=== PATIENT | male | born 1955 | race Caucasian/White ===

== ENCOUNTER 2016-11-25 18:40 | Emergency (ER) | payer OTHER ==
[2016-11-25] MEDS ORDERED: ACETAMINOPHEN TAB 500 MG TAB PO STA (19:21)
[2016-11-25] MEDS ORDERED: SODIUM CHLORIDE 0.9% 1,000 ML IV ONE (19:22)
--- NOTE | 2016-11-25 19:24 | ED ---
Fever HPI - General Chief Complaint: Fever Stated Complaint: fever Source: patient Mode of arrival: wheelchair Limitations: no limitations - History of Present Illness Initial Comments: Patient is a 61-year-old male who presents for evaluation of fever at home and diarrhea. Past medical history as below. 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 He is no longer on immunosuppression medications. Has a history of auto [id number] and recently completed a course of prednisone. Over the last 24 hours, the patient developed liquid brown stool. There is no blood in it. Non-mucousy. Has a hx of C. diff per the pt. He has associated nausea without emesis. He states that he feels very fatigued. He had a T-max of 101 at home. He has associated chills. No known sick contacts. No recent travel. No changes in medications outside of discontinuing the prednisone and course of penicillin. He is followed by [facility]. He denies congestion, URI symptoms, sore throat, cough, shortness of breath, chest pain, vomiting, abdominal pain, pain or burning with urination. - Related Data Home Medications Medication Instructions Recorded Confirmed Vitamin B Complex 1 cap PO DAILY 05/23/15 11/25/16 Ergocalciferol (Vitamin D2) 50,000 unit PO TH 12/04/15 11/25/16 [Drisdol] Acyclovir [Zovirax] 400 mg PO BID 11/25/16 11/25/16 Gabapentin [Neurontin] 300 mg PO BID 11/25/16 11/25/16 Metoprolol Succinate (ER) [Toprol 50 mg PO DAILY@1800 11/25/16 11/25/16 Xl] Posaconazole [Noxafil] 300 mg PO DAILY 11/25/16 11/25/16 cycloSPORINE [Restasis Multidose] 1 drop BOTH EYES BID 11/25/16 11/25/16 Allergies Allergy/AdvReac Type Severity Reaction Status Date / Time Iodinated Contrast Media - Allergy Unknown Verified 11/25/16 19:26 Oral and [Iodinated Contrast Media - IV Dye] Review of Systems ROS Statement: Those systems with pertinent positive or pertinent negative responses have been documented in the HPI. ROS Other: All systems not noted in ROS Statement are negative. Past Medical History Past Medical History: Cancer, Hyperlipidemia, Hypertension Additional Past Medical History / Comment(s): prostate cancer, hx venous insufficiency, RCMD, bone marrow transplant History of Any Multi-Drug Resistant Organisms: None Reported Past Surgical History: Heart Catheterization With Stent, Hernia Repair, Prostate Surgery Additional Past Surgical History / Comment(s): larry fundoplication, bone marrow transplant Past Anesthesia/Blood Transfusion Reactions: No Reported Reaction Date of Last Stent Placement:: 2003 Past Psychological History: Depression Smoking Status: Never smoker Past Alcohol Use History: None Reported, Rare Past Drug Use History: None Reported - Past Family History Mother Family Medical History: Cancer Additional Family Medical History / Comment(s): skin cancer Brother(s) Family Medical History: Renal Disease Additional Family Medical History / Comment(s): kidney transplant General Exam Limitations: no limitations General appearance: alert, in no apparent distress, other (Flushed but well- appearing) Head exam: Present: atraumatic, normocephalic, normal inspection Eye exam: Present: normal appearance, PERRL, EOMI. Absent: scleral icterus, conjunctival injection, periorbital swelling ENT exam: Present: normal exam, normal oropharynx, mucous membranes moist, TM's normal bilaterally, other (No lesions identified in the mouth) Neck exam: Present: normal inspection. Absent: tenderness, meningismus, lymphadenopathy Respiratory exam: Present: normal lung sounds bilaterally, other (Clear bilaterally. No wheezes rales or rhonchi. No conversational dyspnea.). Absent : respiratory distress, wheezes, rales, rhonchi, stridor Cardiovascular Exam: Present: regular rate, normal rhythm, normal heart sounds. Absent: systolic murmur, diastolic murmur, rubs, gallop, clicks GI/Abdominal exam: Present: soft, normal bowel sounds, other (Abdomen is soft. No tenderness elicited. No peritoneal signs. Negative Carias sign. Negative McBurney sign. No rebound tenderness.). Absent: distended, tenderness, guarding, rebound, rigid Extremities exam: Present: normal inspection, full ROM, normal capillary refill. Absent: tenderness, pedal edema, joint swelling, calf tenderness Back exam: Present: normal inspection Neurological exam: Present: alert, oriented X3, CN II-XII intact Psychiatric exam: Present: normal affect, normal mood Skin exam: Present: warm, dry, intact, normal color, other (No obvious rashes noted). Absent: rash Course Vital Signs 11/25/16 11/25/16 11/25/16 18:49 21:09 22:37 Temperature 101.0 F H 98.7 F 97.7 F Pulse Rate 79 63 55 L Respiratory 18 16 18 Rate Blood Pressure 172/84 175/79 148/75 O2 Sat by Pulse 99 98 97 Oximetry Medical Decision Making - Medical Decision Making Patient presents for evaluation for fever over the last 24 hours. Has a history of bone marrow transplantation and is not on immunosuppressive medications. He provided blood work from 11/20/2016 and is not neutropenic on those laboratory studies. There are no clinical findings suggestive of a bacterial infection at this time. Will order blood cultures, urine cultures, urinalysis, basic labs, influenza, chest x-ray. Will also order a dose of Tylenol. 2048: Reviewed laboratory studies. Thrombocytopenia though at baseline. Leukopenia at baseline. Awaiting for differential to resolve. Fluctuates appear appropriate. Influenza negative. Review chest x-ray which was negative for infiltrate. -Manual differential resolved. Not neutropenic. Called [facility]. We'll place a page out to bone marrow physician talent acquisition manager. Will call back. 2124: Spoke with Dr. Calderon (spelling?). He was able to provide a little bit more history about the patient with his history of recurrent C. diff and also has a history of CMV colitis. Discussed laboratory findings, vital signs, history, physical exam. We are both in agreement that he does not have consistent signs or symptoms of CMV colitis or C. diff at this time as he has no abdominal pain/symptoms consistent with previous episodes of C. diff. Dr. Calderon recommended discharging the patient home if there are no signs of bacterial infection and having him follow-up in the office. I discussed this conversation with the patient at bedside. He feels comfortable going home. Will take Tylenol and Motrin as needed for fevers. Frequent hand washing. Plenty of fluids. Bureau diet. Unable to provide a stool sample in the emergency department and states he is no longer having diarrhea. Discussed signs and symptoms on when to return to the emergency department for further evaluation. He will either come here or go to [place]. Comfortable with discharge home and will follow-up. - Lab Data Result diagrams: 11/25/16 20:00 11/25/16 20:00 Lab Results 11/25/16 11/25/16 11/25/16 Range/Units 19:25 20:00 20:00 WBC 2.4 L (3.8-10.6) k/uL RBC 2.70 L (4.30-5.90) m/uL Hgb 9.5 L (13.0-17.5) gm/dL Hct 28.5 L (39.0-53.0) % MCV 105.8 H D (80.0-100.0) fL MCH 35.4 H (25.0-35.0) pg MCHC 33.5 (31.0-37.0) g/dL RDW 16.9 H (11.5-15.5) % Plt Count 41 L* (150-450) k/uL Neutrophils % (Manual) 54.0 % Band Neutrophils % 2.0 % Lymphocytes % (Manual) 36.0 % Monocytes % (Manual) 7.0 % Eosinophils % (Manual) 1.0 % Neutrophils # (Manual) 1.3 (1.3-7.7) k/uL Lymphocytes # (Manual) 0.9 L (1.0-4.8) k/uL Monocytes # (Manual) 0.2 (0-1.0) k/uL Eosinophils # (Manual) 0.0 (0-0.7) k/uL Nucleated RBCs 0 (0-0) /100 WBC Manual Slide Review Performed Poikilocytosis Slight Poikilocytosis (manual Present Anisocytosis Slight Anisocytosis (manual) Present Macrocytosis Marked Sodium 141 (137-145) mmol/L Potassium 3.6 (3.5-5.1) mmol/L Chloride 107 (98-107) mmol/L Carbon Dioxide 23 (22-30) mmol/L Anion Gap 11 mmol/L BUN 17 (9-20) mg/dL Creatinine 1.10 (0.66-1.25) mg/dL Est GFR (MDRD) Af Amer >60 (>60 ml/min/1.73 sqM) Est GFR (MDRD) Non-Af >60 (>60 ml/min/1.73 sqM) Glucose 88 (74-99) mg/dL Plasma Lactic Acid Dipak (0.7-2.0) mmol/L Calcium 8.5 (8.4-10.2) mg/dL Total Bilirubin 0.5 (0.2-1.3) mg/dL AST 31 (17-59) U/L ALT 68 (21-72) U/L Alkaline Phosphatase 79 (38-126) U/L Total Protein 5.4 L (6.3-8.2) g/dL Albumin 3.3 L (3.5-5.0) g/dL Influenza Type A RNA Not Detected (Not Detectd) Influenza Type B (PCR) Not Detected (Not Detectd) 11/25/16 Range/Units 20:00 WBC (3.8-10.6) k/uL RBC (4.30-5.90) m/uL Hgb (13.0-17.5) gm/dL Hct (39.0-53.0) % MCV (80.0-100.0) fL MCH (25.0-35.0) pg MCHC (31.0-37.0) g/dL RDW (11.5-15.5) % Plt Count (150-450) k/uL Neutrophils % (Manual) % Band Neutrophils % % Lymphocytes % (Manual) % Monocytes % (Manual) % Eosinophils % (Manual) % Neutrophils # (Manual) (1.3-7.7) k/uL Lymphocytes # (Manual) (1.0-4.8) k/uL Monocytes # (Manual) (0-1.0) k/uL Eosinophils # (Manual) (0-0.7) k/uL Nucleated RBCs (0-0) /100 WBC Manual Slide Review Poikilocytosis Poikilocytosis (manual Anisocytosis Anisocytosis (manual) Macrocytosis Sodium (137-145) mmol/L Potassium (3.5-5.1) mmol/L Chloride (98-107) mmol/L Carbon Dioxide (22-30) mmol/L Anion Gap mmol/L BUN (9-20) mg/dL Creatinine (0.66-1.25) mg/dL Est GFR (MDRD) Af Amer (>60 ml/min/1.73 sqM) Est GFR (MDRD) Non-Af (>60 ml/min/1.73 sqM) Glucose (74-99) mg/dL Plasma Lactic Acid Dipak 0.6 L (0.7-2.0) mmol/L Calcium (8.4-10.2) mg/dL Total Bilirubin (0.2-1.3) mg/dL AST (17-59) U/L ALT (21-72) U/L Alkaline Phosphatase (38-126) U/L Total Protein (6.3-8.2) g/dL Albumin (3.5-5.0) g/dL Influenza Type A RNA (Not Detectd) Influenza Type B (PCR) (Not Detectd) Disposition Clinical Impression: Fever, Diarrhea, Leukopenia, Thrombocytopenia, Bone marrow replaced by transplant Disposition: HOME SELF-CARE Condition: Good Instructions: Fever in Adults (ED), Acute Diarrhea (ED) Referrals: Ranjana Rendon DO [Primary Care Provider] - 1-2 days
[2016-11-25 20:18] LABS: Anisocytosis Slight; Aty Lym Flag Slight; CHCM 34.2; HCT 28.5 % (39.0-53.0); HGB 9.5 gm/dL (13.0-17.5); MCH 35.4 pg (25.0-35.0); MCHC 33.5 g/dL (31.0-37.0); Macrocytosis Marked; Mean Platelet Volume 8.5; Poikilocytosis Slight; RDW 16.9 % (11.5-15.5); WBC 2.4 k/uL (3.8-10.6); WBC (Perox) 2.59
[2016-11-25 20:29] LABS: MCV 105.8 fL (80.0-100.0)
--- NOTE | 2016-11-25 20:34 | XR ---
EXAMINATION TYPE: XR chest 2V DATE OF EXAM: 11/25/2016 8:18 PM HISTORY: Shortness of breath. COMPARISON: 09/21/2016 TECHNIQUE: Single view of the chest is submitted. FINDINGS: Demonstrated are scattered senescent parenchymal change. There is no evidence for focal infiltrate. The heart is stable. Hilar and mediastinal structures are within normal limits. Degenerative changes are seen of the dorsal spine. IMPRESSION: 1. Chronic changes without evidence for acute pulmonary disease.
[2016-11-25 20:36] LABS: ALT 68 U/L (21-72); AST 31 U/L (17-59); Alkaline Phosphatase 79 U/L (38-126); Anion Gap 11 mmol/L; Blood Urea Nitrogen 17 mg/dL (9-20); Calcium 8.5 mg/dL (8.4-10.2); Carbon Dioxide 23 mmol/L (22-30); Chloride 107 mmol/L (98-107); Glucose 88 mg/dL (74-99); Non-African American GFR(MDRD) >60 (>60 ml/min/1.73 sqM); Potassium 3.6 mmol/L (3.5-5.1); Sodium 141 mmol/L (137-145); Total Bilirubin 0.5 mg/dL (0.2-1.3); Total Protein 5.4 g/dL (6.3-8.2)
[2016-11-25 20:52] LABS: Add Differential Manual Differential
[2016-11-25 20:57] LABS: Nucleated Red Blood Cells 0 /100 WBC (0-0); Total Cells Counted 100
[2016-11-25 20:58] LABS: Manual Review Performed
[2016-11-25 22:47] VITALS: BP 148/75; PULSE 55; RESP 18; TEMP 97.7
== END 2016-11-25 22:37 | disposition home or self-care (01) ==
LOC: EC 18:40
DX: R50.9 Fever, unspecified (principal); R19.7 Diarrhea, unspecified; D72.819 Decreased white blood cell count, unspecified; D69.6 Thrombocytopenia, unspecified; Z94.81 Bone marrow transplant status; Z79.899 Other long term (current) drug therapy; I10 Essential (primary) hypertension; Z85.46 Personal history of malignant neoplasm of prostate; Z95.5 Presence of coronary angioplasty implant and graft; Z91.041 Radiographic dye allergy status
CPT/HCPCS: 36415; 71020; 80053; 83605; 85025; 87040; 87502; 99283

== ENCOUNTER → 2016-11-28 | Outpatient (CLI) | payer OTHER ==
[2016-11-28 13:43] VITALS: PULSE 55; RESP 18; TEMP 98.5
[2016-11-28 13:54] VITALS: BP 168/90
== END | disposition home or self-care (01) ==
LOC: LABWHC1 12:22
PROVIDERS: ATTEND Physician Assistant
DX: R50.9 Fever, unspecified (principal)
CPT/HCPCS: 36415; 36591; 87040

== ENCOUNTER → 2017-04-24 | Outpatient (CLI) | payer OTHER | END | disposition home or self-care (01) | LOC: LABWHC1 11:34 | PROVIDERS: ATTEND Internal Medicine | DX: R00.1 Bradycardia, unspecified (principal) | CPT/HCPCS: 36415; 93005 ==

== ENCOUNTER 2017-07-02 11:34 | Emergency (ER) | payer OTHER ==
[2017-07-02 11:40] VITALS: TEMP 98.4
[2017-07-02 12:12] LABS: Anisocytosis Slight; Basophils % (A) 0 %; CH 32.7; CHCM 31.9; Eosinophils % (A) 1 %; HCT 32.1 % (39.0-53.0); HDW 3.33; HGB 10.5 gm/dL (13.0-17.5); Hypochromasia Slight; Luc # (Auto) 0.11; Luc % (Auto) 2; Lymphocytes # (A) 0.8 k/uL (1.0-4.8); Lymphocytes % (A) 17 %; MCH 33.6 pg (25.0-35.0); MCHC 32.7 g/dL (31.0-37.0); MCV 102.7 fL (80.0-100.0); Macrocytosis Moderate; Mean Platelet Volume 8.8; Monocytes # (A) 0.2 k/uL (0-1.0); Monocytes % (A) 3 %; Neutrophils # (A) 3.8 k/uL (1.3-7.7); Neutrophils % (A) 77 %; RBC 3.12 m/uL (4.30-5.90); RDW 18.6 % (11.5-15.5); WBC 4.9 k/uL (3.8-10.6); WBC (Perox) 4.81
--- NOTE | 2017-07-02 12:17 | ED ---
General Adult HPI - General Chief complaint: Chest Pain Stated complaint: Sharp Pains in Chest Time Seen by Provider: 07/02/17 11:41 Source: patient, RN notes reviewed, old records reviewed Mode of arrival: wheelchair Limitations: no limitations - History of Present Illness Initial comments: This is a 61-year-old male the ER for evaluation today. Today the patient presents for evaluation regarding chest pain. Patient has severe sudden onset of sharp chest pain. 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 No fevers. No significant shortness of breath. No trauma. No travel history. No sick contacts. - Related Data Home Medications Medication Instructions Recorded Confirmed Ergocalciferol (Vitamin D2) 50,000 unit PO TH 12/04/15 07/02/17 [Drisdol] Lisinopril [Lisinopril] 20 mg PO DAILY 03/14/17 07/02/17 Acyclovir 400 mg PO BID 07/02/17 07/02/17 Cyanocobalamin (Vitamin B-12) 1,000 mcg PO DAILY 07/02/17 07/02/17 [Vitamin B-12] Folic Acid 1 mg PO DAILY 07/02/17 07/02/17 Hydrocortisone [Cortef] 20 mg PO BID 07/02/17 07/02/17 Lidocaine-Prilocaine Cream [Emla 1 applic TOPICAL DAILY PRN 07/02/17 07/02/17 Cream 2.5%/2.5%] Penicillin V Potassium [Pen Vee K] 500 mg PO BID 07/02/17 07/02/17 Posaconazole [Noxafil] 300 mg PO DAILY 07/02/17 07/02/17 Ranitidine HCl 150 mg PO BID 07/02/17 07/02/17 amLODIPine [Norvasc] 5 mg PO DAILY 07/02/17 07/02/17 predniSONE 30 mg PO DAILY 07/02/17 07/02/17 Allergies Allergy/AdvReac Type Severity Reaction Status Date / Time Iodinated Contrast- Oral and Allergy Unknown Verified 07/02/17 12:05 IV Dye [Iodinated Contrast Media - IV Dye] tramadol AdvReac Nausea & Verified 07/02/17 12:05 Vomiting Review of Systems ROS Statement: Those systems with pertinent positive or pertinent negative responses have been documented in the HPI. ROS Other: All systems not noted in ROS Statement are negative. Past Medical History Past Medical History: Cancer, Hyperlipidemia, Hypertension Additional Past Medical History / Comment(s): prostate cancer, hx venous insufficiency, RCMD, bone marrow transplant, "graft vs host disease" History of Any Multi-Drug Resistant Organisms: None Reported Past Surgical History: Heart Catheterization With Stent, Hernia Repair, Prostate Surgery Additional Past Surgical History / Comment(s): larry fundoplication, bone marrow transplant Past Anesthesia/Blood Transfusion Reactions: No Reported Reaction Date of Last Stent Placement:: 2003 Past Psychological History: Depression Smoking Status: Former smoker Past Alcohol Use History: Occasional Past Drug Use History: None Reported - Past Family History Mother Family Medical History: Cancer Additional Family Medical History / Comment(s): skin cancer Brother(s) Family Medical History: Renal Disease Additional Family Medical History / Comment(s): kidney transplant General Exam Limitations: no limitations General appearance: alert, in no apparent distress Head exam: Present: atraumatic, normocephalic, normal inspection Eye exam: Present: normal appearance, PERRL, EOMI. Absent: scleral icterus, conjunctival injection, periorbital swelling ENT exam: Present: normal exam, mucous membranes moist Neck exam: Present: normal inspection. Absent: tenderness, meningismus, lymphadenopathy Respiratory exam: Present: normal lung sounds bilaterally. Absent: respiratory distress, wheezes, rales, rhonchi, stridor Cardiovascular Exam: Present: regular rate, normal rhythm, normal heart sounds. Absent: systolic murmur, diastolic murmur, rubs, gallop, clicks GI/Abdominal exam: Present: soft, normal bowel sounds. Absent: distended, tenderness, guarding, rebound, rigid Extremities exam: Present: normal inspection, full ROM, normal capillary refill. Absent: tenderness, pedal edema, joint swelling, calf tenderness Back exam: Present: normal inspection Neurological exam: Present: alert, oriented X3, CN II-XII intact Psychiatric exam: Present: normal affect, normal mood Skin exam: Present: warm, dry, intact, normal color. Absent: rash Course Vital Signs 07/02/17 07/02/17 07/02/17 11:37 12:39 14:14 Temperature 98.4 F Pulse Rate 84 71 64 Respiratory 18 20 17 Rate Blood Pressure 144/83 132/70 138/79 O2 Sat by Pulse 98 100 Oximetry - Reevaluation(s) Reevaluation #1: 07/02/17 14:33 On reevaluation patient is in no acute distress, feels greatly relieved a is not have a blood clot EKG Findings - EKG Comments: EKG Findings:: EKG shows normal sinus rhythm rate of 75, VA 122, QRS 92, QTC 428 Medical Decision Making - Medical Decision Making 58 female in the ER for evaluation. Patient is a for evaluation regarding chest pain. Patient does have MDS with recent bone marrow transplant on steroids. Patient is a CTA is negative, lab values which are normal patient can be discharged home - Lab Data Result diagrams: 07/02/17 11:53 Lab Results 07/02/17 07/02/17 Range/Units 11:53 11:53 WBC 4.9 (3.8-10.6) k/uL RBC 3.12 L (4.30-5.90) m/uL Hgb 10.5 L (13.0-17.5) gm/dL Hct 32.1 L (39.0-53.0) % MCV 102.7 H (80.0-100.0) fL MCH 33.6 (25.0-35.0) pg MCHC 32.7 (31.0-37.0) g/dL RDW 18.6 H (11.5-15.5) % Plt Count 125 L (150-450) k/uL Neutrophils % 77 % Lymphocytes % 17 % Monocytes % 3 % Eosinophils % 1 % Basophils % 0 % Neutrophils # 3.8 (1.3-7.7) k/uL Lymphocytes # 0.8 L (1.0-4.8) k/uL Monocytes # 0.2 (0-1.0) k/uL Eosinophils # 0.0 (0-0.7) k/uL Basophils # 0.0 (0-0.2) k/uL Hypochromasia Slight Anisocytosis Slight Macrocytosis Moderate Total Creatine Kinase 140 (55-170) U/L CK-MB (CK-2) 8.3 H* (0.0-2.4) ng/mL CK-MB (CK-2) Rel Index 5.9 - Radiology Data Radiology results: report reviewed (CT chest is negative), image reviewed Disposition Clinical Impression: Chest pain Disposition: HOME SELF-CARE Condition: Good Instructions: Chest Pain (ED), Costochondritis (ED) Referrals: Ranjana Rendon DO [Primary Care Provider] - 1-2 days
--- NOTE | 2017-07-02 12:26 | XR ---
EXAMINATION TYPE: XR chest 2V DATE OF EXAM: 07/02/2017 COMPARISON: 11/25/2016 TECHNIQUE: PA and lateral views submitted. HISTORY: Pain FINDINGS: The lungs are clear and there is no pneumothorax, pleural effusion, or focal pneumonia. Arthropathy of the shoulders. Mediport catheter noted. IMPRESSION: 1. No acute process.
[2017-07-02] MEDS ORDERED: RX INFO: IV CONTRAST WAS GIVEN 1 EACH MISC MISCELLANE PRN (12:42)
[2017-07-02] MEDS ORDERED: methylPREDNISolone SOD SUCCI 125 MG/2 ML VIAL IV STA (12:42)
[2017-07-02] MEDS ORDERED: diphenhydrAMINE 50 MG/ML 1 ML VIAL IVP STA (12:42)
[2017-07-02] MEDS ORDERED: FAMOTIDINE 20 MG/2 ML VIAL IV STA (12:42)
[2017-07-02 12:46] LABS: Creatine Kinase MB 8.3 ng/mL (0.0-2.4)
--- NOTE | 2017-07-02 13:40 | CT ---
EXAMINATION TYPE: CT angio chest DATE OF EXAM: 07/02/2017 COMPARISON: NONE HISTORY: Sharp pains in chest. CT DLP: 352.4 mGycm. Automated Exposure Control for Dose Reduction was Utilized. CONTRAST: CTA scan of the thorax is performed with IV Contrast, patient injected with 100 mL of Omnipaque 350, pulmonary embolism protocol. MIP Images are created on CT scanner and reviewed. FINDINGS: LUNGS: The lungs are grossly clear, there is no concerning parenchymal mass or nodule identified. T here is no pleural effusion or pneumothorax seen. The tracheobronchial tree is patent. MEDIASTINUM: There is satisfactory enhancement of the pulmonary artery and its branches, there is no CT evidence for pulmonary embolism. There are no greater than 1 cm hilar or mediastinal lymph nodes. No cardiomegaly or pericardial effusion is seen. There is three-vessel coronary artery calcificati on seen which is noted marker for coronary artery disease. There is right subclavian Mediport cathete r with tip in SVC. OTHER: Surgical clips epigastric region just below diaphragm are likely product Kendall fundoplication surgery. There is simple appearing 1.8 cm cyst laterally upper pole level left kidney. There is mild to moderate multilevel spurring in the thoracic spine. IMPRESSION: No CT evidence for pulmonary embolism. No acute pulmonary process.
[2017-07-02 14:20] VITALS: BP 138/79; PULSE 64; RESP 17
== END 2017-07-02 14:39 | disposition home or self-care (01) ==
LOC: EC 11:34
DX: R07.9 Chest pain, unspecified (principal); I10 Essential (primary) hypertension; D64.9 Anemia, unspecified; Z94.81 Bone marrow transplant status; Z85.46 Personal history of malignant neoplasm of prostate; Z95.5 Presence of coronary angioplasty implant and graft; Z87.891 Personal history of nicotine dependence; Z79.51 Long term (current) use of inhaled steroids; Z79.899 Other long term (current) drug therapy; Z91.041 Radiographic dye allergy status; Z88.6 Allergy status to analgesic agent
CPT/HCPCS: 99285 ×2; 96374 ×2; 96375 ×3; 36415; 93005; 82550; 82553; 85025; 71020; 71275; J1200; J2930; Q9967

== ENCOUNTER → 2017-12-04 | Outpatient (CLI) | payer BC ==
[2017-12-04 14:53] VITALS: BP 157/84; PULSE 78; RESP 16; TEMP 97.9
[2017-12-04 15:28] LABS: Anisocytosis Moderate; Basophils % (A) 0 %; Eosinophils % (A) 0 %; HCT 26.6 % (39.0-53.0); HGB 8.1 gm/dL (13.0-17.5); Hypochromasia Moderate; Lymphocytes # (A) 0.4 k/uL (1.0-4.8); Lymphocytes % (A) 12 %; MCHC 30.5 g/dL (31.0-37.0); MCV 88.7 fL (80.0-100.0); Mean Platelet Volume 11.7; Microcytosis Slight; Monocytes # (A) 0.2 k/uL (0-1.0); Monocytes % (A) 6 %; Neutrophils # (A) 2.7 k/uL (1.3-7.7); Neutrophils % (A) 80 %; Platelet Count 152 k/uL (150-450); Poikilocytosis Slight; RDW 22.8 % (11.5-15.5); WBC 3.3 k/uL (3.8-10.6)
[2017-12-04 15:48] LABS: ALT 50 U/L (21-72); AST 93 U/L (17-59); Albumin 3.5 g/dL (3.5-5.0); Alkaline Phosphatase 49 U/L (38-126); Anion Gap 9 mmol/L; Blood Urea Nitrogen 29 mg/dL (9-20); Calcium 9.2 mg/dL (8.4-10.2); Carbon Dioxide 27 mmol/L (22-30); Chloride 105 mmol/L (98-107); Glucose 125 mg/dL (74-99); Potassium 4.6 mmol/L (3.5-5.1); Sodium 141 mmol/L (137-145); Total Bilirubin 0.6 mg/dL (0.2-1.3); Total Protein 5.9 g/dL (6.3-8.2)
[2017-12-04 15:58] LABS: Polychromasia Present
== END | disposition home or self-care (01) ==
LOC: PROCWHC3 14:26
PROVIDERS: ATTEND Physician Assistant
DX: D46.9 Myelodysplastic syndrome, unspecified (principal); D89.811 Chronic graft-versus-host disease; D69.6 Thrombocytopenia, unspecified; D89.813 Graft-versus-host disease, unspecified; G72.0 Drug-induced myopathy; T38.0X5A Adverse effect of glucocorticoids and synthetic analogues, initial encounter; Z94.81 Bone marrow transplant status
CPT/HCPCS: 80053; 85025; 36591; J1642; 83615

== ENCOUNTER 2017-12-28 23:48 | Inpatient (IN) | payer BC ==
[2017-12-29 00:01] LABS: Glucose,Whole Blood 106 mg/dL (75-99)
[2017-12-29] MEDS ORDERED: HYDROCORTISONE SUCCINATE 100 MG/2 ML VIAL IV STA (00:28)
--- NOTE | 2017-12-29 00:32 | ED ---
General Adult HPI - General Source: patient, EMS, RN notes reviewed Mode of arrival: EMS Limitations: no limitations <Carlos Lehman - Last Filed: 12/29/17 00:32> <Anderson Ramirez - Last Filed: 12/29/17 03:25> - General Chief complaint: Weakness Stated complaint: Weakness Time Seen by Provider: 12/29/17 00:27 - History of Present Illness Initial comments: 62-year-old male history of leukemia presents with generalized weakness. Patient was found by EMS after unknown downtime, patient believes was several hours. He had fallen earlier in the day due to weakness. He cannot see a clock and isn't totally sure how long he was down. Patient states he does not take his medication this morning which includes prednisone, antibiotics, antibiotics and antihypertensive medication. 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 He developed witll-hhuqht-eyso disease several months after bone marrow transplant. Patient denies any focal weakness. Denies headache or head trauma. Denies chest pain or shortness of breath. Denies abdominal pain nausea vomiting or diarrhea. Denies fever or chills. (Carlos Lehman) - Related Data Home Medications Medication Instructions Recorded Confirmed Ergocalciferol (Vitamin D2) 50,000 unit PO TH 12/04/15 12/27/17 [Drisdol] Lisinopril [Lisinopril] 20 mg PO BID 03/14/17 12/27/17 Acyclovir 400 mg PO BID 07/02/17 12/27/17 Cyanocobalamin (Vitamin B-12) 1,000 mcg PO DAILY 07/02/17 12/27/17 [Vitamin B-12] Folic Acid 1 mg PO DAILY 07/02/17 12/27/17 Hydrocortisone [Cortef] 20 mg PO BID 07/02/17 12/27/17 Lidocaine-Prilocaine Cream [Emla 1 applic TOPICAL DAILY PRN 07/02/17 12/27/17 Cream 2.5%/2.5%] Penicillin V Potassium [Pen Vee K] 500 mg PO BID 07/02/17 12/27/17 Posaconazole [Noxafil] 300 mg PO DAILY 07/02/17 12/27/17 Ranitidine HCl 150 mg PO BID 07/02/17 12/27/17 amLODIPine [Norvasc] 10 mg PO DAILY 07/02/17 12/27/17 predniSONE 15 mg PO DAILY 07/02/17 12/27/17 Allergies Allergy/AdvReac Type Severity Reaction Status Date / Time Iodinated Contrast- Oral and Allergy Unknown Verified 12/28/17 23:56 IV Dye [Iodinated Contrast Media - IV Dye] tramadol AdvReac Nausea & Verified 12/28/17 23:56 Vomiting Review of Systems ROS Other: All systems not noted in ROS Statement are negative. <Carlos Lehman - Last Filed: 12/29/17 00:32> ROS Other: All systems not noted in ROS Statement are negative. <Anderson Ramirez - Last Filed: 12/29/17 03:25> ROS Statement: Those systems with pertinent positive or pertinent negative responses have been documented in the HPI. Past Medical History Past Medical History: Cancer, Hyperlipidemia, Hypertension Additional Past Medical History / Comment(s): prostate cancer, hx venous insufficiency, RCMD, bone marrow transplant, "graft vs host disease" History of Any Multi-Drug Resistant Organisms: C-DIFF Date of last positivie culture/infection: 2015 Past Surgical History: Heart Catheterization With Stent, Hernia Repair, Prostate Surgery Additional Past Surgical History / Comment(s): larry fundoplication, bone marrow transplant Past Anesthesia/Blood Transfusion Reactions: No Reported Reaction Date of Last Stent Placement:: 2003 Past Psychological History: Depression Smoking Status: Former smoker Past Alcohol Use History: Occasional Past Drug Use History: None Reported - Past Family History Mother Family Medical History: Cancer Additional Family Medical History / Comment(s): skin cancer Brother(s) Family Medical History: Renal Disease Additional Family Medical History / Comment(s): kidney transplant <Carlos Lehman - Last Filed: 12/29/17 00:32> General Exam Limitations: no limitations General appearance: alert, in no apparent distress Head exam: Present: atraumatic, normocephalic Eye exam: Present: normal appearance, PERRL ENT exam: Present: normal exam Neck exam: Present: normal inspection. Absent: tenderness, meningismus Respiratory exam: Present: normal lung sounds bilaterally. Absent: respiratory distress, wheezes, rales Cardiovascular Exam: Present: regular rate, normal rhythm GI/Abdominal exam: Present: soft. Absent: distended, tenderness, guarding Extremities exam: Present: normal inspection, normal capillary refill, pedal edema (trace) Neurological exam: Present: alert, oriented X3, CN II-XII intact. Absent: motor sensory deficit Psychiatric exam: Present: normal affect, normal mood Skin exam: Present: warm, dry, pallor. Absent: cyanosis, diaphoretic <Carlos Lehman - Last Filed: 12/29/17 00:32> Course <Carlos Lehman - Last Filed: 12/29/17 00:32> <Anderson Ramirez - Last Filed: 12/29/17 03:25> Vital Signs 12/28/17 12/29/17 12/29/17 23:52 01:16 02:00 Temperature 98.1 F Pulse Rate 85 93 80 Respiratory 16 18 18 Rate Blood Pressure 151/72 123/58 118/68 O2 Sat by Pulse 96 95 96 Oximetry 12/29/17 02:42 Temperature Pulse Rate 81 Respiratory 16 Rate Blood Pressure 116/83 O2 Sat by Pulse 96 Oximetry - Reevaluation(s) Reevaluation #1: 12/29/17 0100 Patient's care is signed out at shift change awaiting laboratory studies and imaging. (Carlos Lehman) EKG Findings - EKG Results: EKG: interpreted by ERMD, sinus rhythm (Rate approximately 81 bpm), normal axis , normal QRS, normal ST/T - Blocks, Gering, Hypertrophy, ST Abn: Chamber hypertrophy or enlargement: only voltage criteria for left ventricular hypertrophy <AshleyAnderson - Last Filed: 12/29/17 03:25> Medical Decision Making - Lab Data Result diagrams: 12/29/17 01:04 12/29/17 01:04 <Anderson Ramirez - Last Filed: 12/29/17 03:25> - Lab Data Lab Results 12/28/17 12/29/17 12/29/17 Range/Units 23:57 01:04 01:04 WBC 2.1 L (3.8-10.6) k/uL RBC 3.43 L (4.30-5.90) m/uL Hgb 9.0 L (13.0-17.5) gm/dL Hct 29.1 L (39.0-53.0) % MCV 84.8 (80.0-100.0) fL MCH 26.2 (25.0-35.0) pg MCHC 30.9 L (31.0-37.0) g/dL RDW 22.2 H (11.5-15.5) % Plt Count 177 (150-450) k/uL Neutrophils % (Manual) 59 % Lymphocytes % (Manual) 28 % Monocytes % (Manual) 13 % Neutrophils # (Manual) 1.24 L (1.3-7.7) k/uL Lymphocytes # (Manual) 0.59 L (1.0-4.8) k/uL Monocytes # (Manual) 0.27 (0-1.0) k/uL Nucleated RBCs 0 (0-0) /100 WBC Manual Slide Review Performed Large Platelets Present Hypochromasia Moderate Poikilocytosis Slight Anisocytosis Moderate Microcytosis Slight PT (9.0-12.0) sec INR (<1.2) APTT (22.0-30.0) sec Sodium (137-145) mmol/L Potassium (3.5-5.1) mmol/L Chloride (98-107) mmol/L Carbon Dioxide (22-30) mmol/L Anion Gap mmol/L BUN (9-20) mg/dL Creatinine (0.66-1.25) mg/dL Est GFR (CKD-EPI)AfAm (>60 ml/min/1.73 sqM) Est GFR (CKD-EPI)NonAf (>60 ml/min/1.73 sqM) Glucose (74-99) mg/dL POC Glucose (mg/dL) 106 H (75-99) mg/dL POC Glu Mineral Industry Teacher ID Kenia Lamb Plasma Lactic Acid Dipak (0.7-2.0) mmol/L Calcium (8.4-10.2) mg/dL Phosphorus (2.5-4.5) mg/dL Magnesium (1.6-2.3) mg/dL Total Bilirubin (0.2-1.3) mg/dL AST (17-59) U/L ALT (21-72) U/L Alkaline Phosphatase (38-126) U/L Total Creatine Kinase 496 H (55-170) U/L CK-MB (CK-2) 32.2 H* (0.0-2.4) ng/mL CK-MB (CK-2) Rel Index 6.5 Troponin I 0.035 H* (0.000-0.034) ng/mL Total Protein (6.3-8.2) g/dL Albumin (3.5-5.0) g/dL 12/29/17 12/29/17 12/29/17 Range/Units 01:04 01:04 01:04 WBC (3.8-10.6) k/uL RBC (4.30-5.90) m/uL Hgb (13.0-17.5) gm/dL Hct (39.0-53.0) % MCV (80.0-100.0) fL MCH (25.0-35.0) pg MCHC (31.0-37.0) g/dL RDW (11.5-15.5) % Plt Count (150-450) k/uL Neutrophils % (Manual) % Lymphocytes % (Manual) % Monocytes % (Manual) % Neutrophils # (Manual) (1.3-7.7) k/uL Lymphocytes # (Manual) (1.0-4.8) k/uL Monocytes # (Manual) (0-1.0) k/uL Nucleated RBCs (0-0) /100 WBC Manual Slide Review Large Platelets Hypochromasia Poikilocytosis Anisocytosis Microcytosis PT 10.5 (9.0-12.0) sec INR 1.1 (<1.2) APTT 23.5 (22.0-30.0) sec Sodium 140 (137-145) mmol/L Potassium 4.0 (3.5-5.1) mmol/L Chloride 104 (98-107) mmol/L Carbon Dioxide 27 (22-30) mmol/L Anion Gap 9 mmol/L BUN 31 H (9-20) mg/dL Creatinine 1.00 (0.66-1.25) mg/dL Est GFR (CKD-EPI)AfAm >90 (>60 ml/min/1.73 sqM) Est GFR (CKD-EPI)NonAf 79 (>60 ml/min/1.73 sqM) Glucose 98 (74-99) mg/dL POC Glucose (mg/dL) (75-99) mg/dL POC Glu Mineral Industry Teacher ID Plasma Lactic Acid Dipak 1.0 (0.7-2.0) mmol/L Calcium 8.9 (8.4-10.2) mg/dL Phosphorus 3.7 (2.5-4.5) mg/dL Magnesium 2.0 (1.6-2.3) mg/dL Total Bilirubin 0.5 (0.2-1.3) mg/dL AST 64 H (17-59) U/L ALT 33 (21-72) U/L Alkaline Phosphatase 48 (38-126) U/L Total Creatine Kinase (55-170) U/L CK-MB (CK-2) (0.0-2.4) ng/mL CK-MB (CK-2) Rel Index Troponin I (0.000-0.034) ng/mL Total Protein 5.1 L (6.3-8.2) g/dL Albumin 3.0 L (3.5-5.0) g/dL Disposition <Carlos Lehman - Last Filed: 12/29/17 00:32> <Anderson Ramirez - Last Filed: 12/29/17 03:25> Clinical Impression: MDS (myelodysplastic syndrome), Generalized weakness, Elevated troponin I level Disposition: ADMITTED IP TO THIS HOSP Condition: Poor Referrals: Ranjana Rendon DO [Primary Care Provider] - 1-2 days
--- NOTE | 2017-12-29 01:02 | XR ---
EXAMINATION TYPE: XR chest 1V portable DATE OF EXAM: 12/29/2017 COMPARISON: 07/02/2017 HISTORY: Weakness TECHNIQUE: Single frontal view of the chest is obtained. FINDINGS: There is no heart failure nor confluent pneumonic infiltrate. Costophrenic angles are alina r. There are chest leads. There is right subclavian catheter with the tip in the superior vena cava. There is no pneumothorax. IMPRESSION: No active cardiopulmonary disease. Inspiration is decreased compared to last exam.
[2017-12-29 01:20] LABS: Anisocytosis Moderate; HCT 29.1 % (39.0-53.0); Hypochromasia Moderate; MCH 26.2 pg (25.0-35.0); MCHC 30.9 g/dL (31.0-37.0); MCV 84.8 fL (80.0-100.0); Mean Platelet Volume 11.8; Microcytosis Slight; Platelet Count 177 k/uL (150-450); Poikilocytosis Slight; RBC 3.43 m/uL (4.30-5.90); RDW 22.2 % (11.5-15.5); WBC 2.1 k/uL (3.8-10.6)
[2017-12-29 01:25] LABS: INR 1.1 (<1.2); Partial Thromboplastin Time 23.5 sec (22.0-30.0); Prothrombin Time 10.5 sec (9.0-12.0)
[2017-12-29 01:28] LABS: ALT 33 U/L (21-72); AST 64 U/L (17-59); Alkaline Phosphatase 48 U/L (38-126); Anion Gap 9 mmol/L; Blood Urea Nitrogen 31 mg/dL (9-20); Calcium 8.9 mg/dL (8.4-10.2); Carbon Dioxide 27 mmol/L (22-30); Chloride 104 mmol/L (98-107); Glucose 98 mg/dL (74-99); Phosphorus 3.7 mg/dL (2.5-4.5); Sodium 140 mmol/L (137-145); Total Bilirubin 0.5 mg/dL (0.2-1.3); Total Protein 5.1 g/dL (6.3-8.2)
[2017-12-29 01:43] LABS: Lymphocytes # (M) 0.59 k/uL (1.0-4.8); Monocytes # (M) 0.27 k/uL (0-1.0); Neutrophils # (M) 1.24 k/uL (1.3-7.7); Neutrophils % (M) 59 %; Nucleated Red Blood Cells 0 /100 WBC (0-0); Total Cells Counted 100
[2017-12-29 01:44] LABS: Large Platelets Present
[2017-12-29 01:54] LABS: Creatine Kinase MB 32.2 ng/mL (0.0-2.4); Troponin I 0.035 ng/mL (0.000-0.034)
[2017-12-29] MEDS ORDERED: ENOXAPARIN 80 MG/0.8 ML SYRINGE SQ STA (03:09)
[2017-12-29] MEDS ORDERED: NITROGLYCERIN SL TABS 0.4 MG TAB SUBLINGUAL PRN (03:18)
[2017-12-29] MEDS ORDERED: LIDOCAINE-PRILOCAINE 2.5-2.5% CREAM 5 GM TUBE TOPICAL PRN (03:23)
[2017-12-29] MEDS ORDERED: ASPIRIN 81 MG PO STA (03:24)
[2017-12-29] MEDS: SODIUM CHLORIDE 0.9% 1,000 ML IV SCH ×2 (03:48→12:49)
[2017-12-29 04:52] VITALS: BMI 29.8
[2017-12-29 07:18] LABS: Troponin I 0.032 ng/mL (0.000-0.034)
[2017-12-29 07:36] LABS: Creatine Kinase MB 23.3 ng/mL (0.0-2.4)
[2017-12-29] MEDS ORDERED: POSACONAZOLE 300 MG PO SCH (09:00)
--- NOTE | 2017-12-29 10:00 | P.CRDCN ---
History of Present Illness Consult date: 12/29/17 Chief complaint: weakness History of present illness: this is a pleasant 62-year-old gentleman with a past medical history significant for hypertension and dyslipidemia and history of one marrow transplant for MDS was performed about 2 years ago, was brought to the hospital because he was not feeling well. 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 He fell out of the bed. He does not recall what happened exactly. He found himself on the floor feeling weak and unable to get up. He does not recall having any chest discomfort or difficulty breathing or feeling of heart racing or fluttering. He possibly had syncope. The cardiac enzymes came in to be abnormal. The EKG showed sinus rhythm and there was some dynamic ST changes was seen between 2 subsequent EKGs. He has been maintaining normal sinus mechanism and he has been chest pain-free. Past Medical History Past Medical History: Cancer, Hyperlipidemia, Hypertension Additional Past Medical History / Comment(s): prostate cancer, hx venous insufficiency, RCMD, bone marrow transplant, "graft vs host disease" History of Any Multi-Drug Resistant Organisms: C-DIFF Date of last positivie culture/infection: 2015 MDRO Source:: stool Past Surgical History: Heart Catheterization With Stent, Hernia Repair, Prostate Surgery Additional Past Surgical History / Comment(s): larry fundoplication, bone marrow transplant Past Anesthesia/Blood Transfusion Reactions: No Reported Reaction Date of Last Stent Placement:: 2003 Past Psychological History: Depression Smoking Status: Former smoker Past Alcohol Use History: None Reported Past Drug Use History: None Reported - Past Family History Mother Family Medical History: Cancer Additional Family Medical History / Comment(s): skin cancer Brother(s) Family Medical History: Renal Disease Additional Family Medical History / Comment(s): kidney transplant Medications and Allergies Home Medications Medication Instructions Recorded Confirmed Type Ergocalciferol (Vitamin D2) 50,000 unit PO TH 12/04/15 12/29/17 History [Drisdol] Lisinopril [Lisinopril] 20 mg PO BID 03/14/17 12/29/17 History Acyclovir 400 mg PO BID 07/02/17 12/29/17 History Cyanocobalamin (Vitamin B-12) 1,000 mcg PO DAILY 10/03/17 04/01/18 History [Vitamin B-12] Folic Acid 1 mg PO DAILY 07/02/17 12/29/17 History Lidocaine-Prilocaine Cream [Emla 1 applic TOPICAL DAILY PRN 07/02/17 12/29/17 History Cream 2.5%/2.5%] Penicillin V Potassium [Pen Vee K] 500 mg PO BID 07/02/17 12/29/17 History Ranitidine HCl 150 mg PO BID 07/02/17 12/29/17 History amLODIPine [Norvasc] 10 mg PO DAILY 07/02/17 12/29/17 History predniSONE 15 mg PO DAILY 07/02/17 12/29/17 History Azithromycin [Zithromax] 250 mg PO MOWEFR 12/29/17 12/29/17 History Budesonide/Formoterol Fumarate 2 puff INHALATION RT-BID 12/29/17 12/29/17 History [Symbicort 80-4.5 Mcg Inhaler] DULoxetine HCL [Cymbalta] 20 mg PO DAILY 12/29/17 12/29/17 History Furosemide [Lasix] 20 mg PO Q48H PRN 12/29/17 12/29/17 History Methylphenidate HCl [Ritalin] 5 mg PO DAILY PRN 12/29/17 12/29/17 History Montelukast [Singulair] 10 mg PO DAILY 12/29/17 12/29/17 History Posaconazole [Noxafil] 300 mg PO DAILY 12/29/17 12/29/17 History Allergies Allergy/AdvReac Type Severity Reaction Status Date / Time Iodinated Contrast- Oral and Allergy Unknown Verified 12/29/17 08:25 IV Dye [Iodinated Contrast Media - IV Dye] tramadol AdvReac Nausea & Verified 12/29/17 08:25 Vomiting Physical Exam Vitals: Vital Signs Temp Pulse Pulse Resp BP BP Pulse Ox 12/29/17 04:45 98.1 F 75 18 116/55 94 L 12/29/17 04:05 98.1 F 75 18 116/55 94 L 12/29/17 03:50 98.5 F 73 18 114/60 94 L 12/29/17 02:42 81 16 116/83 96 12/29/17 02:00 80 18 118/68 96 12/29/17 01:16 93 18 123/58 95 12/28/17 23:52 98.1 F 85 16 151/72 96 Intake and Output 12/28/17 12/29/17 12/29/17 22:59 06:59 14:59 Other: Weight 86 kg - Constitutional General appearance: no acute distress - Respiratory Respiratory: bilateral: CTA - Cardiovascular Rhythm: regular Heart sounds: normal: S1, S2 Results 12/29/17 01:04 12/29/17 01:04 Cardiac Enzymes 12/29/17 12/29/17 12/29/17 Range/Units 01:04 01:04 06:20 AST 64 H (17-59) U/L CK-MB (CK-2) 32.2 H* 23.3 H* (0.0-2.4) ng/mL Troponin I 0.035 H* 0.032 (0.000-0.034) ng/mL Coagulation 12/29/17 Range/Units 01:04 PT 10.5 (9.0-12.0) sec APTT 23.5 (22.0-30.0) sec CBC 12/29/17 Range/Units 01:04 WBC 2.1 L (3.8-10.6) k/uL RBC 3.43 L (4.30-5.90) m/uL Hgb 9.0 L (13.0-17.5) gm/dL Hct 29.1 L (39.0-53.0) % Plt Count 177 (150-450) k/uL Comprehensive Metabolic Panel 12/29/17 Range/Units 01:04 Sodium 140 (137-145) mmol/L Potassium 4.0 (3.5-5.1) mmol/L Chloride 104 (98-107) mmol/L Carbon Dioxide 27 (22-30) mmol/L BUN 31 H (9-20) mg/dL Creatinine 1.00 (0.66-1.25) mg/dL Glucose 98 (74-99) mg/dL Calcium 8.9 (8.4-10.2) mg/dL AST 64 H (17-59) U/L ALT 33 (21-72) U/L Alkaline Phosphatase 48 (38-126) U/L Total Protein 5.1 L (6.3-8.2) g/dL Albumin 3.0 L (3.5-5.0) g/dL Current Medications Generic Name Dose Route Start Last Admin Trade Name Freq PRN Reason Stop Dose Admin Acyclovir 400 mg 12/29/17 09:[address] [facility] Amlodipine Besylate 10 mg 12/29/17 09:[address] [facility] Aspirin 325 mg 12/30/17 09:[address] [facility] Cyanocobalamin 1,000 mcg 12/29/17 12:00 Vitamin B-12 PO DAILY@1200 [facility] Ergocalciferol 50,000 unit 01/02/18 12:[address] [facility] Famotidine 20 mg 12/29/17 09:[address] [facility] Folic Acid 1 mg 12/29/17 12:00 Folic Acid PO DAILY@1200 [facility] Hydrocortisone 20 mg 12/29/17 09:[address] [facility] Sodium Chloride 1,000 mls @ 100 mls/hr 12/29/17 03:30 12/29/17 03:48 Saline 0.9% IV 100 mls/hr .Q10H [facility] Administration Lidocaine/Prilocaine 1 applic 12/29/17 03:23 Emla Cream 2.5%/2.5% TOPICAL DAILY PRN Pain Lisinopril 20 mg 12/29/17 09:[address] [facility] Nitroglycerin 0.4 mg 12/29/17 03:18 Nitrostat SUBLINGUAL Q5M PRN Chest Pain Posaconazole [ 300 mg 12/29/17 09:00 Noxafil] [address] [facility] Penicillin V Potassium 500 mg 12/29/17 09:00 Pen Vee K PO BID [facility] Prednisone 15 mg 12/29/17 09:[address] [facility] Intake and Output 12/28/17 12/29/17 12/29/17 22:59 06:59 14:59 Other: Weight 86 kg 12/29/17 01:04 12/29/17 01:04 Assessment and Plan Assessment: assessment #1 acute non-ST elevation myocardial infarction #2 known CAD and prior stenting with unknown details #3 hypertension #4 hyperlipidemia Plan #1 continue the aspirin #2 add metoprolol as well as a statin #3 obtain an echocardiogram was Doppler #4 heart catheterization in the next 24 hours. I discussed with him a heart catheterization in details. I will plan to perform a tomorrow morning. Thank you for allowing us participate in his care and we'll continue following up with him
[2017-12-29] MEDS: ACYCLOVIR 200 MG CAP PO SCH ×2 (10:12→21:42)
[2017-12-29] MEDS: FAMOTIDINE 20 MG TAB PO SCH ×2 (10:13→21:42)
[2017-12-29] MEDS: predniSONE 5 MG TAB PO SCH (10:13)
[2017-12-29] MEDS: HYDROCORTISONE 20 MG TAB PO SCH ×2 (10:13→21:42)
[2017-12-29] MEDS: amLODIPine 10 MG TAB PO SCH (10:13)
[2017-12-29] MEDS: POSACONAZOLE 100 MG PO SCH (10:13)
[2017-12-29] MEDS: LISINOPRIL 20 MG TAB PO SCH ×2 (10:13→21:42)
[2017-12-29] MEDS: PENICILLIN V POTASSIUM 250 MG TAB PO SCH ×2 (10:13→21:42)
[2017-12-29] MEDS: FOLIC ACID 1 MG TAB PO SCH (11:41)
[2017-12-29] MEDS: CYANOCOBALAMIN 500 MCG TAB PO SCH (11:41)
--- NOTE | 2017-12-29 14:13 | P.HPIM ---
History of Present Illness H&P Date: 12/29/17 Chief Complaint: Generalized weakness This is a 62-year-old gentleman with past medical history significant for MDS status post bone marrow transplant in 2016 with [id number] disease and presented to the emergency room after he fell out of bed yesterday. Patient is a very poor historian and he said that he does not recall exactly what happened. He said that he was trying to get out of bed and failed landing on the ground. He said that he stayed on the floor for unknown period of time. He denies losing consciousness. He said that he was able to call his [employer] device and ask her to call his friend. His friend in her turn called EMS. Patient said that he is generally weak and he has a history of steroid- induced myopathy. He usually uses a cane at home that he is having a lot of trouble with his balance and recently ordered a walker that was not delivered as of yet. He follow-up with hematology at the [facility]. Patient himself denies any chest pain or shortness of breath. He said that he has a history of coronary artery disease with prior stent placement in 2003. In the emergency room his 12-lead EKG showed no acute ischemic changes. His troponin initially was slightly elevated. Repeat troponin was normal. Review of Systems Review of system: 14 points review of systems were obtained and were negative except to what were mentioned in the HPI. Past Medical History Past Medical History: Cancer, Hyperlipidemia, Hypertension Additional Past Medical History / Comment(s): prostate cancer, hx venous insufficiency, RCMD, bone marrow transplant, "graft vs host disease" History of Any Multi-Drug Resistant Organisms: C-DIFF Date of last positivie culture/infection: 2015 MDRO Source:: stool Past Surgical History: Heart Catheterization With Stent, Hernia Repair, Prostate Surgery Additional Past Surgical History / Comment(s): larry fundoplication, bone marrow transplant Past Anesthesia/Blood Transfusion Reactions: No Reported Reaction Date of Last Stent Placement:: 2003 Past Psychological History: Depression Smoking Status: Former smoker Past Alcohol Use History: None Reported Past Drug Use History: None Reported - Past Family History Mother Family Medical History: Cancer Additional Family Medical History / Comment(s): skin cancer Brother(s) Family Medical History: Renal Disease Additional Family Medical History / Comment(s): kidney transplant Medications and Allergies Home Medications Medication Instructions Recorded Confirmed Type Ergocalciferol (Vitamin D2) 50,000 unit PO TH 12/04/15 12/29/17 History [Drisdol] Lisinopril [Lisinopril] 20 mg PO BID 03/14/17 12/29/17 History Acyclovir 400 mg PO BID 07/02/17 12/29/17 History Cyanocobalamin (Vitamin B-12) 1,000 mcg PO DAILY 07/02/17 12/29/17 History [Vitamin B-12] Folic Acid 1 mg PO DAILY 07/02/17 12/29/17 History Lidocaine-Prilocaine Cream [Emla 1 applic TOPICAL DAILY PRN 07/02/17 12/29/17 History Cream 2.5%/2.5%] Penicillin V Potassium [Pen Vee K] 500 mg PO BID 07/02/17 12/29/17 History Ranitidine HCl 150 mg PO BID 07/02/17 12/29/17 History amLODIPine [Norvasc] 10 mg PO DAILY 07/02/17 12/29/17 History predniSONE 15 mg PO DAILY 07/02/17 12/29/17 History Azithromycin [Zithromax] 250 mg PO MOWEFR 12/29/17 12/29/17 History Budesonide/Formoterol Fumarate 2 puff INHALATION RT-BID 12/29/17 12/29/17 History [Symbicort 80-4.5 Mcg Inhaler] DULoxetine HCL [Cymbalta] 20 mg PO DAILY 12/29/17 12/29/17 History Furosemide [Lasix] 20 mg PO Q48H PRN 12/29/17 12/29/17 History Methylphenidate HCl [Ritalin] 5 mg PO DAILY PRN 12/29/17 12/29/17 History Montelukast [Singulair] 10 mg PO DAILY 12/29/17 12/29/17 History Posaconazole [Noxafil] 300 mg PO DAILY 12/29/17 12/29/17 History Allergies Allergy/AdvReac Type Severity Reaction Status Date / Time Iodinated Contrast- Oral and Allergy Unknown Verified 12/29/17 08:25 IV Dye [Iodinated Contrast Media - IV Dye] tramadol AdvReac Nausea & Verified 12/29/17 08:25 Vomiting Physical Exam Vitals: Vital Signs Temp Pulse Pulse Resp BP BP Pulse Ox 12/29/17 12:00 97.2 F L 64 18 128/77 97 12/29/17 08:00 97.7 F 63 18 120/78 97 12/29/17 04:45 98.1 F 75 18 116/55 94 L 12/29/17 04:05 98.1 F 75 18 116/55 94 L 12/29/17 03:50 98.5 F 73 18 114/60 94 L 12/29/17 02:42 81 16 116/83 96 12/29/17 02:00 80 18 118/68 96 12/29/17 01:16 93 18 123/58 95 12/28/17 23:52 98.1 F 85 16 151/72 96 Intake and Output 12/28/17 12/29/17 12/29/17 22:59 06:59 14:59 Intake Total 840 Balance 840 Intake: Intake, IV Titration 600 Amount Sodium Chloride 0.9% 1, 600 000 ml @ 100 mls/hr IV . Q10H [facility] Rx#:[id number] Oral 240 Other: Weight 86 kg General: The patient is awake and alert, in no distress Eye: there is normal conjunctiva bilaterally. Neck: The neck is supple, there is no JVD. Cardiovascular: Normal S1-S2, no S3-S4, no murmurs. Respiratory: Lungs clear to auscultation bilaterally Gastrointestinal: Abdomen is soft, nontender Musculoskeletal: There is no pedal edema. Neurological:. Speech is normal. Skin: Skin is warm and dry Results CBC & Chem 7: 12/29/17 01:04 12/29/17 01:04 Labs: Abnormal Lab Results - Last 24 Hours (Table) 12/28/17 12/29/17 12/29/17 Range/Units 23:57 01:04 01:04 WBC 2.1 L (3.8-10.6) k/uL RBC 3.43 L (4.30-5.90) m/uL Hgb 9.0 L (13.0-17.5) gm/dL Hct 29.1 L (39.0-53.0) % MCHC 30.9 L (31.0-37.0) g/dL RDW 22.2 H (11.5-15.5) % Neutrophils # (Manual) 1.24 L (1.3-7.7) k/uL Lymphocytes # (Manual) 0.59 L (1.0-4.8) k/uL BUN (9-20) mg/dL POC Glucose (mg/dL) 106 H (75-99) mg/dL AST (17-59) U/L Total Creatine Kinase 496 H (55-170) U/L CK-MB (CK-2) 32.2 H* (0.0-2.4) ng/mL Troponin I 0.035 H* (0.000-0.034) ng/mL Total Protein (6.3-8.2) g/dL Albumin (3.5-5.0) g/dL 12/29/17 12/29/17 Range/Units 01:04 06:20 WBC (3.8-10.6) k/uL RBC (4.30-5.90) m/uL Hgb (13.0-17.5) gm/dL Hct (39.0-53.0) % MCHC (31.0-37.0) g/dL RDW (11.5-15.5) % Neutrophils # (Manual) (1.3-7.7) k/uL Lymphocytes # (Manual) (1.0-4.8) k/uL BUN 31 H (9-20) mg/dL POC Glucose (mg/dL) (75-99) mg/dL AST 64 H (17-59) U/L Total Creatine Kinase 369 H (55-170) U/L CK-MB (CK-2) 23.3 H* (0.0-2.4) ng/mL Troponin I (0.000-0.034) ng/mL Total Protein 5.1 L (6.3-8.2) g/dL Albumin 3.0 L (3.5-5.0) g/dL Thrombosis Risk Factor Assmnt - Choose All That Apply Each Factor Represents 1 point: Swollen legs (current) Each Risk Factor Represents 2 Points: Age 61-74 years Thrombosis Risk Factor Assessment Total Risk Factor Score: 3 Thrombosis Risk Factor Assessment Level: Moderate Risk Assessment and Plan Assessment: 1. Troponin elevation most likely secondary to demand supply mismatch and mild rhabdomyolysis. 12-lead EKG showed no acute ischemic changes. Repeat troponin was normal. Patient denies any chest pain or discomfort. He was seen and evaluated by cardiology. Agree to obtain an echocardiogram to evaluate for wall motion abnormality. I would discuss with cardiology further as I do not believe a left heart catheterization is indicated at this time. 2. 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 Mild rhabdomyolysis with unknown duration of time patient being on the floor we will continue IV fluid hydration 4. 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 I will continue home dose of steroid and his prophylactic regimen
[2017-12-29] MEDS ORDERED: ATORVASTATIN 40 MG TAB PO SCH (21:00)
[2017-12-29] MEDS: METOPROLOL TARTRATE 12.5 MG TAB PO SCH (21:42)
[2017-12-30] MEDS: SODIUM CHLORIDE 0.9% 1,000 ML IV SCH ×3 (00:22→20:24)
[2017-12-30 05:25] LABS: Anisocytosis Moderate; Hypochromasia Moderate; Microcytosis Slight; RDW 21.9 % (11.5-15.5)
[2017-12-30 05:30] LABS: HCT 21.4 % (39.0-53.0); MCH 26.9 pg (25.0-35.0); MCHC 31.5 g/dL (31.0-37.0); MCV 85.7 fL (80.0-100.0); Mean Platelet Volume 10.9; Platelet Count 142 k/uL (150-450); Poikilocytosis Moderate
[2017-12-30 05:34] LABS: WBC 1.4 k/uL (3.8-10.6)
[2017-12-30 05:36] LABS: HGB 6.7 gm/dL (13.0-17.5)
[2017-12-30 05:42] LABS: Albumin 2.6 g/dL (3.5-5.0); Calcium 8.7 mg/dL (8.4-10.2); Potassium 3.8 mmol/L (3.5-5.1); Total Bilirubin 0.3 mg/dL (0.2-1.3); Total Protein 4.7 g/dL (6.3-8.2)
[2017-12-30 06:18] LABS: Lymphocytes # (M) 0.32 k/uL (1.0-4.8); Neutrophils # (M) 0.88 k/uL (1.3-7.7); Neutrophils % (M) 63 %; Nucleated Red Blood Cells 0 /100 WBC (0-0); Total Cells Counted 100
[2017-12-30 06:19] LABS: Ovalocytes Present
[2017-12-30] MEDS ORDERED: ASPIRIN 325 MG TAB PO SCH (09:00)
--- NOTE | 2017-12-30 09:58 | P.PN ---
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 He fell out of the bed. He does not recall what happened exactly. He found himself on the floor feeling weak and unable to get up. He does not recall having any chest discomfort or difficulty breathing or feeling of heart racing or fluttering. He possibly had syncope. The cardiac enzymes came in to be abnormal. The EKG showed sinus rhythm and there was some dynamic ST changes was seen between 2 subsequent EKGs. I am concerned about severe underlying coronary artery disease. Hemoglobin this morning came in to be low as well as the platelet and the WBC. He does have obviously pancytopenia and bone marrow etiology is likely the reason. In view of that I would consider conservative medical approach at this point. I would hold on any heart catheterization at this point as well. The acute non- ST elevation myocardial infarction is likely related to the low hemoglobin and prior to UT. Objective - Vital Signs Vital signs: Vital Signs Temp 97.6 F 12/30/17 07:48 Pulse 56 L 12/30/17 07:49 Resp 16 12/30/17 07:49 BP 130/71 12/30/17 07:48 Pulse Ox 98 12/30/17 07:48 Intake & Output 12/29/17 12/30/17 12/30/17 18:59 06:59 18:59 Intake Total 960 500 240 Output Total 500 Balance 460 500 240 Weight 87.3 kg Intake: Intake, IV Titration 600 500 Amount Sodium Chloride 0.9% 1, 600 500 000 ml @ 100 mls/hr IV . Q10H [facility] Rx#:[id number] Oral 360 240 Output: Urine 500 Other: # Voids 1 - Constitutional General appearance: Present: no acute distress - Respiratory Respiratory: bilateral: CTA - Cardiovascular Rhythm: regular Heart sounds: normal: S1, S2 - Labs CBC & Chem 7: 12/30/17 05:15 12/30/17 05:15 Labs: Abnormal Lab Results - Last 24 Hours (Table) 12/30/17 12/30/17 Range/Units 05:15 05:15 WBC 1.4 L* (3.8-10.6) k/uL RBC 2.50 L (4.30-5.90) m/uL Hgb 6.7 L* D (13.0-17.5) gm/dL Hct 21.4 L (39.0-53.0) % RDW 21.9 H (11.5-15.5) % Plt Count 142 L (150-450) k/uL Neutrophils # (Manual) 0.88 L (1.3-7.7) k/uL Lymphocytes # (Manual) 0.32 L (1.0-4.8) k/uL Chloride 108 H (98-107) mmol/L BUN 34 H (9-20) mg/dL Glucose 106 H (74-99) mg/dL Total Protein 4.7 L (6.3-8.2) g/dL Albumin 2.6 L (3.5-5.0) g/dL Microbiology - Last 24 Hours (Table) 12/29/17 01:04 Blood Culture - Preliminary Blood No Growth after 24 hours Assessment and Plan Assessment: assessment #1 acute non-ST elevation myocardial infarction #2 known CAD and prior stenting with unknown details #3 hypertension #4 hyperlipidemia Plan #1 continue the aspirin #2 add metoprolol as well as a statin #3 obtain an echocardiogram was Doppler #4 follow-up with the patient Thank you for allowing us participate in his care and we'll continue following up with him
[2017-12-30 10:19] LABS: Reticulocyte % 1.3 % (0.5-2.0)
[2017-12-30] MEDS: POSACONAZOLE 100 MG PO SCH (10:38)
[2017-12-30] MEDS: PENICILLIN V POTASSIUM 250 MG TAB PO SCH ×2 (10:39→20:25)
--- NOTE | 2017-12-30 10:39 | ECHOF ---
Referral Reason:nstemi MEASUREMENTS -------- HEIGHT: 170.2 cm WEIGHT: 87.1 kg BP: 138/81 RVIDd: 3.3 cm (< 3.3) IVSd: 1.3 cm (0.6 - 1.1) LVIDd: 4.8 cm (3.9 - 5.3) LVPWd: 1.3 cm (0.6 - 1.1) IVSs: 1.6 cm LVIDs: 3.8 cm LVPWs: 1.8 cm LA Diam: 4.0 cm (2.7 - 3.8) LAESV Index (A-L): 34.21 ml/m Ao Diam: 3.5 cm (2.0 - 3.7) AV Cusp: 2.2 cm (1.5 - 2.6) MV EXCURSION: 19.436 mm (> 18.000) MV EF SLOPE: 119 mm/s (70 - 150) EPSS: 1.0 cm MV E Shayan: 1.09 m/s MV DecT: 148 ms MV A Shayan: 0.92 m/s MV E/A Ratio: 1.19 FINDINGS -------- Sinus rhythm. This was a technically adequate study. The left ventricular size is normal. There is mild concentric left ventricular hypertrophy. Overa ll left ventricular systolic function is mildly impaired with, an EF between 45 - 50 %. Basal infer ior LV wall motion is hypokinetic. Basal inferoseptal LV wall motion is hypokinetic. The right ventricle is normal in size. LA is moderately dilated 34-39 ml/m2 The right atrium is normal in size. There is mild aortic valve sclerosis. Trace amount of aortic regurgitation. Mild mitral annular calcification present. There is trace mitral regurgitation. The tricuspid valve appears structurally normal. There is no pulmonic regurgitation present. The aortic root size is normal. IVC Not well visulized. There is no pericardial effusion. CONCLUSIONS -------- 1. Sinus rhythm. 2. This was a technically adequate study. 3. The left ventricular size is normal. 4. There is mild concentric left ventricular hypertrophy. 5. Overall left ventricular systolic function is mildly impaired with, an EF between 45 - 50 %. 6. Basal inferior LV wall motion is hypokinetic. 7. Basal inferoseptal LV wall motion is hypokinetic. 8. The right ventricle is normal in size. 9. LA is moderately dilated 34-39 ml/m2 10. The right atrium is normal in size. 11. There is mild aortic valve sclerosis. 12. Trace amount of aortic regurgitation. 13. Mild mitral annular calcification present. 14. There is trace mitral regurgitation. 15. The tricuspid valve appears structurally normal. 16. There is no pulmonic regurgitation present. 17. The aortic root size is normal. 18. IVC Not well visulized. 19. There is no pericardial effusion. MICA SPREADER: Ivone Moran RDCS
[2017-12-30] MEDS: HYDROCORTISONE 20 MG TAB PO SCH ×2 (10:40→20:27)
[2017-12-30] MEDS: ACYCLOVIR 200 MG CAP PO SCH ×2 (10:40→20:26)
[2017-12-30] MEDS: METOPROLOL TARTRATE 12.5 MG TAB PO SCH ×2 (10:41→20:27)
[2017-12-30] MEDS: predniSONE 5 MG TAB PO SCH (10:41)
[2017-12-30] MEDS: LISINOPRIL 20 MG TAB PO SCH ×2 (10:42→20:27)
[2017-12-30] MEDS: FAMOTIDINE 20 MG TAB PO SCH ×2 (10:42→20:26)
[2017-12-30] MEDS: amLODIPine 10 MG TAB PO SCH (10:42)
[2017-12-30 11:56] LABS: Glucose,Whole Blood 117 mg/dL (75-99)
[2017-12-30] MEDS: FOLIC ACID 1 MG TAB PO SCH (12:03)
[2017-12-30] MEDS: CYANOCOBALAMIN 500 MCG TAB PO SCH (12:03)
--- NOTE | 2017-12-30 13:04 | P.PN ---
Subjective Progress Note Date: 12/30/17 This is a 62-year-old gentleman with past medical history significant for MDS status post bone marrow transplant in 2016 with jjehf-dumzzq-lklt disease and presented to the emergency room after he fell out of bed yesterday. Patient is a very poor historian and he said that he does not recall exactly what happened. He said that he was trying to get out of bed and failed landing on the ground. He said that he stayed on the floor for unknown period of time. He denies losing consciousness. He said that he was able to call his [employer] device and ask her to call his friend. His friend in her turn called EMS. Patient said that he is generally weak and he has a history of steroid- induced myopathy. He usually uses a cane at home that he is having a lot of trouble with his balance and recently ordered a walker that was not delivered as of yet. He follow-up with hematology at the [facility]. Patient himself denies any chest pain or shortness of breath. He said that he has a history of coronary artery disease with prior stent placement in 2003. In the emergency room his 12-lead EKG showed no acute ischemic changes. His troponin initially was slightly elevated. Repeat troponin was normal. 12/30/2017 patient is sitting in bed comfortably. No evidence of chest pain. Patient has a known history of MDS with bone marrow transplant in 2016 also has hnibi-sbquea-gnee disease. History of steroid induced myopathy, coronary artery disease with cardiac stent in 2003 and history of adrenal insufficiency. His oncologists and exchange teller are out of [facility]. And has a follow-up this Saturday at [facility]. Patient denies any chest pain. Case discussed with Dr. Dover this morning. Patent he is recommending medical management for the mild non-ST elevated ME. No heart catheterization at this time. Patient denies any chest pain or shortness of breath. Denies any nausea or vomiting. Denies any bowel movement changes or urinary symptoms. White count 1.4 hemoglobin down to 6.7 patient receiving a unit of blood. Platelets are down to 142. Oncology has been consulted. Patient also reports he has not been feeling right for the past month after being placed on Imbruv. He has not received that for a couple a days and reports that he is feeling better. Physical therapy has been consulted. Patient did miss a dose of his cortef on Saturday morning. He reports by Saturday evening he was not feeling well very weak and having falls. Objective - Vital Signs Vital signs: Vital Signs Temp 97.6 F 12/30/17 07:48 Pulse 56 L 12/30/17 07:49 Resp 16 12/30/17 07:49 BP 130/71 12/30/17 07:48 Pulse Ox 98 12/30/17 07:48 Intake & Output 12/29/17 12/30/17 12/30/17 18:59 06:59 18:59 Intake Total 960 500 240 Output Total 500 Balance 460 500 240 Weight 87.3 kg Intake: Intake, IV Titration 600 500 Amount Sodium Chloride 0.9% 1, 600 500 000 ml @ 100 mls/hr IV . Q10H [facility] Rx#:[id number] Oral 360 240 Output: Urine 500 Other: # Voids 1 - Exam Head normocephalic Neck supple Lungs clear to auscultation bilaterally no wheezing or crackles Heart regular rate and rhythm S1-S2, no rub or gallop Abdomen is soft nontender nondistended positive bowel sounds no hepatosplenomegaly Extremities no edema Neuro alert and orientated to 3 - Labs CBC & Chem 7: 12/30/17 05:15 12/30/17 05:15 Labs: Abnormal Lab Results - Last 24 Hours (Table) 12/30/17 12/30/17 12/30/17 Range/Units 05:15 05:15 05:15 WBC 1.4 L* (3.8-10.6) k/uL RBC 2.50 L (4.30-5.90) m/uL Hgb 6.7 L* D (13.0-17.5) gm/dL Hct 21.4 L (39.0-53.0) % RDW 21.9 H (11.5-15.5) % Plt Count 142 L (150-450) k/uL Neutrophils # (Manual) 0.88 L (1.3-7.7) k/uL Lymphocytes # (Manual) 0.32 L (1.0-4.8) k/uL Chloride 108 H (98-107) mmol/L BUN 34 H (9-20) mg/dL Glucose 106 H (74-99) mg/dL POC Glucose (mg/dL) (75-99) mg/dL Lactate Dehydrogenase 704 H (313-618) U/L Total Protein 4.7 L (6.3-8.2) g/dL Albumin 2.6 L (3.5-5.0) g/dL 12/30/17 Range/Units 11:53 WBC (3.8-10.6) k/uL RBC (4.30-5.90) m/uL Hgb (13.0-17.5) gm/dL Hct (39.0-53.0) % RDW (11.5-15.5) % Plt Count (150-450) k/uL Neutrophils # (Manual) (1.3-7.7) k/uL Lymphocytes # (Manual) (1.0-4.8) k/uL Chloride (98-107) mmol/L BUN (9-20) mg/dL Glucose (74-99) mg/dL POC Glucose (mg/dL) 117 H (75-99) mg/dL Lactate Dehydrogenase (313-618) U/L Total Protein (6.3-8.2) g/dL Albumin (3.5-5.0) g/dL Microbiology - Last 24 Hours (Table) 12/29/17 01:04 Blood Culture - Preliminary Blood No Growth after 24 hours Assessment and Plan Assessment: 1. Acute non-ST elevated ME, type II. Likely secondary to patient's anemia. Case discussed with cardiology. The recommending medical management. And will hold off on heart catheterization at this time. Patient is currently chest pain -free 2. 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 Mild rhabdomyolysis with unknown duration of time patient being on the floor we will continue IV fluid hydration 4. 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 I will continue home dose of steroid and his prophylactic regimen 5. Adrenal insufficiency: Continue cortef. 6. Pancytopenia: Oncology consulted. Secondary to patient's MDS 7. Chronic Anemia secondary to patient's MDS. Hemoglobin 6.7. He is receiving a unit of blood. We'll await further oncology recommendations. Monitor CBC At this time plan is to give patient 1 unit of RBCs. Have patient evaluated by oncology service. Repeat CBC and monitor patient. Anticipate that we will be able to discharge patient home and that he can follow-up with his [facility] specialists in the outpatient setting. I performed an examination of the patient and discussed their management with the physician Tso. I have reviewed the Physician Tso's notes and agree with the documented findings and plan of care
--- NOTE | 2017-12-30 14:46 | P.HPIM ---
History of Present Illness H&P Date: 12/30/17 Chief Complaint: fall Mr. Montalvo is a very pleasant male pt who was referred to Dr. England for progressive thrombocytopenia, documented in medical record since 2011 with no other CBC abnormalities noted. 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 Rendon. Pt was referred to Dr. England in Aept 2013 due to a gradual downward trend in his Hgb and plt, in 08/14 his plt were 26,000 with Hgb 10-11 range. Additional work up was essentially negative, other than a Cr of 1.44, bone marrow biopsy and aspirate on 10/12/15 revealed marked hyperplasia, dysplastic changes, and clonal cytogenetic abnormalities consistent with MDS, IPSS score was 5.32, placing him in the high risk category. He was started on Dacogen treatment, had 3 cycles and then went for allo stem cell transplant in February of 2016. 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 Pt states that since being started on ibrutinib in Sep 2017 he has had progressive weakness and noticed decreased mobility, more rapidly progressing symptoms the last 3 weeks. Pt states at home he went to get out of bed and slid to the floor, he was unable to get up and struggled, eventually he fell asleep from being so tired out, he has no idea how long he was on the floor. He used his [employer] system to call a friend who called 911. Pt states no chest pain, palpitations, SOB, bleeding, black or bloody stool or hematuria. He states he has not received a blood transfusion since 2013. No fever, recent illnesses or new pain to report. Review of Systems 14 point ROS as stated in HPI Past Medical History Past Medical History: Cancer, Hyperlipidemia, Hypertension Additional Past Medical History / Comment(s): prostate cancer, hx venous insufficiency, RCMD, bone marrow transplant, "graft vs host disease" History of Any Multi-Drug Resistant Organisms: C-DIFF Date of last positivie culture/infection: 2015 MDRO Source:: stool Past Surgical History: Heart Catheterization With Stent, Hernia Repair, Prostate Surgery Additional Past Surgical History / Comment(s): larry fundoplication, bone marrow transplant Past Anesthesia/Blood Transfusion Reactions: No Reported Reaction Date of Last Stent Placement:: 2004 Past Psychological History: Depression Smoking Status: Former smoker Past Alcohol Use History: None Reported Past Drug Use History: None Reported - Past Family History Mother Family Medical History: Cancer Additional Family Medical History / Comment(s): skin cancer Brother(s) Family Medical History: Renal Disease Additional Family Medical History / Comment(s): kidney transplant Medications and Allergies Home Medications Medication Instructions Recorded Confirmed Type Ergocalciferol (Vitamin D2) 50,000 unit PO TH 12/04/15 12/29/17 History [Drisdol] Lisinopril [Lisinopril] 20 mg PO BID 03/14/17 12/29/17 History Acyclovir 400 mg PO BID 07/02/17 12/29/17 History Cyanocobalamin (Vitamin B-12) 1,000 mcg PO DAILY 07/02/17 12/29/17 History [Vitamin B-12] Folic Acid 1 mg PO DAILY 07/02/17 12/29/17 History Lidocaine-Prilocaine Cream [Emla 1 applic TOPICAL DAILY PRN 07/02/17 12/29/17 History Cream 2.5%/2.5%] Penicillin V Potassium [Pen Vee K] 500 mg PO BID 07/02/17 12/29/17 History Ranitidine HCl 150 mg PO BID 07/02/17 12/29/17 History amLODIPine [Norvasc] 10 mg PO DAILY 07/02/17 12/29/17 History predniSONE 15 mg PO DAILY 07/02/17 12/29/17 History Azithromycin [Zithromax] 250 mg PO MOWEFR 12/29/17 12/29/17 History Budesonide/Formoterol Fumarate 2 puff INHALATION RT-BID 12/29/17 12/29/17 History [Symbicort 80-4.5 Mcg Inhaler] DULoxetine HCL [Cymbalta] 20 mg PO DAILY 12/29/17 12/29/17 History Furosemide [Lasix] 20 mg PO Q48H PRN 12/29/17 12/29/17 History Methylphenidate HCl [Ritalin] 5 mg PO DAILY PRN 12/29/17 12/29/17 History Montelukast [Singulair] 10 mg PO DAILY 12/29/17 12/29/17 History Posaconazole [Noxafil] 300 mg PO DAILY 12/29/17 12/29/17 History Allergies Allergy/AdvReac Type Severity Reaction Status Date / Time Iodinated Contrast- Oral and Allergy Unknown Verified 12/29/17 08:25 IV Dye [Iodinated Contrast Media - IV Dye] tramadol AdvReac Nausea & Verified 12/29/17 08:25 Vomiting Physical Exam Vitals: Vital Signs Temp Pulse Resp BP Pulse Ox 12/30/17 07:49 56 L 16 12/30/17 07:48 97.6 F 56 L 16 130/71 98 12/30/17 04:00 97.0 F L 56 L 16 138/81 98 12/30/17 00:00 56 L 16 123/58 97 12/29/17 21:42 97.3 F L 63 16 119/67 94 L 12/29/17 16:00 97.4 F L 68 18 126/74 Intake and Output 12/29/17 12/30/17 12/30/17 22:59 06:59 14:59 Intake Total 120 500 240 Balance 120 500 240 Intake: Intake, IV Titration 500 Amount Sodium Chloride 0.9% 1, 500 000 ml @ 100 mls/hr IV . Q10H [facility] Rx#:[id number] Oral 120 240 Other: # Voids 1 1 Weight 87.3 kg - Constitutional General appearance: cooperative, no acute distress, obese - EENT Eyes: anicteric sclerae, EOMI, PERRLA, normal appearance ENT: hearing grossly normal, normal oropharynx - Neck Neck: no lymphadenopathy - Respiratory Respiratory: bilateral: CTA - Cardiovascular bradycardia Heart sounds: normal: S1, S2 leg Peripheral Edema: bilateral: None - Gastrointestinal General gastrointestinal: no absent bowel sounds, no decreased bowel sounds, no distended, no hepatomegaly, no hyperactive bowel sounds, normal bowel sounds, no organomegaly, no rigid, no scaphoid, soft, no splenomegaly, no tenderness, no umbilical hernia, no ventral hernia - Integumentary Integumentary: pale - Neurologic Neurologic: CNII-XII intact - Musculoskeletal Musculoskeletal: generalized weakness, strength equal bilaterally - Psychiatric Psychiatric: A&O x's 3, appropriate affect, intact judgment & insight Results CBC & Chem 7: 12/30/17 05:15 12/30/17 05:15 Labs: Abnormal Lab Results - Last 24 Hours (Table) 12/30/17 12/30/17 12/30/17 Range/Units 05:15 05:15 05:15 WBC 1.4 L* (3.8-10.6) k/uL RBC 2.50 L (4.30-5.90) m/uL Hgb 6.7 L* D (13.0-17.5) gm/dL Hct 21.4 L (39.0-53.0) % RDW 21.9 H (11.5-15.5) % Plt Count 142 L (150-450) k/uL Neutrophils # (Manual) 0.88 L (1.3-7.7) k/uL Lymphocytes # (Manual) 0.32 L (1.0-4.8) k/uL Chloride 108 H (98-107) mmol/L BUN 34 H (9-20) mg/dL Glucose 106 H (74-99) mg/dL POC Glucose (mg/dL) (75-99) mg/dL Lactate Dehydrogenase 704 H (313-618) U/L Total Protein 4.7 L (6.3-8.2) g/dL Albumin 2.6 L (3.5-5.0) g/dL 12/30/17 Range/Units 11:53 WBC (3.8-10.6) k/uL RBC (4.30-5.90) m/uL Hgb (13.0-17.5) gm/dL Hct (39.0-53.0) % RDW (11.5-15.5) % Plt Count (150-450) k/uL Neutrophils # (Manual) (1.3-7.7) k/uL Lymphocytes # (Manual) (1.0-4.8) k/uL Chloride (98-107) mmol/L BUN (9-20) mg/dL Glucose (74-99) mg/dL POC Glucose (mg/dL) 117 H (75-99) mg/dL Lactate Dehydrogenase (313-618) U/L Total Protein (6.3-8.2) g/dL Albumin (3.5-5.0) g/dL Microbiology - Last 24 Hours (Table) 12/29/17 01:04 Blood Culture - Preliminary Blood No Growth after 24 hours Comments: ECHO report reviewed Thrombosis Risk Factor Assmnt - Choose All That Apply Each Factor Represents 1 point: Swollen legs (current) Each Risk Factor Represents 2 Points: Age 61-74 years Thrombosis Risk Factor Assessment Total Risk Factor Score: 3 Thrombosis Risk Factor Assessment Level: Moderate Risk Assessment and Plan (1) Pancytopenia due to chemotherapy Narrative/Plan: Most concerning at this time is anemia. Pt fell at home immediate concern is for bleeding. Other differentials include chemo effect as pt has been taking TKI for chronic GVHD, and there is consideration for recurrent MDS. Did contact Dr. Singh at [facility]. Pt has been anemic with Hgb in the 8-9 range. He agreed with 1 unit PRBCs to keep Hgb > 7, no special precautions with blood products is necessary. Multiple labs have been ordered for nutritional deficits, hemolysis vs acute blood loss, will f/u on labs. Platelets will be monitored, no intervention needed WBC noted, no GCSF unless febrile or ANC <=500. Pt is going to hold ibrutinib for now, he is supposed to be seen at [facility] on Saturday Current Visit: Yes Status: Acute Priority: High Code(s): D61.810 - ANTINEOPLASTIC CHEMOTHERAPY INDUCED PANCYTOPENIA SNOMED Code(s): 2872657 (2) Rcjjk-cffxev-tmzf disease Narrative/Plan: Pt needs to continue all of his therapies as prescribed other then the ibrutinib for now Current Visit: Yes Status: Acute Priority: High Code(s): D89.813 - GRAFT- VERSUS-HOST DISEASE, UNSPECIFIED SNOMED Code(s): 233162183 (3) MDS (myelodysplastic syndrome) Narrative/Plan: Pt is s/p allogenic SCT in 2016. He continues to follow with transplant team at [facility]. He has follow up this week. He needs to keep those appts. Current Visit: Yes Status: Chronic Priority: High Code(s): D46.9 - MYELODYSPLASTIC SYNDROME, UNSPECIFIED SNOMED Code(s): 935584496 Plan: From note review conservative treatment is being done for NSTEMI. Pt will f/u with Cardiac Oncology at [facility]. Doctor attests: I performed a history and physical examination of this patient, discussed with dictator. I agree with dictators note, documented as a scribe.
[2017-12-30] MEDS ORDERED: diphenhydrAMINE 50 MG/ML 1 ML VIAL IVP STA (16:21)
[2017-12-30] MEDS ORDERED: ACETAMINOPHEN TAB 325 MG TAB PO STA (16:21)
[2017-12-30 17:17] LABS: Glucose,Whole Blood 127 mg/dL (75-99)
[2017-12-30 17:27] LABS: Iron Saturation 47.99 (15.00-50.00)
[2017-12-30 20:08] LABS: Glucose,Whole Blood 145 mg/dL (75-99)
[2017-12-30 21:35] VITALS: RESP 16
[2017-12-31] MEDS: SODIUM CHLORIDE 0.9% 1,000 ML IV SCH (05:51)
[2017-12-31 07:34] LABS: Glucose,Whole Blood 84 mg/dL (75-99)
[2017-12-31 07:37] LABS: Anisocytosis Moderate; HCT 23.3 % (39.0-53.0); HGB 7.4 gm/dL (13.0-17.5); Hypochromasia Moderate; MCH 27.1 pg (25.0-35.0); MCHC 31.5 g/dL (31.0-37.0); MCV 85.8 fL (80.0-100.0); Mean Platelet Volume 11.4; Microcytosis Slight; Platelet Count 136 k/uL (150-450); Poikilocytosis Moderate; RBC 2.72 m/uL (4.30-5.90); RDW 20.9 % (11.5-15.5)
[2017-12-31 07:43] LABS: WBC 1.1 k/uL (3.8-10.6)
[2017-12-31 07:50] LABS: ALT 34 U/L (21-72); AST 52 U/L (17-59); Albumin 2.6 g/dL (3.5-5.0); Alkaline Phosphatase 41 U/L (38-126); Anion Gap 8 mmol/L; Blood Urea Nitrogen 27 mg/dL (9-20); Calcium 8.5 mg/dL (8.4-10.2); Carbon Dioxide 27 mmol/L (22-30); Chloride 108 mmol/L (98-107); Glucose 82 mg/dL (74-99); Potassium 3.5 mmol/L (3.5-5.1); Sodium 143 mmol/L (137-145); Total Bilirubin 0.4 mg/dL (0.2-1.3); Total Protein 4.6 g/dL (6.3-8.2)
[2017-12-31 08:28] LABS: Band Neutrophils % 1 %; Lymphocytes # (M) 0.21 k/uL (1.0-4.8); Monocytes # (M) 0.23 k/uL (0-1.0); Neutrophils % (M) 59 %; Nucleated Red Blood Cells 0 /100 WBC (0-0); Total Cells Counted 100
[2017-12-31] MEDS: POSACONAZOLE 100 MG PO SCH (08:31)
[2017-12-31] MEDS: HYDROCORTISONE 20 MG TAB PO SCH (08:31)
[2017-12-31] MEDS: LISINOPRIL 20 MG TAB PO SCH (08:31)
[2017-12-31] MEDS: predniSONE 5 MG TAB PO SCH (08:31)
[2017-12-31] MEDS: ACYCLOVIR 200 MG CAP PO SCH (08:31)
[2017-12-31] MEDS: PENICILLIN V POTASSIUM 250 MG TAB PO SCH (08:31)
[2017-12-31] MEDS: METOPROLOL TARTRATE 12.5 MG TAB PO SCH (08:31)
[2017-12-31] MEDS: FAMOTIDINE 20 MG TAB PO SCH (08:32)
[2017-12-31] MEDS: amLODIPine 10 MG TAB PO SCH (08:32)
[2017-12-31 08:38] LABS: Large Platelets Present
[2017-12-31] MEDS ORDERED: ENOXAPARIN 40 MG/0.4 ML SYRINGE SQ SCH (09:00)
[2017-12-31 11:07] LABS: Glucose,Whole Blood 147 mg/dL (75-99)
[2017-12-31] MEDS: FOLIC ACID 1 MG TAB PO SCH (11:11)
[2017-12-31] MEDS: CYANOCOBALAMIN 500 MCG TAB PO SCH (11:39)
--- NOTE | 2017-12-31 12:20 | P.PN ---
Subjective Principal diagnosis: Patient remains pain-free. He has no chest discomfort no shortness of breath he is sitting in bed comfortably playing on the computer yesterday he received packed red cells today the hematocrit was 23.3 Afebrile 97.8F pulse rate in the 50s blood pressure 150/75 mmHg Breath sounds are clear no rhonchi no crackles Heart sounds are normal normal S1 normal S2 Abdomen soft nontender External is warm no edema Impression Known CAD and prior stenting Troponin leak Hypertension Dyslipidemia 2-D echo shows left radical ejection fraction of 45% with inferior wall hypokinesis Suggest Follow-up with Dr. Dover once hemoglobin improves for further coronary workup Start low-dose statins and watch liver function Please call cardiology as needed Objective - Vital Signs Vital signs: Vital Signs Temp 97.8 F 12/31/17 07:00 Pulse 50 L 12/31/17 07:00 Resp 16 12/31/17 07:00 BP 154/71 12/31/17 07:00 Pulse Ox 97 12/31/17 07:00 Intake & Output 12/30/17 12/31/17 12/31/17 18:59 06:59 18:59 Intake Total 550 Balance 550 Weight 87.5 kg Intake: Oral 240 Blood Product 310 Rc As-1 Unit 310 [id number] Other: Voiding Method Toilet # Voids 2 - Labs CBC & Chem 7: 12/31/17 07:25 12/31/17 07:25 Labs: Abnormal Lab Results - Last 24 Hours (Table) 12/30/17 12/30/17 12/30/17 Range/Units 05:15 05:15 12:50 WBC (3.8-10.6) k/uL RBC (4.30-5.90) m/uL Hgb (13.0-17.5) gm/dL Hct (39.0-53.0) % RDW (11.5-15.5) % Plt Count (150-450) k/uL Neutrophils # (Manual) (1.3-7.7) k/uL Lymphocytes # (Manual) (1.0-4.8) k/uL Chloride (98-107) mmol/L BUN (9-20) mg/dL POC Glucose (mg/dL) (75-99) mg/dL Ferritin 934.5 H (22.0-322.0) ng/mL Total Protein (6.3-8.2) g/dL Albumin (3.5-5.0) g/dL Vitamin B12 1692.0 H (200.0-944.0) pg/mL RBC Folate 1,804 H (280 - 791) ng/mL Crossmatch See Detail 12/30/17 12/30/17 12/31/17 Range/Units 17:15 20:05 07:25 WBC 1.1 L* (3.8-10.6) k/uL RBC 2.72 L (4.30-5.90) m/uL Hgb 7.4 L (13.0-17.5) gm/dL Hct 23.3 L (39.0-53.0) % RDW 20.9 H (11.5-15.5) % Plt Count 136 L (150-450) k/uL Neutrophils # (Manual) 0.60 L (1.3-7.7) k/uL Lymphocytes # (Manual) 0.21 L (1.0-4.8) k/uL Chloride (98-107) mmol/L BUN (9-20) mg/dL POC Glucose (mg/dL) 127 H 145 H (75-99) mg/dL Ferritin (22.0-322.0) ng/mL Total Protein (6.3-8.2) g/dL Albumin (3.5-5.0) g/dL Vitamin B12 (200.0-944.0) pg/mL RBC Folate (280 - 791) ng/mL Crossmatch 12/31/17 12/31/17 Range/Units 07:25 11:05 WBC (3.8-10.6) k/uL RBC (4.30-5.90) m/uL Hgb (13.0-17.5) gm/dL Hct (39.0-53.0) % RDW (11.5-15.5) % Plt Count (150-450) k/uL Neutrophils # (Manual) (1.3-7.7) k/uL Lymphocytes # (Manual) (1.0-4.8) k/uL Chloride 108 H (98-107) mmol/L BUN 27 H (9-20) mg/dL POC Glucose (mg/dL) 147 H (75-99) mg/dL Ferritin (22.0-322.0) ng/mL Total Protein 4.6 L (6.3-8.2) g/dL Albumin 2.6 L (3.5-5.0) g/dL Vitamin B12 (200.0-944.0) pg/mL RBC Folate (280 - 791) ng/mL Crossmatch Microbiology - Last 24 Hours (Table) 12/29/17 01:04 Blood Culture - Preliminary Blood No Growth after 48 hours
--- NOTE | 2017-12-31 14:00 | P.DS ---
Providers Date of admission: 12/29/17 03:25 Expected date of discharge: 12/31/17 Attending physician: Loco Jain Consults: 12/29/17 03:18 Consult Physician Routine Consulting Provider: Pasquale Armenta Consult Reason/Comments: Elevated troponin Do you want consulting provider notified?: Yes 12/30/17 06:23 Consult Physician Routine Consulting Provider: Bruce England Consult Reason/Comments: low hgb, leukemia, bone marrow transplant Do you want consulting provider notified?: Yes Primary care physician: [facility] Course: Discharge diagnosis 1. Acute non-ST elevated WA, type II. Likely secondary to patient's anemia. Case discussed with cardiology. The recommending medical management. And will hold off on heart catheterization at this time. Patient is currently chest pain -free 2. 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 Mild rhabdomyolysis with unknown duration of time patient being on the floor we will continue IV fluid hydration 4. 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 5. Adrenal insufficiency: Continue cortef. 6. Pancytopenia: Secondary to chemotherapy for MDS 7. Acute on chronic Anemia secondary to chemotherapy. Hemoglobin 6.7 has gone up to 7.4 after 1 unit of blood patient seen by oncology Hospital course This is a 62-year-old gentleman with past medical history significant for MDS status post bone marrow transplant in 2016 with [id number] disease and presented to the emergency room after he fell out of bed yesterday. Patient is a very poor historian and he said that he does not recall exactly what happened. He said that he was trying to get out of bed and failed landing on the ground. He said that he stayed on the floor for unknown period of time. He denies losing consciousness. He said that he was able to call his [employer] device and ask her to call his friend. His friend in her turn called EMS. Patient said that he is generally weak and he has a history of steroid- induced myopathy. He usually uses a cane at home that he is having a lot of trouble with his balance and recently ordered a walker that was not delivered as of yet. He follow-up with hematology at the [facility]. Patient himself denies any chest pain or shortness of breath. He said that he has a history of coronary artery disease with prior stent placement in 2003. In the emergency room his 12-lead EKG showed no acute ischemic changes. His troponin initially was slightly elevated. Repeat troponin was normal. 12/30/2017 patient is sitting in bed comfortably. No evidence of chest pain. Patient has a known history of MDS with bone marrow transplant in 2016 also has [id number] disease. History of steroid induced myopathy, coronary artery disease with cardiac stent in 2003 and history of adrenal insufficiency. His oncologists and decorating instructor are out of [facility]. And has a follow-up this Saturday at [facility]. Patient denies any chest pain. Case discussed with Dr. Dover this morning. Patent he is recommending medical management for the mild non-ST elevated WA. No heart catheterization at this time. Patient denies any chest pain or shortness of breath. Denies any nausea or vomiting. Denies any bowel movement changes or urinary symptoms. White count 1.4 hemoglobin down to 6.7 patient receiving a unit of blood. Platelets are down to 142. Oncology has been consulted. Patient also reports he has not been feeling right for the past month after being placed on Imbruv. He has not received that for a couple a days and reports that he is feeling better. Physical therapy has been consulted. Patient did miss a dose of his cortef on Saturday morning. He reports by Saturday evening he was not feeling well very weak and having falls. Patient has been seen by both cardiology and oncology. Cardiology added a low- dose beta brendan and statin during this admission. Patient possibly had an acute non-ST elevated WA type II due to patient's anemia. And recommend that patient follows up in the office in a couple of weeks after he is seen by his [facility] physicians. Patient will also be started on a baby aspirin daily. Patient evaluated by oncology during this admission. He will follow-up with his [facility] oncology team on Saturday. At this time patient's ibrutinib has been on hold. Patient did feel that this medication may have contributed to him not feeling well and his falls. He can continue holding this medication until he sees his [facility] specialists on Saturday. At that time they can discuss the management of his medications. Patient is feeling well. CBC panel shows a WBC of 1.1 and hemoglobin 7.4 and platelets 136. Discussed this with oncology. They have cleared him for discharge and recommend that he follows up with his [facility] oncologist on Saturday. Patient is medically stable for discharge I performed an examination of the patient and discussed their management with the physician Attendant Honor Bar. I have reviewed the Physician Attendant Honor Bar's notes and agree with the documented findings and plan of care Patient Condition at Discharge: Stable Plan - Discharge Summary New Discharge Prescriptions: New Hydrocortisone [Cortef] 20 mg PO BID tab Metoprolol Tartrate [Lopressor] 12.5 mg PO BID #60 tab Pravastatin Sodium [Pravachol] 20 mg PO HS #30 tab Aspirin EC [Ecotrin Low Dose] 81 mg PO DAILY #30 tablet.dr Bhandari Ergocalciferol (Vitamin D2) [Drisdol] 50,000 unit PO TH Lisinopril 20 mg PO BID Penicillin V Potassium [Pen Vee K] 500 mg PO BID amLODIPine [Norvasc] 10 mg PO DAILY Lidocaine-Prilocaine Cream [Emla Cream 2.5%/2.5%] 1 applic TOPICAL DAILY PRN PRN Reason: Pain Folic Acid 1 mg PO DAILY Cyanocobalamin (Vitamin B-12) [Vitamin B-12] 1,000 mcg PO DAILY Acyclovir 400 mg PO BID predniSONE 15 mg PO DAILY Ranitidine HCl 150 mg PO BID Montelukast [Singulair] 10 mg PO DAILY Azithromycin [Zithromax] 250 mg PO MOWEFR Budesonide/Formoterol Fumarate [Symbicort 80-4.5 Mcg Inhaler] 2 puff INHALATION RT-BID Posaconazole [Noxafil] 300 mg PO DAILY Methylphenidate HCl [Ritalin] 5 mg PO DAILY PRN PRN Reason: Drowsiness Furosemide [Lasix] 20 mg PO Q48H PRN PRN Reason: Shortness Of Breath DULoxetine HCL [Cymbalta] 20 mg PO DAILY Discharge Medication List Ergocalciferol (Vitamin D2) [Drisdol] 50,000 unit PO TH 12/04/15 [History] Lisinopril 20 mg PO BID 03/14/17 [History] Acyclovir 400 mg PO BID 07/02/17 [History] Cyanocobalamin (Vitamin B-12) [Vitamin B-12] 1,000 mcg PO DAILY 07/02/17 [ History] Folic Acid 1 mg PO DAILY 07/02/17 [History] Lidocaine-Prilocaine Cream [Emla Cream 2.5%/2.5%] 1 applic TOPICAL DAILY PRN 12/14 [History] Penicillin V Potassium [Pen Vee K] 500 mg PO BID 07/02/17 [History] Ranitidine HCl 150 mg PO BID 07/02/17 [History] amLODIPine [Norvasc] 10 mg PO DAILY 07/02/17 [History] predniSONE 15 mg PO DAILY 07/02/17 [History] Azithromycin [Zithromax] 250 mg PO MOWEFR 12/29/17 [History] Budesonide/Formoterol Fumarate [Symbicort 80-4.5 Mcg Inhaler] 2 puff INHALATION RT-BID 12/29/17 [History] DULoxetine HCL [Cymbalta] 20 mg PO DAILY 12/29/17 [History] Furosemide [Lasix] 20 mg PO Q48H PRN 12/29/17 [History] Methylphenidate HCl [Ritalin] 5 mg PO DAILY PRN 12/29/17 [History] Montelukast [Singulair] 10 mg PO DAILY 12/29/17 [History] Posaconazole [Noxafil] 300 mg PO DAILY 12/29/17 [History] Aspirin EC [Ecotrin Low Dose] 81 mg PO DAILY #30 tablet. 12/31/17 [Rx] Hydrocortisone [Cortef] 20 mg PO BID tab 12/31/17 [Rx] Metoprolol Tartrate [Lopressor] 12.5 mg PO BID #60 tab 12/31/17 [Rx] Pravastatin Sodium [Pravachol] 20 mg PO HS #30 tab 12/31/17 [Rx] Follow up Appointment(s)/Referral(s): Ranjana Rendon DO [Primary Care Provider] - 01/07/18 10:30 am (Saturday with Su ARAUJO) Shmuel Morales MD [STAFF PHYSICIAN] - 2 Weeks Activity/Diet/Wound Care/Special Instructions: Diet: cardiac Activity: as tolerated Follow-up with his [facility] oncology team as scheduled on Saturday Continue to hold ibrutinib for now until seen by [facility] oncology Discharge Disposition: HOME SELF-CARE
[2017-12-31 15:21] VITALS: BP 148/69; PULSE 66; TEMP 98.5
[2017-12-31 17:12] LABS: Glucose,Whole Blood 104 mg/dL (75-99)
[2017-12-31] MEDS ORDERED: PRAVASTATIN SODIUM 20 MG TAB PO SCH (21:00)
[2018-01-02] MEDS ORDERED: ERGOCALCIFEROL 50,000 UNIT CAP PO SCH (12:00)
== END 2017-12-31 19:07 | disposition home or self-care (01) | DRG 280 ==
LOC: SUPCPDRO 23:48 → EC 23:48 → 6SEL 12-29 03:25 → 5ONC 12-30 15:37
PROVIDERS: ADMIT Internal Medicine; ATTEND Internal Medicine
PROC: 30233N1 Transfusion of Nonautologous Red Blood Cells into Peripheral Vein, Percutaneous Approach (ICD-10-PCS; principal; 2017-12-30)
DX: I21.A1 Myocardial infarction type 2 (principal); D61.810 Antineoplastic chemotherapy induced pancytopenia; D89.811 Chronic graft-versus-host disease; G72.0 Drug-induced myopathy; Z94.81 Bone marrow transplant status; M62.82 Rhabdomyolysis; E27.40 Unspecified adrenocortical insufficiency; Z94.84 Stem cells transplant status; D46.9 Myelodysplastic syndrome, unspecified; E78.5 Hyperlipidemia, unspecified; F32.9 Major depressive disorder, single episode, unspecified; I10 Essential (primary) hypertension; W06.XXXA Fall from bed, initial encounter; I25.10 Atherosclerotic heart disease of native coronary artery without angina pectoris; T38.0X5A Adverse effect of glucocorticoids and synthetic analogues, initial encounter; T45.1X5A Adverse effect of antineoplastic and immunosuppressive drugs, initial encounter; R53.81 Other malaise; W19.XXXA Unspecified fall, initial encounter; Z79.52 Long term (current) use of systemic steroids; Z79.899 Other long term (current) drug therapy; Z87.891 Personal history of nicotine dependence; Z86.19 Personal history of other infectious and parasitic diseases; Z88.5 Allergy status to narcotic agent; Z91.041 Radiographic dye allergy status; Z95.5 Presence of coronary angioplasty implant and graft; Z98.890 Other specified postprocedural states; Z85.46 Personal history of malignant neoplasm of prostate; I87.2 Venous insufficiency (chronic) (peripheral); Z79.82 Long term (current) use of aspirin; Z80.8 Family history of malignant neoplasm of other organs or systems; Y92.009 Unspecified place in unspecified non-institutional (private) residence as the place of occurrence of the external cause
CPT/HCPCS: 36415; 71045; 80053; 80061; 82550; 82553; 82607; 82728; 82747; 83010; 83540; 83550; 83605; 83615; 83735; 84100; 84484; 85025; 85045; 85610; 85730; 86850; 86900; 86901; 86920; 87040; 93005; 93306; 96372; 96374; 99285

== ENCOUNTER 2018-01-06 12:28 | Emergency (ER) | payer BC ==
[2018-01-06] MEDS ORDERED: ACETAMINOPHEN TAB 500 MG TAB PO STA (12:50)
[2018-01-06] MEDS ORDERED: IBUPROFEN 600 MG TAB PO STA (12:50)
--- NOTE | 2018-01-06 12:54 | ED ---
General Adult HPI - General Chief complaint: Weakness Stated complaint: Weakness Time Seen by Provider: 01/06/18 12:30 Source: patient, EMS, RN notes reviewed Mode of arrival: EMS Limitations: no limitations - History of Present Illness Initial comments: This a 62-year-old male who presents emergency Department with a past medical history significant for myelodysplastic disease and received a bone marrow transplant a couple of years ago. Patient presents today because of generalized weakness to the point where he can't even get himself up in bed on his own. Patient was unaware that he had a fever he does not complain of any chills. Patient denies any cough or difficulty breathing. Patient denies any nausea vomiting or diarrhea. Patient denies any dysuria hematuria urinary frequency. Patient denies any chest pain or palpitations. Patient denies a headache or neck stiffness. Patient denies any numbness weakness. Patient denies lightheadedness or dizziness. Patient's only complaint is that he has generally weak. 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 - Related Data Home Medications Medication Instructions Recorded Confirmed Ergocalciferol (Vitamin D2) 50,000 unit PO TH 12/04/15 01/06/18 [Drisdol] Lisinopril 20 mg PO BID 03/14/17 01/06/18 Acyclovir 400 mg PO BID 07/02/17 01/06/18 Cyanocobalamin (Vitamin B-12) 1,000 mcg PO DAILY 07/02/17 01/06/18 [Vitamin B-12] Folic Acid 1 mg PO DAILY 07/02/17 01/06/18 Lidocaine-Prilocaine Cream [Emla 1 applic TOPICAL DAILY PRN 07/02/17 01/06/18 Cream 2.5%/2.5%] Penicillin V Potassium [Pen Vee K] 500 mg PO BID 07/02/17 01/06/18 Ranitidine HCl 150 mg PO BID 07/02/17 01/06/18 predniSONE 15 mg PO DAILY 07/02/17 01/06/18 Azithromycin [Zithromax] 250 mg PO MOWEFR 12/29/17 01/06/18 Budesonide/Formoterol Fumarate 2 puff INHALATION RT-BID 12/29/17 01/06/18 [Symbicort 80-4.5 Mcg Inhaler] DULoxetine HCL [Cymbalta] 20 mg PO DAILY 12/29/17 01/06/18 Furosemide [Lasix] 20 mg PO Q48H PRN 12/29/17 01/06/18 Methylphenidate HCl [Ritalin] 5 - 10 mg PO DAILY PRN 12/29/17 01/06/18 Montelukast [Singulair] 10 mg PO DAILY 12/29/17 01/06/18 Posaconazole [Noxafil] 300 mg PO DAILY 12/29/17 01/06/18 Previous Rx's Medication Instructions Recorded Hydrocortisone [Cortef] 20 mg PO BID tab 12/31/17 Allergies Allergy/AdvReac Type Severity Reaction Status Date / Time Iodinated Contrast- Oral and Allergy Unknown Verified 01/06/18 12:57 IV Dye [Iodinated Contrast Media - IV Dye] tramadol AdvReac Nausea & Verified 01/06/18 12:57 Vomiting Review of Systems ROS Statement: Those systems with pertinent positive or pertinent negative responses have been documented in the HPI. ROS Other: All systems not noted in ROS Statement are negative. Past Medical History Past Medical History: Cancer, Hyperlipidemia, Hypertension Additional Past Medical History / Comment(s): prostate cancer, hx venous insufficiency, RCMD, bone marrow transplant, "graft vs host disease" History of Any Multi-Drug Resistant Organisms: C-DIFF Date of last positivie culture/infection: 2015 MDRO Source:: stool Past Surgical History: Heart Catheterization With Stent, Hernia Repair, Prostate Surgery Additional Past Surgical History / Comment(s): larry fundoplication, bone marrow transplant Past Anesthesia/Blood Transfusion Reactions: No Reported Reaction Date of Last Stent Placement:: 2003 Past Psychological History: Depression Smoking Status: Former smoker Past Alcohol Use History: None Reported Past Drug Use History: None Reported - Past Family History Mother Family Medical History: Cancer Additional Family Medical History / Comment(s): skin cancer Brother(s) Family Medical History: Renal Disease Additional Family Medical History / Comment(s): kidney transplant General Exam - General Exam Comments Initial Comments: GENERAL: Patient is well-developed and well-nourished. Patient is nontoxic and well- hydrated and is in mild distress. ENT: Neck is soft and supple. No significant lymphadenopathy is noted. Oropharynx is clear. Moist mucous membranes. Neck has full range of motion without eliciting any pain. EYES: The sclera were anicteric and conjunctiva were pink and moist. Extraocular movements were intact and pupils were equal round and reactive to light. Eyelids were unremarkable. PULMONARY: Unlabored respirations. Good breath sounds bilaterally. No audible rales rhonchi or wheezing was noted. CARDIOVASCULAR: There is a regular rate and rhythm without any murmurs gallops or rubs. ABDOMEN: Soft and nontender with normal bowel sounds. SKIN: Skin is clear with no lesions or rashes and otherwise unremarkable. NEUROLOGIC: Patient is alert and oriented x3. Cranial nerves II through XII are grossly intact. She has generalized weakness but no focal weakness noted MUSCULOSKELETAL: Normal extremities with adequate strength and full range of motion. 2+ edema bilaterally LYMPHATICS: No significant lymphadenopathy is noted PSYCHIATRIC: Normal psychiatric evaluation. Normal interpersonal interactions appears functionally intact in deals appropriately with others. No signs of depression. No signs of anxiety. Limitations: no limitations Course Vital Signs 01/06/18 01/06/18 01/06/18 12:29 14:11 14:44 Temperature 101.5 F H 101.0 F H Pulse Rate 89 87 90 Respiratory 18 20 18 Rate Blood Pressure 131/64 141/73 134/76 O2 Sat by Pulse 95 97 97 Oximetry 01/06/18 15:30 Temperature 99.9 F H Pulse Rate 71 Respiratory 18 Rate Blood Pressure 136/65 O2 Sat by Pulse 97 Oximetry Medical Decision Making - Medical Decision Making EKG shows a normal sinus rhythm at 83 bpm MS interval is 114 QRS is 86 QT interval 368 QTC is 01/04/1934. Patient's EKG shows no ST segment elevation or depression or T wave abnormalities are noted. Patient is a little chest pain while in the ED so a new EKG was done and showed normal sinus rhythm at 85 bpm. It was 116 QRS is 90 QT interval 362 QTC is 4: 30. Patient's EKG shows no ST segment elevation or depression. Patient received a dose of Levaquin here prophylactically. I spoke with [facility] accepted the patient's transfer and patient will be transferred out. Transfer was requested by family Into the. According to the family they were told by the medical personnel that they were in contact with the [facility] that they would like the patient transferred down there. - Lab Data Result diagrams: 01/06/18 12:10 01/06/18 12:10 Lab Results 0401/06/18 01/06/18 Range/Units 12:10 12:10 12:10 WBC 1.6 L* (3.8-10.6) k/uL RBC 3.91 L (4.30-5.90) m/uL Hgb 10.5 L D (13.0-17.5) gm/dL Hct 33.4 L (39.0-53.0) % MCV 85.5 (80.0-100.0) fL MCH 26.9 (25.0-35.0) pg MCHC 31.4 (31.0-37.0) g/dL RDW 20.1 H (11.5-15.5) % Plt Count 164 (150-450) k/uL Neutrophils % 54 % Lymphocytes % 27 % Monocytes % 15 % Eosinophils % 1 % Basophils % 0 % Neutrophils # 0.9 L (1.3-7.7) k/uL Lymphocytes # 0.4 L (1.0-4.8) k/uL Monocytes # 0.2 (0-1.0) k/uL Eosinophils # 0.0 (0-0.7) k/uL Basophils # 0.0 (0-0.2) k/uL Manual Slide Review Performed Large Platelets Present Hypochromasia Slight Poikilocytosis Slight Anisocytosis Moderate Microcytosis Slight PT (9.0-12.0) sec INR (<1.2) APTT (22.0-30.0) sec Sodium 143 (137-145) mmol/L Potassium 3.2 L (3.5-5.1) mmol/L Chloride 105 (98-107) mmol/L Carbon Dioxide 28 (22-30) mmol/L Anion Gap 10 mmol/L BUN 25 H (9-20) mg/dL Creatinine 0.95 (0.66-1.25) mg/dL Est GFR (CKD-EPI)AfAm >90 (>60 ml/min/1.73 sqM) Est GFR (CKD-EPI)NonAf 85 (>60 ml/min/1.73 sqM) Glucose 80 (74-99) mg/dL Plasma Lactic Acid [place] 1.5 (0.7-2.0) mmol/L Calcium 8.7 (8.4-10.2) mg/dL Total Bilirubin 0.6 (0.2-1.3) mg/dL AST 50 (17-59) U/L ALT 39 (21-72) U/L Alkaline Phosphatase 48 (38-126) U/L Total Protein 5.0 L (6.3-8.2) g/dL Albumin 2.9 L (3.5-5.0) g/dL Urine Color Urine Appearance (Clear) Urine pH (5.0-8.0) Ur Specific [place] (1.001-1.035) Urine Protein (Negative) Urine Glucose (UA) (Negative) Urine Ketones (Negative) Urine Blood (Negative) Urine Nitrite (Negative) Urine Bilirubin (Negative) Urine Urobilinogen (<2.0) mg/dL Ur Leukocyte Esterase (Negative) Influenza Type A RNA (Not Detectd) Influenza Type B (PCR) (Not Detectd) 01/06/18 01/06/18 01/06/18 Range/Units 12:10 14:25 14:55 WBC (3.8-10.6) k/uL RBC (4.30-5.90) m/uL Hgb (13.0-17.5) gm/dL Hct (39.0-53.0) % MCV (80.0-100.0) fL MCH (25.0-35.0) pg MCHC (31.0-37.0) g/dL RDW (11.5-15.5) % Plt Count (150-450) k/uL Neutrophils % % Lymphocytes % % Monocytes % % Eosinophils % % Basophils % % Neutrophils # (1.3-7.7) k/uL Lymphocytes # (1.0-4.8) k/uL Monocytes # (0-1.0) k/uL Eosinophils # (0-0.7) k/uL Basophils # (0-0.2) k/uL Manual Slide Review Large Platelets Hypochromasia Poikilocytosis Anisocytosis Microcytosis PT 10.2 (9.0-12.0) sec INR 1.0 (<1.2) APTT 22.0 (22.0-30.0) sec Sodium (137-145) mmol/L Potassium (3.5-5.1) mmol/L Chloride (98-107) mmol/L Carbon Dioxide (22-30) mmol/L Anion Gap mmol/L BUN (9-20) mg/dL Creatinine (0.66-1.25) mg/dL Est GFR (CKD-EPI)AfAm (>60 ml/min/1.73 sqM) Est GFR (CKD-EPI)NonAf (>60 ml/min/1.73 sqM) Glucose (74-99) mg/dL Plasma Lactic Acid [place] (0.7-2.0) mmol/L Calcium (8.4-10.2) mg/dL Total Bilirubin (0.2-1.3) mg/dL AST (17-59) U/L ALT (21-72) U/L Alkaline Phosphatase (38-126) U/L Total Protein (6.3-8.2) g/dL Albumin (3.5-5.0) g/dL Urine Color Yellow Urine Appearance Clear (Clear) Urine pH 6.0 (5.0-8.0) Ur Specific [place] 1.010 (1.001-1.035) Urine Protein Trace H (Negative) Urine Glucose (UA) Negative (Negative) Urine Ketones Negative (Negative) Urine Blood Negative (Negative) Urine Nitrite Negative (Negative) Urine Bilirubin Negative (Negative) Urine Urobilinogen <2.0 (<2.0) mg/dL Ur Leukocyte Esterase Negative (Negative) Influenza Type A RNA Not Detected (Not Detectd) Influenza Type B (PCR) Not Detected (Not Detectd) Disposition Clinical Impression: Neutropenia, Febrile illness Disposition: ADMITTED IP TO THIS HOSP Referrals: Ranjana Rendon DO [Primary Care Provider] - 1-2 days Time of Disposition: 16:05
[2018-01-06] MEDS ORDERED: SODIUM CHLORIDE 0.9% 500 ML IV SCH (13:00)
[2018-01-06 13:33] LABS: ALT 39 U/L (21-72); AST 50 U/L (17-59); Albumin 2.9 g/dL (3.5-5.0); Alkaline Phosphatase 48 U/L (38-126); Anion Gap 10 mmol/L; Blood Urea Nitrogen 25 mg/dL (9-20); Calcium 8.7 mg/dL (8.4-10.2); Carbon Dioxide 28 mmol/L (22-30); Chloride 105 mmol/L (98-107); Glucose 80 mg/dL (74-99); Potassium 3.2 mmol/L (3.5-5.1); Sodium 143 mmol/L (137-145); Total Bilirubin 0.6 mg/dL (0.2-1.3)
[2018-01-06 13:37] LABS: Prothrombin Time 10.2 sec (9.0-12.0)
[2018-01-06 13:41] LABS: Anisocytosis Moderate; Basophils % (A) 0 %; Eosinophils % (A) 1 %; HCT 33.4 % (39.0-53.0); HGB 10.5 gm/dL (13.0-17.5); Hypochromasia Slight; Lymphocytes # (A) 0.4 k/uL (1.0-4.8); Lymphocytes % (A) 27 %; MCH 26.9 pg (25.0-35.0); MCHC 31.4 g/dL (31.0-37.0); MCV 85.5 fL (80.0-100.0); Mean Platelet Volume 10.3; Microcytosis Slight; Monocytes # (A) 0.2 k/uL (0-1.0); Monocytes % (A) 15 %; Neutrophils # (A) 0.9 k/uL (1.3-7.7); Neutrophils % (A) 54 %; Platelet Count 164 k/uL (150-450); Poikilocytosis Slight; RBC 3.91 m/uL (4.30-5.90); RDW 20.1 % (11.5-15.5)
[2018-01-06 13:46] LABS: WBC 1.6 k/uL (3.8-10.6)
[2018-01-06 13:49] LABS: Large Platelets Present
--- NOTE | 2018-01-06 14:35 | XR ---
EXAMINATION TYPE: XR chest 2V DATE OF EXAM: 01/06/2018 COMPARISON: 12/29/2017 HISTORY: Shortness of breath TECHNIQUE: Frontal and lateral views of the chest are obtained. FINDINGS: Scattered senescent parenchymal changes noted. Lung volumes are diminished. MediPort catheter is in p lace. Increased density right suprahilar region may reflect developing infiltrate. Correlate clinically and progress studies are advised. Heart size is stable. Mediastinal structures are stable and grossly unremarkable. No evidence for hilar prominence. Degenerative changes dorsal spine. IMPRESSION: 1. Increased density right suprahilar region may reflect developing infiltrate. Correlate clinically and progress studies are advised.
[2018-01-06 14:45] VITALS: RESP 18
[2018-01-06 15:01] LABS: Appearance,Urine Clear (Clear); Bilirubin,Urine Negative (Negative); Blood,Urine Negative (Negative); Color,Urine Yellow; Glucose,Urine (UA) Negative (Negative); Ketones,Urine Negative (Negative); Leukocyte Esterase,Urine Negative (Negative); Nitrite,Urine Negative (Negative); Protein,Urine Trace (Negative); Urobilinogen,Urine <2.0 mg/dL (<2.0)
[2018-01-06] MEDS ORDERED: LEVOFLOXACIN 750MG-D5W PMX 750 MG in DEXTROSE/WATER 1 150ML.BAG IVPB STA (15:23)
[2018-01-06 17:07] VITALS: BP 147/74; PULSE 74; TEMP 98.7
== END 2018-01-06 17:10 | disposition other institution (70) ==
LOC: EC 12:28
DX: D70.9 Neutropenia, unspecified (principal); R50.81 Fever presenting with conditions classified elsewhere; I10 Essential (primary) hypertension; F32.9 Major depressive disorder, single episode, unspecified; Z85.46 Personal history of malignant neoplasm of prostate; Z95.5 Presence of coronary angioplasty implant and graft; Z87.891 Personal history of nicotine dependence; Z79.51 Long term (current) use of inhaled steroids; Z79.52 Long term (current) use of systemic steroids; Z79.899 Other long term (current) drug therapy; Z91.041 Radiographic dye allergy status; Z88.6 Allergy status to analgesic agent
CPT/HCPCS: 36415; 93005; 80053; 83605; 85025; 85610; 85730; 81003; 87040; 87086; 87502; 71046; 99285; 96365; 96361; J1956

== ENCOUNTER 2018-02-01 10:33 | Emergency (ER) | payer BC ==
[2018-02-01 10:52] VITALS: BP 132/78; PULSE 78; RESP 18; TEMP 98.3
--- NOTE | 2018-02-01 11:20 | ED ---
General Adult HPI - General Chief complaint: Skin/Abscess/Foreign Body Stated complaint: Power Port Issues Time Seen by Provider: 02/01/18 10:54 Source: patient, RN notes reviewed Mode of arrival: ambulatory Limitations: no limitations - History of Present Illness Initial comments: Patient's a 52-year-old male presenting to the emergency room today needing a Wilkinson needle removed from his port site on the right side of the chest wall. He does admit that he was released from [facility] for a few weeks. Patient states that they forgot to remove this prior to being discharged. Patient denies any other complaints. States this is the only reason that he came here to this emergency room because it was closer to have this removed. Patient denies any recent fever, chills, shortness of breath, chest pain, back pain, abdominal pain, headaches or visual changes, or any other complaints. - Related Data Home Medications Medication Instructions Recorded Confirmed Ergocalciferol (Vitamin D2) 50,000 unit PO TH 12/04/15 01/06/18 [Drisdol] Lisinopril 20 mg PO BID 03/14/17 01/06/18 Acyclovir 400 mg PO BID 07/02/17 01/06/18 Cyanocobalamin (Vitamin B-12) 1,000 mcg PO DAILY 07/02/17 01/06/18 [Vitamin B-12] Folic Acid 1 mg PO DAILY 07/02/17 01/06/18 Lidocaine-Prilocaine Cream [Emla 1 applic TOPICAL DAILY PRN 07/02/17 01/06/18 Cream 2.5%/2.5%] Penicillin V Potassium [Pen Vee K] 500 mg PO BID 07/02/17 01/06/18 Ranitidine HCl 150 mg PO BID 07/02/17 01/06/18 predniSONE 15 mg PO DAILY 07/02/17 01/06/18 Azithromycin [Zithromax] 250 mg PO MOWEFR 12/29/17 01/06/18 Budesonide/Formoterol Fumarate 2 puff INHALATION RT-BID 12/29/17 01/06/18 [Symbicort 80-4.5 Mcg Inhaler] DULoxetine HCL [Cymbalta] 20 mg PO DAILY 12/29/17 01/06/18 Furosemide [Lasix] 20 mg PO Q48H PRN 12/29/17 01/06/18 Methylphenidate HCl [Ritalin] 5 - 10 mg PO DAILY PRN 12/29/17 01/06/18 Montelukast [Singulair] 10 mg PO DAILY 12/29/17 01/06/18 Posaconazole [Noxafil] 300 mg PO DAILY 12/29/17 01/06/18 Previous Rx's Medication Instructions Recorded Hydrocortisone [Cortef] 20 mg PO BID tab 12/31/17 Allergies Allergy/AdvReac Type Severity Reaction Status Date / Time Iodinated Contrast- Oral and Allergy Unknown Verified 02/01/18 10:52 IV Dye [Iodinated Contrast Media - IV Dye] tramadol AdvReac Nausea & Verified 02/01/18 10:52 Vomiting Review of Systems ROS Statement: Those systems with pertinent positive or pertinent negative responses have been documented in the HPI. ROS Other: All systems not noted in ROS Statement are negative. Past Medical History Past Medical History: Cancer, Hyperlipidemia, Hypertension Additional Past Medical History / Comment(s): prostate cancer, hx venous insufficiency, RCMD, bone marrow transplant, "graft vs host disease" History of Any Multi-Drug Resistant Organisms: C-DIFF Date of last positivie culture/infection: 2015 MDRO Source:: stool Past Surgical History: Heart Catheterization With Stent, Hernia Repair, Prostate Surgery Additional Past Surgical History / Comment(s): larry fundoplication, bone marrow transplant Past Anesthesia/Blood Transfusion Reactions: No Reported Reaction Date of Last Stent Placement:: 2003 Past Psychological History: Depression Smoking Status: Former smoker Past Alcohol Use History: None Reported Past Drug Use History: None Reported - Past Family History Mother Family Medical History: Cancer Additional Family Medical History / Comment(s): skin cancer Brother(s) Family Medical History: Renal Disease Additional Family Medical History / Comment(s): kidney transplant General Exam - General Exam Comments Initial Comments: General: The patient is awake and alert, in no distress, and does not appear acutely ill. Eye: Pupils are equal, round and reactive to light, extra-ocular movements are intact. No nystagmus. There is normal conjunctiva bilaterally. No signs of icterus. Ears, nose, mouth and throat: There are moist mucous membranes and no oral lesions. Neck: The neck is supple, there is no tenderness or JVD. Cardiovascular: There is a regular rate and rhythm. No murmur, rub or gallop is appreciated. Respiratory: Lungs are clear to auscultation, respirations are non-labored, breath sounds are equal. No wheezes, stridor, rales, or rhonchi. Musculoskeletal: Normal ROM, no tenderness. Strength 5/5. Sensation intact. Pulses equal bilaterally 2+. Neurological: A&O x 3. CN II-XII intact, There are no obvious motor or sensory deficits. Coordination appears grossly intact. Speech is normal. Skin: Skin is warm and dry and no rashes or lesions are noted. Psychiatric: Cooperative, appropriate mood & affect, normal judgment. Limitations: no limitations Course Vital Signs 02/01/18 10:49 Temperature 98.3 F Pulse Rate 78 Respiratory 18 Rate Blood Pressure 132/78 O2 Sat by Pulse 96 Oximetry Medical Decision Making - Medical Decision Making Patient's blanco needle removed by nursing staff in the emergency room. Patient discharged. Disposition Clinical Impression: Well adult health check Narrative: Power port checked Disposition: HOME SELF-CARE Condition: Stable Is patient prescribed a controlled substance at d/c from ED?: No Referrals: Ranjana Rendon DO [Primary Care Provider] - 1-2 days Time of Disposition: 11:20
== END 2018-02-01 11:30 | disposition home or self-care (01) ==
LOC: EC 10:33
DX: Z45.2 Encounter for adjustment and management of vascular access device (principal); I10 Essential (primary) hypertension; F32.9 Major depressive disorder, single episode, unspecified; Z87.891 Personal history of nicotine dependence; Z79.51 Long term (current) use of inhaled steroids; Z79.52 Long term (current) use of systemic steroids; Z79.899 Other long term (current) drug therapy; Z88.5 Allergy status to narcotic agent; Z91.041 Radiographic dye allergy status; Z85.46 Personal history of malignant neoplasm of prostate; Z94.81 Bone marrow transplant status; Z98.890 Other specified postprocedural states
CPT/HCPCS: 99282

== ENCOUNTER 2018-02-06 21:32 | Inpatient (IN) | payer BC ==
[2018-02-06] MEDS ORDERED: SODIUM CHLORIDE 0.9% 1,000 ML IV STA (22:03)
--- NOTE | 2018-02-06 22:07 | ED ---
Weakness HPI - General Chief complaint: Weakness Stated complaint: Weakness Time Seen by Provider: 02/06/18 21:32 Source: patient, EMS, RN notes reviewed Mode of arrival: EMS Limitations: no limitations - History of Present Illness Initial comments: This is a 62-year-old male with a history of leukemia who is brought in by EMS because of generalized weakness he states he could not get out of bed today he' s had decreased oral intake today. Denies any cough rhinorrhea earaches sore throat chest pain abdominal pain or other constitutional symptoms at this time is generalized weakness. He does state he had a injection of pentamidine yesterday. Per paramedics he apparently has been somewhat confused along with the weakness. No trauma is reported the patient does complain some left arm pain however. Per paramedics she did have some lymphadenopathy in the right side of his neck. MD Complaint: generalized weakness - Related Data Home Medications Medication Instructions Recorded Confirmed Ergocalciferol (Vitamin D2) 50,000 unit PO TH 12/04/15 02/06/18 [Drisdol] Lisinopril 20 mg PO BID 03/14/17 02/06/18 Acyclovir 400 mg PO BID 07/02/17 02/06/18 Cyanocobalamin (Vitamin B-12) 1,000 mcg PO DAILY 07/02/17 02/06/18 [Vitamin B-12] Folic Acid 1 mg PO DAILY 07/02/17 02/06/18 Ranitidine HCl 150 mg PO BID 07/02/17 02/06/18 predniSONE 10 mg PO DAILY 07/02/17 02/06/18 Azithromycin [Zithromax] 250 mg PO MOWEFR 12/29/17 02/06/18 Budesonide/Formoterol Fumarate 2 puff INHALATION RT-BID 12/29/17 02/06/18 [Symbicort 80-4.5 Mcg Inhaler] DULoxetine HCL [Cymbalta] 20 mg PO DAILY 12/29/17 02/06/18 Methylphenidate HCl [Ritalin] 5 - 10 mg PO DAILY PRN 12/29/17 02/06/18 Montelukast [Singulair] 10 mg PO DAILY 12/29/17 02/06/18 Posaconazole [Noxafil] 300 mg PO DAILY 12/29/17 02/06/18 Hydrocortisone [Cortef] 10 mg PO DAILY 02/06/18 02/06/18 Hydrocortisone [Cortef] 20 mg PO DAILY 02/06/18 02/06/18 Levofloxacin [Levaquin] 500 mg PO DAILY 02/06/18 02/06/18 Potassium Chloride ER [K-Dur 20] 20 meq PO BID 02/06/18 02/06/18 Spironolactone [Aldactone] 25 mg PO DAILY 02/06/18 02/06/18 amLODIPine [Norvasc] 5 mg PO DAILY 02/06/18 02/06/18 cycloSPORINE [Restasis] 1 applicator BOTH EYES BID 02/06/18 02/06/18 Allergies Allergy/AdvReac Type Severity Reaction Status Date / Time Iodinated Contrast- Oral and Allergy Unknown Verified 02/06/18 22:00 IV Dye [Iodinated Contrast Media - IV Dye] tramadol AdvReac Nausea & Verified 02/06/18 22:00 Vomiting Review of Systems ROS Statement: Those systems with pertinent positive or pertinent negative responses have been documented in the HPI. ROS Other: All systems not noted in ROS Statement are negative. Past Medical History Past Medical History: Cancer, Hyperlipidemia, Hypertension Additional Past Medical History / Comment(s): prostate cancer, hx venous insufficiency, RCMD, bone marrow transplant, "graft vs host disease", leumkemia History of Any Multi-Drug Resistant Organisms: C-DIFF Date of last positivie culture/infection: 2015 MDRO Source:: stool Past Surgical History: Heart Catheterization With Stent, Hernia Repair, Prostate Surgery Additional Past Surgical History / Comment(s): larry fundoplication, bone marrow transplant Past Anesthesia/Blood Transfusion Reactions: No Reported Reaction Date of Last Stent Placement:: 2003 Past Psychological History: Depression Smoking Status: Former smoker Past Alcohol Use History: None Reported Past Drug Use History: None Reported - Past Family History Mother Family Medical History: Cancer Additional Family Medical History / Comment(s): skin cancer Brother(s) Family Medical History: Renal Disease Additional Family Medical History / Comment(s): kidney transplant General Exam - General Exam Comments Initial Comments: This a well-developed well-nourished alert male who is somewhat slow to respond to questions he is hard of hearing and does have a hearing aid. Limitations: no limitations General appearance: alert, lethargic Head exam: Present: atraumatic, normocephalic, normal inspection Eye exam: Present: normal appearance, PERRL, EOMI. Absent: scleral icterus, conjunctival injection, periorbital swelling ENT exam: Present: mucous membranes dry Neck exam: Present: full ROM, lymphadenopathy (Right-sided lymphadenopathy no stridor JVD or bruits) Respiratory exam: Present: normal lung sounds bilaterally. Absent: respiratory distress, wheezes, rales, rhonchi, stridor Cardiovascular Exam: Present: regular rate, normal rhythm, normal heart sounds. Absent: systolic murmur, diastolic murmur, rubs, gallop, clicks GI/Abdominal exam: Present: soft, normal bowel sounds. Absent: distended, tenderness, guarding, rebound, rigid Extremities exam: Present: full ROM, tenderness, normal capillary refill, other (Ecchymosis and evidence of hematoma noted to the mid left upper arm. No step- off or crepitation). Absent: pedal edema, joint swelling, calf tenderness Back exam: Present: normal inspection Neurological exam: Present: alert, oriented X3, CN II-XII intact Psychiatric exam: Present: normal affect, normal mood Skin exam: Present: warm, dry, intact, normal color. Absent: rash Course Vital Signs 02/06/18 02/06/18 02/06/18 21:37 22:20 23:10 Temperature 99.2 F Pulse Rate 104 H 99 96 Respiratory 20 18 18 Rate Blood Pressure 138/69 122/65 103/78 O2 Sat by Pulse 95 98 98 Oximetry 02/06/18 02/07/18 23:57 00:50 Temperature 97.9 F Pulse Rate 93 94 Respiratory 18 18 Rate Blood Pressure 119/76 123/76 O2 Sat by Pulse 100 99 Oximetry - Reevaluation(s) Reevaluation #1: 02/06/18 22:38 Review of the patient's paperwork from [facility] reveals diagnoses of myelodysplastic syndrome, [place] graphic bone marrow transplant, weakness of proximal and of lower extremity, chronic G VHD, adrenal insufficiency, steroid induced myopathy history of prostate cancer status post prostatectomy, history of C. diff, thrombus that opinion, coronary artery disease, please see the accompanying complete list. EKG Findings - EKG Results: EKG: interpreted by ERMD, sinus rhythm (Sinus rhythm rate of 98. Interval 112 QRS duration 80 QT since QTC of 344/439 moderate voltage criteria for LVH nonspecific T-wave configuration) Medical Decision Making - Medical Decision Making I did discuss findings with the patient and with Dr. Jain the patient be admitted with cardiology consultation. Patient was again questioned about chest pain he denied any chest pain. - Lab Data Result diagrams: 02/06/18 22:00 02/06/18 22:00 Lab Results 02/06/18 02/06/18 02/06/18 Range/Units 22:00 22:00 22:00 WBC 7.2 (3.8-10.6) k/uL RBC 3.66 L (4.30-5.90) m/uL Hgb 9.9 L (13.0-17.5) gm/dL Hct 30.9 L (39.0-53.0) % MCV 84.3 (80.0-100.0) fL MCH 27.2 (25.0-35.0) pg MCHC 32.2 (31.0-37.0) g/dL RDW 19.3 H (11.5-15.5) % Plt Count 180 (150-450) k/uL Neutrophils % 71 % Lymphocytes % 18 % Monocytes % 8 % Eosinophils % 0 % Basophils % 0 % Neutrophils # 5.1 (1.3-7.7) k/uL Lymphocytes # 1.3 (1.0-4.8) k/uL Monocytes # 0.6 (0-1.0) k/uL Eosinophils # 0.0 (0-0.7) k/uL Basophils # 0.0 (0-0.2) k/uL Anisocytosis Slight Microcytosis Slight PT (9.0-12.0) sec INR (<1.2) APTT (22.0-30.0) sec Sodium 141 (137-145) mmol/L Potassium 5.1 (3.5-5.1) mmol/L Chloride 104 (98-107) mmol/L Carbon Dioxide 26 (22-30) mmol/L Anion Gap 11 mmol/L BUN 30 H (9-20) mg/dL Creatinine 1.30 H (0.66-1.25) mg/dL Est GFR (CKD-EPI)AfAm 67 (>60 ml/min/1.73 sqM) Est GFR (CKD-EPI)NonAf 58 (>60 ml/min/1.73 sqM) Glucose 91 (74-99) mg/dL Plasma Lactic Acid Dipak (0.7-2.0) mmol/L Calcium 8.9 (8.4-10.2) mg/dL Magnesium 2.0 (1.6-2.3) mg/dL Total Bilirubin 0.8 (0.2-1.3) mg/dL AST 33 (17-59) U/L ALT 28 (21-72) U/L Alkaline Phosphatase 66 (38-126) U/L Total Creatine Kinase 194 H (55-170) U/L CK-MB (CK-2) 23.7 H* (0.0-2.4) ng/mL CK-MB (CK-2) Rel Index 12.2 Troponin I 0.057 H* (0.000-0.034) ng/mL NT-Pro-B Natriuret Pep pg/mL Total Protein 4.9 L (6.3-8.2) g/dL Albumin 2.9 L (3.5-5.0) g/dL 02/06/18 02/06/18 02/06/18 Range/Units 22:00 22:00 22:00 WBC (3.8-10.6) k/uL RBC (4.30-5.90) m/uL Hgb (13.0-17.5) gm/dL Hct (39.0-53.0) % MCV (80.0-100.0) fL MCH (25.0-35.0) pg MCHC (31.0-37.0) g/dL RDW (11.5-15.5) % Plt Count (150-450) k/uL Neutrophils % % Lymphocytes % % Monocytes % % Eosinophils % % Basophils % % Neutrophils # (1.3-7.7) k/uL Lymphocytes # (1.0-4.8) k/uL Monocytes # (0-1.0) k/uL Eosinophils # (0-0.7) k/uL Basophils # (0-0.2) k/uL Anisocytosis Microcytosis PT 10.8 (9.0-12.0) sec INR 1.1 (<1.2) APTT 28.0 (22.0-30.0) sec Sodium (137-145) mmol/L Potassium (3.5-5.1) mmol/L Chloride (98-107) mmol/L Carbon Dioxide (22-30) mmol/L Anion Gap mmol/L BUN (9-20) mg/dL Creatinine (0.66-1.25) mg/dL Est GFR (CKD-EPI)AfAm (>60 ml/min/1.73 sqM) Est GFR (CKD-EPI)NonAf (>60 ml/min/1.73 sqM) Glucose (74-99) mg/dL Plasma Lactic Acid Dipak 1.1 (0.7-2.0) mmol/L Calcium (8.4-10.2) mg/dL Magnesium (1.6-2.3) mg/dL Total Bilirubin (0.2-1.3) mg/dL AST (17-59) U/L ALT (21-72) U/L Alkaline Phosphatase (38-126) U/L Total Creatine Kinase (55-170) U/L CK-MB (CK-2) (0.0-2.4) ng/mL CK-MB (CK-2) Rel Index Troponin I (0.000-0.034) ng/mL NT-Pro-B Natriuret Pep 3800 pg/mL Total Protein (6.3-8.2) g/dL Albumin (3.5-5.0) g/dL - Radiology Data Radiology results: report reviewed (Review the imaging showed no definite acute findings.), image reviewed Disposition Clinical Impression: Elevated troponin, Acute prerenal azotemia, Failure to thrive, Elevated troponin I level, Generalized weakness, MDS (myelodysplastic syndrome) Disposition: [facility] Condition: Stable Referrals: Ranjana Rendon DO [Primary Care Provider] - 1-2 days
[2018-02-06 22:23] LABS: Anisocytosis Slight; Basophils % (A) 0 %; Eosinophils % (A) 0 %; HCT 30.9 % (39.0-53.0); HGB 9.9 gm/dL (13.0-17.5); Lymphocytes # (A) 1.3 k/uL (1.0-4.8); Lymphocytes % (A) 18 %; MCH 27.2 pg (25.0-35.0); MCHC 32.2 g/dL (31.0-37.0); MCV 84.3 fL (80.0-100.0); Mean Platelet Volume 9.9; Microcytosis Slight; Monocytes # (A) 0.6 k/uL (0-1.0); Monocytes % (A) 8 %; Neutrophils # (A) 5.1 k/uL (1.3-7.7); Neutrophils % (A) 71 %; Platelet Count 180 k/uL (150-450); RBC 3.66 m/uL (4.30-5.90); RDW 19.3 % (11.5-15.5); WBC 7.2 k/uL (3.8-10.6)
[2018-02-06 22:28] LABS: INR 1.1 (<1.2); Prothrombin Time 10.8 sec (9.0-12.0)
[2018-02-06 22:30] LABS: Albumin 2.9 g/dL (3.5-5.0); Calcium 8.9 mg/dL (8.4-10.2); Potassium 5.1 mmol/L (3.5-5.1); Total Bilirubin 0.8 mg/dL (0.2-1.3); Total Protein 4.9 g/dL (6.3-8.2)
[2018-02-06 22:57] LABS: Creatine Kinase MB 23.7 ng/mL (0.0-2.4); Troponin I 0.057 ng/mL (0.000-0.034)
--- NOTE | 2018-02-06 23:42 | XR ---
EXAM: XR Chest, 2 Views CLINICAL History: weakness TECHNIQUE: Frontal and lateral views of the chest. COMPARISON: January 06, 2018 FINDINGS: Lungs: Unremarkable. No consolidation. No change compared to prior study Pleural space: Unremarkable. No pneumothorax. Blunting of the left posterior sulcus is stable compared to the prior study Heart: Unremarkable. No cardiomegaly. Mediastinum: Unremarkable. Bones/joints: Unremarkable. Infusion port again noted over the right hemithorax. IMPRESSION: No acute disease process in the chest. No significant change compared to the prior study
--- NOTE | 2018-02-06 23:43 | XR ---
EXAM: XR Left Humerus, 2 or More Views CLINICAL HISTORY: Pain TECHNIQUE: Frontal and lateral views of the left humerus. COMPARISON: No relevant prior studies available. FINDINGS: Bones/joints: Unremarkable. No acute fracture. No dislocation. Soft tissues: Unremarkable. IMPRESSION: Normal left humerus x-rays.
[2018-02-07] MEDS ORDERED: NALOXONE 0.4 MG/ML 1 ML VIAL IV PRN (01:22)
[2018-02-07] MEDS ORDERED: METHYLPHENIDATE HCL 5 MG TAB PO PRN (01:24)
[2018-02-07] MEDS ORDERED: NITROGLYCERIN SL TABS 0.4 MG TAB SUBLINGUAL PRN (01:26)
[2018-02-07] MEDS: cycloSPORINE 0.05% OPHTH 0.4 ML DROPERETTE BOTH EYES SCH ×2 (08:33→21:18)
[2018-02-07] MEDS: MONTELUKAST 10 MG TAB PO SCH (08:33)
[2018-02-07] MEDS: ACYCLOVIR 200 MG CAP PO SCH ×2 (08:33→21:18)
[2018-02-07] MEDS: predniSONE 10 MG TAB PO SCH (08:33)
[2018-02-07] MEDS: DULoxetine HCL 20 MG CAPSULE.DR PO SCH ×2 (08:34→10:14)
[2018-02-07] MEDS: FAMOTIDINE 20 MG TAB PO SCH ×2 (08:34→21:18)
[2018-02-07] MEDS: POTASSIUM CHLORIDE ER 20 MEQ TAB.ER PO SCH ×4 (08:34→21:21)
[2018-02-07] MEDS: ASPIRIN 81 MG PO SCH ×2 (08:34→10:14)
[2018-02-07] MEDS: HYDROCORTISONE 20 MG TAB PO SCH (08:34)
[2018-02-07] MEDS: CYANOCOBALAMIN 500 MCG TAB PO SCH ×2 (08:34→10:14)
[2018-02-07] MEDS: LEVOFLOXACIN 500 MG TAB PO SCH ×2 (08:34→10:14)
[2018-02-07] MEDS: AZITHROMYCIN 250 MG TAB PO SCH (08:34)
[2018-02-07] MEDS: amLODIPine 5 MG TAB PO SCH (08:35)
[2018-02-07] MEDS ORDERED: SPIRONOLACTONE 25 MG TAB PO SCH (09:00)
[2018-02-07] MEDS ORDERED: LISINOPRIL 20 MG TAB PO SCH (09:00)
[2018-02-07 09:45] LABS: Anisocytosis Slight; Basophils % (A) 1 %; Eosinophils % (A) 0 %; HCT 26.4 % (39.0-53.0); Hypochromasia Slight; Lymphocytes % (A) 16 %; MCH 26.7 pg (25.0-35.0); MCV 86.1 fL (80.0-100.0); Mean Platelet Volume 9.5; Microcytosis Slight; Monocytes # (A) 0.5 k/uL (0-1.0); Monocytes % (A) 8 %; Neutrophils # (A) 4.3 k/uL (1.3-7.7); Neutrophils % (A) 73 %; Platelet Count 144 k/uL (150-450); RBC 3.07 m/uL (4.30-5.90); RDW 19.5 % (11.5-15.5); WBC 5.8 k/uL (3.8-10.6)
[2018-02-07 09:46] LABS: Albumin 2.5 g/dL (3.5-5.0); Potassium 4.7 mmol/L (3.5-5.1); Total Bilirubin 0.6 mg/dL (0.2-1.3); Total Protein 4.4 g/dL (6.3-8.2)
[2018-02-07 09:47] LABS: HGB 8.2 gm/dL (13.0-17.5)
[2018-02-07 09:49] LABS: Calcium 8.1 mg/dL (8.4-10.2)
[2018-02-07] MEDS: FOLIC ACID 1 MG TAB PO SCH (10:15)
[2018-02-07] MEDS: POSACONAZOLE 300 MG PO SCH (11:39)
--- NOTE | 2018-02-07 12:21 | P.HPIM ---
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 He also has a history of adrenal insufficiency leukemia, prostate cancer status post prostatectomy. Patient presents to the emergency room with complaints of generalized weakness and unable to get out of bed. Also reports decrease in oral intake and decrease in urine output. Patient reports that on Saturday he had taken a long walk and felt that he may have overdone himself. He denies any chest pain or shortness of breath. Denies any nausea or vomiting. Denies any fever chills or sweats. Denies any burning when he was able to urinate. He did receive an injection of Pentamidine yesterday. He gets these injections monthly out at [facility]. Per paramedics patient was somewhat confused along with weakness. Denies any trauma. However he had been complaining of some left arm pain x-ray of the left humerus was negative for fracture. Patient was found to have some acute kidney injury creatinine at 1.30 on admission has gone up to 1.59. Fluids will be increased back to 100 mL an hour normal saline. Nephrology has been consulted. Aldactone has been discontinued. Due to patient's MDS and leukemia history oncology will be consulted. Cardiology consulted due to mildly elevated troponins. Patient denies any chest pain. EKG normal sinus rhythm. Chest x-ray negative for any acute process.. No evidence of rhabdomyolysis CK level 194 Review of Systems Please refer to HPI otherwise unremarkable Past Medical History Past Medical History: Cancer, Hyperlipidemia, Hypertension Additional Past Medical History / Comment(s): prostate cancer, hx venous insufficiency, RCMD, bone marrow transplant, "graft vs host disease", leumkemia History of Any Multi-Drug Resistant Organisms: C-DIFF Date of last positivie culture/infection: 2015 MDRO Source:: stool Past Surgical History: Heart Catheterization With Stent, Hernia Repair, Prostate Surgery Additional Past Surgical History / Comment(s): larry fundoplication, bone marrow transplant Past Anesthesia/Blood Transfusion Reactions: No Reported Reaction Date of Last Stent Placement:: 2003 Smoking Status: Former smoker Past Alcohol Use History: None Reported Past Drug Use History: None Reported - Past Family History Mother Family Medical History: Cancer Additional Family Medical History / Comment(s): skin cancer Brother(s) Family Medical History: Renal Disease Additional Family Medical History / Comment(s): kidney transplant Medications and Allergies Home Medications Medication Instructions Recorded Confirmed Type Ergocalciferol (Vitamin D2) 50,000 unit PO TH 12/04/15 02/06/18 History [Drisdol] Lisinopril 20 mg PO BID 03/14/17 02/06/18 History Acyclovir 400 mg PO BID 07/02/17 02/06/18 History Cyanocobalamin (Vitamin B-12) 1,000 mcg PO DAILY 07/02/17 02/06/18 History [Vitamin B-12] Folic Acid 1 mg PO DAILY 07/02/17 02/06/18 History Ranitidine HCl 150 mg PO BID 07/02/17 02/06/18 History predniSONE 10 mg PO DAILY 07/02/17 02/06/18 History Azithromycin [Zithromax] 250 mg PO MOWEFR 12/29/17 02/06/18 History Budesonide/Formoterol Fumarate 2 puff INHALATION RT-BID 12/29/17 02/06/18 History [Symbicort 80-4.5 Mcg Inhaler] DULoxetine HCL [Cymbalta] 20 mg PO DAILY 12/29/17 02/06/18 History Methylphenidate HCl [Ritalin] 5 - 10 mg PO DAILY PRN 12/29/17 02/06/18 History Montelukast [Singulair] 10 mg PO DAILY 12/29/17 02/06/18 History Posaconazole [Noxafil] 300 mg PO DAILY 12/29/17 02/06/18 History Hydrocortisone [Cortef] 10 mg PO DAILY 02/06/18 02/06/18 History Hydrocortisone [Cortef] 20 mg PO DAILY 02/06/18 02/06/18 History Levofloxacin [Levaquin] 500 mg PO DAILY 02/06/18 02/06/18 History Potassium Chloride ER [K-Dur 20] 20 meq PO BID 02/06/18 02/06/18 History Spironolactone [Aldactone] 25 mg PO DAILY 02/06/18 02/06/18 History amLODIPine [Norvasc] 5 mg PO DAILY 02/06/18 02/06/18 History cycloSPORINE [Restasis] 1 applicator BOTH EYES BID 02/06/18 02/06/18 History Allergies Allergy/AdvReac Type Severity Reaction Status Date / Time Iodinated Contrast- Oral and Allergy Unknown Verified 02/06/18 22:00 IV Dye [Iodinated Contrast Media - IV Dye] tramadol AdvReac Nausea & Verified 02/06/18 22:00 Vomiting Physical Exam Vitals: Vital Signs Temp Pulse Pulse Resp BP BP Pulse Ox 02/07/18 03:26 124/76 02/07/18 02:50 97.6 F 86 15 126/72 98 02/07/18 01:41 96.7 F L 91 16 161/100 99 02/07/18 00:50 97.9 F 94 18 123/76 99 02/06/18 23:57 93 18 119/76 100 02/06/18 23:10 96 18 103/78 98 02/06/18 22:20 99 18 122/65 98 02/06/18 21:37 99.2 F 104 H 20 138/69 95 Intake and Output 02/06/18 02/07/18 02/07/18 22:59 06:59 14:59 Intake Total 800 0 Balance 800 0 Intake: IV 800 Sodium Chloride 0.9% 1, 800 000 ml @ 100 mls/hr IV . Q10H STA Rx#:[id number] Oral 0 Other: Weight 83.461 kg 0 g Head normocephalic Neck supple Lungs clear to auscultation bilaterally no wheezing or crackles Heart regular rate and rhythm S1-S2, no rub or gallop Abdomen is soft nontender nondistended positive bowel sounds no hepatosplenomegaly Extremities no edema Neuro alert and orientated to 3 flat affect and slow to respond hand hospital aide was equal bilaterally no facial droop or slurred speech lower extremity strength equal but weak about a 3 out of 5 bilaterally Results CBC & Chem 7: 02/07/18 05:49 02/07/18 05:49 Labs: Abnormal Lab Results - Last 24 Hours (Table) 02/06/18 02/06/18 02/06/18 Range/Units 22:00 22:00 22:00 RBC 3.66 L (4.30-5.90) m/uL Hgb 9.9 L (13.0-17.5) gm/dL Hct 30.9 L (39.0-53.0) % RDW 19.3 H (11.5-15.5) % Plt Count (150-450) k/uL BUN 30 H (9-20) mg/dL Creatinine 1.30 H (0.66-1.25) mg/dL Calcium (8.4-10.2) mg/dL Total Creatine Kinase 194 H (55-170) U/L CK-MB (CK-2) 23.7 H* (0.0-2.4) ng/mL Troponin I 0.057 H* (0.000-0.034) ng/mL Total Protein 4.9 L (6.3-8.2) g/dL Albumin 2.9 L (3.5-5.0) g/dL 02/07/18 02/07/18 02/07/18 Range/Units 05:49 05:49 05:49 RBC 3.07 L (4.30-5.90) m/uL Hgb 8.2 L D (13.0-17.5) gm/dL Hct 26.4 L (39.0-53.0) % RDW 19.5 H (11.5-15.5) % Plt Count 144 L (150-450) k/uL BUN 36 H (9-20) mg/dL Creatinine 1.59 H (0.66-1.25) mg/dL Calcium 8.1 L (8.4-10.2) mg/dL Total Creatine Kinase (55-170) U/L CK-MB (CK-2) (0.0-2.4) ng/mL Troponin I 0.054 H* (0.000-0.034) ng/mL Total Protein 4.4 L (6.3-8.2) g/dL Albumin 2.5 L (3.5-5.0) g/dL 02/07/18 Range/Units 10:44 RBC (4.30-5.90) m/uL Hgb (13.0-17.5) gm/dL Hct (39.0-53.0) % RDW (11.5-15.5) % Plt Count (150-450) k/uL BUN (9-20) mg/dL Creatinine (0.66-1.25) mg/dL Calcium (8.4-10.2) mg/dL Total Creatine Kinase (55-170) U/L CK-MB (CK-2) (0.0-2.4) ng/mL Troponin I 0.050 H* (0.000-0.034) ng/mL Total Protein (6.3-8.2) g/dL Albumin (3.5-5.0) g/dL Thrombosis Risk Factor Assmnt - Choose All That Apply Any of the Below Risk Factors Present?: Yes Each Factor Represents 1 point: Obesity (BMI >25) Each Risk Factor Represents 2 Points: Age 61-74 years Thrombosis Risk Factor Assessment Total Risk Factor Score: 3 Thrombosis Risk Factor Assessment Level: Moderate Risk Assessment and Plan Assessment: 1. Generalized weakness likely related to his overall comorbidities as well as acute kidney injury and poor oral intake and overexerted himself with physical activity 2. Acute kidney injury: Kidney factors are worsening creatinine is up to 1.59. We'll increase fluids to normal saline and 100cc an hour. Checking postvoid residuals rule out any urinary obstruction. Nephrology has been consulted. Discontinue Aldactone and lisinopril. Await further nephrology recommendations. Check urinalysis 3. Mildly elevated troponins: No chest pain. Cardiology consulted will await their further recommendations 4. 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 Patient followed at [facility] 5. 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 History of adrenal insufficiency continue Cortef 7. Acute on chronic anemia secondary to chemotherapy and MDS GI prophylaxis Pepcid and DVT prophylaxis SCDs Time with Patient: Greater than 30 (Greater than 50% of the total time spent in counseling and coordination of care.I performed an examination of the patient and discussed their management with the physician Necktie Turner. I have reviewed the Physician Necktie Turner's notes and agree with the documented findings and plan of care)
[2018-02-07 13:41] LABS: Appearance,Urine Clear (Clear); Bilirubin,Urine Negative (Negative); Blood,Urine Negative (Negative); Color,Urine Yellow; Glucose,Urine (UA) Negative (Negative); Hyaline Casts,Urine 2 /lpf (0-2); Ketones,Urine Negative (Negative); Leukocyte Esterase,Urine Negative (Negative); Mucus,Urine Occasional /hpf; Nitrite,Urine Negative (Negative); PH, Urine 5.5 (5.0-8.0); Protein,Urine 1+ (Negative); RBC,Urine 1 /hpf (0-5); Specific Gravity,Urine 1.014 (1.001-1.035); Urobilinogen,Urine <2.0 mg/dL (<2.0); WBC,Urine 4 /hpf (0-5)
--- NOTE | 2018-02-07 14:22 | P.CRDCN ---
History of Present Illness Consult date: 02/07/18 Requesting physician: Loco Jain Reason for Consult (text): Abnormal troponin Chief complaint: Weakness History of present illness: This is a pleasant 62-year-old gentleman with history of MDS, status post bone marrow transplant in 2016 with [id number] disease. Patient also has history of adrenal insufficiency, leukemia, prostate cancer status post prostatectomy, hypertension, hyperlipidemia, history of coronary artery disease with prior stent placement in 1999 for, currently does not follow with a clutch specialist. He presented to the hospital on this occasion with complaints of significant weakness and inability to get out of bed. Patient has not been eating much at home or drinking much according to him, and his urine output has been minimal. He denies having any chest discomfort, no difficulty in breathing. Patient was apparently noted to have some mild mental status changes as well. For these reasons he came to the emergency room for further evaluation. Cardiology consultation was requested because of mild abnormality noted in troponins. EKG on arrival here shows a normal sinus rhythm with T- wave inversion in the lateral leads noted. Chest x-ray does not reveal any acute disease process. Humerus x-ray normal. Blood pressure 115/60 with a heart rate in the 90s, temperature 97.4, he is 99% on 2 L of oxygen. White blood cell count 5.8, hemoglobin on admission 9.9, 8.2 this morning. Platelet count 180, 144 this morning. Sodium 138, potassium 4.7, BUN 36, Creatinine 1.5. BNP level 3800. Troponin 0.057, 0.054, 050. A recent echocardiogram with Doppler study was performed in December which revealed an ejection fraction of 45-50% with basal inferior and inferior septal hypokinesis is noted. At the time of my examination this morning, the patient's main complaint is that he feels extremely tired and weak. Breathing is stable, he denies any chest discomfort. Past Medical History Past Medical History: Cancer, Hyperlipidemia, Hypertension Additional Past Medical History / Comment(s): prostate cancer, hx venous insufficiency, RCMD, bone marrow transplant, "graft vs host disease", leumkemia History of Any Multi-Drug Resistant Organisms: C-DIFF Date of last positivie culture/infection: 2015 MDRO Source:: stool Past Surgical History: Heart Catheterization With Stent, Hernia Repair, Prostate Surgery Additional Past Surgical History / Comment(s): larry fundoplication, bone marrow transplant Past Anesthesia/Blood Transfusion Reactions: No Reported Reaction Date of Last Stent Placement:: 2003 Smoking Status: Former smoker Past Alcohol Use History: None Reported Past Drug Use History: None Reported - Past Family History Mother Family Medical History: Cancer Additional Family Medical History / Comment(s): skin cancer Brother(s) Family Medical History: Renal Disease Additional Family Medical History / Comment(s): kidney transplant Medications and Allergies Home Medications Medication Instructions Recorded Confirmed Type Ergocalciferol (Vitamin D2) 50,000 unit PO TH 12/04/15 02/06/18 History [Drisdol] Lisinopril 20 mg PO BID 03/14/17 02/06/18 History Acyclovir 400 mg PO BID 07/02/17 02/06/18 History Cyanocobalamin (Vitamin B-12) 1,000 mcg PO DAILY 07/02/17 02/06/18 History [Vitamin B-12] Folic Acid 1 mg PO DAILY 07/02/17 02/06/18 History Ranitidine HCl 150 mg PO BID 07/02/17 02/06/18 History predniSONE 10 mg PO DAILY 07/02/17 02/06/18 History Azithromycin [Zithromax] 250 mg PO MOWEFR 12/29/17 02/06/18 History Budesonide/Formoterol Fumarate 2 puff INHALATION RT-BID 12/29/17 02/06/18 History [Symbicort 80-4.5 Mcg Inhaler] DULoxetine HCL [Cymbalta] 20 mg PO DAILY 12/29/17 02/06/18 History Methylphenidate HCl [Ritalin] 5 - 10 mg PO DAILY PRN 12/29/17 02/06/18 History Montelukast [Singulair] 10 mg PO DAILY 12/29/17 02/06/18 History Posaconazole [Noxafil] 300 mg PO DAILY 12/29/17 02/06/18 History Hydrocortisone [Cortef] 10 mg PO DAILY 02/06/18 02/06/18 History Hydrocortisone [Cortef] 20 mg PO DAILY 02/06/18 02/06/18 History Levofloxacin [Levaquin] 500 mg PO DAILY 02/06/18 02/06/18 History Potassium Chloride ER [K-Dur 20] 20 meq PO BID 02/06/18 02/06/18 History Spironolactone [Aldactone] 25 mg PO DAILY 02/06/18 02/06/18 History amLODIPine [Norvasc] 5 mg PO DAILY 02/06/18 02/06/18 History cycloSPORINE [Restasis] 1 applicator BOTH EYES BID 02/06/18 02/06/18 History Allergies Allergy/AdvReac Type Severity Reaction Status Date / Time Iodinated Contrast- Oral and Allergy Unknown Verified 02/06/18 22:00 IV Dye [Iodinated Contrast Media - IV Dye] tramadol AdvReac Nausea & Verified 02/06/18 22:00 Vomiting Physical Exam Vitals: Vital Signs Temp Pulse Pulse Resp BP BP Pulse Ox 02/07/18 12:00 91 15 02/07/18 07:45 97.4 F L 91 14 115/64 99 02/07/18 03:26 124/76 02/07/18 02:50 97.6 F 86 15 126/72 98 02/07/18 01:41 96.7 F L 91 16 161/100 99 02/07/18 00:50 97.9 F 94 18 123/76 99 02/06/18 23:57 93 18 119/76 100 02/06/18 23:10 96 18 103/78 98 02/06/18 22:20 99 18 122/65 98 02/06/18 21:37 99.2 F 104 H 20 138/69 95 Intake and Output 02/06/18 02/07/18 02/07/18 22:59 06:59 14:59 Intake Total 800 0 Balance 800 0 Intake: IV 800 Sodium Chloride 0.9% 1, 800 000 ml @ 100 mls/hr IV . Q10H STA Rx#:[id number] Oral 0 Other: Weight 83.461 kg 0 g PHYSICAL EXAMINATION: HEENT: Head is atraumatic, normocephalic. Pupils equal, round. Neck is supple. There is no elevated jugular venous pressure. HEART EXAMINATION: Heart S1, S2 normal. No murmur or gallop heard. CHEST EXAMINATION: Lungs are clear to auscultation and precussion. No chest wall tenderness is noted on palpation or with deep breathing. ABDOMEN: Soft, nontender. Bowel sounds are heard. No organomegaly noted. EXTREMITIES: 2+ peripheral pulses with no evidence of peripheral edema and no calf tenderness noted. NEUROLOGIC patient is awake, alert and oriented -3. . Results 02/07/18 05:49 02/07/18 05:49 Cardiac Enzymes 02/06/18 02/06/18 02/07/18 Range/Units 22:00 22:00 05:49 AST 33 (17-59) U/L CK-MB (CK-2) 23.7 H* (0.0-2.4) ng/mL Troponin I 0.057 H* 0.054 H* (0.000-0.034) ng/mL 02/07/18 02/07/18 Range/Units 05:49 10:44 AST 28 (17-59) U/L CK-MB (CK-2) (0.0-2.4) ng/mL Troponin I 0.050 H* (0.000-0.034) ng/mL Coagulation 02/06/18 Range/Units 22:00 PT 10.8 (9.0-12.0) sec APTT 28.0 (22.0-30.0) sec CBC 02/06/18 02/07/18 Range/Units 22:00 05:49 WBC 7.2 5.8 (3.8-10.6) k/uL RBC 3.66 L 3.07 L (4.30-5.90) m/uL Hgb 9.9 L 8.2 L D (13.0-17.5) gm/dL Hct 30.9 L 26.4 L (39.0-53.0) % Plt Count 180 144 L (150-450) k/uL Comprehensive Metabolic Panel 02/06/18 02/07/18 Range/Units 22:00 05:49 Sodium 141 138 (137-145) mmol/L Potassium 5.1 4.7 (3.5-5.1) mmol/L Chloride 104 102 (98-107) mmol/L Carbon Dioxide 26 25 (22-30) mmol/L BUN 30 H 36 H (9-20) mg/dL Creatinine 1.30 H 1.59 H (0.66-1.25) mg/dL Glucose 91 98 (74-99) mg/dL Calcium 8.9 8.1 L (8.4-10.2) mg/dL AST 33 28 (17-59) U/L ALT 28 22 (21-72) U/L Alkaline Phosphatase 66 52 (38-126) U/L Total Protein 4.9 L 4.4 L (6.3-8.2) g/dL Albumin 2.9 L 2.5 L (3.5-5.0) g/dL Current Medications Generic Name Dose Route Start Last Admin Trade Name Freq PRN Reason Stop Dose Admin Acyclovir 400 mg 02/07/18 09:00 02/07/18 08:33 Zovirax PO 400 mg BID [facility] Administration Amlodipine Besylate 5 mg 02/07/18 09:00 02/07/18 08:35 Norvasc PO 5 mg DAILY [facility] Administration Aspirin 81 mg 02/07/18 09:00 02/07/18 10:14 Aspirin PO Not Given DAILY [facility] Azithromycin 250 mg 02/07/18 09:00 02/07/18 08:34 Zithromax PO 250 mg MOWEFR [facility] Administration Cyanocobalamin 1,000 mcg 02/07/18 09:00 02/07/18 10:14 Vitamin B-12 PO Not Given DAILY [facility] Cyclosporine 1 drops 02/07/18 09:00 02/07/18 08:33 Restasis 0.05% Ophth Soln BOTH EYES 1 drops BID [facility] Administration Duloxetine HCl 20 mg 02/07/18 09:00 02/07/18 10:14 Cymbalta PO Not Given DAILY [facility] Ergocalciferol 50,000 unit 02/13/18 09:00 Vitamin D2 PO TH [facility] Famotidine 20 mg 02/07/18 09:00 02/07/18 08:34 Pepcid PO 20 mg BID [facility] Administration Folic Acid 1 mg 02/07/18 12:00 02/07/18 10:15 Folic Acid PO Not Given DAILY@1200 [facility] Hydrocortisone 20 mg 02/07/18 09:00 02/07/18 08:34 Cortef PO 20 mg DAILY [facility] Administration Hydrocortisone 10 mg 02/07/18 21:00 Cortef PO HS [facility] Sodium Chloride 1,000 mls @ 100 mls/hr 02/07/18 12:00 Saline 0.9% IV .Q10H [facility] Levofloxacin 500 mg 02/07/18 09:00 02/07/18 10:14 Levaquin PO Not Given DAILY [facility] Methylphenidate HCl 5 mg 02/07/18 01:24 Ritalin PO DAILY PRN Drowsiness Montelukast Sodium 10 mg 02/07/18 09:00 02/07/18 08:33 Singulair PO 10 mg DAILY [facility] Administration Naloxone HCl 0.2 mg 02/07/18 01:22 Narcan IV Q2M PRN Opioid Reversal Nitroglycerin 0.4 mg 02/07/18 01:26 Nitrostat SUBLINGUAL Q5M PRN Chest Pain Posaconazole [ 300 mg 02/07/18 09:00 02/07/18 11:39 Noxafil] 300 Mg PO Not Given DAILY [facility] Potassium Chloride 20 meq 02/07/18 09:00 02/07/18 10:15 K-Dur 20 PO Not Given BID [facility] Prednisone 10 mg 02/07/18 09:00 02/07/18 08:33 PO 7.5 mg DAILY [facility] Administration Intake and Output 02/06/18 02/07/18 02/07/18 22:59 06:59 14:59 Intake Total 800 0 Balance 800 0 Intake: IV 800 Sodium Chloride 0.9% 1, 800 000 ml @ 100 mls/hr IV . Q10H [facility]A Rx#:[id number] Oral 0 Other: Weight 83.461 kg 0 g 02/07/18 05:49 02/07/18 05:49 EKG Interpretations (text) EKG shows a normal sinus rhythm with no acute changes. Assessment and Plan Plan: Assessment and plan #1 generalized weakness, likely secondary to poor oral intake, and overall comorbidities. #2 abnormal troponins, not consistent with acute coronary syndrome, likely secondary to supply and demand mismatch. Patient also had abnormality and troponin noted last month on his admission. 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 # 5 history of adrenal insufficiency #6 acute on chronic anemia secondary to chemotherapy and MDS Plan Patient had a recent echocardiogram with Doppler study performed in December which revealed an ejection fraction of 45-50%, we will not repeat an echo on this mission.Hemodynamically he is stable. We will continue current medications and follow this patient along with you on an as needed basis, please don't hesitate to call with any questions. DNP note has been reviewed, I agree with a documented findings and plan of care. Patient was seen and examined.
[2018-02-07] MEDS: ACETAMINOPHEN TAB 325 MG TAB PO PRN (14:44)
--- NOTE | 2018-02-07 15:50 | P.HPADDEND ---
H&P Addendum H&P Addendum Date: 02/07/[address] Anitra Cotton and discussed the case in details with her, she is recommending increasing prednisone from 7.5 mg daily back to 10 mg daily, she is recommending discontinuing Levaquin and keeping patient on Zithromax and acyclovir, she is recommending hydration and close monitoring of his kidney function and hemoglobin level, possible transfusion of a unit of blood if his hemoglobin continues to decline. Otherwise no recommendation made that this time. I have attempted to transfer patient to [facility], for further care , patient is well known to their service, however due to high volume of patients in the emergency room waiting to be admitted, and the lack of any specific need for transfer, the transfer at this time has been declined, if any new abnormality in patient condition occur, will attempt to contact the transfer team again.
--- NOTE | 2018-02-07 17:17 | NM ---
EXAMINATION TYPE: NM pul vent and perfuse DATE OF EXAM: 02/07/2018 COMPARISON: NONE HISTORY: TECHNIQUE: Utilizing inhalation of 32.4 mCi Tc 99m DTPA aerosol and intravenous injection of 5.09 mC i of Tc 99m MAA, ventilation and perfusion images are acquired post injection in multiple projections . FINDINGS: There is a subsegmental ablation defect at the left posterior lung base. There is no evidence of a mi smatch perfusion defect. There are small matching subsegmental defects at the lung apices. IMPRESSION: There is evidence of airway disease. There is low probability of pulmonary embolism.
--- NOTE | 2018-02-07 17:22 | P.CONS ---
History of Present Illness - Reason for Consult Consult date: 02/07/18 weakness and confusion. MDS status post bone marrow transplant - History of Present Illness Mr Montalvo is a 62 yr old WM, who [place] [id number] [place] BD on 06/09/14. This was repeated on 06/16/14 [place] [address], though clumping was noted. His CBC, in retrospect, had shown a low plt count on 76 in 01/10, and 103 in 09/10. Other CBC parameters were consistently WNL. He was thus referred here for further evaluation. CBC in a citrated tube confirmed a low plt count of 47. Additional w/u was ordered. 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 He continued f/u with Dr Rendon, and was referred back here due to a gradual downward trend in his Hgb and plt. In 08/14 his plt were 26, with Hgb 10-11. Additional w/u was ordered, essentially negative, other than a Cr of 1.44. The pt then had a bone marrow on 10/12/15, revealing marked hyperplasia, dysplastic changes, and clonal cytogenetic abnormalities - t(3;21), consistent with MDS. His IPSS score was 5.32, placing him in the high risk category. He was started on Dacogen and is s/p 3 cycles, completing those by 01/13. He then underwent myeloablative chemotherapy followed by allogeneic stem cell transplant in 03/15 at the [facility]. The patient achieved complete remission post transplant. He has continued follow-up at the [facility]. 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 He has thus been maintained on prednisone chronically for the same. Other immunosuppressive regimens have not been effective. The patient had an admission in for adrenal insufficiency. He will also admitted in 12/15, for generalized weakness. He is not aware of the specific diagnosis but states that he was subsequently in inpatient rehabilitation at [place]. Post discharge he had been feeling generally well. With the last day or so, he states that he was very weak and fatigued and unable to perform his ADLs. The day prior he had been walking for a long time and thought she may have overdone it. He was brought to the hospital by EMS, who felt that the patient was somewhat confused. Laboratory evaluation at the hospital revealed elevation of CK-MB, in the 20 range, as well as elevation of troponin in the 0.5 range. The patient's hemoglobin was in the 8-9 range. Creatinine was also elevated from baseline. He was started on antibiotics and IV hydration, and consult placed for further evaluation. Review of Systems Constitutional: Reports fatigue, Reports poor appetite, Reports weakness, Reports weight gain Eyes: denies blurred vision, denies pain Ears: deny: decreased hearing, ear discharge, earache, tinnitus Ears, nose, mouth and throat: Denies headache, Denies sore throat Cardiovascular: Reports dyspnea on exertion Respiratory: Reports dyspnea Gastrointestinal: Denies abdominal pain, Denies diarrhea, Denies nausea, Denies vomiting Genitourinary: Reports as per HPI Musculoskeletal: Reports as per HPI (history of "muscle inflammation" (likely rhabdomyolysis) due to GVHD), Reports muscle weakness Integumentary: Reports as per HPI (history of GVHD - no active lesions currently ) Neurological: Reports confusion, Reports weakness Psychiatric: Reports confusion Endocrine: Reports fatigue, Reports weight change Hematologic/Lymphatic: Reports as per HPI, Reports lymphadenopathy (right neck mass, present since about 2 months) Past Medical History Past Medical History: Cancer, Hyperlipidemia, Hypertension Additional Past Medical History / Comment(s): prostate cancer, hx venous insufficiency, RCMD, bone marrow transplant, "graft vs host disease", leumkemia History of Any Multi-Drug Resistant Organisms: C-DIFF Year Discovered:: 2015 MDRO Source:: stool Past Surgical History: Heart Catheterization With Stent, Hernia Repair, Prostate Surgery Additional Past Surgical History / Comment(s): larry fundoplication, bone marrow transplant Past Anesthesia/Blood Transfusion Reactions: No Reported Reaction Date of Last Stent Placement:: 2003 Smoking Status: Former smoker Past Alcohol Use History: None Reported Past Drug Use History: None Reported - Past Family History Mother Family Medical History: Cancer Additional Family Medical History / Comment(s): skin cancer Brother(s) Family Medical History: Renal Disease Additional Family Medical History / Comment(s): kidney transplant Medications and Allergies Home Medications Medication Instructions Recorded Confirmed Type Ergocalciferol (Vitamin D2) 50,000 unit PO TH 12/04/15 02/06/18 History [Drisdol] Lisinopril 20 mg PO BID 03/14/17 02/06/18 History Acyclovir 400 mg PO BID 07/02/17 02/06/18 History Cyanocobalamin (Vitamin B-12) 1,000 mcg PO DAILY 07/02/17 02/06/18 History [Vitamin B-12] Folic Acid 1 mg PO DAILY 07/02/17 02/06/18 History Ranitidine HCl 150 mg PO BID 07/02/17 02/06/18 History predniSONE 10 mg PO DAILY 07/02/17 02/06/18 History Azithromycin [Zithromax] 250 mg PO MOWEFR 12/29/17 02/06/18 History Budesonide/Formoterol Fumarate 2 puff INHALATION RT-BID 12/29/17 02/06/18 History [Symbicort 80-4.5 Mcg Inhaler] DULoxetine HCL [Cymbalta] 20 mg PO DAILY 12/29/17 02/06/18 History Methylphenidate HCl [Ritalin] 5 - 10 mg PO DAILY PRN 12/29/17 02/06/18 History Montelukast [Singulair] 10 mg PO DAILY 12/29/17 02/06/18 History Posaconazole [Noxafil] 300 mg PO DAILY 12/29/17 02/06/18 History Hydrocortisone [Cortef] 10 mg PO DAILY 02/06/18 02/06/18 History Hydrocortisone [Cortef] 20 mg PO DAILY 02/06/18 02/06/18 History Levofloxacin [Levaquin] 500 mg PO DAILY 02/06/18 02/06/18 History Potassium Chloride ER [K-Dur 20] 20 meq PO BID 02/06/18 02/06/18 History Spironolactone [Aldactone] 25 mg PO DAILY 02/06/18 02/06/18 History amLODIPine [Norvasc] 5 mg PO DAILY 02/06/18 02/06/18 History cycloSPORINE [Restasis] 1 applicator BOTH EYES BID 02/06/18 02/06/18 History Allergies Allergy/AdvReac Type Severity Reaction Status Date / Time Iodinated Contrast- Oral and Allergy Unknown Verified 02/06/18 22:00 IV Dye [Iodinated Contrast Media - IV Dye] tramadol AdvReac Nausea & Verified 02/06/18 22:00 Vomiting Physical Exam Vitals: Vital Signs Temp Pulse Pulse Resp BP BP Pulse Ox 02/07/18 15:00 99.4 F 99 16 114/58 98 02/07/18 12:00 98.0 F 90 14 112/60 98 02/07/18 07:45 97.4 F L 91 14 115/64 99 02/07/18 03:26 124/76 02/07/18 02:50 97.6 F 86 15 126/72 98 02/07/18 01:41 96.7 F L 91 16 161/100 99 02/07/18 00:50 97.9 F 94 18 123/76 99 02/06/18 23:57 93 18 119/76 100 02/06/18 23:10 96 18 103/78 98 02/06/18 22:20 99 18 122/65 98 02/06/18 21:37 99.2 F 104 H 20 138/69 95 Intake and Output 02/07/18 02/07/18 02/07/18 06:59 14:59 22:59 Intake Total 800 600 Output Total 350 Balance 800 250 Intake: IV 800 600 Sodium Chloride 0.9% 1, 800 600 000 ml @ 100 mls/hr IV . Q10H [facility] Rx#:[id number] Oral 0 Output: Urine 350 Other: Weight 0 g 83.46 kg - Constitutional General appearance: no acute distress - EENT geographic tongue. Remote GVH changes posterior buccal mucosa Eyes: EOMI, PERRLA - Neck Neck: lymphadenopathy (3.5 cmright lateral neck mass, mildly tender on palpation ) Thyroid: bilateral: normal size - Respiratory Respiratory: bilateral: CTA - Cardiovascular Rhythm: regular Heart sounds: normal: S1, S2 - Gastrointestinal General gastrointestinal: normal bowel sounds, soft - Integumentary Integumentary: normal - Neurologic Neurologic: CNII-XII intact - Musculoskeletal Musculoskeletal: gait normal, generalized weakness - Psychiatric Psychiatric: A&O x's 3, appropriate affect, intact judgment & insight Results CBC & Chem 7: 02/07/18 05:49 02/07/18 05:49 Labs: Abnormal Lab Results - Last 24 Hours (Table) 02/06/18 02/06/18 02/06/18 Range/Units 22:00 22:00 22:00 RBC 3.66 L (4.30-5.90) m/uL Hgb 9.9 L (13.0-17.5) gm/dL Hct 30.9 L (39.0-53.0) % RDW 19.3 H (11.5-15.5) % Plt Count (150-450) k/uL BUN 30 H (9-20) mg/dL Creatinine 1.30 H (0.66-1.25) mg/dL Calcium (8.4-10.2) mg/dL Total Creatine Kinase 194 H (55-170) U/L CK-MB (CK-2) 23.7 H* (0.0-2.4) ng/mL Troponin I 0.057 H* (0.000-0.034) ng/mL Total Protein 4.9 L (6.3-8.2) g/dL Albumin 2.9 L (3.5-5.0) g/dL Urine Protein (Negative) Urine Mucus (None) /hpf 02/07/18 02/07/18 02/07/18 Range/Units 05:49 05:49 05:49 RBC 3.07 L (4.30-5.90) m/uL Hgb 8.2 L D (13.0-17.5) gm/dL Hct 26.4 L (39.0-53.0) % RDW 19.5 H (11.5-15.5) % Plt Count 144 L (150-450) k/uL BUN 36 H (9-20) mg/dL Creatinine 1.59 H (0.66-1.25) mg/dL Calcium 8.1 L (8.4-10.2) mg/dL Total Creatine Kinase (55-170) U/L CK-MB (CK-2) (0.0-2.4) ng/mL Troponin I 0.054 H* (0.000-0.034) ng/mL Total Protein 4.4 L (6.3-8.2) g/dL Albumin 2.5 L (3.5-5.0) g/dL Urine Protein (Negative) Urine Mucus (None) /hpf 02/07/18 02/07/18 Range/Units 10:44 13:15 RBC (4.30-5.90) m/uL Hgb (13.0-17.5) gm/dL Hct (39.0-53.0) % RDW (11.5-15.5) % Plt Count (150-450) k/uL BUN (9-20) mg/dL Creatinine (0.66-1.25) mg/dL Calcium (8.4-10.2) mg/dL Total Creatine Kinase (55-170) U/L CK-MB (CK-2) (0.0-2.4) ng/mL Troponin I 0.050 H* (0.000-0.034) ng/mL Total Protein (6.3-8.2) g/dL Albumin (3.5-5.0) g/dL Urine Protein 1+ H (Negative) Urine Mucus Occasional H (None) /hpf Chest x-ray: report reviewed Assessment and Plan (1) Generalized weakness Narrative/Plan: The etiology at this time is not totally clear. The patient did report somewhat decreased oral intake, and showed evidence of acute kidney injury. Therefore dehydration is a possibility. He has no definite signs of infection, with no fever or hemodynamic changes, or localizing signs. he does have a troponin elevation which is not felt to represent an acute cardiac syndrome per cardiology. - The case was discussed in detail with the admitting service. I will check for SVT, with VQ scan and Doppler of lower extremities as he is at risk for the same, and his signs and symptoms could represent a somewhat atypical presentation for the above. - The patient's white count is normal and he has not had a fever. However he would be considered chronically immunocompromised, and therefore it is reasonable to cover him with antibiotics were doing an infection workup. - At this time he does not appear to have evidence of an adrenal crisis, with stable blood pressure, as well as normal sodium and potassium. If other etiologies ruled out, it is possible that this presentation could represent a combination of fatigue and dehydration coupled with decreased natural steroid response. Current Visit: Yes Status: Acute Code(s): R53.1 - WEAKNESS SNOMED Code(s) : 35455061 (2) Cqjzk-mzixmh-xmjk disease Narrative/Plan: his steroid dose has recently been reduced to 7.5 mg per day. This may be contributing to his generalized weakness. The admitting surface are looking into possibly transferring him to the [facility] or his family's request. Current Visit: No Status: Acute Priority: High Code(s): D89.813 - GRAFT- VERSUS-HOST DISEASE, UNSPECIFIED SNOMED Code(s): 162119554 (3) Anemia aplastic aregenerative Narrative/Plan: The patient has chronic anemia with baseline hemoglobin in the 9-10 range. Current drop is likely due to acute kidney injury, and dilution from hydration. Continue to monitor, with supportive transfusions if needed. If blood products are required, only irradiated products should be used Current Visit: Yes Status: Acute Code(s): D61.9 - APLASTIC ANEMIA, UNSPECIFIED SNOMED Code(s): 162941698 (4) MDS (myelodysplastic syndrome) Narrative/Plan: diagnostic and therapeutic circumstances are as described in the HPI. He is on regular follow-up at the [facility], with no evidence of recurrence. Current Visit: Yes Status: Chronic Priority: High Code(s): D46.9 - MYELODYSPLASTIC SYNDROME, UNSPECIFIED SNOMED Code(s): 081284096
[2018-02-07] MEDS: SODIUM CHLORIDE 0.9% 1,000 ML IV SCH ×2 (17:24→21:19)
--- NOTE | 2018-02-07 19:20 | US ---
EXAMINATION TYPE: US venous doppler duplex LE BI DATE OF EXAM: 02/07/2018 3:23 PM COMPARISON: US 06/21/2014 CLINICAL HISTORY: LE swelling. SIDE PERFORMED: Bilateral TECHNIQUE: The lower extremity deep venous system is examined utilizing real time linear array sonog loy with graded compression, doppler sonography and color-flow sonography. VESSELS IMAGED: External Iliac Vein (EIV) Common Femoral Vein Deep Femoral Vein Greater Saphenous Vein * Femoral Vein Popliteal Vein Small Saphenous Vein * Proximal Calf Veins (* superficial vessels) Right Leg: Negative for DVT Left Leg: Negative for DVT IMPRESSION: Negative exam. No evidence of deep venous thrombosis in both legs.
[2018-02-07] MEDS: ENOXAPARIN 40 MG/0.4 ML SYRINGE SQ SCH ×2 (21:18→21:22)
[2018-02-07] MEDS: HYDROCORTISONE 10 MG TAB PO SCH (21:18)
[2018-02-08 06:31] LABS: Anisocytosis Slight; HCT 22.3 % (39.0-53.0); Hypochromasia Slight; MCH 26.3 pg (25.0-35.0); MCHC 30.7 g/dL (31.0-37.0); MCV 85.6 fL (80.0-100.0); Mean Platelet Volume 10.3; Microcytosis Slight; Platelet Count 120 k/uL (150-450); RBC 2.61 m/uL (4.30-5.90); RDW 19.6 % (11.5-15.5); WBC 3.6 k/uL (3.8-10.6)
[2018-02-08] MEDS: SODIUM CHLORIDE 0.9% 1,000 ML IV SCH (06:32)
[2018-02-08 06:52] LABS: Calcium 8.1 mg/dL (8.4-10.2); Potassium 4.5 mmol/L (3.5-5.1)
[2018-02-08 06:56] LABS: HGB 6.9 gm/dL (13.0-17.5)
[2018-02-08] MEDS: ENOXAPARIN 40 MG/0.4 ML SYRINGE SQ SCH (08:32)
[2018-02-08] MEDS: ASPIRIN 81 MG PO SCH (08:33)
[2018-02-08] MEDS: FAMOTIDINE 20 MG TAB PO SCH ×2 (08:33→20:41)
[2018-02-08] MEDS: amLODIPine 5 MG TAB PO SCH (08:33)
[2018-02-08] MEDS: cycloSPORINE 0.05% OPHTH 0.4 ML DROPERETTE BOTH EYES SCH ×2 (08:33→20:41)
[2018-02-08] MEDS: CYANOCOBALAMIN 500 MCG TAB PO SCH ×2 (08:33→08:40)
[2018-02-08] MEDS: ACYCLOVIR 200 MG CAP PO SCH ×2 (08:33→20:41)
[2018-02-08] MEDS: POTASSIUM CHLORIDE ER 20 MEQ TAB.ER PO SCH ×3 (08:33→20:41)
[2018-02-08] MEDS: predniSONE 10 MG TAB PO SCH (08:33)
[2018-02-08] MEDS: MONTELUKAST 10 MG TAB PO SCH (08:33)
[2018-02-08] MEDS: HYDROCORTISONE 20 MG TAB PO SCH (08:33)
[2018-02-08] MEDS: ACETAMINOPHEN TAB 325 MG TAB PO PRN (08:33)
[2018-02-08] MEDS: DULoxetine HCL 20 MG CAPSULE.DR PO SCH ×2 (08:33→08:40)
[2018-02-08] MEDS: POSACONAZOLE 300 MG PO SCH (08:40)
[2018-02-08] MEDS: FOLIC ACID 1 MG TAB PO SCH (08:41)
--- NOTE | 2018-02-08 09:30 | P.NPCON ---
History of Present Illness - Reason for Consult acute renal failure - History of Present Illness Reason for consultation: Acute kidney injury History of present illness: Patient is a 62-year-old male seen in consultation for acute kidney injury. His baseline creatinine is near 1 and was elevated at 1.3 this admission. It was 1.59 yesterday and is relatively stable at 1.62 today. Patient presented to the hospital with generalized weakness and some confusion. Patient states he walked quite a bit on Saturday and may have tired himself out. he was unable to get up and felt extremely weak. His oral intake prior to admission was also quite poor. Patient was taking lisinopril as well as Aldactone which are now held. Patient has history of myelodysplastic syndrome which was diagnosed in 2015. He did complete chemotherapy in December 2015. He also received an allogenic stem cell transplant in February 2016 at [facility] and continues to follow with physicians over there. Subsequently patient developed beeyt-dubqtm-vdaw disease and has been maintained on prednisone. Additionally he also has history of renal insufficiency for which again he's maintained on prednisone. Patient states recently his dose was decreased from 10 mg to 7.5 mg daily. His hemoglobin today is down to 6.9. He is scheduled to receive 2 units of packed red blood cell transfusion. He's been retaining urine and is required to straight catheterization so far. He denies hematuria or dysuria. Denies a prior history of kidney disease. Denies active vomiting or diarrhea. Denies chest pain or shortness of breath. Denies use of NSAIDs. Denies family history of renal disease. Vital signs are stable. General: The patient appeared well nourished and normally developed. HEENT: Head exam is unremarkable. Neck is without jugular venous distension. LUNGS: Lungs are clear to auscultation and percussion. Breath sounds decreased. HEART: Rate and Rhythm are regular. First and second heart sounds normal. No murmurs, rubs or gallops. ABDOMEN: Abdominal exam reveals normal bowel sounds. Non-tender and non- distended. No evidence of peritonitis. EXTREMITITES: 1+ edema. Past Medical History Past Medical History: Cancer, Hyperlipidemia, Hypertension Additional Past Medical History / Comment(s): prostate cancer, hx venous insufficiency, RCMD, bone marrow transplant, "graft vs host disease", leumkemia History of Any Multi-Drug Resistant Organisms: C-DIFF Date of last positivie culture/infection: 2016 MDRO Source:: stool Past Surgical History: Heart Catheterization With Stent, Hernia Repair, Prostate Surgery Additional Past Surgical History / Comment(s): larry fundoplication, bone marrow transplant Past Anesthesia/Blood Transfusion Reactions: No Reported Reaction Date of Last Stent Placement:: 2003 Smoking Status: Former smoker Past Alcohol Use History: None Reported Past Drug Use History: None Reported - Past Family History Mother Family Medical History: Cancer Additional Family Medical History / Comment(s): skin cancer Brother(s) Family Medical History: Renal Disease Additional Family Medical History / Comment(s): kidney transplant Medications and Allergies Home Medications Medication Instructions Recorded Confirmed Type Ergocalciferol (Vitamin D2) 50,000 unit PO TH 12/04/15 02/06/18 History [Drisdol] Lisinopril 20 mg PO BID 03/14/17 02/06/18 History Acyclovir 400 mg PO BID 07/02/17 02/06/18 History Cyanocobalamin (Vitamin B-12) 1,000 mcg PO DAILY 07/02/17 02/06/18 History [Vitamin B-12] Folic Acid 1 mg PO DAILY 07/02/17 02/06/18 History Ranitidine HCl 150 mg PO BID 07/02/17 02/06/18 History predniSONE 10 mg PO DAILY 07/02/17 02/06/18 History Azithromycin [Zithromax] 250 mg PO MOWEFR 12/29/17 02/06/18 History Budesonide/Formoterol Fumarate 2 puff INHALATION RT-BID 12/29/17 02/06/18 History [Symbicort 80-4.5 Mcg Inhaler] DULoxetine HCL [Cymbalta] 20 mg PO DAILY 12/29/17 02/06/18 History Methylphenidate HCl [Ritalin] 5 - 10 mg PO DAILY PRN 12/29/17 02/06/18 History Montelukast [Singulair] 10 mg PO DAILY 12/29/17 02/06/18 History Posaconazole [Noxafil] 300 mg PO DAILY 12/29/17 02/06/18 History Hydrocortisone [Cortef] 10 mg PO DAILY 02/06/18 02/06/18 History Hydrocortisone [Cortef] 20 mg PO DAILY 02/06/18 02/06/18 History Levofloxacin [Levaquin] 500 mg PO DAILY 02/06/18 02/06/18 History Potassium Chloride ER [K-Dur 20] 20 meq PO BID 02/06/18 02/06/18 History Spironolactone [Aldactone] 25 mg PO DAILY 02/06/18 02/06/18 History amLODIPine [Norvasc] 5 mg PO DAILY 02/06/18 02/06/18 History cycloSPORINE [Restasis] 1 applicator BOTH EYES BID 02/06/18 02/06/18 History Allergies Allergy/AdvReac Type Severity Reaction Status Date / Time Iodinated Contrast- Oral and Allergy Unknown Verified 02/06/18 22:00 IV Dye [Iodinated Contrast Media - IV Dye] tramadol AdvReac Nausea & Verified 02/06/18 22:00 Vomiting Physical Exam Vitals: Vital Signs Temp Pulse Resp BP Pulse Ox 02/08/18 08:00 96.7 F L 66 18 136/89 99 02/08/18 04:00 97.3 F L 58 L 18 129/65 99 02/07/18 23:45 97 F L 53 L 18 112/58 99 02/07/18 20:00 96.8 F L 54 L 18 118/61 99 02/07/18 15:00 99.4 F 99 16 114/58 98 02/07/18 12:00 98.0 F 90 14 112/60 98 Intake and Output 02/07/18 02/08/18 02/08/18 22:59 06:59 14:59 Intake Total 240 1600 Output Total 950 Balance 240 650 Intake: IV 1600 Sodium Chloride 0.9% 1, 1600 000 ml @ 100 mls/hr IV . Q10H [facility] Rx#:[id number] Oral 240 Output: Urine 950 Straight 950 Results - Lab Results Most recent lab results Calcium 8.1 mg/dL (8.4-10.2) L 02/08/18 06:25 Magnesium 2.0 mg/dL (1.6-2.3) 02/06/18 22:00 02/08/18 06:25 02/08/18 06:25 Assessment and Plan Plan: Assessment: 1. Nonoliguric acute kidney injury secondary to ATN secondary to poor oral intake and further worsened with the use of diuretics and LINDA inhibitor. Anemia also contribute factor. Basic creatinine is 1 and is up to 1.62 today. Additionally he also has urinary retention which needs to be monitored closely. 2. History of myelodysplastic syndrome status post allogenic stem cell transplant at [facility] in 2016. Oncology following. 3. History of adrenal insufficiency maintained on prednisone. 4. History of xdxuc-vbflil-watf disease maintained on prednisone. 5. Benign hypertension. Controlled. 6. Urinary retention requiring straight catheterizations. 7. Acute anemia with hemoglobin down to 6.9 today. Possibly related to underlying MDS. Plan: I will decrease the rate of normal saline to 50 mL an hour. Encouraged oral intake. Continue to hold lisinopril and Aldactone for now. Scheduled to receive 2 units of blood transfusion today. Continue to monitor serial postvoid residuals. May require Mallory catheter if persistent retention. Check renal uls. Repeat electrolytes in the morning. Thank you for the consultation. I will continue to follow the patient with you during his hospital stay.
--- NOTE | 2018-02-08 13:24 | US ---
EXAMINATION TYPE: US kidneys/renal and bladder DATE OF EXAM: 02/08/2018 COMPARISON: NONE CLINICAL HISTORY: [email or web address]. JENNIFFER, prostate removed 2012, history of prostate CA, exam done portable. EXAM MEASUREMENTS: Right Kidney: 9.8 x 4.9 x 5.0 cm Left Kidney: not seen Difficult and limited study due to patient body habitus. Right Kidney: no hydro or masses seen at this time Left Kidney: not seen at this time, large amount of overlying bowel gas seen in LUQ Bladder: not fully distended, fairbanks catheter Bilateral Jets seen: no Left kidney is not visualized. The right kidney appears unremarkable. There is a Fairbanks catheter withi n the bladder. Neither ureteral jet was seen. IMPRESSION: LIMITED EXAMINATION WITHOUT VISUALIZATION OF THE LEFT KIDNEY DEMONSTRATING NO EVIDENCE OF HYDRONEPHRO SIS ON THE RIGHT.
--- NOTE | 2018-02-08 14:49 | P.PN ---
Subjective Progress Note Date: 02/08/18 Principal diagnosis: Patient is feeling well today. Hemoglobin dropped to 6.9. He was found to have urinary retention and Mallory catheter was inserted and approximately 300 mL of urine drained. Objective - Vital Signs Vital signs: Vital Signs Temp 97.2 F L 02/08/18 13:24 Pulse 71 02/08/18 13:24 Resp 18 02/08/18 13:24 BP 127/76 02/08/18 13:24 Pulse Ox 95 02/08/18 12:54 Intake & Output 02/07/18 02/08/18 02/08/18 18:59 06:59 18:59 Intake Total 840 1600 710 Output Total 350 950 Balance 490 650 710 Weight 83.46 kg Intake: IV 600 1600 Sodium Chloride 0.9% 1, 600 1600 000 ml @ 100 mls/hr IV . Q10H [facility] Rx#:[id number] Intake, IV Titration 400 Amount Sodium Chloride 0.9% 1, 400 000 ml @ 50 mls/hr IV . Q20H [facility] Rx#:[id number] Oral 240 Blood Product 310 Rc Pheresis 2 As3 Unit 310 [id number] Rc Pheresis As-3 Unit 0 [id number] Output: Urine 350 950 Straight 950 Other: Voiding Method Indwelling Catheter - Exam General: The patient is awake and alert, in no distress Eye: there is normal conjunctiva bilaterally. Neck: The neck is supple, there is no JVD. Cardiovascular: Normal S1-S2, no S3-S4, no murmurs. Respiratory: Lungs clear to auscultation bilaterally Gastrointestinal: Abdomen is soft, nontender Musculoskeletal: There is no pedal edema. Neurological:. Speech is normal. Skin: Skin is warm and dry - Labs CBC & Chem 7: 02/08/18 06:25 02/08/18 06:25 Labs: Abnormal Lab Results - Last 24 Hours (Table) 02/08/18 02/08/18 02/08/18 Range/Units 06:25 06:25 09:00 WBC 3.6 L (3.8-10.6) k/uL RBC 2.61 L (4.30-5.90) m/uL Hgb 6.9 L* (13.0-17.5) gm/dL Hct 22.3 L (39.0-53.0) % MCHC 30.7 L (31.0-37.0) g/dL RDW 19.6 H (11.5-15.5) % Plt Count 120 L (150-450) k/uL BUN 43 H (9-20) mg/dL Creatinine 1.62 H (0.66-1.25) mg/dL Glucose 104 H (74-99) mg/dL Calcium 8.1 L (8.4-10.2) mg/dL Crossmatch See Detail Microbiology - Last 24 Hours (Table) 02/07/18 13:15 Urine Culture - Preliminary Urine,Catheterized Assessment and Plan Assessment: 1. Generalized weakness likely related to worsening anemia and his overall comorbidities 2. Acute kidney injury: Probably multifactorial secondary to dehydration, worsening anemia, and obstructive uropathy. Nephrology following. Continue gentle IV fluid hydration. 3. Mildly elevated troponins: No chest pain. Cardiology consulted 4. 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 Patient followed at [facility]. Case was discussed by Dr. Jain with his bus and rail operator. Appreciate recommendations. 5. 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 History of adrenal insufficiency continue Cortef 7. Acute on chronic anemia secondary to chemotherapy and MDS: Status post 2 units of PRBC transfusion during this admission 8. Obstructive uropathy, status post Mallory catheter insertion on 02/08. Patient has a history of prostatectomy. We will attempt voiding trial in 24 hours.
[2018-02-08] MEDS: TAMSULOSIN 0.4 MG CAP.ER.24H PO SCH (17:54)
[2018-02-08 18:17] LABS: Anisocytosis Slight; Basophils % (A) 0 %; Eosinophils % (A) 0 %; Lymphocytes # (A) 0.3 k/uL (1.0-4.8); Lymphocytes % (A) 9 %; MCH 28.1 pg (25.0-35.0); MCHC 32.7 g/dL (31.0-37.0); MCV 85.9 fL (80.0-100.0); Monocytes # (A) 0.2 k/uL (0-1.0); Monocytes % (A) 4 %; Neutrophils # (A) 3.1 k/uL (1.3-7.7); Neutrophils % (A) 84 %; Platelet Count 137 k/uL (150-450); Poikilocytosis Moderate; RBC 3.26 m/uL (4.30-5.90); RDW 18.5 % (11.5-15.5); WBC 3.7 k/uL (3.8-10.6)
[2018-02-08 18:27] LABS: HGB 9.2 gm/dL (13.0-17.5)
[2018-02-08 20:00] LABS: Calcium 8.6 mg/dL (8.4-10.2); Potassium 4.8 mmol/L (3.5-5.1)
[2018-02-08] MEDS: HYDROCORTISONE 10 MG TAB PO SCH (20:40)
[2018-02-09] MEDS: SODIUM CHLORIDE 0.9% 1,000 ML IV SCH (05:37)
[2018-02-09 06:36] LABS: Anisocytosis Slight; Basophils % (A) 0 %; Eosinophils % (A) 1 %; HCT 27.5 % (39.0-53.0); Lymphocytes # (A) 0.4 k/uL (1.0-4.8); Lymphocytes % (A) 14 %; MCHC 32.7 g/dL (31.0-37.0); MCV 85.4 fL (80.0-100.0); Mean Platelet Volume 9.4; Monocytes # (A) 0.2 k/uL (0-1.0); Monocytes % (A) 9 %; Neutrophils % (A) 74 %; Platelet Count 132 k/uL (150-450); Poikilocytosis Slight; RBC 3.22 m/uL (4.30-5.90); RDW 18.5 % (11.5-15.5); WBC 2.7 k/uL (3.8-10.6)
[2018-02-09 07:12] LABS: Calcium 8.5 mg/dL (8.4-10.2); Magnesium 2.1 mg/dL (1.6-2.3); Potassium 4.2 mmol/L (3.5-5.1)
[2018-02-09] MEDS: CYANOCOBALAMIN 500 MCG TAB PO SCH (07:20)
[2018-02-09] MEDS: DULoxetine HCL 20 MG CAPSULE.DR PO SCH (07:20)
[2018-02-09] MEDS: POSACONAZOLE 300 MG PO SCH (07:20)
[2018-02-09] MEDS: POTASSIUM CHLORIDE ER 20 MEQ TAB.ER PO SCH ×2 (07:20→21:15)
[2018-02-09] MEDS: FOLIC ACID 1 MG TAB PO SCH (07:21)
[2018-02-09] MEDS: ACYCLOVIR 200 MG CAP PO SCH ×2 (07:33→21:07)
[2018-02-09] MEDS: predniSONE 10 MG TAB PO SCH (07:34)
[2018-02-09] MEDS: FAMOTIDINE 20 MG TAB PO SCH ×2 (07:34→21:07)
[2018-02-09] MEDS: amLODIPine 5 MG TAB PO SCH (07:34)
[2018-02-09] MEDS: cycloSPORINE 0.05% OPHTH 0.4 ML DROPERETTE BOTH EYES SCH ×2 (07:34→21:07)
[2018-02-09] MEDS: MONTELUKAST 10 MG TAB PO SCH (07:34)
[2018-02-09] MEDS: HYDROCORTISONE 20 MG TAB PO SCH (07:34)
[2018-02-09] MEDS: ASPIRIN 81 MG PO SCH (07:35)
--- NOTE | 2018-02-09 09:05 | P.PN ---
Subjective Patient is seen in follow-up for acute kidney injury. His baseline creatinine is 1 and peaked at 1.6 to this admission. It is down to 1.22 today. Patient has history of myelodysplastic syndrome and is status post allogenic stem cell transplant. His hemoglobin was 6.9 yesterday for which she did receive 2 units of blood transmission. Hemoglobin is up to 90 today. He is currently resting in bed. He has a Mallory catheter for urinary retention. Diuretics are held. He has no active complaints except for feeling weak. Vital signs are stable. General: The patient appeared well nourished and normally developed. HEENT: Head exam is unremarkable. Neck is without jugular venous distension. LUNGS: Lungs are clear to auscultation and percussion. Breath sounds decreased. HEART: Rate and Rhythm are regular. First and second heart sounds normal. No murmurs, rubs or gallops. ABDOMEN: Abdominal exam reveals normal bowel sounds. Non-tender and non- distended. No evidence of peritonitis. EXTREMITITES: No clubbing, cyanosis, or edema. Objective - Vital Signs Vital signs: Vital Signs Temp 97.2 F L 02/09/18 07:55 Pulse 84 02/09/18 07:55 Resp 18 02/09/18 07:55 BP 150/79 02/09/18 07:55 Pulse Ox 98 02/09/18 07:55 Intake & Output 02/08/18 02/09/18 02/09/18 18:59 06:59 18:59 Intake Total 1020 180 Output Total 1700 Balance 1020 -1700 180 Intake: Intake, IV Titration 400 Amount Sodium Chloride 0.9% 1, 400 000 ml @ 50 mls/hr IV . Q20H COUNT INCLUDES THE [facility] Rx#:[id number] Oral 180 Blood Product 620 Rc Pheresis 2 As3 Unit 310 [id number] Rc Pheresis As-3 Unit 310 [id number] Output: Urine 1700 Other: Voiding Method Indwelling Catheter Indwelling Catheter Indwelling Catheter - Labs CBC & Chem 7: 02/09/18 06:15 02/09/18 06:15 Labs: Abnormal Lab Results - Last 24 Hours (Table) 02/08/18 02/08/18 02/08/18 Range/Units 09:00 18:00 18:00 WBC 3.7 L (3.8-10.6) k/uL RBC 3.26 L (4.30-5.90) m/uL Hgb 9.2 L D (13.0-17.5) gm/dL Hct 28.0 L (39.0-53.0) % RDW 18.5 H (11.5-15.5) % Plt Count 137 L (150-450) k/uL Lymphocytes # 0.3 L (1.0-4.8) k/uL Chloride (98-107) mmol/L BUN 43 H (9-20) mg/dL Creatinine 1.40 H (0.66-1.25) mg/dL Glucose 178 H (74-99) mg/dL Crossmatch See Detail 02/09/18 02/09/18 Range/Units 06:15 06:15 WBC 2.7 L (3.8-10.6) k/uL RBC 3.22 L (4.30-5.90) m/uL Hgb 9.0 L (13.0-17.5) gm/dL Hct 27.5 L (39.0-53.0) % RDW 18.5 H (11.5-15.5) % Plt Count 132 L (150-450) k/uL Lymphocytes # 0.4 L (1.0-4.8) k/uL Chloride 109 H (98-107) mmol/L BUN 38 H (9-20) mg/dL Creatinine (0.66-1.25) mg/dL Glucose (74-99) mg/dL Crossmatch Microbiology - Last 24 Hours (Table) 02/07/18 13:15 Urine Culture - Final Urine,Catheterized Assessment and Plan Plan: Assessment: 1. Nonoliguric acute kidney injury secondary to ATN secondary to poor oral intake and further worsened with the use of diuretics and LINDA inhibitor. Anemia also contributing factor. Basic creatinine is 1 and peaked at 1.62 this admission - 1.22 today. Additionally he also has urinary retention. 2. History of myelodysplastic syndrome status post allogenic stem cell transplant at [facility] in 2016. Oncology following. 3. History of adrenal insufficiency maintained on prednisone. 4. History of acstr-vgeesb-uhtt disease maintained on prednisone. 5. Benign hypertension. Controlled. 6. Urinary retention status post Mallory catheter placement yesterday. 7. Acute anemia with hemoglobin down to 6.9 on February 08 status post 2 units blood transfusion. Possibly related to underlying MDS. 8. Left kidney not visualized on renal ultrasound. Patient not aware of any congenital abnormalities and denies any history of nephrectomy. Plan: Maintain normal saline at 50 mL an hour. Encouraged oral intake. Continue to hold lisinopril and Aldactone for now. Repeat electrolytes in the morning. Maintain Flomax. Will attempt voiding trial possibly tomorrow.
--- NOTE | 2018-02-09 14:42 | P.PN ---
Subjective Progress Note Date: 02/09/18 Principal diagnosis: Patient is feeling well today. Hemoglobin dropped to 6.9. He was found to have urinary retention and Mallory catheter was inserted and approximately 300 mL of urine drained. Patient is doing well today. No events overnight. Objective - Vital Signs Vital signs: Vital Signs Temp 97.0 F L 02/09/18 12:00 Pulse 84 02/09/18 12:00 Resp 16 02/09/18 12:00 BP 148/78 02/09/18 12:00 Pulse Ox 96 02/09/18 12:00 Intake & Output 02/08/18 02/09/18 02/09/18 18:59 06:59 18:59 Intake Total 1020 180 Output Total 1700 Balance 1020 -1700 180 Intake: Intake, IV Titration 400 Amount Sodium Chloride 0.9% 1, 400 000 ml @ 50 mls/hr IV . Q20H [facility] Rx#:[id number] Oral 180 Blood Product 620 Rc Pheresis 2 As3 Unit 310 [id number] Rc Pheresis As-3 Unit 310 [id number] Output: Urine 1700 Other: Voiding Method Indwelling Catheter Indwelling Catheter Indwelling Catheter # Bowel Movements 1 - Exam General: The patient is awake and alert, in no distress Eye: there is normal conjunctiva bilaterally. Neck: The neck is supple, there is no JVD. Cardiovascular: Normal S1-S2, no S3-S4, no murmurs. Respiratory: Lungs clear to auscultation bilaterally Gastrointestinal: Abdomen is soft, nontender Musculoskeletal: There is no pedal edema. Neurological:. Speech is normal. Skin: Skin is warm and dry - Labs CBC & Chem 7: 02/09/18 06:15 02/09/18 06:15 Labs: Abnormal Lab Results - Last 24 Hours (Table) 02/08/18 02/08/18 02/08/18 Range/Units 09:00 18:00 18:00 WBC 3.7 L (3.8-10.6) k/uL RBC 3.26 L (4.30-5.90) m/uL Hgb 9.2 L D (13.0-17.5) gm/dL Hct 28.0 L (39.0-53.0) % RDW 18.5 H (11.5-15.5) % Plt Count 137 L (150-450) k/uL Lymphocytes # 0.3 L (1.0-4.8) k/uL Chloride (98-107) mmol/L BUN 43 H (9-20) mg/dL Creatinine 1.40 H (0.66-1.25) mg/dL Glucose 178 H (74-99) mg/dL Crossmatch See Detail 02/09/18 02/09/18 Range/Units 06:15 06:15 WBC 2.7 L (3.8-10.6) k/uL RBC 3.22 L (4.30-5.90) m/uL Hgb 9.0 L (13.0-17.5) gm/dL Hct 27.5 L (39.0-53.0) % RDW 18.5 H (11.5-15.5) % Plt Count 132 L (150-450) k/uL Lymphocytes # 0.4 L (1.0-4.8) k/uL Chloride 109 H (98-107) mmol/L BUN 38 H (9-20) mg/dL Creatinine (0.66-1.25) mg/dL Glucose (74-99) mg/dL Crossmatch Microbiology - Last 24 Hours (Table) 02/07/18 13:15 Urine Culture - Final Urine,Catheterized Assessment and Plan Assessment: 1. Generalized weakness likely related to worsening anemia and his overall comorbidities 2. Acute kidney injury: Probably multifactorial secondary to dehydration, worsening anemia, and obstructive uropathy. Nephrology following. Kidney function is back to normal baseline. 3. Mildly elevated troponins: No chest pain. Cardiology consulted 4. 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 Patient followed at [facility]. Case was discussed by Dr. Jain with his fitter's assistant. Appreciate recommendations. 5. 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 History of adrenal insufficiency continue Cortef 7. Acute on chronic anemia secondary to chemotherapy and MDS: Status post 2 units of PRBC transfusion during this admission 8. Obstructive uropathy, status post Mallory catheter insertion on 02/08. Patient has a history of prostatectomy. We will attempt voiding trial in 24 hours. - Voiding trial tomorrow - Discharge planning tomorrow if patient passed voiding trial
[2018-02-09] MEDS: TAMSULOSIN 0.4 MG CAP.ER.24H PO SCH (17:30)
[2018-02-09] MEDS: ACETAMINOPHEN TAB 325 MG TAB PO PRN (19:03)
[2018-02-09] MEDS: HYDROCORTISONE 10 MG TAB PO SCH (21:07)
[2018-02-10] MEDS: SODIUM CHLORIDE 0.9% 1,000 ML IV SCH (01:00)
[2018-02-10 06:49] LABS: Calcium 8.7 mg/dL (8.4-10.2); Potassium 4.3 mmol/L (3.5-5.1)
[2018-02-10 07:08] LABS: Anisocytosis Slight; HCT 26.4 % (39.0-53.0); HGB 8.7 gm/dL (13.0-17.5); MCH 28.1 pg (25.0-35.0); MCHC 33.1 g/dL (31.0-37.0); Mean Platelet Volume 8.4; Platelet Count 148 k/uL (150-450); Poikilocytosis Slight; RBC 3.11 m/uL (4.30-5.90); RDW 18.5 % (11.5-15.5); WBC 2.5 k/uL (3.8-10.6)
[2018-02-10] MEDS: predniSONE 10 MG TAB PO SCH (08:43)
[2018-02-10] MEDS: HYDROCORTISONE 20 MG TAB PO SCH (08:43)
[2018-02-10] MEDS: AZITHROMYCIN 250 MG TAB PO SCH (08:44)
[2018-02-10] MEDS: MONTELUKAST 10 MG TAB PO SCH (08:44)
[2018-02-10] MEDS: ASPIRIN 81 MG PO SCH (08:44)
[2018-02-10] MEDS: DULoxetine HCL 20 MG CAPSULE.DR PO SCH (08:44)
[2018-02-10] MEDS: amLODIPine 5 MG TAB PO SCH (08:45)
[2018-02-10] MEDS: ACETAMINOPHEN TAB 325 MG TAB PO PRN (08:46)
[2018-02-10] MEDS: FAMOTIDINE 20 MG TAB PO SCH ×2 (08:46→20:58)
[2018-02-10] MEDS: cycloSPORINE 0.05% OPHTH 0.4 ML DROPERETTE BOTH EYES SCH ×2 (08:47→20:58)
[2018-02-10] MEDS: CYANOCOBALAMIN 500 MCG TAB PO SCH (09:04)
[2018-02-10] MEDS: FOLIC ACID 1 MG TAB PO SCH (09:05)
[2018-02-10] MEDS: POTASSIUM CHLORIDE ER 20 MEQ TAB.ER PO SCH ×2 (09:05→20:59)
--- NOTE | 2018-02-10 11:01 | P.PN ---
Subjective Progress Note Date: 02/10/18 this is a 62-year-old male with a significant history of MDS status post bone marrow transplant in 2016 with graft versus host disease. He also has a history of adrenal insufficiency leukemia, prostate cancer status post prostatectomy. Patient presents to the emergency room with complaints of generalized weakness and unable to get out of bed. Also reports decrease in oral intake and decrease in urine output. Patient reports that on Saturday he had taken a long walk and felt that he may have overdone himself. He denies any chest pain or shortness of breath. Denies any nausea or vomiting. Denies any fever chills or sweats. Denies any burning when he was able to urinate. He did receive an injection of Pentamidine yesterday. He gets these injections monthly out at [facility]. Per paramedics patient was somewhat confused along with weakness. Denies any trauma. However he had been complaining of some left arm pain x-ray of the left humerus was negative for fracture. Patient was found to have some acute kidney injury creatinine at 1.30 on admission has gone up to 1.59. Fluids will be increased back to 100 mL an hour normal saline. Nephrology has been consulted. Aldactone has been discontinued. Due to patient's MDS and leukemia history oncology will be consulted. Cardiology consulted due to mildly elevated troponins. Patient denies any chest pain. EKG normal sinus rhythm. Chest x-ray negative for any acute process.. No evidence of rhabdomyolysis CK level 194 02/10/2018 patient is feeling better. He is more awake and alert. Awaiting work with physical therapy today. Mallory catheter will be removed this morning we'll monitor for any urinary retention. Creatinine is down to 1.08. Hemoglobin 8.6 white count 2.5. Patient denies any chest pain or shortness of breath. Denies any nausea or vomiting. Denies any bowel movement changes. Patient had a 12 beat run of V. tach yesterday. Cardiology has been consulted. Magnesium level II.1. Thyroid level pending. Patient did have a VQ scan showing low probability of PE. Dopplers were negative for DVT. Objective - Vital Signs Vital signs: Vital Signs Temp 98 F 02/10/18 03:50 Pulse 90 02/10/18 03:50 Resp 18 02/10/18 03:50 BP 146/80 02/10/18 03:50 Pulse Ox 97 02/10/18 03:50 Intake & Output 02/09/18 02/10/18 02/10/18 18:59 06:59 18:59 Intake Total 580 240 Output Total 1000 1375 Balance -420 -1375 240 Weight 84.4 kg Intake: Oral 580 240 Output: Urine 1000 1375 Other: Voiding Method Indwelling Catheter Indwelling Catheter # Voids 0 1 # Bowel Movements 1 - Exam Head normocephalic Neck supple Lungs crackles right lower lobe Heart regular rate and rhythm S1-S2, no rub or gallop Abdomen is soft nontender nondistended positive bowel sounds no hepatosplenomegaly Extremities +1 to +2 pitting edema bilaterally Neuro alert and orientated to 3 - Labs CBC & Chem 7: 02/10/18 06:30 02/10/18 06:30 Labs: Abnormal Lab Results - Last 24 Hours (Table) 02/10/18 02/10/18 Range/Units 06:30 06:30 WBC 2.5 L (3.8-10.6) k/uL RBC 3.11 L (4.30-5.90) m/uL Hgb 8.7 L (13.0-17.5) gm/dL Hct 26.4 L (39.0-53.0) % RDW 18.5 H (11.5-15.5) % Plt Count 148 L (150-450) k/uL Chloride 109 H (98-107) mmol/L BUN 31 H (9-20) mg/dL Assessment and Plan Assessment: 1. Generalized weakness likely related to his overall comorbidities as well as acute kidney injury and poor oral intake, dehydration and anemia 2. Acute kidney injury: Secondary to ATN due to poor oral intake as well as the Aldactone and LINDA inhibitor and obstructive uropathy. Patient has been seen by nephrology. Creatinine has normalized to 1.08. Kidney functions are improving. Patient does have evidence of lower extremity edema and crackles in the right lobe. We will resume patient's Aldactone 3. Mildly elevated troponins: No chest pain. Patient seen by cardiology. They felt there was no evidence of an acute coronary syndrome. Likely secondary to a supply and demand mismatch. 4. 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 Patient followed at [facility] 5. 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 History of adrenal insufficiency continue Cortef 7. Acute on chronic anemia : Acute drop in hemoglobin due to acute kidney injury and dilution from hydration. Chronic anemia due to MDS 8. Urinary retention with obstructive uropathy. Patient had Mallory catheter inserted on 02/08. We will discontinue Mallory catheter and proceed with a voiding trial today. Patient does a history of prostatectomy and was placed on Flomax. 9. Nonsustained ventricle tachycardia: Cardiology notified. Magnesium 2.1. Check thyroid level. Physical therapy consulted. Anticipate discharge within the next 1-2 days GI prophylaxis Pepcid and DVT prophylaxis SCDs I performed an examination of the patient and discussed their management with the physician Interventional Sale Consultant. I have reviewed the Physician Interventional Sale Consultant's notes and agree with the documented findings and plan of care
[2018-02-10] MEDS: POSACONAZOLE 300 MG PO SCH (11:08)
[2018-02-10] MEDS: ACYCLOVIR 200 MG CAP PO SCH ×2 (12:20→20:58)
[2018-02-10] MEDS: SPIRONOLACTONE 25 MG TAB PO SCH (12:20)
--- NOTE | 2018-02-10 19:42 | PN ---
PROGRESS NOTE The patient is seen for followup for acute kidney injury. His renal function has improved significantly with serum creatinine down from 1.6 mg/dL to 1.08 and the patient states overall he is feeling better. He has just walked with physical therapy. On examination, blood pressure this morning was 146/79, heart rate 97 per minute. Patient is afebrile. Examination of the heart S1, S2. Examination of the lungs bilateral breath sounds are heard. No crackles or wheezing is heard. Abdomen is soft, nontender. Examination of lower extremities shows edema 1+ bilaterally. ORTHOTIC PRACTITIONER exam is grossly intact. LAB: Show sodium 143, potassium 4.3, BUN 31, serum creatinine 1.08, hemoglobin 8.7 g/dL. ASSESSMENT: 1. Acute kidney injury, nonoliguric, currently improved. The baseline creatinine is about 1. Patient's renal function is close to baseline now. 2. Urine retention, currently with Mallory catheter placement. 3. 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 4. History of myelodysplastic syndrome, status post allogeneic stem cell transplant at [facility] in 2016. 5. Acute anemia status post 2 units packed RBCs transfusion. PLAN: Continue off of IV fluids. Encourage increased oral intake. Continue with the Cortef and repeat labs in a.m. MMODL / IJN: [id number] /
[2018-02-10] MEDS: HYDROCORTISONE 10 MG TAB PO SCH (20:58)
[2018-02-11] MEDS: ACETAMINOPHEN TAB 325 MG TAB PO PRN ×2 (00:22→09:14)
--- NOTE | 2018-02-11 06:07 | P.CONS ---
History of Present Illness - Chief Complaint Medical debility - History of Present Illness I had the opportunity to see patient for inpatient rehab consultation with regard to medical debility. He was admitted to [facility] February 07 from [facility] status post bone marrow transplant for myelodysplastic syndrome. Seen in consultation by Dr. England for same. Seen by Dr. Larsen for acute kidney injury. Seen by cardiology. Laboratories chest x-ray negative. Humerus x-ray normal on left. Pulmonary perfusion shows area disease and low probability of PE. Venous Doppler negative right and left. Abdominal ultrasound negative for hydronephrosis on left. PT and OT prescribed. Previous functional history as elicited patient: 62-year-old right-handed white male who is lives in one floor home alone. Retired/disabled. Lives alone. Independent with cooking, laundry, driving, standing shower. Been using cane for last [address] Rendon is regular doctor. Review of Systems Review of systems: ENT: Denies sneezes or discharge. Eyes: Denies discharge or photophobia. Cardiac: Denies chest pain or palpitation. Pulmonary: Denies cough or shortness of breath. Gastrointestinal: Denies nausea, emesis, constipation, diarrhea. Genitourinary: Denies discharge or frequency. Musculoskeletal: Denies muscle or bone aches. Neurologic: Generalized weakness. Endocrine: Denies shakes or sweats. Oncology: Denies cancers. Dermatologic: Denies rash, itching, pruritus. ALLERGY/immunology: Denies sneezes, rashes. Past Medical History Past Medical History: Cancer, Hyperlipidemia, Hypertension Additional Past Medical History / Comment(s): prostate cancer, hx venous insufficiency, RCMD, bone marrow transplant, "graft vs host disease", leumkemia History of Any Multi-Drug Resistant Organisms: C-DIFF Year Discovered:: 2016 MDRO Source:: stool Past Surgical History: Heart Catheterization With Stent, Hernia Repair, Prostate Surgery Additional Past Surgical History / Comment(s): lrary fundoplication, bone marrow transplant Past Anesthesia/Blood Transfusion Reactions: No Reported Reaction Date of Last Stent Placement:: 2003 Smoking Status: Former smoker Past Alcohol Use History: None Reported Past Drug Use History: None Reported - Past Family History Mother Family Medical History: Cancer Additional Family Medical History / Comment(s): skin cancer Brother(s) Family Medical History: Renal Disease Additional Family Medical History / Comment(s): kidney transplant Medications and Allergies Home Medications Medication Instructions Recorded Confirmed Type Ergocalciferol (Vitamin D2) 50,000 unit PO TH 12/04/15 02/06/18 History [Drisdol] Lisinopril 20 mg PO BID 03/14/17 02/06/18 History Acyclovir 400 mg PO BID 07/02/17 02/06/18 History Cyanocobalamin (Vitamin B-12) 1,000 mcg PO DAILY 07/02/17 02/06/18 History [Vitamin B-12] Folic Acid 1 mg PO DAILY 07/02/17 02/06/18 History Ranitidine HCl 150 mg PO BID 07/02/17 02/06/18 History predniSONE 10 mg PO DAILY 07/02/17 02/06/18 History Azithromycin [Zithromax] 250 mg PO MOWEFR 12/29/17 02/06/18 History Budesonide/Formoterol Fumarate 2 puff INHALATION RT-BID 12/29/17 02/06/18 History [Symbicort 80-4.5 Mcg Inhaler] DULoxetine HCL [Cymbalta] 20 mg PO DAILY 12/29/17 02/06/18 History Methylphenidate HCl [Ritalin] 5 - 10 mg PO DAILY PRN 12/29/17 02/06/18 History Montelukast [Singulair] 10 mg PO DAILY 12/29/17 02/06/18 History Posaconazole [Noxafil] 300 mg PO DAILY 12/29/17 02/06/18 History Hydrocortisone [Cortef] 10 mg PO DAILY 02/06/18 02/06/18 History Hydrocortisone [Cortef] 20 mg PO DAILY 02/06/18 02/06/18 History Levofloxacin [Levaquin] 500 mg PO DAILY 02/06/18 02/06/18 History Potassium Chloride ER [K-Dur 20] 20 meq PO BID 02/06/18 02/06/18 History Spironolactone [Aldactone] 25 mg PO DAILY 02/06/18 02/06/18 History amLODIPine [Norvasc] 5 mg PO DAILY 02/06/18 02/06/18 History cycloSPORINE [Restasis] 1 applicator BOTH EYES BID 02/06/18 02/06/18 History Allergies Allergy/AdvReac Type Severity Reaction Status Date / Time Iodinated Contrast- Oral and Allergy Unknown Verified 02/06/18 22:00 IV Dye [Iodinated Contrast Media - IV Dye] tramadol AdvReac Nausea & Verified 02/06/18 22:00 Vomiting Physical Exam Vitals: Vital Signs Temp Pulse Resp BP Pulse Ox 02/11/18 04:00 97.6 F 80 16 161/85 96 02/11/18 00:00 98.1 F 81 16 158/85 95 02/10/18 21:27 97 02/10/18 20:00 97.6 F 99 16 158/87 95 02/10/18 16:20 97.1 F L 95 16 156/84 95 02/10/18 12:00 97.9 F 97 16 165/100 97 02/10/18 08:30 97.8 F 84 16 146/79 97 Intake and Output 02/10/18 02/10/18 02/11/18 14:59 22:59 06:59 Intake Total 500 240 Output Total 1200 425 250 Balance -700 -185 -250 Intake: Oral 500 240 Output: Urine 1200 425 250 Straight 1200 Other: Voiding Method Urinal Urinal # Voids 1 1 Skin: Good color, texture, turgor. General: Medium build and comfortable appearance. Head: Normocephalic, atraumatic. Eyes: Symmetric. Pupils equal round. Ears: Symmetric. Hearing within normal limits. Mouth: Clear. Neck: Supple. Carotid without bruit. Cardiac: Regular rate and rhythm. Lungs: Clear anteriorly and posteriorly. Abdomen: Soft active nontender. Extremities: Normal tone. Neurological: Mental status: Alert, cooperative, pleasant. Cranial nerves: Symmetric facial tone and trapezius. He has some difficulty answering biographical questions. Motor: Normal strength and isolation all 4 limbs. Sensation: Intact throughout. DTRs: Symmetric and equal throughout. Mobility: Sits and stands without assistance or verbal cueing or loss of balance. Results CBC & Chem 7: 02/10/18 06:30 02/10/18 06:30 Labs: Abnormal Lab Results - Last 24 Hours (Table) 02/10/18 02/10/18 Range/Units 06:30 06:30 WBC 2.5 L (3.8-10.6) k/uL RBC 3.11 L (4.30-5.90) m/uL Hgb 8.7 L (13.0-17.5) gm/dL Hct 26.4 L (39.0-53.0) % RDW 18.5 H (11.5-15.5) % Plt Count 148 L (150-450) k/uL Chloride 109 H (98-107) mmol/L BUN 31 H (9-20) mg/dL Chest x-ray: report reviewed (No active disease.) US - abdomen: report reviewed (Negative for hydronephrosis on left.) Venous US: report reviewed (Andriy for DVT right and left.) Assessment and Plan (1) Anemia aplastic aregenerative Current Visit: Yes Status: Acute Code(s): D61.9 - APLASTIC ANEMIA, UNSPECIFIED SNOMED Code(s): 710443303 (2) MDS (myelodysplastic syndrome) Current Visit: Yes Status: Chronic Priority: High Code(s): D46.9 - MYELODYSPLASTIC SYNDROME, UNSPECIFIED SNOMED Code(s): 746748726 Plan: Impression: 1. Medical debility. 2. Myelodysplastic syndrome status post transplant. 3. Neck mass. 4. Acute kidney injury. 5. Hypertension. 6. Dyslipidemia. Comments and plan: At this time PT and OT are ordered. Unsure if plans of already been made for transfer to [place].
[2018-02-11 06:40] LABS: Anisocytosis Slight; Basophils % (A) 0 %; Eosinophils % (A) 1 %; HCT 29.4 % (39.0-53.0); HGB 9.4 gm/dL (13.0-17.5); Hypochromasia Slight; Lymphocytes # (A) 0.4 k/uL (1.0-4.8); Lymphocytes % (A) 12 %; MCH 27.7 pg (25.0-35.0); MCHC 31.8 g/dL (31.0-37.0); MCV 87.2 fL (80.0-100.0); Mean Platelet Volume 8.2; Monocytes # (A) 0.3 k/uL (0-1.0); Monocytes % (A) 9 %; Neutrophils # (A) 2.2 k/uL (1.3-7.7); Neutrophils % (A) 74 %; Platelet Count 157 k/uL (150-450); RBC 3.37 m/uL (4.30-5.90); RDW 18.9 % (11.5-15.5); WBC 2.9 k/uL (3.8-10.6)
[2018-02-11 06:53] LABS: ALT 28 U/L (21-72); AST 30 U/L (17-59); Alkaline Phosphatase 61 U/L (38-126); Anion Gap 12 mmol/L; Blood Urea Nitrogen 28 mg/dL (9-20); Calcium 9.2 mg/dL (8.4-10.2); Carbon Dioxide 24 mmol/L (22-30); Chloride 107 mmol/L (98-107); Glucose 83 mg/dL (74-99); Sodium 143 mmol/L (137-145); Total Bilirubin 0.5 mg/dL (0.2-1.3)
[2018-02-11] MEDS: cycloSPORINE 0.05% OPHTH 0.4 ML DROPERETTE BOTH EYES SCH ×2 (09:04→20:47)
[2018-02-11] MEDS: HYDROCORTISONE 20 MG TAB PO SCH (09:07)
[2018-02-11] MEDS: ACYCLOVIR 200 MG CAP PO SCH ×2 (09:07→20:46)
[2018-02-11] MEDS: amLODIPine 5 MG TAB PO SCH (09:07)
[2018-02-11] MEDS: MONTELUKAST 10 MG TAB PO SCH (09:07)
[2018-02-11] MEDS: POSACONAZOLE 300 MG PO SCH (09:08)
[2018-02-11] MEDS: FAMOTIDINE 20 MG TAB PO SCH ×2 (09:08→20:47)
[2018-02-11] MEDS: SPIRONOLACTONE 25 MG TAB PO SCH (09:08)
[2018-02-11] MEDS: predniSONE 10 MG TAB PO SCH (09:08)
[2018-02-11] MEDS: POTASSIUM CHLORIDE ER 20 MEQ TAB.ER PO SCH (09:08)
[2018-02-11] MEDS: ASPIRIN 81 MG PO SCH (09:09)
[2018-02-11] MEDS: DULoxetine HCL 20 MG CAPSULE.DR PO SCH (09:10)
[2018-02-11 09:47] VITALS: BMI 29.1
--- NOTE | 2018-02-11 14:02 | P.PN ---
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 He also has a history of adrenal insufficiency leukemia, prostate cancer status post prostatectomy. Patient presents to the emergency room with complaints of generalized weakness and unable to get out of bed. Also reports decrease in oral intake and decrease in urine output. Patient reports that on Saturday he had taken a long walk and felt that he may have overdone himself. He denies any chest pain or shortness of breath. Denies any nausea or vomiting. Denies any fever chills or sweats. Denies any burning when he was able to urinate. He did receive an injection of Pentamidine yesterday. He gets these injections monthly out at [facility]. Per paramedics patient was somewhat confused along with weakness. Denies any trauma. However he had been complaining of some left arm pain x-ray of the left humerus was negative for fracture. Patient was found to have some acute kidney injury creatinine at 1.30 on admission has gone up to 1.59. Fluids will be increased back to 100 mL an hour normal saline. Nephrology has been consulted. Aldactone has been discontinued. Due to patient's MDS and leukemia history oncology will be consulted. Cardiology consulted due to mildly elevated troponins. Patient denies any chest pain. EKG normal sinus rhythm. Chest x-ray negative for any acute process.. No evidence of rhabdomyolysis CK level 194 02/10/2018 patient is feeling better. He is more awake and alert. Awaiting work with physical therapy today. Mallory catheter will be removed this morning we'll monitor for any urinary retention. Creatinine is down to 1.08. Hemoglobin 8.6 white count 2.5. Patient denies any chest pain or shortness of breath. Denies any nausea or vomiting. Denies any bowel movement changes. Patient had a 12 beat run of V. tach yesterday. Cardiology has been consulted. Magnesium level II.1. Thyroid level pending. Patient did have a VQ scan showing low probability of PE. Dopplers were negative for DVT. 02/11/2018 patient is feeling better today. Improvement in his weakness. He has been able to work with physical therapy. They are recommending rehab. Awaiting insurance authorization for [facility] placement. Patient has had no further episodes of nonsustained V. tach. Cardiology will be through to evaluate him today. Patient denies any chest pain or shortness breath. Denies any nausea or vomiting. Denies any bowel movement changes or urinary symptoms Objective - Vital Signs Vital signs: Vital Signs Temp 96.5 F L 02/11/18 08:00 Pulse 82 02/11/18 12:00 Resp 16 02/11/18 04:00 BP 161/91 02/11/18 12:00 Pulse Ox 95 02/11/18 12:00 Intake & Output 02/10/18 02/11/18 02/11/18 18:59 06:59 18:59 Intake Total 740 480 Output Total 1200 675 750 Balance -460 -675 -270 Weight 84.5 kg 84.5 kg Intake: Oral 740 480 Output: Urine 1200 675 750 Straight 1200 Other: Voiding Method Urinal Urinal # Voids 1 - Exam Head normocephalic Neck supple Lungs crackles right lower lobe Heart regular rate and rhythm S1-S2, no rub or gallop Abdomen is soft nontender nondistended positive bowel sounds no hepatosplenomegaly Extremities +1 to +2 pitting edema bilaterally Neuro alert and orientated to 3 - Labs CBC & Chem 7: 02/11/18 06:19 02/11/18 06:19 Labs: Abnormal Lab Results - Last 24 Hours (Table) 02/11/18 02/11/18 Range/Units 06:19 06:19 WBC 2.9 L (3.8-10.6) k/uL RBC 3.37 L (4.30-5.90) m/uL Hgb 9.4 L (13.0-17.5) gm/dL Hct 29.4 L (39.0-53.0) % RDW 18.9 H (11.5-15.5) % Lymphocytes # 0.4 L (1.0-4.8) k/uL BUN 28 H (9-20) mg/dL Total Protein 5.0 L (6.3-8.2) g/dL Albumin 3.0 L (3.5-5.0) g/dL Assessment and Plan Assessment: 1. Generalized weakness likely related to his overall comorbidities as well as acute kidney injury and poor oral intake, dehydration and anemia 2. Acute kidney injury: Secondary to ATN due to poor oral intake as well as the Aldactone and LINDA inhibitor and obstructive uropathy. Patient has been seen by nephrology. Creatinine has normalized to 1.00. Kidney functions are improving. Patient does have evidence of lower extremity edema and crackles in the right lobe. We will resume patient's Aldactone. 3. Mildly elevated troponins: No chest pain. Patient seen by cardiology. They felt there was no evidence of an acute coronary syndrome. Likely secondary to a supply and demand mismatch. 4. 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 Patient followed at [facility] 5. 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 History of adrenal insufficiency continue Cortef 7. Acute on chronic anemia : Acute drop in hemoglobin due to acute kidney injury and dilution from hydration. Chronic anemia due to MDS 8. Urinary retention with obstructive uropathy. Patient had Mallory catheter inserted on 02/08. We will discontinue Mallory catheter and proceed with a voiding trial today. Patient does a history of prostatectomy and was placed on Flomax. 9. Nonsustained ventricle tachycardia: Cardiology notified. Magnesium 2.1. TSH normal. Cardiology will evaluate patient today 10. Hypertension: Systolic blood pressure elevated in the 160s. Since kidney functions have improved we will resume patient's lisinopril 20 mg daily Physical therapy consulted. Anticipate discharge possibly tomorrow if we receive insurance authorization for ECF placement GI prophylaxis Pepcid and DVT prophylaxis lovenox. Will restart patient's Lovenox. Hemoglobin and platelets are stable I performed an examination of the patient and discussed their management with the physician Auto Damage Estimator. I have reviewed the Physician Auto Damage Estimator's notes and agree with the documented findings and plan of care
--- NOTE | 2018-02-11 15:28 | PN ---
PROGRESS NOTE Patient is seen for followup for acute kidney injury. His renal function has improved. Serum creatinine is down to 1.0. Overall, patient states he is feeling better. He is currently not on any diuretics or IV fluids. PHYSICAL EXAMINATION: Blood pressure is 149/73, heart rate 80 per minute. Patient is afebrile. Examination of the heart, S1, S2. Examination of the lungs, bilateral breath sounds are heard. Decreased breath sounds at the bases. Abdomen is soft, nontender. Examination of the lower extremities shows trace edema bilaterally. DIAMOND WHEEL MOLDER exam is grossly intact. LABS: Show sodium 143, potassium 4.0, chloride 107, BUN is 28, serum creatinine 1.0, hemoglobin 9.4 g/dL. ASSESSMENT: 1. Acute kidney injury secondary to severe anemia and recent diuresis, currently off of diuretics. We can resume low-dose loop diuretics. Renal function is significantly improved with creatinine down from 1.6 to 1.0 mg/dL. 2. History of myelodysplastic syndrome, status post allogeneic stem cell transplant at [facility], being followed by Oncology. 3. Adrenal insufficiency, maintained on prednisone prior to admission. 4. History of mrsql-[id number]-isdz disease. 5. Urine retention, currently with indwelling Mallory catheter. 6. Severe anemia with history of myelodysplastic syndrome, status post packed RBC transfusion. Hemoglobin now at 9.4 g/dL. PLAN: Can resume low-dose loop diuretics and continue with the LINDA inhibitors. Continue with Aldactone as well. MMODL / IJN: [id number] /
[2018-02-11] MEDS: LISINOPRIL 20 MG TAB PO SCH (17:18)
[2018-02-11] MEDS: ENOXAPARIN 40 MG/0.4 ML SYRINGE SQ SCH (17:18)
[2018-02-11] MEDS: HYDROCORTISONE 10 MG TAB PO SCH (20:47)
[2018-02-11] MEDS ORDERED: MELATONIN 5 MG TABLET PO SCH (21:00)
[2018-02-12 06:18] LABS: Anisocytosis Slight; Basophils % (A) 0 %; Eosinophils % (A) 0 %; HCT 29.6 % (39.0-53.0); HGB 9.4 gm/dL (13.0-17.5); Hypochromasia Slight; Lymphocytes # (A) 0.4 k/uL (1.0-4.8); Lymphocytes % (A) 11 %; MCH 27.5 pg (25.0-35.0); MCHC 31.7 g/dL (31.0-37.0); MCV 86.7 fL (80.0-100.0); Monocytes # (A) 0.3 k/uL (0-1.0); Monocytes % (A) 8 %; Neutrophils # (A) 2.8 k/uL (1.3-7.7); Neutrophils % (A) 76 %; Platelet Count 191 k/uL (150-450); RBC 3.42 m/uL (4.30-5.90); RDW 18.7 % (11.5-15.5); WBC 3.6 k/uL (3.8-10.6)
[2018-02-12 06:35] LABS: ALT 26 U/L (21-72); AST 31 U/L (17-59); Alkaline Phosphatase 54 U/L (38-126); Anion Gap 10 mmol/L; Blood Urea Nitrogen 31 mg/dL (9-20); Calcium 9.1 mg/dL (8.4-10.2); Carbon Dioxide 26 mmol/L (22-30); Chloride 105 mmol/L (98-107); Glucose 83 mg/dL (74-99); Potassium 4.3 mmol/L (3.5-5.1); Sodium 141 mmol/L (137-145); Total Bilirubin 0.5 mg/dL (0.2-1.3); Total Protein 5.2 g/dL (6.3-8.2)
[2018-02-12] MEDS: ACYCLOVIR 200 MG CAP PO SCH (08:28)
[2018-02-12] MEDS: amLODIPine 5 MG TAB PO SCH (08:28)
[2018-02-12] MEDS: ASPIRIN 81 MG PO SCH (08:28)
[2018-02-12] MEDS: AZITHROMYCIN 250 MG TAB PO SCH (08:29)
[2018-02-12] MEDS: DULoxetine HCL 20 MG CAPSULE.DR PO SCH (08:29)
[2018-02-12] MEDS: ENOXAPARIN 40 MG/0.4 ML SYRINGE SQ SCH (08:29)
[2018-02-12] MEDS: FAMOTIDINE 20 MG TAB PO SCH (08:29)
[2018-02-12] MEDS: cycloSPORINE 0.05% OPHTH 0.4 ML DROPERETTE BOTH EYES SCH (08:29)
[2018-02-12] MEDS: predniSONE 10 MG TAB PO SCH (08:30)
[2018-02-12] MEDS: LISINOPRIL 20 MG TAB PO SCH (08:30)
[2018-02-12] MEDS: SPIRONOLACTONE 25 MG TAB PO SCH (08:30)
[2018-02-12] MEDS: HYDROCORTISONE 20 MG TAB PO SCH (08:30)
[2018-02-12] MEDS: MONTELUKAST 10 MG TAB PO SCH (08:30)
[2018-02-12] MEDS: POSACONAZOLE 300 MG PO SCH (08:30)
[2018-02-12 08:43] VITALS: RESP 18
--- NOTE | 2018-02-12 08:52 | P.PN ---
Subjective Patient is seen in follow-up for acute kidney injury. His baseline creatinine is 1 and peaked at 1.6 this admission. It is now back to baseline. Patient has history of myelodysplastic syndrome and is status post allogenic stem cell transplant. His hemoglobin was 6.9 this admission for which he did receive 2 units of blood transmission. Hemoglobin is up to 9.4 today. He is currently resting in bed. He has a Mallory catheter for urinary retention. Diuretics are held. He has no active complaints except for feeling weak. Vital signs are stable. General: The patient appeared well nourished and normally developed. HEENT: Head exam is unremarkable. Neck is without jugular venous distension. LUNGS: Lungs are clear to auscultation and percussion. Breath sounds decreased. HEART: Rate and Rhythm are regular. First and second heart sounds normal. No murmurs, rubs or gallops. ABDOMEN: Abdominal exam reveals normal bowel sounds. Non-tender and non- distended. No evidence of peritonitis. EXTREMITITES: No clubbing, cyanosis, or edema. Objective - Vital Signs Vital signs: Vital Signs Temp 97.2 F L 02/12/18 08:00 Pulse 96 02/12/18 08:00 Resp 18 02/12/18 08:00 BP 134/79 02/12/18 08:00 Pulse Ox 96 02/12/18 08:00 Intake & Output 02/11/18 02/12/18 02/12/18 18:59 06:59 18:59 Intake Total 702 240 Output Total 1450 875 Balance -748 -875 240 Weight 84.5 kg 84.5 kg Intake: Oral 702 240 Output: Urine 1450 875 Other: Voiding Method Urinal # Voids 1 - Labs CBC & Chem 7: 02/12/18 05:50 02/12/18 05:50 Labs: Abnormal Lab Results - Last 24 Hours (Table) 02/12/18 02/12/18 Range/Units 05:50 05:50 WBC 3.6 L (3.8-10.6) k/uL RBC 3.42 L (4.30-5.90) m/uL Hgb 9.4 L (13.0-17.5) gm/dL Hct 29.6 L (39.0-53.0) % RDW 18.7 H (11.5-15.5) % Lymphocytes # 0.4 L (1.0-4.8) k/uL BUN 31 H (9-20) mg/dL Total Protein 5.2 L (6.3-8.2) g/dL Albumin 3.0 L (3.5-5.0) g/dL Assessment and Plan Plan: Assessment: 1. Nonoliguric acute kidney injury secondary to ATN secondary to poor oral intake and further worsened with the use of diuretics and LINDA inhibitor. Anemia also contributing factor. Basic creatinine is 1 and peaked at 1.62 this admission - now back to baseline. Additionally he also has urinary retention. 2. History of myelodysplastic syndrome status post allogenic stem cell transplant at [facility] in 2016. Oncology following. 3. History of adrenal insufficiency maintained on prednisone. 4. History of [id number]-dcsv disease maintained on prednisone. 5. Benign hypertension. Controlled. 6. Urinary retention status post Mallory catheter placement. 7. Acute anemia with hemoglobin down to 6.9 on February 08 status post 2 units blood transfusion. Possibly related to underlying MDS. 8. Left kidney not visualized on renal ultrasound. Patient not aware of any congenital abnormalities and denies any history of nephrectomy. Plan: Encouraged oral intake. Maintain current antihypertensives. Repeat electrolytes in the morning. Can continue with lisinopril and Aldactone.
--- NOTE | 2018-02-12 10:55 | P.DS ---
Providers Date of admission: 02/07/18 01:21 Expected date of discharge: 02/12/18 Attending physician: Loco Jain Consults: 02/07/18 01:23 Consult Physician Routine Consulting Provider: Shmuel Morales Consult Reason/Comments: Elevated troponin, renal insufficiency Do you want consulting provider notified?: Yes, Notify in am 02/07/18 11:56 Consult Physician Routine Consulting Provider: Jessica Patel Consult Reason/Comments: JENNIFFER Do you want consulting provider notified?: Yes 02/07/18 11:57 Consult Physician Routine Consulting Provider: Bruce England Consult Reason/Comments: MDS Do you want consulting provider notified?: Yes 02/10/18 14:00 Consult Physician Routine Consulting Provider: Luis Carlos Reyes Consult Reason/Comments: inpatient rehab Do you want consulting provider notified?: Yes 02/11/18 08:59 Consult Physician Routine Consulting Provider: Rocio Ovalles Consult Reason/Comments: run of vtach Do you want consulting provider notified?: Yes Primary care physician: [facility] Course: Diagnoses on discharge: 1. Generalized weakness likely related to his overall comorbidities as well as acute kidney injury and poor oral intake, dehydration and anemia 2. Acute kidney injury: Secondary to ATN due to poor oral intake as well as the Aldactone and LINDA inhibitor and obstructive uropathy. Patient has been seen by nephrology. Creatinine has normalized to 1.00. Kidney functions are improving. Patient does have evidence of lower extremity edema and crackles in the right lobe. We will resume patient's Aldactone. 3. Mildly elevated troponins: No chest pain. Patient seen by cardiology. They felt there was no evidence of an acute coronary syndrome. Likely secondary to a supply and demand mismatch. 4. 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 Patient followed at [facility] 5. 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 History of adrenal insufficiency continue Cortef 7. Acute on chronic anemia : Acute drop in hemoglobin due to acute kidney injury and dilution from hydration. Chronic anemia due to MDS 8. Urinary retention with obstructive uropathy. Patient had Mallory catheter inserted on 02/08. We will discontinue Mallory catheter and proceed with a voiding trial today. Patient does a history of prostatectomy and was placed on Flomax. 9. Nonsustained ventricle tachycardia: Cardiology notified. Magnesium 2.1. TSH normal. Cardiology will evaluate patient today 10. Hypertension: Systolic blood pressure elevated in the 160s. 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 He also has a history of adrenal insufficiency leukemia, prostate cancer status post prostatectomy. Patient presents to the emergency room with complaints of generalized weakness and unable to get out of bed. Also reports decrease in oral intake and decrease in urine output. Patient reports that on Saturday he had taken a long walk and felt that he may have overdone himself. He denies any chest pain or shortness of breath. Denies any nausea or vomiting. Denies any fever chills or sweats. Denies any burning when he was able to urinate. He did receive an injection of Pentamidine yesterday. He gets these injections monthly out at [facility]. Per paramedics patient was somewhat confused along with weakness. Denies any trauma. However he had been complaining of some left arm pain x-ray of the left humerus was negative for fracture. Patient was found to have some acute kidney injury creatinine at 1.30 on admission has gone up to 1.59. Fluids will be increased back to 100 mL an hour normal saline. Nephrology has been consulted. Aldactone has been discontinued. Due to patient's MDS and leukemia history oncology will be consulted. Cardiology consulted due to mildly elevated troponins. Patient denies any chest pain. EKG normal sinus rhythm. Chest x-ray negative for any acute process.. No evidence of rhabdomyolysis CK level 194 02/10/2018 patient is feeling better. He is more awake and alert. Awaiting work with physical therapy today. Mallory catheter will be removed this morning we'll monitor for any urinary retention. Creatinine is down to 1.08. Hemoglobin 8.6 white count 2.5. Patient denies any chest pain or shortness of breath. Denies any nausea or vomiting. Denies any bowel movement changes. Patient had a 12 beat run of V. tach yesterday. Cardiology has been consulted. Magnesium level II.1. Thyroid level pending. Patient did have a VQ scan showing low probability of PE. Dopplers were negative for DVT. 02/11/2018 patient is feeling better today. Improvement in his weakness. He has been able to work with physical therapy. They are recommending rehab. Awaiting insurance authorization for [facility] placement. Patient has had no further episodes of nonsustained V. tach. Cardiology will be through to evaluate him today. Patient denies any chest pain or shortness breath. Denies any nausea or vomiting. Denies any bowel movement changes or urinary symptoms. On 02/12/2018 patient is alert and oriented 3 in no apparent distress he was seen and examined he is laying comfortably in bed, he denies any chest pain or shortness of breath no cough no nausea or vomiting no abdominal pain no diarrhea no blood in the stools and no urinary symptoms. Prior authorization secured for transfer to [facility] will proceed was transferred to [facility] [place] today. Patient Condition at Discharge: Stable Plan - Discharge Summary Discharge Rx Participant: No New Discharge Prescriptions: New Acetaminophen Tab [Tylenol] 650 mg PO Q6HR PRN tab PRN Reason: Fever And/ Or Pain Aspirin 81 mg PO DAILY chew Nitroglycerin Sl Tabs [Nitrostat] 0.4 mg SUBLINGUAL Q5M PRN tab PRN Reason: Chest Pain Continue Ergocalciferol (Vitamin D2) [Drisdol] 50,000 unit PO TH Lisinopril 20 mg PO BID Folic Acid 1 mg PO DAILY Cyanocobalamin (Vitamin B-12) [Vitamin B-12] 1,000 mcg PO DAILY Acyclovir 400 mg PO BID predniSONE 10 mg PO DAILY Ranitidine HCl 150 mg PO BID Montelukast [Singulair] 10 mg PO DAILY Azithromycin [Zithromax] 250 mg PO MOWEFR Budesonide/Formoterol Fumarate [Symbicort 80-4.5 Mcg Inhaler] 2 puff INHALATION RT-BID Posaconazole [Noxafil] 300 mg PO DAILY Methylphenidate HCl [Ritalin] 5 - 10 mg PO DAILY PRN PRN Reason: Drowsiness DULoxetine HCL [Cymbalta] 20 mg PO DAILY Spironolactone [Aldactone] 25 mg PO DAILY cycloSPORINE [Restasis] 1 applicator BOTH EYES BID amLODIPine [Norvasc] 5 mg PO DAILY Hydrocortisone [Cortef] 10 mg PO DAILY Hydrocortisone [Cortef] 20 mg PO DAILY Discontinued Potassium Chloride ER [K-Dur 20] 20 meq PO BID Levofloxacin [Levaquin] 500 mg PO DAILY Discharge Medication List Ergocalciferol (Vitamin D2) [Drisdol] 50,000 unit PO TH 12/04/15 [History] Lisinopril 20 mg PO BID 03/14/17 [History] Acyclovir 400 mg PO BID 07/02/17 [History] Cyanocobalamin (Vitamin B-12) [Vitamin B-12] 1,000 mcg PO DAILY 07/02/17 [ History] Folic Acid 1 mg PO DAILY 07/02/17 [History] Ranitidine HCl 150 mg PO BID 07/02/17 [History] predniSONE 10 mg PO DAILY 07/02/17 [History] Azithromycin [Zithromax] 250 mg PO MOWEFR 12/29/17 [History] Budesonide/Formoterol Fumarate [Symbicort 80-4.5 Mcg Inhaler] 2 puff INHALATION RT-BID 12/29/17 [History] DULoxetine HCL [Cymbalta] 20 mg PO DAILY 12/29/17 [History] Methylphenidate HCl [Ritalin] 5 - 10 mg PO DAILY PRN 12/29/17 [History] Montelukast [Singulair] 10 mg PO DAILY 12/29/17 [History] Posaconazole [Noxafil] 300 mg PO DAILY 12/29/17 [History] Hydrocortisone [Cortef] 10 mg PO DAILY 02/06/18 [History] Hydrocortisone [Cortef] 20 mg PO DAILY 02/06/18 [History] Spironolactone [Aldactone] 25 mg PO DAILY 02/06/18 [History] amLODIPine [Norvasc] 5 mg PO DAILY 02/06/18 [History] cycloSPORINE [Restasis] 1 applicator BOTH EYES BID 02/06/18 [History] Acetaminophen Tab [Tylenol] 650 mg PO Q6HR PRN tab 02/12/18 [Rx] Aspirin 81 mg PO DAILY chew 02/12/18 [Rx] Nitroglycerin Sl Tabs [Nitrostat] 0.4 mg SUBLINGUAL Q5M PRN tab 02/12/18 [Rx] Follow up Appointment(s)/Referral(s): Ranjana Rendon DO [Primary Care Provider] - 1-2 days (Pt to call to make his own appointment) Activity/Diet/Wound Care/Special Instructions: pt wishes to make his own appointments. 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
[2018-02-12 10:58] VITALS: BP 137/90; TEMP 97.3
[2018-02-12 11:56] VITALS: PULSE 80
[2018-02-12] MEDS ORDERED: LISINOPRIL 20 MG TAB PO SCH (21:00)
[2018-02-13] MEDS ORDERED: ERGOCALCIFEROL 50,000 UNIT CAP PO SCH (09:00)
== END 2018-02-12 12:58 | DRG 683 ==
LOC: EC 21:32 → 6SEL 02-07 01:21
PROVIDERS: ADMIT Internal Medicine; ATTEND Internal Medicine
PROC: 30233N1 Transfusion of Nonautologous Red Blood Cells into Peripheral Vein, Percutaneous Approach (ICD-10-PCS; principal; 2018-02-08)
DX: N17.0 Acute kidney failure with tubular necrosis (principal); E27.40 Unspecified adrenocortical insufficiency; D89.813 Graft-versus-host disease, unspecified; D69.3 Immune thrombocytopenic purpura; D61.9 Aplastic anemia, unspecified; Z94.84 Stem cells transplant status; M62.82 Rhabdomyolysis; C95.90 Leukemia, unspecified not having achieved remission; I47.2 Ventricular tachycardia; D64.81 Anemia due to antineoplastic chemotherapy; D46.9 Myelodysplastic syndrome, unspecified; I87.2 Venous insufficiency (chronic) (peripheral); E86.0 Dehydration; R62.7 Adult failure to thrive; T45.1X5A Adverse effect of antineoplastic and immunosuppressive drugs, initial encounter; E78.5 Hyperlipidemia, unspecified; I25.10 Atherosclerotic heart disease of native coronary artery without angina pectoris; I10 Essential (primary) hypertension; T38.0X5A Adverse effect of glucocorticoids and synthetic analogues, initial encounter; N13.9 Obstructive and reflux uropathy, unspecified; R22.1 Localized swelling, mass and lump, neck; R77.9 Abnormality of plasma protein, unspecified; H91.90 Unspecified hearing loss, unspecified ear; Z79.51 Long term (current) use of inhaled steroids; Z79.52 Long term (current) use of systemic steroids; Z79.899 Other long term (current) drug therapy; Z85.46 Personal history of malignant neoplasm of prostate; Z87.891 Personal history of nicotine dependence; Z86.19 Personal history of other infectious and parasitic diseases; Z88.5 Allergy status to narcotic agent; Z91.041 Radiographic dye allergy status; Z90.79 Acquired absence of other genital organ(s); Z95.5 Presence of coronary angioplasty implant and graft; Z80.8 Family history of malignant neoplasm of other organs or systems; Z84.1 Family history of disorders of kidney and ureter
CPT/HCPCS: 36415; 71046; 76770; 78582; 80048; 80053; 81001; 82550; 82553; 83605; 83735; 83880; 84443; 84484; 85025; 85027; 85610; 85730; 86850; 86900; 86901; 86920; 87086; 93005; 93970; 94760; 96360; 96361; 99285

== ENCOUNTER 2018-03-29 12:01 | Inpatient (IN) | payer BC ==
[2018-03-29] MEDS ORDERED: ACETAMINOPHEN TAB 500 MG TAB PO STA (12:38)
[2018-03-29] MEDS ORDERED: IBUPROFEN 600 MG TAB PO STA (12:38)
[2018-03-29] MEDS: SODIUM CHLORIDE 0.9% 500 ML IV SCH ×2 (13:06→14:48)
--- NOTE | 2018-03-29 13:19 | ED ---
Weakness HPI - General Chief complaint: Weakness Stated complaint: weakness Time Seen by Provider: 03/29/18 12:04 Source: patient, EMS, RN notes reviewed, old records reviewed Mode of arrival: EMS Limitations: no limitations - History of Present Illness Initial comments: 62-year-old male with a history of myelodysplastic syndrome status post bone marrow transplant to 14 with [id number] disease. His history of adrenal insufficiency,Prostate cancer with prostatectomy. He arrives today with generalized weakness. He reports that he is in no pain. According to friend he apparently fell yesterday and EMS brought him back up. He refused transfer to the ER at that time. No head injury. Patient is undergoing treatments at [facility], but hasnt had a treatment in quite some time, unable to state last date. Patient presents today with weakness and fever. He denies any specific complaints including abdominal pain or chest pain. He's had no recent Motrin or Tylenol. - Related Data Home Medications Medication Instructions Recorded Confirmed Ergocalciferol (Vitamin D2) 50,000 unit PO TH 12/04/15 03/29/18 [Drisdol] Lisinopril 20 mg PO BID 03/14/17 03/29/18 Acyclovir 400 mg PO BID 07/02/17 03/29/18 Ranitidine HCl 150 mg PO BID 07/02/17 03/29/18 Azithromycin [Zithromax] 250 mg PO DAILY 12/29/17 03/29/18 Budesonide/Formoterol Fumarate 2 puff INHALATION RT-BID 12/29/17 03/29/18 [Symbicort 80-4.5 Mcg Inhaler] DULoxetine HCL [Cymbalta] 20 mg PO DAILY 12/29/17 03/29/18 Methylphenidate HCl [Ritalin] 5 - 10 mg PO DAILY PRN 12/29/17 03/29/18 Montelukast [Singulair] 10 mg PO DAILY 12/29/17 03/29/18 Posaconazole [Noxafil] 300 mg PO DAILY 12/29/17 03/29/18 Hydrocortisone [Cortef] 10 mg PO HS 02/06/18 03/29/18 Hydrocortisone [Cortef] 20 mg PO DAILY 02/06/18 03/29/18 Spironolactone [Aldactone] 25 mg PO DAILY 02/06/18 03/29/18 amLODIPine [Norvasc] 5 mg PO DAILY 02/06/18 03/29/18 cycloSPORINE [Restasis] 1 applicator BOTH EYES BID 02/06/18 03/29/18 predniSONE 7.5 mg PO DAILY 03/29/18 03/29/18 Previous Rx's Medication Instructions Recorded Acetaminophen Tab [Tylenol] 650 mg PO Q6HR PRN tab 02/12/18 Allergies Allergy/AdvReac Type Severity Reaction Status Date / Time Iodinated Contrast- Oral and Allergy Unknown Verified 03/29/18 14:55 IV Dye [Iodinated Contrast Media - IV Dye] tramadol AdvReac Nausea & Verified 03/29/18 14:55 Vomiting Review of Systems ROS Statement: Those systems with pertinent positive or pertinent negative responses have been documented in the HPI. ROS Other: All systems not noted in ROS Statement are negative. Past Medical History Past Medical History: Cancer, Hyperlipidemia, Hypertension Additional Past Medical History / Comment(s): prostate cancer, hx venous insufficiency, RCMD, bone marrow transplant, "graft vs host disease", leumkemia History of Any Multi-Drug Resistant Organisms: C-DIFF Date of last positivie culture/infection: 2015 MDRO Source:: stool Past Surgical History: Heart Catheterization With Stent, Hernia Repair, Prostate Surgery Additional Past Surgical History / Comment(s): larry fundoplication, bone marrow transplant Past Anesthesia/Blood Transfusion Reactions: No Reported Reaction Date of Last Stent Placement:: 2003 Past Psychological History: Depression Smoking Status: Former smoker Past Alcohol Use History: Rare Past Drug Use History: None Reported - Past Family History Mother Family Medical History: Cancer Additional Family Medical History / Comment(s): skin cancer Brother(s) Family Medical History: Renal Disease Additional Family Medical History / Comment(s): kidney transplant General Exam - General Exam Comments Initial Comments: Ill-appearing 62-year-old male. Limitations: no limitations General appearance: alert, in no apparent distress, other (Febrile 103F. Pulse 103. Respiratory rate 20. Blood pressure 137 or 64. Pulse ox 100%.) Head exam: Present: atraumatic, normocephalic, normal inspection Eye exam: Present: normal appearance, PERRL, EOMI. Absent: scleral icterus, conjunctival injection, periorbital swelling ENT exam: Present: mucous membranes dry, mucous membranes moist. Absent: normal exam, normal oropharynx Neck exam: Present: normal inspection, other (No meningeal signs.). Absent: tenderness, meningismus, lymphadenopathy Respiratory exam: Present: normal lung sounds bilaterally. Absent: respiratory distress, wheezes, rales, rhonchi, stridor Cardiovascular Exam: Present: regular rate, normal rhythm, normal heart sounds. Absent: systolic murmur, diastolic murmur, rubs, gallop, clicks GI/Abdominal exam: Present: soft, normal bowel sounds. Absent: distended, tenderness, guarding, rebound, rigid Extremities exam: Present: normal inspection, full ROM, normal capillary refill. Absent: tenderness, pedal edema, joint swelling, calf tenderness Back exam: Present: normal inspection Neurological exam: Present: alert, oriented X3, CN II-XII intact Psychiatric exam: Present: normal affect, normal mood Skin exam: Present: warm, dry, intact, normal color. Absent: rash Course Vital Signs 03/29/18 03/29/18 12:03 14:47 Temperature 103 F H 100.5 F H Pulse Rate 103 H 79 Respiratory 20 18 Rate Blood Pressure 137/64 116/56 O2 Sat by Pulse 100 95 Oximetry Medical Decision Making - Medical Decision Making 62-year-old male presents emergency room with weakness and fevers. History of myelodysplastic syndrome and bone marrow transplant. Patient arrives with fever 103. Does meet sepsis criteria. Similar fever unknown origin. Patient urinalysis for infection. Chest x-ray is normal. He is neutropenic. His lab work has been somewhat stable from his previous outpatient labs. He does have an elevated troponin today with no significant EKG changes. He denies any chest pain. Elevated troponin is likely due to his fever. I did give the Patient 1 g of Rocephin. He is responding well to fluids and is feeling much better on reevaluation. Patient's case discussed with Dr. Jain by Dr. Marshall. Pending blood culture. - Lab Data Result diagrams: 03/29/18 12:45 03/29/18 12:45 Lab Results 03/29/18 03/29/18 03/29/18 Range/Units 12:45 12:45 12:45 WBC 4.5 (3.8-10.6) k/uL RBC 2.93 L (4.30-5.90) m/uL Hgb 8.2 L (13.0-17.5) gm/dL Hct 24.4 L (39.0-53.0) % MCV 83.5 (80.0-100.0) fL MCH 27.9 (25.0-35.0) pg MCHC 33.4 (31.0-37.0) g/dL RDW 20.4 H (11.5-15.5) % Plt Count 230 (150-450) k/uL Neutrophils % 72 % Lymphocytes % 21 % Monocytes % 4 % Eosinophils % 0 % Basophils % 0 % Neutrophils # 3.3 (1.3-7.7) k/uL Lymphocytes # 1.0 (1.0-4.8) k/uL Monocytes # 0.2 (0-1.0) k/uL Eosinophils # 0.0 (0-0.7) k/uL Basophils # 0.0 (0-0.2) k/uL Hypochromasia Slight Anisocytosis Moderate Microcytosis Slight PT (9.0-12.0) sec INR (<1.2) APTT (22.0-30.0) sec Sodium 136 L (137-145) mmol/L Potassium 4.8 (3.5-5.1) mmol/L Chloride 101 (98-107) mmol/L Carbon Dioxide 25 (22-30) mmol/L Anion Gap 10 mmol/L BUN 30 H (9-20) mg/dL Creatinine 1.44 H (0.66-1.25) mg/dL Est GFR (CKD-EPI)AfAm 59 (>60 ml/min/1.73 sqM) Est GFR (CKD-EPI)NonAf 51 (>60 ml/min/1.73 sqM) Glucose 83 (74-99) mg/dL Plasma Lactic Acid Dipak (0.7-2.0) mmol/L Calcium 8.2 L (8.4-10.2) mg/dL Total Bilirubin 0.7 (0.2-1.3) mg/dL AST 41 (17-59) U/L ALT 28 (21-72) U/L Alkaline Phosphatase 74 (38-126) U/L Creatine Kinase (55-170) U/L Total Creatine Kinase 318 H (55-170) U/L CK-MB (CK-2) 17.9 H* (0.0-2.4) ng/mL CK-MB (CK-2) Rel Index 5.6 Troponin I 0.035 H* (0.000-0.034) ng/mL Total Protein 4.8 L (6.3-8.2) g/dL Albumin 2.7 L (3.5-5.0) g/dL Urine Color Urine Appearance (Clear) Urine pH (5.0-8.0) Ur Specific Sh[place] (1.001-1.035) Urine Protein (Negative) Urine Glucose (UA) (Negative) Urine Ketones (Negative) Urine Blood (Negative) Urine Nitrite (Negative) Urine Bilirubin (Negative) Urine Urobilinogen (<2.0) mg/dL Ur Leukocyte Esterase (Negative) Urine RBC (0-5) /hpf Urine WBC (0-5) /hpf Ur Squamous Epith Cells (0-4) /hpf Urine Bacteria (None) /hpf Urine Mucus (None) /hpf 03/29/18 03/29/18 03/29/18 Range/Units 12:45 12:45 12:45 WBC (3.8-10.6) k/uL RBC (4.30-5.90) m/uL Hgb (13.0-17.5) gm/dL Hct (39.0-53.0) % MCV (80.0-100.0) fL MCH (25.0-35.0) pg MCHC (31.0-37.0) g/dL RDW (11.5-15.5) % Plt Count (150-450) k/uL Neutrophils % % Lymphocytes % % Monocytes % % Eosinophils % % Basophils % % Neutrophils # (1.3-7.7) k/uL Lymphocytes # (1.0-4.8) k/uL Monocytes # (0-1.0) k/uL Eosinophils # (0-0.7) k/uL Basophils # (0-0.2) k/uL Hypochromasia Anisocytosis Microcytosis PT 11.0 (9.0-12.0) sec INR 1.1 (<1.2) APTT 26.0 (22.0-30.0) sec Sodium (137-145) mmol/L Potassium (3.5-5.1) mmol/L Chloride (98-107) mmol/L Carbon Dioxide (22-30) mmol/L Anion Gap mmol/L BUN (9-20) mg/dL Creatinine (0.66-1.25) mg/dL Est GFR (CKD-EPI)AfAm (>60 ml/min/1.73 sqM) Est GFR (CKD-EPI)NonAf (>60 ml/min/1.73 sqM) Glucose (74-99) mg/dL Plasma Lactic Acid Dipak 0.9 (0.7-2.0) mmol/L Calcium (8.4-10.2) mg/dL Total Bilirubin (0.2-1.3) mg/dL AST (17-59) U/L ALT (21-72) U/L Alkaline Phosphatase (38-126) U/L Creatine Kinase 328 H (55-170) U/L Total Creatine Kinase (55-170) U/L CK-MB (CK-2) (0.0-2.4) ng/mL CK-MB (CK-2) Rel Index Troponin I (0.000-0.034) ng/mL Total Protein (6.3-8.2) g/dL Albumin (3.5-5.0) g/dL Urine Color Urine Appearance (Clear) Urine pH (5.0-8.0) Ur Specific Sh[place] (1.001-1.035) Urine Protein (Negative) Urine Glucose (UA) (Negative) Urine Ketones (Negative) Urine Blood (Negative) Urine Nitrite (Negative) Urine Bilirubin (Negative) Urine Urobilinogen (<2.0) mg/dL Ur Leukocyte Esterase (Negative) Urine RBC (0-5) /hpf Urine WBC (0-5) /hpf Ur Squamous Epith Cells (0-4) /hpf Urine Bacteria (None) /hpf Urine Mucus (None) /hpf 03/29/18 Range/Units 14:08 WBC (3.8-10.6) k/uL RBC (4.30-5.90) m/uL Hgb (13.0-17.5) gm/dL Hct (39.0-53.0) % MCV (80.0-100.0) fL MCH (25.0-35.0) pg MCHC (31.0-37.0) g/dL RDW (11.5-15.5) % Plt Count (150-450) k/uL Neutrophils % % Lymphocytes % % Monocytes % % Eosinophils % % Basophils % % Neutrophils # (1.3-7.7) k/uL Lymphocytes # (1.0-4.8) k/uL Monocytes # (0-1.0) k/uL Eosinophils # (0-0.7) k/uL Basophils # (0-0.2) k/uL Hypochromasia Anisocytosis Microcytosis PT (9.0-12.0) sec INR (<1.2) APTT (22.0-30.0) sec Sodium (137-145) mmol/L Potassium (3.5-5.1) mmol/L Chloride (98-107) mmol/L Carbon Dioxide (22-30) mmol/L Anion Gap mmol/L BUN (9-20) mg/dL Creatinine (0.66-1.25) mg/dL Est GFR (CKD-EPI)AfAm (>60 ml/min/1.73 sqM) Est GFR (CKD-EPI)NonAf (>60 ml/min/1.73 sqM) Glucose (74-99) mg/dL Plasma Lactic Acid Dipak (0.7-2.0) mmol/L Calcium (8.4-10.2) mg/dL Total Bilirubin (0.2-1.3) mg/dL AST (17-59) U/L ALT (21-72) U/L Alkaline Phosphatase (38-126) U/L Creatine Kinase (55-170) U/L Total Creatine Kinase (55-170) U/L CK-MB (CK-2) (0.0-2.4) ng/mL CK-MB (CK-2) Rel Index Troponin I (0.000-0.034) ng/mL Total Protein (6.3-8.2) g/dL Albumin (3.5-5.0) g/dL Urine Color Yellow Urine Appearance Cloudy (Clear) Urine pH 5.5 (5.0-8.0) Ur Specific Shonto 1.014 (1.001-1.035) Urine Protein 1+ H (Negative) Urine Glucose (UA) Negative (Negative) Urine Ketones Negative (Negative) Urine Blood Trace H (Negative) Urine Nitrite Negative (Negative) Urine Bilirubin Negative (Negative) Urine Urobilinogen <2.0 (<2.0) mg/dL Ur Leukocyte Esterase Negative (Negative) Urine RBC <1 (0-5) /hpf Urine WBC 1 (0-5) /hpf Ur Squamous Epith Cells <1 (0-4) /hpf Urine Bacteria Rare H (None) /hpf Urine Mucus Rare H (None) /hpf 03/29/18 14:27 EKG shows sinus rhythm with short W[place] with occasional PVCs and premature atrial compresses. Minimal discussed her for LVH. Cannot rule out anterior infarct. T-wave abnormality considering lateral ischemia. Normal EKG. Ventricular rate of 87 bpm. Was 110 ms. QRS duration 80 ms. QT QTc is 350 03/03/1930 milliseconds. - Radiology Data Radiology results: report reviewed Chest x-rays negative for any acute disease. Disposition Clinical Impression: Elevated troponin, MDS (myelodysplastic syndrome), Generalized weakness, Elevated troponin I level, Dehydration, Sepsis Disposition: ADMITTED IP TO THIS HOSP Condition: Stable Is patient prescribed a controlled substance at d/c from ED?: No When asked, does pt state using other controlled substances?: No If prescribed controlled substance>3 days was MAPS reviewed?: No If opioid is for acute pain is fill amount 7 days or less?: No If Rx opioid, was Start Talking consent form obtained?: No Referrals: Ranjana Rendon DO [Primary Care Provider] - 1-2 days Time of Disposition: 15:21
[2018-03-29 13:33] LABS: Anisocytosis Moderate; Basophils % (A) 0 %; Eosinophils % (A) 0 %; HCT 24.4 % (39.0-53.0); HGB 8.2 gm/dL (13.0-17.5); Hypochromasia Slight; Lymphocytes % (A) 21 %; MCH 27.9 pg (25.0-35.0); MCHC 33.4 g/dL (31.0-37.0); MCV 83.5 fL (80.0-100.0); Mean Platelet Volume 8.6; Microcytosis Slight; Monocytes # (A) 0.2 k/uL (0-1.0); Monocytes % (A) 4 %; Neutrophils # (A) 3.3 k/uL (1.3-7.7); Neutrophils % (A) 72 %; Platelet Count 230 k/uL (150-450); RBC 2.93 m/uL (4.30-5.90); RDW 20.4 % (11.5-15.5); WBC 4.5 k/uL (3.8-10.6)
[2018-03-29 13:42] LABS: INR 1.1 (<1.2)
[2018-03-29 13:45] LABS: Albumin 2.7 g/dL (3.5-5.0); Calcium 8.2 mg/dL (8.4-10.2); Potassium 4.8 mmol/L (3.5-5.1); Total Bilirubin 0.7 mg/dL (0.2-1.3); Total Protein 4.8 g/dL (6.3-8.2)
[2018-03-29] MEDS ORDERED: cefTRIAXone IN SWFI 1,000 MG/10 ML SYRINGE IVP STA (14:05)
[2018-03-29 14:06] LABS: Creatine Kinase MB 17.9 ng/mL (0.0-2.4); Troponin I 0.035 ng/mL (0.000-0.034)
--- NOTE | 2018-03-29 14:15 | XR ---
EXAMINATION TYPE: XR chest 2V DATE OF EXAM: 03/29/2018 COMPARISON: Prior chest x-ray 02/06/2018 HISTORY: Fever, weakness, prostate carcinoma TECHNIQUE: Frontal and lateral views of the chest are obtained. FINDINGS: There is no focal air space opacity, pleural effusion, or pneumothorax seen. The cardiac silhouette size is within normal limits. There is a port in the right pectoral region, distal tip o f the catheter is overlying the superior vena cava. There are overlying cardiac leads. Patient is rot ated. The osseous structures are intact. IMPRESSION: No acute cardiopulmonary process.
[2018-03-29 14:20] LABS: Appearance,Urine Cloudy (Clear); Bacteria,Urine Rare /hpf; Bilirubin,Urine Negative (Negative); Blood,Urine Trace (Negative); Color,Urine Yellow; Glucose,Urine (UA) Negative (Negative); Ketones,Urine Negative (Negative); Leukocyte Esterase,Urine Negative (Negative); Mucus,Urine Rare /hpf; Nitrite,Urine Negative (Negative); PH, Urine 5.5 (5.0-8.0); Protein,Urine 1+ (Negative); RBC,Urine <1 /hpf (0-5); Specific Gravity,Urine 1.014 (1.001-1.035); Squamous Epithelial Cell,Urine <1 /hpf (0-4); Urobilinogen,Urine <2.0 mg/dL (<2.0); WBC,Urine 1 /hpf (0-5)
[2018-03-29] MEDS ORDERED: methylPREDNISolone SOD SUCCI 125 MG/2 ML VIAL IV STA (14:52)
[2018-03-29] MEDS ORDERED: ACETAMINOPHEN TAB 325 MG TAB PO PRN (15:21)
[2018-03-29] MEDS ORDERED: ONDANSETRON 4 MG/2 ML VIAL IVP PRN (15:21)
[2018-03-29] MEDS ORDERED: MORPHINE SULFATE 2 MG/ML SYRINGE IV PRN (15:21)
[2018-03-29] MEDS ORDERED: LORazepam 2 MG/ML INJ IV PRN (15:21)
[2018-03-29] MEDS ORDERED: HYDROcodone/APAP 5-325MG 1 EACH TAB PO PRN (15:21)
[2018-03-29] MEDS ORDERED: NALOXONE 0.4 MG/ML 1 ML VIAL IV PRN (15:21)
[2018-03-29] MEDS ORDERED: IBUPROFEN 400 MG TAB PO PRN (15:21)
[2018-03-29] MEDS: cefTRIAXone IN SWFI 1,000 MG/10 ML SYRINGE IVP SCH (16:21)
[2018-03-29] MEDS: SODIUM CHLORIDE 0.9% 1,000 ML IV SCH ×2 (16:44→21:40)
[2018-03-29 18:04] VITALS: BMI 28.1
--- NOTE | 2018-03-29 18:31 | P.HPIM ---
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 History of adrenal insufficiency, Prostate cancer with prostatectomy. Patient presented to [facility] ER with a chief complaint of generalized weakness and pain in bilateral thigh area, he sustained a fall on the day prior to admission he denies any head injury. He states that today he is having significant weakness and low-grade fever he was evaluated in the emergency room, temperature on presentation was 103, white blood count was 8.2 he was admitted to medical floor for further evaluation. Patient also had slight elevation in his troponin level cardiology consultation was requested. 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 Past Medical History Past Medical History: Cancer, Hyperlipidemia, Hypertension Additional Past Medical History / Comment(s): prostate cancer, hx venous insufficiency, RCMD, bone marrow transplant, "graft vs host disease", leumkemia History of Any Multi-Drug Resistant Organisms: C-DIFF Date of last positivie culture/infection: 2015 MDRO Source:: stool Past Surgical History: Heart Catheterization With Stent, Hernia Repair, Prostate Surgery Additional Past Surgical History / Comment(s): larry fundoplication, bone marrow transplant Past Anesthesia/Blood Transfusion Reactions: No Reported Reaction Date of Last Stent Placement:: 2003 Past Psychological History: Depression Smoking Status: Former smoker Past Alcohol Use History: Rare Past Drug Use History: None Reported - Past Family History Mother Family Medical History: Cancer Additional Family Medical History / Comment(s): skin cancer Brother(s) Family Medical History: Renal Disease Additional Family Medical History / Comment(s): kidney transplant Medications and Allergies Home Medications Medication Instructions Recorded Confirmed Type Ergocalciferol (Vitamin D2) 50,000 unit PO TH 12/04/15 03/29/18 History [Drisdol] Lisinopril 20 mg PO BID 03/14/17 03/29/18 History Acyclovir 400 mg PO BID 07/02/17 03/29/18 History Ranitidine HCl 150 mg PO BID 07/02/17 03/29/18 History Azithromycin [Zithromax] 250 mg PO DAILY 12/29/17 03/29/18 History Budesonide/Formoterol Fumarate 2 puff INHALATION RT-BID 12/29/17 03/29/18 History [Symbicort 80-4.5 Mcg Inhaler] DULoxetine HCL [Cymbalta] 20 mg PO DAILY 12/29/17 03/29/18 History Methylphenidate HCl [Ritalin] 5 - 10 mg PO DAILY PRN 12/29/17 03/29/18 History Montelukast [Singulair] 10 mg PO DAILY 12/29/17 03/29/18 History Posaconazole [Noxafil] 300 mg PO DAILY 12/29/17 03/29/18 History Hydrocortisone [Cortef] 10 mg PO HS 02/06/18 03/29/18 History Hydrocortisone [Cortef] 20 mg PO DAILY 02/06/18 03/29/18 History Spironolactone [Aldactone] 25 mg PO DAILY 02/06/18 03/29/18 History amLODIPine [Norvasc] 5 mg PO DAILY 02/06/18 03/29/18 History cycloSPORINE [Restasis] 1 applicator BOTH EYES BID 02/06/18 03/29/18 History Acetaminophen Tab [Tylenol] 650 mg PO Q6HR PRN tab 02/12/18 03/29/18 Rx predniSONE 7.5 mg PO DAILY 03/29/18 03/29/18 History Allergies Allergy/AdvReac Type Severity Reaction Status Date / Time Iodinated Contrast- Oral and Allergy Unknown Verified 03/29/18 14:55 IV Dye [Iodinated Contrast Media - IV Dye] tramadol AdvReac Nausea & Verified 03/29/18 14:55 Vomiting Physical Exam Vitals: Vital Signs Temp Pulse Resp BP Pulse Ox 03/29/18 16:46 70 16 102/52 96 03/29/18 14:47 100.5 F H 79 18 116/56 95 03/29/18 12:03 103 F H 103 H 20 137/64 100 Intake and Output 03/29/18 03/29/18 03/29/18 06:59 14:59 22:59 Other: Weight 81.193 kg 81.647 kg HEENT head normocephalic and atraumatic Neck supple no JVD no goiter no lymphadenopathy Chest exam reveals a few scattered rhonchi no wheezing Cardiac exam reveals regular heart sounds S1 and S2 no gallops no murmurs Abdomen is soft nontender no organomegaly with normal bowel sounds Extremity exam reveals no edema no cyanosis or clubbing Neurological examination reveals generalized weakness without any focal lateralizing deficit Results CBC & Chem 7: 18 12:45 03/29/18 12:45 Labs: Abnormal Lab Results - Last 24 Hours (Table) 03/29/18 03/29/18 03/29/18 Range/Units 12:45 12:45 12:45 RBC 2.93 L (4.30-5.90) m/uL Hgb 8.2 L (13.0-17.5) gm/dL Hct 24.4 L (39.0-53.0) % RDW 20.4 H (11.5-15.5) % Sodium 136 L (137-145) mmol/L BUN 30 H (9-20) mg/dL Creatinine 1.44 H (0.66-1.25) mg/dL Calcium 8.2 L (8.4-10.2) mg/dL Creatine Kinase (55-170) U/L Total Creatine Kinase 318 H (55-170) U/L CK-MB (CK-2) 17.9 H* (0.0-2.4) ng/mL Troponin I 0.035 H* (0.000-0.034) ng/mL Total Protein 4.8 L (6.3-8.2) g/dL Albumin 2.7 L (3.5-5.0) g/dL Urine Protein (Negative) Urine Blood (Negative) Urine Bacteria (None) /hpf Urine Mucus (None) /hpf 03/29/18 03/29/18 Range/Units 12:45 14:08 RBC (4.30-5.90) m/uL Hgb (13.0-17.5) gm/dL Hct (39.0-53.0) % RDW (11.5-15.5) % Sodium (137-145) mmol/L BUN (9-20) mg/dL Creatinine (0.66-1.25) mg/dL Calcium (8.4-10.2) mg/dL Creatine Kinase 328 H (55-170) U/L Total Creatine Kinase (55-170) U/L CK-MB (CK-2) (0.0-2.4) ng/mL Troponin I (0.000-0.034) ng/mL Total Protein (6.3-8.2) g/dL Albumin (3.5-5.0) g/dL Urine Protein 1+ H (Negative) Urine Blood Trace H (Negative) Urine Bacteria Rare H (None) /hpf Urine Mucus Rare H (None) /hpf Thrombosis Risk Factor Assmnt - Choose All That Apply Each Factor Represents 1 point: Medical pt on bed rest, Obesity (BMI >25), Sepsis (< 1month) Each Risk Factor Represents 2 Points: Age 61-74 years, Patient confined to bed Other congenital or acquired thrombophilia - If yes, enter type in comment: No Thrombosis Risk Factor Assessment Total Risk Factor Score: 7 Thrombosis Risk Factor Assessment Level: High Risk Assessment and Plan Plan: #1 febrile illness, no clear source of infection is identified, chest x-ray does not reveal any acute cardiopulmonary process, urine analysis does not reveal significant urinary tract infection, there is no evidence of any skin abscess or ulceration. At this time will check influenza A and B titers, will continue to monitor for any evidence of any source of infection. Patient received 1 dose of IV Rocephin in the emergency room, at this time will consult infectious disease, will obtain blood cultures. #2 underlying history of myelodysplastic syndrome, consultation for oncology was initiated #3 mild elevation in troponin level will monitor cardiology consultation was requested. #4 prolonged history of steroid use, patient has been trying to cut down on his prednisone, he received a stress dose of Solu-Medrol 125 mg IV in the emergency room. Medication and labs were reviewed please see orders will follow closely
[2018-03-29] MEDS: SYMBICORT 80-4.5 MCG INHALER INHALATION SCH (19:02)
[2018-03-29] MEDS: FAMOTIDINE 20 MG TAB PO SCH (21:41)
[2018-03-29] MEDS: LISINOPRIL 20 MG TAB PO SCH (21:41)
[2018-03-29] MEDS: ACYCLOVIR 200 MG CAP PO SCH (21:41)
[2018-03-29] MEDS: cycloSPORINE 0.05% OPHTH 0.4 ML DROPERETTE BOTH EYES SCH (21:41)
[2018-03-29] MEDS: HYDROCORTISONE 10 MG TAB PO SCH (21:41)
[2018-03-30] MEDS: cefTRIAXone IN SWFI 1,000 MG/10 ML SYRINGE IVP SCH ×2 (03:27→15:53)
[2018-03-30] MEDS: SODIUM CHLORIDE 0.9% 1,000 ML IV SCH ×2 (06:44→15:55)
[2018-03-30] MEDS: SYMBICORT 80-4.5 MCG INHALER INHALATION SCH ×2 (07:27→18:39)
[2018-03-30] MEDS: ACYCLOVIR 200 MG CAP PO SCH ×2 (08:39→20:42)
[2018-03-30] MEDS: FAMOTIDINE 20 MG TAB PO SCH ×2 (08:39→20:42)
[2018-03-30] MEDS: LISINOPRIL 20 MG TAB PO SCH ×2 (08:40→20:42)
[2018-03-30] MEDS: PANTOPRAZOLE 40 MG/10 ML VIAL IV SCH (08:40)
[2018-03-30] MEDS: predniSONE 5 MG TAB PO SCH (08:40)
[2018-03-30] MEDS: DULoxetine HCL 20 MG CAPSULE.DR PO SCH (08:41)
[2018-03-30] MEDS: AZITHROMYCIN 250 MG TAB PO SCH (08:41)
[2018-03-30] MEDS: amLODIPine 5 MG TAB PO SCH (08:41)
[2018-03-30] MEDS: MONTELUKAST 10 MG TAB PO SCH (08:41)
[2018-03-30] MEDS: HYDROCORTISONE 20 MG TAB PO SCH (08:41)
[2018-03-30] MEDS: SPIRONOLACTONE 25 MG TAB PO SCH (08:42)
[2018-03-30] MEDS: cycloSPORINE 0.05% OPHTH 0.4 ML DROPERETTE BOTH EYES SCH ×2 (08:42→20:42)
[2018-03-30] MEDS: POSACONAZOLE 300 MG PO SCH (08:42)
--- NOTE | 2018-03-30 11:09 | P.GSCN ---
History of Present Illness Consult date: 03/30/18 History of present illness: The patient is a pleasant 62-year-old gentleman in the hospital because of weakness and fever of unknown origin. The patient is a bone marrow transplant patient from the [facility] because of myelodysplastic syndrome. 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 He has been on chronic steroids and the [facility] been trying to wean him off that according to the report. The patient apparently developed a fever of unknown origin and increasing weakness and presented to the hospital. His urine is clear. His chest x-ray is unremarkable. The patient had been voiding frequently with incontinence and the nursing staff recognize this. He had a bladder scan because he had pressure. He had 750 mL of urine in his bladder and he was therefore catheterize. The patient is status post radical prostatectomy in 2012 at [facility] for prostate cancer. His immediate PSAs postoperatively were nondetectable but he does not follow with urologist in PSA to his recollection in some time. He states that he normally voids without difficulty. His control is good. He did have an episode of urinary retention within the last year for 24 hours associated with weakness. He is on no new medications that would contribute to the retention. He has not had significant constipation. He has had the recent weakness. He has no neuropathy. Review of Systems - Constitutional Reports fatigue, Reports fever, Reports lethargy - Genitourinary Reports as per HPI - Musculoskeletal Reports as per HPI - Hematologic/Lymphatic Reports as per HPI Past Medical History Past Medical History: Cancer, Hyperlipidemia, Hypertension, Prostate Disorder Additional Past Medical History / Comment(s): prostate cancer, hx venous insufficiency, RCMD, bone marrow transplant, "graft vs host disease", leumkemia History of Any Multi-Drug Resistant Organisms: C-DIFF Year Discovered:: 2016 MDRO Source:: stool Past Surgical History: Heart Catheterization With Stent, Hernia Repair, Prostate Surgery Additional Past Surgical History / Comment(s): larry fundoplication, bone marrow transplant Past Anesthesia/Blood Transfusion Reactions: No Reported Reaction Date of Last Stent Placement:: 2003 Past Psychological History: Depression Smoking Status: Former smoker Past Alcohol Use History: Rare Past Drug Use History: None Reported - Past Family History Mother Family Medical History: Cancer Additional Family Medical History / Comment(s): skin cancer Brother(s) Family Medical History: Renal Disease Additional Family Medical History / Comment(s): kidney transplant Medications and Allergies Home Medications Medication Instructions Recorded Confirmed Type Ergocalciferol (Vitamin D2) 50,000 unit PO TH 12/04/15 03/29/18 History [Drisdol] Lisinopril 20 mg PO BID 03/14/17 03/29/18 History Acyclovir 400 mg PO BID 07/02/17 03/29/18 History Ranitidine HCl 150 mg PO BID 07/02/17 03/29/18 History Azithromycin [Zithromax] 250 mg PO DAILY 12/29/17 03/29/18 History Budesonide/Formoterol Fumarate 2 puff INHALATION RT-BID 12/29/17 03/29/18 History [Symbicort 80-4.5 Mcg Inhaler] DULoxetine HCL [Cymbalta] 20 mg PO DAILY 12/29/17 03/29/18 History Methylphenidate HCl [Ritalin] 5 - 10 mg PO DAILY PRN 12/29/17 03/29/18 History Montelukast [Singulair] 10 mg PO DAILY 12/29/17 03/29/18 History Posaconazole [Noxafil] 300 mg PO DAILY 12/29/17 03/29/18 History Hydrocortisone [Cortef] 10 mg PO HS 02/06/18 03/29/18 History Hydrocortisone [Cortef] 20 mg PO DAILY 02/06/18 03/29/18 History Spironolactone [Aldactone] 25 mg PO DAILY 02/06/18 03/29/18 History amLODIPine [Norvasc] 5 mg PO DAILY 02/06/18 03/29/18 History cycloSPORINE [Restasis] 1 applicator BOTH EYES BID 02/06/18 03/29/18 History Acetaminophen Tab [Tylenol] 650 mg PO Q6HR PRN tab 02/12/18 03/29/18 Rx predniSONE 7.5 mg PO DAILY 03/29/18 03/29/18 History Allergies Allergy/AdvReac Type Severity Reaction Status Date / Time Iodinated Contrast- Oral and Allergy Unknown Verified 03/29/18 14:55 IV Dye [Iodinated Contrast Media - IV Dye] tramadol AdvReac Nausea & Verified 03/29/18 14:55 Vomiting Surgical - Exam Vital Signs Temp Pulse Resp BP Pulse Ox 103 F H 103 H 20 137/64 100 03/29/18 12:03 03/29/18 12:03 03/29/18 12:03 03/29/18 12:03 03/29/18 12:03 - General well developed, well nourished, no distress - Eyes PERRL - ENT no hearing loss - Neck no masses - Respiratory normal expansion, normal respiratory effort - Cardiovascular Rhythm: regular - Abdomen Abdomen: soft, non tender - Genitourinary Penis is not circumcised. There is no indwelling catheter clear urine. The testes are both descended epididymis scrotum unremarkable perineum is unremarkable. Prostate is surgically absent. There is stool in the rectum but no significant constipation or impaction. - Rectum Rectum: normal sphincter tone - Integumentary no rash, no growths - Neurologic normal coordination, normal sensation - Musculoskeletal normal posture - Psychiatric oriented to time, oriented to person, oriented to place, speech is normal, memory intact Results - Labs 03/29/18 12:45 03/29/18 12:45 Abnormal Lab Results - Last 24 Hours (Table) 03/29/18 03/29/18 03/29/18 Range/Units 12:45 12:45 12:45 RBC 2.93 L (4.30-5.90) m/uL Hgb 8.2 L (13.0-17.5) gm/dL Hct 24.4 L (39.0-53.0) % RDW 20.4 H (11.5-15.5) % Sodium 136 L (137-145) mmol/L BUN 30 H (9-20) mg/dL Creatinine 1.44 H (0.66-1.25) mg/dL Calcium 8.2 L (8.4-10.2) mg/dL Creatine Kinase (55-170) U/L Total Creatine Kinase 318 H (55-170) U/L CK-MB (CK-2) 17.9 H* (0.0-2.4) ng/mL Troponin I 0.035 H* (0.000-0.034) ng/mL Total Protein 4.8 L (6.3-8.2) g/dL Albumin 2.7 L (3.5-5.0) g/dL Urine Protein (Negative) Urine Blood (Negative) Urine Bacteria (None) /hpf Urine Mucus (None) /hpf 03/29/18 03/29/18 Range/Units 12:45 14:08 RBC (4.30-5.90) m/uL Hgb (13.0-17.5) gm/dL Hct (39.0-53.0) % RDW (11.5-15.5) % Sodium (137-145) mmol/L BUN (9-20) mg/dL Creatinine (0.66-1.25) mg/dL Calcium (8.4-10.2) mg/dL Creatine Kinase 328 H (55-170) U/L Total Creatine Kinase (55-170) U/L CK-MB (CK-2) (0.0-2.4) ng/mL Troponin I (0.000-0.034) ng/mL Total Protein (6.3-8.2) g/dL Albumin (3.5-5.0) g/dL Urine Protein 1+ H (Negative) Urine Blood Trace H (Negative) Urine Bacteria Rare H (None) /hpf Urine Mucus Rare H (None) /hpf Microbiology - Last 24 Hours (Table) 03/29/18 14:08 Urine Culture - Preliminary Urine,Catheterized Diabetes panel 03/29/18 Range/Units 12:45 Sodium 136 L (137-145) mmol/L Potassium 4.8 (3.5-5.1) mmol/L Chloride 101 (98-107) mmol/L Carbon Dioxide 25 (22-30) mmol/L BUN 30 H (9-20) mg/dL Creatinine 1.44 H (0.66-1.25) mg/dL Glucose 83 (74-99) mg/dL Calcium 8.2 L (8.4-10.2) mg/dL AST 41 (17-59) U/L ALT 28 (21-72) U/L Alkaline Phosphatase 74 (38-126) U/L Total Protein 4.8 L (6.3-8.2) g/dL Albumin 2.7 L (3.5-5.0) g/dL Calcium panel 03/29/18 Range/Units 12:45 Calcium 8.2 L (8.4-10.2) mg/dL Albumin 2.7 L (3.5-5.0) g/dL Pituitary panel 03/29/18 Range/Units 12:45 Sodium 136 L (137-145) mmol/L Potassium 4.8 (3.5-5.1) mmol/L Chloride 101 (98-107) mmol/L Carbon Dioxide 25 (22-30) mmol/L BUN 30 H (9-20) mg/dL Creatinine 1.44 H (0.66-1.25) mg/dL Glucose 83 (74-99) mg/dL Calcium 8.2 L (8.4-10.2) mg/dL Adrenal panel 03/29/18 Range/Units 12:45 Sodium 136 L (137-145) mmol/L Potassium 4.8 (3.5-5.1) mmol/L Chloride 101 (98-107) mmol/L Carbon Dioxide 25 (22-30) mmol/L BUN 30 H (9-20) mg/dL Creatinine 1.44 H (0.66-1.25) mg/dL Glucose 83 (74-99) mg/dL Calcium 8.2 L (8.4-10.2) mg/dL Total Bilirubin 0.7 (0.2-1.3) mg/dL AST 41 (17-59) U/L ALT 28 (21-72) U/L Alkaline Phosphatase 74 (38-126) U/L Total Protein 4.8 L (6.3-8.2) g/dL Albumin 2.7 L (3.5-5.0) g/dL Assessment and Plan Assessment: Impression: Urine retention most likely secondary to weakness, most likely temporary. Status post radical prostatectomy for prostate cancer. Myelodysplasia. Recommendations: I would leave indwelling catheter for now. When he becomes ambulatory and feeling better the catheter can be removed for a voiding trial. I suspect this is just related to his overall weakness. Does not appear to be anything mechanical that is contributing to this urine retention at this point in time. Time with Patient: Greater than 30
[2018-03-30 11:57] LABS: Anisocytosis Moderate; Basophils % (A) 0 %; Eosinophils % (A) 0 %; Hypochromasia Moderate; Lymphocytes # (A) 0.3 k/uL (1.0-4.8); Lymphocytes % (A) 11 %; MCH 26.4 pg (25.0-35.0); MCHC 30.5 g/dL (31.0-37.0); MCV 86.6 fL (80.0-100.0); Mean Platelet Volume 8.7; Microcytosis Slight; Monocytes # (A) 0.1 k/uL (0-1.0); Monocytes % (A) 2 %; Neutrophils % (A) 86 %; Platelet Count 231 k/uL (150-450); RBC 2.54 m/uL (4.30-5.90); RDW 20.2 % (11.5-15.5); WBC 2.4 k/uL (3.8-10.6)
[2018-03-30 12:02] LABS: HGB 6.7 gm/dL (13.0-17.5)
[2018-03-30 12:06] LABS: Albumin 2.7 g/dL (3.5-5.0); Calcium 8.1 mg/dL (8.4-10.2); Potassium 4.6 mmol/L (3.5-5.1); Total Bilirubin 0.3 mg/dL (0.2-1.3); Total Protein 4.8 g/dL (6.3-8.2)
--- NOTE | 2018-03-30 13:23 | P.PN ---
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 History of adrenal insufficiency, Prostate cancer with prostatectomy. Patient presented to [facility] ER with a chief complaint of generalized weakness and pain in bilateral thigh area, he sustained a fall on the day prior to admission he denies any head injury. He states that today he is having significant weakness and low-grade fever he was evaluated in the emergency room, temperature on presentation was 103, white blood count was 8.2 he was admitted to medical floor for further evaluation. Patient also had slight elevation in his troponin level cardiology consultation was requested. 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 On 03/30/2018 patient is alert and oriented still complaining of weakness, had urinary retention and Mallory catheter was inserted earlier urology consultation was requested, otherwise patient denies any complaints, there is no fever or chills no headache no dizziness no chest pain no shortness of breath no cough no nausea or vomiting no abdominal pain and no urinary symptoms, hemoglobin is down to 6.7 today Objective - Vital Signs Vital signs: Vital Signs Temp 97.3 F L 03/30/18 05:45 Pulse 55 L 03/30/18 05:45 Resp 16 03/30/18 05:45 BP 120/69 03/30/18 05:45 Pulse Ox 99 03/30/18 05:45 Intake & Output 03/29/18 03/30/18 03/30/18 18:59 06:59 18:59 Intake Total 1150 Output Total 710 Balance 1150 -710 Weight 81.647 kg 81.647 kg Intake: Intake, IV Titration 1150 Amount Sodium Chloride 0.9% 1, 1150 000 ml @ 100 mls/hr IV . Q10H ALEXANDER Rx#:[id number] Output: Urine 710 Straight 710 Other: Voiding Method Urinal Indwelling Catheter # Voids 2 2 - Exam HEENT head normocephalic and atraumatic Neck supple no JVD no goiter no lymphadenopathy Chest exam reveals a few scattered rhonchi no wheezing Cardiac exam reveals regular heart sounds S1 and S2 no gallops no murmurs Abdomen is soft nontender no organomegaly with normal bowel sounds Extremity exam reveals no edema no cyanosis or clubbing Neurological examination reveals generalized weakness without any focal lateralizing deficit - Labs CBC & Chem 7: 03/30/18 11:27 03/30/18 11:27 Labs: Abnormal Lab Results - Last 24 Hours (Table) 03/29/18 03/29/18 03/29/18 Range/Units 12:45 12:45 12:45 WBC (3.8-10.6) k/uL RBC 2.93 L (4.30-5.90) m/uL Hgb 8.2 L (13.0-17.5) gm/dL Hct 24.4 L (39.0-53.0) % MCHC (31.0-37.0) g/dL RDW 20.4 H (11.5-15.5) % Lymphocytes # (1.0-4.8) k/uL Sodium 136 L (137-145) mmol/L Carbon Dioxide (22-30) mmol/L BUN 30 H (9-20) mg/dL Creatinine 1.44 H (0.66-1.25) mg/dL Glucose (74-99) mg/dL Calcium 8.2 L (8.4-10.2) mg/dL Creatine Kinase (55-170) U/L Total Creatine Kinase 318 H (55-170) U/L CK-MB (CK-2) 17.9 H* (0.0-2.4) ng/mL Troponin I 0.035 H* (0.000-0.034) ng/mL Total Protein 4.8 L (6.3-8.2) g/dL Albumin 2.7 L (3.5-5.0) g/dL Urine Protein (Negative) Urine Blood (Negative) Urine Bacteria (None) /hpf Urine Mucus (None) /hpf 03/29/18 03/29/18 03/30/18 Range/Units 12:45 14:08 11:27 WBC 2.4 L (3.8-10.6) k/uL RBC 2.54 L (4.30-5.90) m/uL Hgb 6.7 L* D (13.0-17.5) gm/dL Hct 22.0 L (39.0-53.0) % MCHC 30.5 L (31.0-37.0) g/dL RDW 20.2 H (11.5-15.5) % Lymphocytes # 0.3 L (1.0-4.8) k/uL Sodium (137-145) mmol/L Carbon Dioxide (22-30) mmol/L BUN (9-20) mg/dL Creatinine (0.66-1.25) mg/dL Glucose (74-99) mg/dL Calcium (8.4-10.2) mg/dL Creatine Kinase 328 H (55-170) U/L Total Creatine Kinase (55-170) U/L CK-MB (CK-2) (0.0-2.4) ng/mL Troponin I (0.000-0.034) ng/mL Total Protein (6.3-8.2) g/dL Albumin (3.5-5.0) g/dL Urine Protein 1+ H (Negative) Urine Blood Trace H (Negative) Urine Bacteria Rare H (None) /hpf Urine Mucus Rare H (None) /hpf 03/30/18 Range/Units 11:27 WBC (3.8-10.6) k/uL RBC (4.30-5.90) m/uL Hgb (13.0-17.5) gm/dL Hct (39.0-53.0) % MCHC (31.0-37.0) g/dL RDW (11.5-15.5) % Lymphocytes # (1.0-4.8) k/uL Sodium (137-145) mmol/L Carbon Dioxide 21 L (22-30) mmol/L BUN 36 H (9-20) mg/dL Creatinine (0.66-1.25) mg/dL Glucose 143 H (74-99) mg/dL Calcium 8.1 L (8.4-10.2) mg/dL Creatine Kinase (55-170) U/L Total Creatine Kinase (55-170) U/L CK-MB (CK-2) (0.0-2.4) ng/mL Troponin I (0.000-0.034) ng/mL Total Protein 4.8 L (6.3-8.2) g/dL Albumin 2.7 L (3.5-5.0) g/dL Urine Protein (Negative) Urine Blood (Negative) Urine Bacteria (None) /hpf Urine Mucus (None) /hpf Microbiology - Last 24 Hours (Table) 03/29/18 14:08 Urine Culture - Preliminary Urine,Catheterized Assessment and Plan Plan: #1 febrile illness, no clear source of infection is identified, chest x-ray does not reveal any acute cardiopulmonary process, urine analysis does not reveal significant urinary tract infection, there is no evidence of any skin abscess or ulceration. At this time will check influenza A and B titers, will continue to monitor for any evidence of any source of infection. Patient received 1 dose of IV Rocephin in the emergency room, at this time will consult infectious disease, will obtain blood cultures. #2 underlying history of myelodysplastic syndrome, consultation for oncology was initiated, hemoglobin is down to 6.7, patient will be seen by oncology and they will decide regarding need for transfusion #3 mild elevation in troponin level will monitor cardiology consultation was requested. #4 prolonged history of steroid use, patient has been trying to cut down on his prednisone, he received a stress dose of Solu-Medrol 125 mg IV in the emergency room. #5 urinary retention Mallory catheter was inserted and urology consultation requested Medication and labs were reviewed please see orders will follow closely
--- NOTE | 2018-03-30 15:40 | P.CONS ---
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 He has a known history also of prostate carcinoma and underwent a prostatectomy [facility] now several years ago. Apparently over the days before admission he was having increasing amounts of weakness and eventually fell to the floor and was unable to get up and constantly was brought to Hospital by EMS. He has profound weakness is denying chest pain but had evidence of abnormal cardiac enzymes and cardiology consultation has also been requested. He relates that many of his problems he believes are related to his chronic steroid use been utilized for his fpfyy-rqvimp-xiph disease. He does relate that most of his other immunosuppressive medications have been removed over time. He does take multiple antimicrobials include acyclovir both orally and topically to the eye, as well as posaconazole and azithromycin. At admission the patient had temperature of 103 but also had evidence acute urinary obstruction and a Mallory catheter was placed revealing 750 ml of retained urine. Activities feeling slightly better but with a high-grade fever the infectious diseases consultation was requested. The patient is really quite a poor historian at this time. Review of Systems HEENT:Denies headache or acute visual change. Denies sinus or mouth discomforts. Denies neck stiffness or pain. Denies significant oral cavity pain. Denies difficulty on swallowing. Lungs: Denies significant shortness of breath, cough, sputum production, or hemoptysis. Cardiovascular: Denies significant shortness of breath, chest pain, chest wall pain, orthopnea, dyspnea on exertion, syncope Gastrointestinal:Denies nausea, vomiting, diarrhea, constipation, hematemesis, melena, hematochezia. No no significant change of bowel habit noticed. 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 Denies any new onset weakness or difficulty with ambulation. Denies falls or seizures. Psychiatric:Denies anxiety or depression. Endocrine: Significant fatigue weight has been stable Past Medical History Past Medical History: Cancer, Hyperlipidemia, Hypertension, Prostate Disorder Additional Past Medical History / Comment(s): prostate cancer, hx venous insufficiency, RCMD, bone marrow transplant, "graft vs host disease", leumkemia History of Any Multi-Drug Resistant Organisms: C-DIFF Year Discovered:: 2016 MDRO Source:: stool Past Surgical History: Heart Catheterization With Stent, Hernia Repair, Prostate Surgery Additional Past Surgical History / Comment(s): larry fundoplication, bone marrow transplant Past Anesthesia/Blood Transfusion Reactions: No Reported Reaction Date of Last Stent Placement:: 2003 Past Psychological History: Depression Additional Psychological History / Comment(s): . Ex- has custody of the to high school age daughters that he does still get to have some interaction with. Retired from [employer] at the local [employer] [place]. No experience. Traveling to [place]. No animal exposures. No current sexual partners Smoking Status: Former smoker Past Alcohol Use History: Rare Past Drug Use History: None Reported - Past Family History Mother Family Medical History: Cancer Additional Family Medical History / Comment(s): skin cancer Brother(s) Family Medical History: Renal Disease Additional Family Medical History / Comment(s): kidney transplant Medications and Allergies Home Medications and Allergies Comment(s): Current Medications Acetaminophen (Tylenol Tab) 650 mg PO Q6HR PRN PRN Reason: Mild Pain or Fever > 100.5 Hydrocodone Bitart/Acetaminophen ([place] 5-325) 1 each PO Q4HR PRN PRN Reason: Moderate Pain Acyclovir (Zovirax) 400 mg PO BID [facility] Last Admin: 03/30/18 08:39 Dose: 400 mg Amlodipine Besylate (Norvasc) 5 mg PO DAILY [facility] Last Admin: 03/30/18 08:41 Dose: 5 mg Azithromycin (Zithromax) 250 mg PO DAILY [facility] Stop: 04/18/18 09:01 Last Admin: 03/30/18 08:41 Dose: 250 mg Budesonide/Formoterol Fumarate (Symbicort 80-4.5 Mcg Inhaler) 2 puff INHALATION RT-BID [facility] Last Admin: 03/30/18 07:27 Dose: 2 puff Ceftriaxone Sodium (Rocephin) 1,000 mg IVP Q12H [facility] Last Admin: 03/30/18 03:27 Dose: 1,000 mg Cyclosporine (Restasis 0.05% Ophth Soln) 1 drops BOTH EYES BID [facility] Last Admin: 03/30/18 08:42 Dose: 1 drops Duloxetine HCl (Cymbalta) 20 mg PO DAILY [facility] Last Admin: 03/30/18 08:41 Dose: 20 mg Ergocalciferol (Vitamin D2) 50,000 unit PO [facility] Famotidine (Pepcid) 20 mg PO BID [facility] Last Admin: 03/30/18 08:39 Dose: 20 mg Hydrocortisone (Cortef) 20 mg PO DAILY [facility] Last Admin: 03/30/18 08:41 Dose: 20 mg Hydrocortisone (Cortef) 10 mg PO [facility] Last Admin: 03/29/18 21:41 Dose: 10 mg Sodium Chloride (Saline 0.9%) 1,000 mls @ 100 mls/hr IV .Q10H [facility] Last Admin: 03/30/18 06:44 Dose: 100 mls/hr Ibuprofen (Motrin) 400 mg PO Q6HR PRN PRN Reason: Mild Pain or Fever > 100.5 Lisinopril (Zestril) 20 mg PO BID [facility] Last Admin: 03/30/18 08:40 Dose: 20 mg Lorazepam (Ativan) 0.5 mg IV Q6HR PRN PRN Reason: Anxiety Montelukast Sodium (Singulair) 10 mg PO DAILY [facility] Last Admin: 03/30/18 08:41 Dose: 10 mg Morphine Sulfate (Morphine Sulfate (Inj)) 4 mg IV Q4HR PRN PRN Reason: Severe Pain Naloxone HCl (Narcan) 0.2 mg IV Q2M PRN PRN Reason: Opioid Reversal Non-Formulary Medication (Posaconazole [Noxafil]) 300 mg PO DAILY [facility] Last Admin: 03/30/18 08:42 Dose: Not Given Ondansetron HCl (Zofran) 4 mg IVP Q8HR PRN PRN Reason: Nausea And Vomiting Pantoprazole Sodium (Protonix) 40 mg IV DAILY [facility] Last Admin: 03/30/18 08:40 Dose: 40 mg Prednisone () 7.5 mg PO DAILY [facility] Last Admin: 03/30/18 08:40 Dose: 7.5 mg Spironolactone (Aldactone) 25 mg PO DAILY [facility] Last Admin: 03/30/18 08:42 Dose: 25 mg Home Medications Medication Instructions Recorded Confirmed Type Ergocalciferol (Vitamin D2) 50,000 unit PO TH 12/04/15 03/29/18 History [Drisdol] Lisinopril 20 mg PO BID 03/14/17 03/29/18 History Acyclovir 400 mg PO BID 07/02/17 03/29/18 History Ranitidine HCl 150 mg PO BID 07/02/17 03/29/18 History Azithromycin [Zithromax] 250 mg PO DAILY 12/29/17 03/29/18 History Budesonide/Formoterol Fumarate 2 puff INHALATION RT-BID 12/29/17 03/29/18 History [Symbicort 80-4.5 Mcg Inhaler] DULoxetine HCL [Cymbalta] 20 mg PO DAILY 12/29/17 03/29/18 History Methylphenidate HCl [Ritalin] 5 - 10 mg PO DAILY PRN 12/29/17 03/29/18 History Montelukast [Singulair] 10 mg PO DAILY 12/29/17 03/29/18 History Posaconazole [Noxafil] 300 mg PO DAILY 12/29/17 03/29/18 History Hydrocortisone [Cortef] 10 mg PO HS 02/06/18 03/29/18 History Hydrocortisone [Cortef] 20 mg PO DAILY 02/06/18 03/29/18 History Spironolactone [Aldactone] 25 mg PO DAILY 02/06/18 03/29/18 History amLODIPine [Norvasc] 5 mg PO DAILY 02/06/18 03/29/18 History cycloSPORINE [Restasis] 1 applicator BOTH EYES BID 02/06/18 03/29/18 History Acetaminophen Tab [Tylenol] 650 mg PO Q6HR PRN tab 02/12/18 03/29/18 Rx predniSONE 7.5 mg PO DAILY 03/29/18 03/29/18 History Allergies Allergy/AdvReac Type Severity Reaction Status Date / Time Iodinated Contrast- Oral and Allergy Unknown Verified 03/29/18 14:55 IV Dye [Iodinated Contrast Media - IV Dye] tramadol AdvReac Nausea & Verified 03/29/18 14:55 Vomiting Physical Exam Vitals: Vital Signs Temp Pulse Pulse Resp BP BP Pulse Ox 03/30/18 15:11 55 L 16 03/30/18 05:45 97.3 F L 55 L 16 120/69 99 03/29/18 21:27 97.3 F L 55 L 16 107/64 94 L 03/29/18 18:24 98.1 F 65 16 122/63 95 03/29/18 16:46 70 16 102/52 96 Intake and Output 03/30/18 03/30/18 03/30/18 06:59 14:59 22:59 Intake Total 800 1200 Output Total 1910 1200 Balance 800 -710 -1200 Intake: Intake, IV Titration 800 1200 Amount Sodium Chloride 0.9% 1, 800 1200 000 ml @ 100 mls/hr IV . Q10H [facility] Rx#:[id number] Output: Urine 1910 1200 Straight 710 Other: Voiding Method Urinal Indwelling Catheter Indwelling Catheter # Voids 2 2 1 Weight 81.647 kg 81.647 kg HEENT: Anicteric conjunctiva are pink a chronically dry from joalo-zjzkiz-mldd disease nasal mucosa grossly intact without significant lesions, there is no thrush. Neck: The neck is supple without significant lymphadenopathy or thyromegaly. Lungs: Good bilateral air entry without significant crackles or wheezing. There is no significant bronchial sounds. There is no egophony or dullness. Heart: Regular rate and rhythm with an audible S1-S2, no S3 no S4. There is no significant murmur click or rub, PMI was nondisplaced. Abdomen: Positive bowel sounds soft and nontender without palpable masses or organomegaly. There was no guarding or rebound. Extremities: The upper extremities have excellent pulses they are symmetric, no significant petechiae or telangiectasia. No splinter hemorrhages were noted. The lower extremities have trace edema. The peripheral pulses were 2+ and symmetric. Skin shows chronic dryness no open ulcers Neuro: Awake alert oriented to person place and time. There are no acute new gross focal sensory motor deficits. The patient though is somewhat of a poor historian. Results CBC & Chem 7: 03/30/18 11:27 03/30/18 11:27 Labs: Abnormal Lab Results - Last 24 Hours (Table) 03/30/18 03/30/18 Range/Units 11:27 11:27 WBC 2.4 L (3.8-10.6) k/uL RBC 2.54 L (4.30-5.90) m/uL Hgb 6.7 L* D (13.0-17.5) gm/dL Hct 22.0 L (39.0-53.0) % MCHC 30.5 L (31.0-37.0) g/dL RDW 20.2 H (11.5-15.5) % Lymphocytes # 0.3 L (1.0-4.8) k/uL Carbon Dioxide 21 L (22-30) mmol/L BUN 36 H (9-20) mg/dL Glucose 143 H (74-99) mg/dL Calcium 8.1 L (8.4-10.2) mg/dL Total Protein 4.8 L (6.3-8.2) g/dL Albumin 2.7 L (3.5-5.0) g/dL Microbiology - Last 24 Hours (Table) 03/29/18 12:45 Blood Culture - Preliminary Blood No Growth after 24 hours 03/29/18 14:08 Urine Culture - Preliminary Urine,Catheterized Laboratory Results WBC 2.4 k/uL (3.8-10.6) L 03/30/18 11:27 RBC 2.54 m/uL (4.30-5.90) L 03/30/18 11:27 Hgb 6.7 gm/dL (13.0-17.5) L* D 03/30/18 11:27 Hct 22.0 % (39.0-53.0) L 03/30/18 11:27 MCV 86.6 fL (80.0-100.0) 03/30/18 11:27 MCH 26.4 pg (25.0-35.0) 03/30/18 11:27 MCHC 30.5 g/dL (31.0-37.0) L 03/30/18 11:27 RDW 20.2 % (11.5-15.5) H 03/30/18 11:27 Plt Count 231 k/uL (150-450) 03/30/18 11:27 Neutrophils % 86 % 03/30/18 11:27 Lymphocytes % 11 % 03/30/18 11:27 Monocytes % 2 % 03/30/18 11:27 Eosinophils % 0 % 03/30/18 11:27 Basophils % 0 % 03/30/18 11:27 Neutrophils # 2.0 k/uL (1.3-7.7) 03/30/18 11:27 Lymphocytes # 0.3 k/uL (1.0-4.8) L 03/30/18 11:27 Monocytes # 0.1 k/uL (0-1.0) 03/30/18 11:27 Eosinophils # 0.0 k/uL (0-0.7) 03/30/18 11:27 Basophils # 0.0 k/uL (0-0.2) 03/30/18 11:27 Hypochromasia Moderate 03/30/18 11:27 Anisocytosis Moderate 03/30/18 11:27 Microcytosis Slight 03/30/18 11:27 PT 11.0 sec (9.0-12.0) 03/29/18 12:45 INR 1.1 (<1.2) 03/29/18 12:45 APTT 26.0 sec (22.0-30.0) 03/29/18 12:45 Sodium 140 mmol/L (137-145) 03/30/18 11:27 Potassium 4.6 mmol/L (3.5-5.1) 03/30/18 11:27 Chloride 107 mmol/L (98-107) 03/30/18 11:27 Carbon Dioxide 21 mmol/L (22-30) L 03/30/18 11:27 Anion Gap 12 mmol/L 03/30/18 11:27 BUN 36 mg/dL (9-20) H 03/30/18 11:27 Creatinine 1.21 mg/dL (0.66-1.25) 03/30/18 11:27 Est GFR (CKD-EPI)AfAm 73 (>60 ml/min/1.73 sqM) 03/30/18 11:27 Est GFR (CKD-EPI)NonAf 63 (>60 ml/min/1.73 sqM) 03/30/18 11:27 Glucose 143 mg/dL (74-99) H 03/30/18 11:27 Plasma Lactic Acid [place]ak 0.9 mmol/L (0.7-2.0) 03/29/18 12:45 Calcium 8.1 mg/dL (8.4-10.2) L 03/30/18 11:27 Total Bilirubin 0.3 mg/dL (0.2-1.3) 03/30/18 11:27 AST 34 U/L (17-59) 03/30/18 11:27 ALT 30 U/L (21-72) 03/30/18 11:27 Alkaline Phosphatase 68 U/L (38-126) 03/30/18 11:27 Creatine Kinase 328 U/L (55-170) H 03/29/18 12:45 Total Creatine Kinase 318 U/L (55-170) H 03/29/18 12:45 CK-MB (CK-2) 17.9 ng/mL (0.0-2.4) H* 03/29/18 12:45 CK-MB (CK-2) Rel Index 5.6 03/29/18 12:45 Troponin I 0.035 ng/mL (0.000-0.034) H* 03/29/18 12:45 Total Protein 4.8 g/dL (6.3-8.2) L 03/30/18 11:27 Albumin 2.7 g/dL (3.5-5.0) L 03/30/18 11:27 Urine Color Yellow 03/29/18 14:08 Urine Appearance Cloudy (Clear) 03/29/18 14:08 Urine pH 5.5 (5.0-8.0) 03/29/18 14:08 Ur Specific [place] 1.014 (1.001-1.035) 03/29/18 14:08 Urine Protein 1+ (Negative) H 03/29/18 14:08 Urine Glucose (UA) Negative (Negative) 03/29/18 14:08 Urine Ketones Negative (Negative) 03/29/18 14:08 Urine Blood Trace (Negative) H 03/29/18 14:08 Urine Nitrite Negative (Negative) 03/29/18 14:08 Urine Bilirubin Negative (Negative) 03/29/18 14:08 Urine Urobilinogen <2.0 mg/dL (<2.0) 03/29/18 14:08 Ur Leukocyte Esterase Negative (Negative) 03/29/18 14:08 Urine RBC <1 /hpf (0-5) 03/29/18 14:08 Urine WBC 1 /hpf (0-5) 03/29/18 14:08 Ur Squamous Epith Cells <1 /hpf (0-4) 03/29/18 14:08 Urine Bacteria Rare /hpf (None) H 03/29/18 14:08 Urine Mucus Rare /hpf (None) H 03/29/18 14:08 Influenza Type A RNA Not Detected (Not Detectd) 03/29/18 18:36 Influenza Type B (PCR) Not Detected (Not Detectd) 03/29/18 18:36 Microbiology 03/29/18 12:45 Blood Blood Culture - Preliminary No Growth after 24 hours 03/29/18 14:08 Urine,Catheterized Urine Culture - Preliminary Assessment and Plan (1) Sepsis Narrative/Plan: 62-year-old male presents to Hospital from home after becoming so weak he suffers fall. 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 The patient remains quite weak he has however not hypotensive at this time. He over has significant anemia and also has relative leukopenia. It appears that with current illness he is having stress in his bone marrow and it is not responding well. A unit of packed red cells has been ordered and is awaited at this time. As far as sepsis he has been initiated to ceftriaxone with concerns for urinary infection from the urinary obstruction. Urinalysis is somewhat benign that he is immunocompromised and we do await the urine culture. This will help further direct the antibiotic therapy. He should remain on his chronic prophylactic antimicrobial therapy as before. Blood culture is negative, and chest x-ray is negative for infiltrate at this time. The acute obstructive urinary process is likely the etiology of the acute fever and we do await culture to help direct therapy. As far as the patient's steroid therapy he will need to discuss that with his bone marrow transplant team as far as next set of options. Current Visit: Yes Status: Acute Code(s): A41.9 - SEPSIS, UNSPECIFIED ORGANISM SNOMED Code(s): 27871536 (2) Hx of allogeneic bone marrow transplant Current Visit: Yes Status: Acute Code(s): Z94.81 - BONE MARROW TRANSPLANT STATUS SNOMED Code(s): 397097576 (3) Xbfck-ebsyao-qkba disease Current Visit: No Status: Acute Priority: High Code(s): D89.813 - GRAFT- VERSUS-HOST DISEASE, UNSPECIFIED SNOMED Code(s): 771076398 (4) Fever Current Visit: Yes Status: Acute Code(s): R50.9 - FEVER, UNSPECIFIED SNOMED Code(s): 375176043
--- NOTE | 2018-03-30 15:54 | P.CONS ---
History of Present Illness - Reason for Consult Consult date: 03/30/18 Myelodysplastic Syndrome Requesting physician: Loco Jain - Chief Complaint Pain in thighs and Weakness - History of Present Illness Mr Montalvo is a pleasant WM, who [place] [address] [place] BD on 06/09/14. This was repeated on 06/16/14 [place] [address], though clumping was noted. His CBC, in retrospect, had shown a low plt count on 76 in 01/10, and 103 in 09/10. Other CBC parameters were consistently WNL. He was thus referred here for further evaluation. CBC in a citrated tube confirmed a low plt count of 47. Additional w/u was ordered. 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 He continued f/u with Dr Rendon, and was referred back here due to a gradual downward trend in his Hgb and plt. In 08/14 his plt were 26, with Hgb 10-11. Additional w/u was ordered, essentially negative, other than a Cr of 1.44. The pt then had a bone marrow on 10/12/15, revealing marked hyperplasia, dysplastic changes, and clonal cytogenetic abnormalities - t(3;21), consistent with MDS. His IPSS score was 5.32, placing him in the high risk category. He completed therapy with Dacogen in December of 2015 and went on for further treatment at the [facility]. 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 In March of 2017 there was concern for recurrent Disease and at that time plan was to repeat Bone Marrow Biopsy and potentially plan a second transplant with different donor. We have not seen Mr. Montalvo in the office since 2015, and our last documents received from [facility] stated the concern for recurrence in March. We will need to obtain the last year of records for his full Hematologic history. 03/30/18 - Patient presents to [facility] Emergency Department with complaints of increasing fatigue and weakness, generalized. He complained of bilateral pain in upper legs, thighs. He did suffer a fall on 03/28/18, in which he denies any trauma to his head. On admission he was febrile T-Max 103. He has been working with [facility] to wean off Steroids. Elijah Montalvo is a 62-year-old male with a history of myelodysplastic syndrome status post bone marrow transplant with [id number] disease. History of adrenal insufficiency, Prostate cancer with prostatectomy. Patient presented to [facility] ER with a chief complaint of generalized weakness and pain in bilateral thigh area, he sustained a fall on the day prior to admission he denies any head injury. He states that today he is having significant weakness and low-grade fever he was evaluated in the emergency room, temperature on presentation was 103, white blood count was 8.2 he was admitted to medical floor for further evaluation. Patient also had slight elevation in his troponin level cardiology consultation was requested. 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 He is currently doing well, feels better since admission, no signs of infection. Review of Systems A 14 point review of systems was assessed and completed and all negative except HPI. Past Medical History Past Medical History: Cancer, Hyperlipidemia, Hypertension, Prostate Disorder Additional Past Medical History / Comment(s): prostate cancer, hx venous insufficiency, RCMD, bone marrow transplant, "graft vs host disease", leumkemia History of Any Multi-Drug Resistant Organisms: C-DIFF Year Discovered:: 2016 MDRO Source:: stool Past Surgical History: Heart Catheterization With Stent, Hernia Repair, Prostate Surgery Additional Past Surgical History / Comment(s): larry fundoplication, bone marrow transplant Past Anesthesia/Blood Transfusion Reactions: No Reported Reaction Date of Last Stent Placement:: 2003 Past Psychological History: Depression Smoking Status: Former smoker Past Alcohol Use History: Rare Past Drug Use History: None Reported - Past Family History Mother Family Medical History: Cancer Additional Family Medical History / Comment(s): skin cancer Brother(s) Family Medical History: Renal Disease Additional Family Medical History / Comment(s): kidney transplant Medications and Allergies Home Medications Medication Instructions Recorded Confirmed Type Ergocalciferol (Vitamin D2) 50,000 unit PO TH 12/04/15 03/29/18 History [Drisdol] Lisinopril 20 mg PO BID 03/14/17 03/29/18 History Acyclovir 400 mg PO BID 07/02/17 03/29/18 History Ranitidine HCl 150 mg PO BID 07/02/17 03/29/18 History Azithromycin [Zithromax] 250 mg PO DAILY 12/29/17 03/29/18 History Budesonide/Formoterol Fumarate 2 puff INHALATION RT-BID 12/29/17 03/29/18 History [Symbicort 80-4.5 Mcg Inhaler] DULoxetine HCL [Cymbalta] 20 mg PO DAILY 12/29/17 03/29/18 History Methylphenidate HCl [Ritalin] 5 - 10 mg PO DAILY PRN 12/29/17 03/29/18 History Montelukast [Singulair] 10 mg PO DAILY 12/29/17 03/29/18 History Posaconazole [Noxafil] 300 mg PO DAILY 12/29/17 03/29/18 History Hydrocortisone [Cortef] 10 mg PO HS 02/06/18 03/29/18 History Hydrocortisone [Cortef] 20 mg PO DAILY 02/06/18 03/29/18 History Spironolactone [Aldactone] 25 mg PO DAILY 02/06/18 03/29/18 History amLODIPine [Norvasc] 5 mg PO DAILY 02/06/18 03/29/18 History cycloSPORINE [Restasis] 1 applicator BOTH EYES BID 02/06/18 03/29/18 History Acetaminophen Tab [Tylenol] 650 mg PO Q6HR PRN tab 02/12/18 03/29/18 Rx predniSONE 7.5 mg PO DAILY 03/29/18 03/29/18 History Allergies Allergy/AdvReac Type Severity Reaction Status Date / Time Iodinated Contrast- Oral and Allergy Unknown Verified 03/29/18 14:55 IV Dye [Iodinated Contrast Media - IV Dye] tramadol AdvReac Nausea & Verified 03/29/18 14:55 Vomiting Physical Exam Vitals: Vital Signs Temp Pulse Pulse Resp BP BP Pulse Ox 03/30/18 05:45 97.3 F L 55 L 16 120/69 99 03/29/18 21:27 97.3 F L 55 L 16 107/64 94 L 03/29/18 18:24 98.1 F 65 16 122/63 95 03/29/18 16:46 70 16 102/52 96 03/29/18 14:47 100.5 F H 79 18 116/56 95 Intake and Output 03/29/18 03/30/18 03/30/18 22:59 06:59 14:59 Intake Total 350 800 Output Total 710 Balance 350 800 -710 Intake: Intake, IV Titration 350 800 Amount Sodium Chloride 0.9% 1, 350 800 000 ml @ 100 mls/hr IV . Q10H [facility] Rx#:[id number] Output: Urine 710 Straight 710 Other: Voiding Method Urinal Indwelling Catheter # Voids 1 2 2 Weight 81.647 kg 81.647 kg - Constitutional General appearance: average body habitus, no acute distress - EENT Eyes: EOMI, poor dentition ENT: hard of hearing, NA/AT, normal oropharynx - Neck Supple, Trachea Midline Neck: normal ROM - Respiratory Respiratory: bilateral: CTA (No increased Respiratory distress) - Cardiovascular Rhythm: regular Heart sounds: normal: S1, S2 - Gastrointestinal General gastrointestinal: normal bowel sounds, soft - Integumentary Integumentary: pale - Neurologic No focal Defects Neurologic: CNII-XII intact - Musculoskeletal Musculoskeletal: generalized weakness, strength equal bilaterally - Psychiatric Psychiatric: A&O x's 3, appropriate affect Results CBC & Chem 7: 03/30/18 11:27 03/30/18 11:27 Labs: Abnormal Lab Results - Last 24 Hours (Table) 03/29/18 03/29/18 03/29/18 Range/Units 12:45 12:45 12:45 WBC (3.8-10.6) k/uL RBC 2.93 L (4.30-5.90) m/uL Hgb 8.2 L (13.0-17.5) gm/dL Hct 24.4 L (39.0-53.0) % MCHC (31.0-37.0) g/dL RDW 20.4 H (11.5-15.5) % Lymphocytes # (1.0-4.8) k/uL Sodium 136 L (137-145) mmol/L Carbon Dioxide (22-30) mmol/L BUN 30 H (9-20) mg/dL Creatinine 1.44 H (0.66-1.25) mg/dL Glucose (74-99) mg/dL Calcium 8.2 L (8.4-10.2) mg/dL Creatine Kinase (55-170) U/L Total Creatine Kinase 318 H (55-170) U/L CK-MB (CK-2) 17.9 H* (0.0-2.4) ng/mL Troponin I 0.035 H* (0.000-0.034) ng/mL Total Protein 4.8 L (6.3-8.2) g/dL Albumin 2.7 L (3.5-5.0) g/dL Urine Protein (Negative) Urine Blood (Negative) Urine Bacteria (None) /hpf Urine Mucus (None) /hpf 03/29/18 03/29/18 03/30/18 Range/Units 12:45 14:08 11:27 WBC 2.4 L (3.8-10.6) k/uL RBC 2.54 L (4.30-5.90) m/uL Hgb 6.7 L* D (13.0-17.5) gm/dL Hct 22.0 L (39.0-53.0) % MCHC 30.5 L (31.0-37.0) g/dL RDW 20.2 H (11.5-15.5) % Lymphocytes # 0.3 L (1.0-4.8) k/uL Sodium (137-145) mmol/L Carbon Dioxide (22-30) mmol/L BUN (9-20) mg/dL Creatinine (0.66-1.25) mg/dL Glucose (74-99) mg/dL Calcium (8.4-10.2) mg/dL Creatine Kinase 328 H (55-170) U/L Total Creatine Kinase (55-170) U/L CK-MB (CK-2) (0.0-2.4) ng/mL Troponin I (0.000-0.034) ng/mL Total Protein (6.3-8.2) g/dL Albumin (3.5-5.0) g/dL Urine Protein 1+ H (Negative) Urine Blood Trace H (Negative) Urine Bacteria Rare H (None) /hpf Urine Mucus Rare H (None) /hpf 03/30/18 Range/Units 11:27 WBC (3.8-10.6) k/uL RBC (4.30-5.90) m/uL Hgb (13.0-17.5) gm/dL Hct (39.0-53.0) % MCHC (31.0-37.0) g/dL RDW (11.5-15.5) % Lymphocytes # (1.0-4.8) k/uL Sodium (137-145) mmol/L Carbon Dioxide 21 L (22-30) mmol/L BUN 36 H (9-20) mg/dL Creatinine (0.66-1.25) mg/dL Glucose 143 H (74-99) mg/dL Calcium 8.1 L (8.4-10.2) mg/dL Creatine Kinase (55-170) U/L Total Creatine Kinase (55-170) U/L CK-MB (CK-2) (0.0-2.4) ng/mL Troponin I (0.000-0.034) ng/mL Total Protein 4.8 L (6.3-8.2) g/dL Albumin 2.7 L (3.5-5.0) g/dL Urine Protein (Negative) Urine Blood (Negative) Urine Bacteria (None) /hpf Urine Mucus (None) /hpf Microbiology - Last 24 Hours (Table) 03/29/18 14:08 Urine Culture - Preliminary Urine,Catheterized Assessment and Plan (1) Dehydration Current Visit: Yes Status: Acute Code(s): E86.0 - DEHYDRATION SNOMED Code( s): 46973818 (2) Elevated troponin Current Visit: Yes Status: Acute Code(s): R74.8 - ABNORMAL LEVELS OF OTHER SERUM ENZYMES SNOMED Code(s): 815691052 (3) Generalized weakness Current Visit: Yes Status: Acute Code(s): R53.1 - WEAKNESS SNOMED Code(s) : 96280803 (4) Sepsis Current Visit: Yes Status: Acute Code(s): A41.9 - SEPSIS, UNSPECIFIED ORGANISM SNOMED Code(s): 35542838 (5) MDS (myelodysplastic syndrome) Current Visit: Yes Status: Chronic Priority: High Code(s): D46.9 - MYELODYSPLASTIC SYNDROME, UNSPECIFIED SNOMED Code(s): 653288460 (6) Thxrb-oxjjrb-sxok disease Current Visit: No Status: Acute Priority: High Code(s): D89.813 - GRAFT- VERSUS-HOST DISEASE, UNSPECIFIED SNOMED Code(s): 687627345 Plan: Assessment and Recommendations: 1. 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 Patient aware and to discuss with Garbage Person at [facility] 2. Febrile Leukopenia- Unknown Etiology at this time, work-up in progress - Rivas Cultures Blood Cultures, Urinalysis, Chest Xray - Blood and Urine Cultures in Progress - Chest Xray - Negative for acute Process - Influenza A/B Titers - IV antibiotics 3. Normocytic Anemia - - History Of MDS - Iron studies and B12 anemia work-up completed in December of this year. - Baseline anemia appears to remain between 7-9 over past years. - hemoglobin is 6.7 today. Will Transfuse one unit of Leuko-Reduced/Irradiated PRBC (ALL Blood Products must be leuko-eeduced Irradiated) 4.Generalized Weakness and Malaise - Multifactoral with chronic steroid use ( myopathy), underlying infectious process, anemia 5. Mild Troponin Elevation - Cardiology and Primary Team Physician Attestation: I have completed the full History and Physical of this Patient and agree with the above dictation by Ruthie Freitas NP, Dictated as a scribe.
[2018-03-30] MEDS: HYDROCORTISONE 10 MG TAB PO SCH (20:42)
[2018-03-30 23:28] VITALS: RESP 16
[2018-03-31] MEDS: cefTRIAXone IN SWFI 1,000 MG/10 ML SYRINGE IVP SCH ×2 (03:38→16:51)
[2018-03-31] MEDS: SYMBICORT 80-4.5 MCG INHALER INHALATION SCH (07:40)
[2018-03-31] MEDS: SODIUM CHLORIDE 0.9% 1,000 ML IV SCH (08:33)
[2018-03-31] MEDS: ACYCLOVIR 200 MG CAP PO SCH (08:39)
[2018-03-31] MEDS: amLODIPine 5 MG TAB PO SCH (08:40)
[2018-03-31] MEDS: cycloSPORINE 0.05% OPHTH 0.4 ML DROPERETTE BOTH EYES SCH (08:40)
[2018-03-31] MEDS: DULoxetine HCL 20 MG CAPSULE.DR PO SCH (08:40)
[2018-03-31] MEDS: AZITHROMYCIN 250 MG TAB PO SCH (08:40)
[2018-03-31] MEDS: LISINOPRIL 20 MG TAB PO SCH (08:41)
[2018-03-31] MEDS: FAMOTIDINE 20 MG TAB PO SCH (08:41)
[2018-03-31] MEDS: HYDROCORTISONE 20 MG TAB PO SCH (08:41)
[2018-03-31] MEDS: MONTELUKAST 10 MG TAB PO SCH (08:41)
[2018-03-31] MEDS: PANTOPRAZOLE 40 MG/10 ML VIAL IV SCH (08:42)
[2018-03-31] MEDS: predniSONE 5 MG TAB PO SCH (08:42)
[2018-03-31] MEDS: POSACONAZOLE 300 MG PO SCH (08:43)
[2018-03-31] MEDS: SPIRONOLACTONE 25 MG TAB PO SCH (08:43)
[2018-03-31 15:16] VITALS: BP 142/77; PULSE 67; TEMP 97.7
--- NOTE | 2018-03-31 15:37 | P.DS ---
Providers Date of admission: 03/29/18 15:29 Expected date of discharge: 03/31/18 Attending physician: Loco Jain Consults: 03/29/18 15:21 Consult Physician Stat Consulting Provider: Otoniel Pinzon Consult Reason/Comments: elevated trop Do you want consulting provider notified?: Yes 03/29/18 18:13 Consult Physician Routine Consulting Provider: Bruce England Consult Reason/Comments: myelodisplastic syndrome Do you want consulting provider notified?: Yes 03/29/18 18:31 Consult Physician Routine Consulting Provider: Anthony Aguero Consult Reason/Comments: febrile illness Do you want consulting provider notified?: Yes 03/30/18 08:56 Consult Physician Routine Consulting Provider: Jg Presley Consult Reason/Comments: retention Do you want consulting provider notified?: Yes Primary care physician: Ranjana [facility] Course: Discharge diagnosis #1 sepsis present on admission likely related to an acute obstructive urinary process. Infectious diseases recommending Cipro 250 mg twice a day for one week. chest x-ray does not reveal any acute cardiopulmonary process, urine analysis does not reveal significant urinary tract infection, there is no evidence of any skin abscess or ulceration. Influenza screen negative. Urine culture and blood cultures are negative #2 underlying history of myelodysplastic syndrome, consultation for oncology was initiated, hemoglobin is down to 6.7, patient received 1 unit of packed red blood cells #3 mild elevation in troponin . Patient denies chest pain. Cardiology has been consulted #4 prolonged history of steroid use, patient has been trying to cut down on his prednisone, he received a stress dose of Solu-Medrol 125 mg IV in the emergency room. #5 urinary retention likely relates to patient's generalized weakness. Mallory catheter was inserted and urology consultation requested. Mallory catheter was removed today. Post void residual be checked. #6 acute kidney injury improved with IV fluids Discharge diagnosis Elijah Montalvo is a 62-year-old male with a history of myelodysplastic syndrome status post bone marrow transplant with [id number] disease. History of adrenal insufficiency, Prostate cancer with prostatectomy. Patient presented to [facility] ER with a chief complaint of generalized weakness and pain in bilateral thigh area, he sustained a fall on the day prior to admission he denies any head injury. He states that today he is having significant weakness and low-grade fever he was evaluated in the emergency room, temperature on presentation was 103, white blood count was 8.2 he was admitted to medical floor for further evaluation. Patient also had slight elevation in his troponin level cardiology consultation was requested. 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 On 03/30/2018 patient is alert and oriented still complaining of weakness, had urinary retention and Mallory catheter was inserted earlier urology consultation was requested, otherwise patient denies any complaints, there is no fever or chills no headache no dizziness no chest pain no shortness of breath no cough no nausea or vomiting no abdominal pain and no urinary symptoms, hemoglobin is down to 6.7 today Patient seen by infectious disease during this admission. This felt likely that patient's sepsis was related to an acute obstructive urinary process and they recommended Cipro 250 mg twice a day for one week. The Cipro dosage was decreased from 500 to 250mg because of drug drug interaction with some of patient's home medications that could cause a prolonged QT interval. Patient seen by urology had Mallory catheter placed due to urinary retention. The Mallory catheter removed today patient is urinating. A post void residual will be checked prior to discharge. Also awaiting cardiology consult in regards to mildly elevated troponin. Troponin was 0.035. Patient will be stable for discharge home if cleared by cardiology services. Patient has a scheduled appointment with [facility] oncology team tomorrow in regards to his MDS I performed an examination of the patient and discussed their management with the physician Electrician Second. I have reviewed the Physician Electrician Second's notes and agree with the documented findings and plan of care Patient Condition at Discharge: Stable Plan - Discharge Summary Discharge Rx Participant: No New Discharge Prescriptions: New Ciprofloxacin HCl [Cipro] 250 mg PO Q12HR #14 tablet Continue Ergocalciferol (Vitamin D2) [Drisdol] 50,000 unit PO TH Lisinopril 20 mg PO BID Acyclovir 400 mg PO BID Ranitidine HCl 150 mg PO BID Montelukast [Singulair] 10 mg PO DAILY Azithromycin [Zithromax] 250 mg PO DAILY Budesonide/Formoterol Fumarate [Symbicort 80-4.5 Mcg Inhaler] 2 puff INHALATION RT-BID Posaconazole [Noxafil] 300 mg PO DAILY Methylphenidate HCl [Ritalin] 5 - 10 mg PO DAILY PRN PRN Reason: Drowsiness DULoxetine HCL [Cymbalta] 20 mg PO DAILY Spironolactone [Aldactone] 25 mg PO DAILY cycloSPORINE [Restasis] 1 applicator BOTH EYES BID amLODIPine [Norvasc] 5 mg PO DAILY Hydrocortisone [Cortef] 10 mg PO HS Hydrocortisone [Cortef] 20 mg PO DAILY Acetaminophen Tab [Tylenol] 650 mg PO Q6HR PRN tab PRN Reason: Fever And/ Or Pain predniSONE 7.5 mg PO DAILY Discharge Medication List Ergocalciferol (Vitamin D2) [Drisdol] 50,000 unit PO TH 12/04/15 [History] Lisinopril 20 mg PO BID 03/14/17 [History] Acyclovir 400 mg PO BID 07/02/17 [History] Ranitidine HCl 150 mg PO BID 07/02/17 [History] Azithromycin [Zithromax] 250 mg PO DAILY 12/29/17 [History] Budesonide/Formoterol Fumarate [Symbicort 80-4.5 Mcg Inhaler] 2 puff INHALATION RT-BID 12/29/17 [History] DULoxetine HCL [Cymbalta] 20 mg PO DAILY 12/29/17 [History] Methylphenidate HCl [Ritalin] 5 - 10 mg PO DAILY PRN 12/29/17 [History] Montelukast [Singulair] 10 mg PO DAILY 12/29/17 [History] Posaconazole [Noxafil] 300 mg PO DAILY 12/29/17 [History] Hydrocortisone [Cortef] 10 mg PO HS 02/06/18 [History] Hydrocortisone [Cortef] 20 mg PO DAILY 02/06/18 [History] Spironolactone [Aldactone] 25 mg PO DAILY 02/06/18 [History] amLODIPine [Norvasc] 5 mg PO DAILY 02/06/18 [History] cycloSPORINE [Restasis] 1 applicator BOTH EYES BID 02/06/18 [History] Acetaminophen Tab [Tylenol] 650 mg PO Q6HR PRN tab 02/12/18 [Rx] predniSONE 7.5 mg PO DAILY 03/29/18 [History] Ciprofloxacin HCl [Cipro] 250 mg PO Q12HR #14 tablet 03/31/18 [Rx] Follow up Appointment(s)/Referral(s): Ranjana Rendon DO [Primary Care Provider] - 1 Week Activity/Diet/Wound Care/Special Instructions: Diet: cardiac Activity: as tolerated Follow up with [facility] oncology as scheduled Discharge Disposition: HOME SELF-CARE
--- NOTE | 2018-03-31 17:37 | P.CRDCN ---
History of Present Illness Consult date: 03/31/18 History of present illness: This is a 62-year-old gentleman with history of ischemic heart disease and previous stent placement and also a history of MDS, status post bone marrow transplant in 2016 with qhfof-hlewke-sctt disease. Patient was being tapped off his prednisone. Patient was admitted with complaints of weakness and muscle pains and also anemia. We're asked to see the patient because of slight troponin elevation. Patient also had troponin vision during the previous admission. Patient has chronic anemia and also mild renal failure. He denied any chest pain. His EKG showed sinus rhythm with nonspecific ST-T abnormalities without any acute changes. Patient wants to go home. He has an appointment to see his physician tomorrow. He is an appointment to see his hearing healthcare practitioner next week. From [facility] standpoint, I do not see contraindication for patient's being discharged. Review of Systems As per the chart Past Medical History Past Medical History: Cancer, Hyperlipidemia, Hypertension, Prostate Disorder Additional Past Medical History / Comment(s): prostate cancer, hx venous insufficiency, RCMD, bone marrow transplant, "graft vs host disease", leumkemia History of Any Multi-Drug Resistant Organisms: C-DIFF Date of last positivie culture/infection: 2015 MDRO Source:: stool Past Surgical History: Heart Catheterization With Stent, Hernia Repair, Prostate Surgery Additional Past Surgical History / Comment(s): larry fundoplication, bone marrow transplant Past Anesthesia/Blood Transfusion Reactions: No Reported Reaction Date of Last Stent Placement:: 2003 Past Psychological History: Depression Smoking Status: Former smoker Past Alcohol Use History: Rare Past Drug Use History: None Reported - Past Family History Mother Family Medical History: Cancer Additional Family Medical History / Comment(s): skin cancer Brother(s) Family Medical History: Renal Disease Additional Family Medical History / Comment(s): kidney transplant Medications and Allergies Home Medications Medication Instructions Recorded Confirmed Type Ergocalciferol (Vitamin D2) 50,000 unit PO TH 12/04/15 03/29/18 History [Drisdol] Lisinopril 20 mg PO BID 03/14/17 03/29/18 History Acyclovir 400 mg PO BID 07/02/17 03/29/18 History Ranitidine HCl 150 mg PO BID 07/02/17 03/29/18 History Azithromycin [Zithromax] 250 mg PO DAILY 12/29/17 03/29/18 History Budesonide/Formoterol Fumarate 2 puff INHALATION RT-BID 12/29/17 03/29/18 History [Symbicort 80-4.5 Mcg Inhaler] DULoxetine HCL [Cymbalta] 20 mg PO DAILY 12/29/17 03/29/18 History Methylphenidate HCl [Ritalin] 5 - 10 mg PO DAILY PRN 12/29/17 03/29/18 History Montelukast [Singulair] 10 mg PO DAILY 12/29/17 03/29/18 History Posaconazole [Noxafil] 300 mg PO DAILY 12/29/17 03/29/18 History Hydrocortisone [Cortef] 10 mg PO HS 02/06/18 03/29/18 History Hydrocortisone [Cortef] 20 mg PO DAILY 02/06/18 03/29/18 History Spironolactone [Aldactone] 25 mg PO DAILY 02/06/18 03/29/18 History amLODIPine [Norvasc] 5 mg PO DAILY 02/06/18 03/29/18 History cycloSPORINE [Restasis] 1 applicator BOTH EYES BID 02/06/18 03/29/18 History Acetaminophen Tab [Tylenol] 650 mg PO Q6HR PRN tab 02/12/18 03/29/18 Rx predniSONE 7.5 mg PO DAILY 03/29/18 03/29/18 History Ciprofloxacin HCl [Cipro] 250 mg PO Q12HR #14 tablet 03/31/18 Rx Allergies Allergy/AdvReac Type Severity Reaction Status Date / Time Iodinated Contrast- Oral and Allergy Unknown Verified 03/29/18 14:55 IV Dye [Iodinated Contrast Media - IV Dye] tramadol AdvReac Nausea & Verified 03/29/18 14:55 Vomiting Physical Exam Vitals: Vital Signs Temp Pulse Pulse Pulse Resp BP BP 03/31/18 15:15 97.7 F 67 16 142/77 03/31/18 05:00 96.8 F L 54 L 16 123/76 03/30/18 22:12 97.1 F L 71 16 127/81 03/30/18 20:38 97.2 F L 68 18 117/66 03/30/18 18:15 97.6 F 71 16 117/76 03/30/18 17:44 97.3 F L 72 16 126/72 Pulse Ox 03/31/18 15:15 97 03/31/18 05:00 97 03/30/18 22:12 98 03/30/18 20:38 97 03/30/18 18:15 03/30/18 17:44 Intake and Output 03/31/18 03/31/18 03/31/18 06:59 14:59 22:59 Intake Total 800 1200 Output Total 830 Balance 800 370 Intake: Intake, IV Titration 800 700 Amount Sodium Chloride 0.9% 1, 800 700 000 ml @ 100 mls/hr IV . Q10H ALEXANDER Rx#:[id number] Oral 500 Output: Urine 830 Other: Voiding Method Indwelling Catheter Indwelling Catheter GENERAL EXAM: Patient is alert and oriented and doesn't appear to be in any acute distress HEENT: Normocephalic. Normal reaction of pupils, equal size, normal range of extraocular motion. No erythema or exudates in the throat. NECK: No masses, no nuchal rigidity. CHEST: No chest wall deformity. LUNGS: Equal air entry with no crackles or wheeze. HEART: S1 and S2 normal with no audible mumurs or gallops. Regular rhythm, femorals equal on both sides.. ABDOMEN: No hepatosplenomegaly, normal bowel sounds, no guarding or rigidity. SKIN: No rashes CENTRAL NERVOUS SYSTEM: No focal deficits. EXTREMITIES: No cyanosis, clubbing or edema. Results 03/30/18 11:27 03/30/18 11:27 Current Medications Generic Name Dose Route Start Last Admin Trade Name Freq PRN Reason Stop Dose Admin Acetaminophen 650 mg 03/29/18 15:21 Tylenol Tab PO Q6HR PRN Mild Pain or Fever > 100.5 Hydrocodone Bitart/Acetaminophen 1 each 03/29/18 15:21 Albion 5-325 PO Q4HR PRN Moderate Pain Acyclovir 400 mg 03/29/18 21:00 03/31/18 08:39 Zovirax PO 400 mg BID ALEXANDER Administration Amlodipine Besylate 5 mg 03/30/18 09:00 03/31/18 08:40 Norvasc PO 5 mg DAILY ALEXANDER Administration Azithromycin 250 mg 03/30/18 09:00 03/31/18 08:40 Zithromax PO 04/18/18 09:01 250 mg DAILY ALEXANDER Administration Budesonide/Formoterol Fumarate 2 puff 03/29/18 20:00 03/31/18 07:40 Symbicort 80-4.5 Mcg Inhaler INHALATION 2 puff RT-BID ALEXANDER Administration Ceftriaxone Sodium 1,000 mg 03/29/18 15:30 03/31/18 16:51 Rocephin IVP 1,000 mg Q12H ALEXANDER Administration Cyclosporine 1 drops 03/29/18 21:00 03/31/18 08:40 Restasis 0.05% Ophth Soln BOTH EYES 1 drops BID ALEXANDER Administration Duloxetine HCl 20 mg 03/30/18 09:00 03/31/18 08:40 Cymbalta PO 20 mg DAILY ALEXANDER Administration Ergocalciferol 50,000 unit 04/03/18 09:00 Vitamin D2 PO TH ALEXANDER Famotidine 20 mg 03/29/18 21:00 03/31/18 08:41 Pepcid PO 20 mg BID ALEXANDER Administration Hydrocortisone 20 mg 03/30/18 09:00 03/31/18 08:41 Cortef PO 20 mg DAILY ALEXANDER Administration Hydrocortisone 10 mg 03/29/18 21:00 03/30/18 20:42 Cortef PO 10 mg HS ALEXANDER Administration Sodium Chloride 1,000 mls @ 100 mls/hr 03/29/18 15:30 03/31/18 08:33 Saline 0.9% IV 100 mls/hr .Q10H ALEXANDER Administration Ibuprofen 400 mg 03/29/18 15:21 Motrin PO Q6HR PRN Mild Pain or Fever > 100.5 Lisinopril 20 mg 03/29/18 21:00 03/31/18 08:41 Zestril PO 20 mg BID ALEXANDER Administration Lorazepam 0.5 mg 03/29/18 15:21 Ativan IV Q6HR PRN Anxiety Montelukast Sodium 10 mg 03/30/18 09:00 03/31/18 08:41 Singulair PO 10 mg DAILY [facility] Administration Morphine Sulfate 4 mg 03/29/18 15:21 Morphine Sulfate (Inj) IV Q4HR PRN Severe Pain Naloxone HCl 0.2 mg 03/29/18 15:21 Narcan IV Q2M PRN Opioid Reversal Non-Formulary Medication 300 mg 03/30/18 09:00 03/31/18 08:43 Posaconazole [Noxafil] PO Not Given DAILY [facility] Ondansetron HCl 4 mg 03/29/18 15:21 Zofran IVP Q8HR PRN Nausea And Vomiting Prednisone 7.5 mg 03/30/18 09:00 03/31/18 08:42 PO 7.5 mg DAILY ALEXANDER Administration Spironolactone 25 mg 03/30/18 09:00 03/31/18 08:43 Aldactone PO 25 mg DAILY ALEXANDER Administration Intake and Output 03/31/18 03/31/18 03/31/18 06:59 14:59 22:59 Intake Total 800 1200 Output Total 830 Balance 800 370 Intake: Intake, IV Titration 800 700 Amount Sodium Chloride 0.9% 1, 800 700 000 ml @ 100 mls/hr IV . Q10H ALEXANDER Rx#:[id number] Oral 500 Output: Urine 830 Other: Voiding Method Indwelling Catheter Indwelling Catheter 03/30/18 11:27 03/30/18 11:27 EKG Interpretations (text) Sinus rhythm with nonspecific ST-T changes Assessment and Plan (1) Dehydration Current Visit: Yes Status: Acute Code(s): E86.0 - DEHYDRATION SNOMED Code( s): 58364861 (2) Elevated troponin I level Current Visit: Yes Status: Acute Code(s): R74.8 - ABNORMAL LEVELS OF OTHER SERUM ENZYMES SNOMED Code(s): 653101003 (3) Generalized weakness Current Visit: Yes Status: Acute Code(s): R53.1 - WEAKNESS SNOMED Code(s) : 17375039 (4) MDS (myelodysplastic syndrome) Current Visit: Yes Status: Chronic Priority: High Code(s): D46.9 - MYELODYSPLASTIC SYNDROME, UNSPECIFIED SNOMED Code(s): 008952026 Plan: Patient has a chronically mildly elevated troponins. Patient also had mild renal dysfunction. He doesn't have any symptoms of angina. Patient has history of angina and stent placement in the past. Patient has an appointment to see his hearing healthcare practitioner next week. Patient could be discharged home
--- NOTE | 2018-03-31 19:42 | P.PN ---
Subjective Progress Note Date: 03/31/18 The patient's fever has resolved. He feels somewhat weak, more so in his lower extremity is. He states that the weakness appears to be related to the pelvic girdle muscles and upper portion of his lower extremities. No chills, nausea, vomiting, diarrhea or abdominal pain. He denies any mouth sores, or change in breathing. Objective - Vital Signs Vital signs: Vital Signs Temp 97.7 F 03/31/18 15:15 Pulse 67 03/31/18 15:15 Resp 16 03/31/18 15:15 BP 142/77 03/31/18 15:15 Pulse Ox 97 03/31/18 15:15 Intake & Output 03/31/18 03/31/18 04/01/18 06:59 18:59 06:59 Intake Total 1110 1200 Output Total 450 1130 Balance 660 70 Intake: Intake, IV Titration 800 700 Amount Sodium Chloride 0.9% 1, 800 700 000 ml @ 100 mls/hr IV . Q10H ALEXANDER Rx#:[id number] Oral 500 Blood Product 310 Rc Irr As3 Unit 310 [id number] Output: Urine 450 1130 Other: Voiding Method Indwelling Catheter Indwelling Catheter - Constitutional General appearance: Present: no acute distress - EENT Eyes: Present: EOMI ENT: Present: hearing grossly normal, other (changes of GVH noted- no active disease) - Respiratory Respiratory: bilateral: CTA - Cardiovascular Rhythm: regular Heart sounds: normal: S1, S2 - Gastrointestinal General gastrointestinal: Present: normal bowel sounds, soft - Integumentary Integumentary: Present: normal - Neurologic Neurologic: Present: CNII-XII intact - Musculoskeletal Musculoskeletal: Present: generalized weakness, strength equal bilaterally - Psychiatric Psychiatric: Present: A&O x's 3, appropriate affect - Labs CBC & Chem 7: 03/30/18 11:27 03/30/18 11:27 Labs: Abnormal Lab Results - Last 24 Hours (Table) 03/30/18 Range/Units 14:24 Crossmatch See Detail Microbiology - Last 24 Hours (Table) 03/29/18 12:45 Blood Culture - Preliminary Blood No Growth after 48 hours 03/29/18 14:08 Urine Culture - Final Urine,Catheterized Assessment and Plan (1) Fever Narrative/Plan: This appears to have resolved. The patient has no definite focus of infection. At the time of presentation, his white count was normal. Since then total white count has decreased but ANC is well within a safe range at 2000. Therefore the patient is not neutropenic. Cultures are negative so far. Defer to the admitting service and ID regarding antibiotic therapy, and discharge plan in this regard Current Visit: Yes Status: Acute Code(s): R50.9 - FEVER, UNSPECIFIED SNOMED Code(s): 490429111 (2) MDS (myelodysplastic syndrome) Narrative/Plan: The patient is status post allogenic bone marrow transplant as noted. His counts show some drop in hemoglobin compared to his usual baseline. WBC/ platelets are normal at baseline, but tend to drop with any additional stress. The patient is continuing follow-up at the [facility]. Apparently there has been some concern for recurrence, especially involving the red blood cell line. He stated that if a repeat bone marrow aspiration and biopsy is recommended at the [facility], he will likely contact our office to set this up locally due to convenience issues. Current Visit: Yes Status: Chronic Priority: High Code(s): D46.9 - MYELODYSPLASTIC SYNDROME, UNSPECIFIED SNOMED Code(s): 695945202 (3) Generalized weakness Narrative/Plan: while the patient has generalized weakness , Lower extremity weakness appears to be more marked. 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 It was discussed with the main stay of treatment in this case would be physical therapy. The patient noted that he had had some improvement with physical therapy previously. He is set up to begin outpatient physical therapy in the near future Current Visit: Yes Status: Acute Code(s): R53.1 - WEAKNESS SNOMED Code(s) : 62844456
[2018-04-03] MEDS ORDERED: ERGOCALCIFEROL 50,000 UNIT CAP PO SCH (09:00)
== END 2018-03-31 19:30 | disposition home or self-care (01) | DRG 872 ==
LOC: EC 12:01 → 5MS5E 15:29
PROVIDERS: ADMIT Internal Medicine; ATTEND Internal Medicine
PROC: 30233N1 Transfusion of Nonautologous Red Blood Cells into Peripheral Vein, Percutaneous Approach (ICD-10-PCS; principal; 2018-03-30)
DX: A41.9 Sepsis, unspecified organism (principal); D69.3 Immune thrombocytopenic purpura; D89.813 Graft-versus-host disease, unspecified; E27.40 Unspecified adrenocortical insufficiency; G72.0 Drug-induced myopathy; N17.9 Acute kidney failure, unspecified; Z94.81 Bone marrow transplant status; D46.9 Myelodysplastic syndrome, unspecified; D70.9 Neutropenia, unspecified; E78.5 Hyperlipidemia, unspecified; E86.0 Dehydration; F32.9 Major depressive disorder, single episode, unspecified; I10 Essential (primary) hypertension; I25.9 Chronic ischemic heart disease, unspecified; I87.2 Venous insufficiency (chronic) (peripheral); N13.9 Obstructive and reflux uropathy, unspecified; T38.0X5A Adverse effect of glucocorticoids and synthetic analogues, initial encounter; W19.XXXA Unspecified fall, initial encounter; Z79.52 Long term (current) use of systemic steroids; Z79.899 Other long term (current) drug therapy; Z80.8 Family history of malignant neoplasm of other organs or systems; Z85.46 Personal history of malignant neoplasm of prostate; Z87.891 Personal history of nicotine dependence; Z90.79 Acquired absence of other genital organ(s); Z88.6 Allergy status to analgesic agent; Z91.041 Radiographic dye allergy status; Z16.24 Resistance to multiple antibiotics; Z95.5 Presence of coronary angioplasty implant and graft
CPT/HCPCS: 36415; 71046; 80053; 81001; 82306; 82550; 82553; 83605; 84153; 84484; 85025; 85610; 85730; 86850; 86900; 86901; 86920; 87040; 87086; 87502; 93005; 94640; 96374; 96375; 99285

== ENCOUNTER 2018-09-12 10:42 | Inpatient (IN) | payer MEDICARE, OTHER ==
--- NOTE | 2018-09-12 11:09 | ED ---
General Adult HPI - General Chief complaint: Weakness Stated complaint: Fall Source: patient, EMS Mode of arrival: EMS Limitations: no limitations - History of Present Illness Initial comments: Dictation was produced using [employer] dictation software. please excuse any grammatical, word or spelling errors. Chief Complaint: 63-year-old male past medical history myelodysplastic syndrome presents with generalized weakness and multiple falls over the past 2 days. History of Present Illness: Patient is a poor historian. Patient is 62-year- old male brought in by EMS. He has a history of myelodysplastic syndrome. 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 Chart review shows that his medical history includes adrenal insufficiency, prostate cancer. Patient presents with generalized weakness over the last 2 days. Patient states he fell twice. States that he fell last night and was unable to get up. Patient was discovered by his landlord and EMS was called. Patient was then transferred to emergency Department via EMS. Chart review shows that patient was admitted for febrile illness back in February of this year. The ROS documented in this emergency department record has been reviewed and confirmed by me. Those systems with pertinent positive or negative responses have been documented in the HPI. All other systems are other negative and/or noncontributory. - Related Data Home Medications Medication Instructions Recorded Confirmed Ergocalciferol (Vitamin D2) 50,000 unit PO TH 12/04/15 09/12/18 [Drisdol] Lisinopril 20 mg PO BID 03/14/17 09/12/18 Acyclovir 400 mg PO BID 07/02/17 09/12/18 Montelukast [Singulair] 10 mg PO DAILY 12/29/17 09/12/18 Spironolactone [Aldactone] 25 mg PO DAILY 02/06/18 09/12/18 Carvedilol [Coreg] 2 tab PO BID 09/12/18 09/12/18 Fluconazole [Diflucan] 100 mg PO DAILY 09/12/18 09/12/18 Lactulose 10 gm PO BID 09/12/18 09/12/18 Allergies Allergy/AdvReac Type Severity Reaction Status Date / Time Iodinated Contrast- Oral and Allergy Unknown Verified 09/12/18 10:48 IV Dye [Iodinated Contrast Media - IV Dye] tramadol AdvReac Nausea & Verified 09/12/18 10:48 Vomiting Review of Systems ROS Statement: Those systems with pertinent positive or pertinent negative responses have been documented in the HPI. ROS Other: All systems not noted in ROS Statement are negative. Past Medical History Past Medical History: Cancer, Hyperlipidemia, Hypertension, Prostate Disorder Additional Past Medical History / Comment(s): prostate cancer, hx venous insufficiency, RCMD, bone marrow transplant, "graft vs host disease", leumkemia History of Any Multi-Drug Resistant Organisms: C-DIFF Date of last positivie culture/infection: 2015 MDRO Source:: stool Past Surgical History: Heart Catheterization With Stent, Hernia Repair, Prostate Surgery Additional Past Surgical History / Comment(s): larry fundoplication, bone marrow transplant Past Anesthesia/Blood Transfusion Reactions: No Reported Reaction Date of Last Stent Placement:: 2003 Past Psychological History: Depression Smoking Status: Former smoker Past Alcohol Use History: None Reported Past Drug Use History: None Reported - Past Family History Mother Family Medical History: Cancer Additional Family Medical History / Comment(s): skin cancer Brother(s) Family Medical History: Renal Disease Additional Family Medical History / Comment(s): kidney transplant General Exam - General Exam Comments Initial Comments: PHYSICAL EXAM: General Impression: Alert and oriented x3, not in acute distress HEENT: Normocephalic atraumatic, extra-ocular movements intact, pupils equal and reactive to light bilaterally, mucous membranes moist. Cardiovascular: Heart regular rate and rhythm, S1&S2 audible, no murmurs, rubs or gallops Chest: Lungs clear to auscultation bilaterally, no rhonchi, no wheeze, no rales Abdomen: Bowel sounds present, abdomen soft, non-tender, non-distended, no organomegaly Musculoskeletal: no peripheral edema Motor: no focal deficits noted Neurological: CN II-XII grossly intact, no focal motor or sensory deficits noted Skin: Intact with no visualized rashes Psych: Normal affect and mood Limitations: no limitations Course Vital Signs 09/12/18 09/12/18 10:45 12:12 Temperature 98.9 F Pulse Rate 86 75 Respiratory 20 20 Rate Blood Pressure 155/96 111/64 O2 Sat by Pulse 97 96 Oximetry Medical Decision Making - Medical Decision Making ED course: 63-year-old male with past medical history of myelodysplastic syndrome on immunosuppressive therapy and corticosteroids presents with generalized weakness and fall. Vital signs upon arrival are within acceptable limits. Patient is well-appearing.Laboratory evaluation obtained. Leukopenia of 2.4, hemoglobin 8.9. Platelet count 139. Patient's absolute Kartik count is 1296. Coag panel unremarkable. Metabolic panel is unremarkable. Patient has troponin elevation of 0.050. This appears to be around patient's baseline. Urinalysis obtained showing 1+ ketones. Computed tomography scan of the head C-spine, chest x-ray shows no acute processes. Patient is slightly encephalopathic and unable to provide detailed HPI. He lives alone. Given patient's social situation found to have patient admitted to observation per patient would benefit from physical therapy. There is pending blood cultures and urine cultures. Patient currently stable at this time. He is given intravenous fluids. EKG interpretation: Ventricular rate 77, normal sinus rhythm, NH interval 132, care is 86, QTC 452. No NH prolongation, no QTC prolongation, no ST or T-wave changes noted. Overall, this EKG is unremarkable - Lab Data Result diagrams: 09/12/18 11:10 09/12/18 11:10 Lab Results 09/12/18 09/12/18 09/12/18 Range/Units 11:10 11:10 11:10 WBC 2.4 L (3.8-10.6) k/uL RBC 3.35 L (4.30-5.90) m/uL Hgb 8.9 L (13.0-17.5) gm/dL Hct 27.3 L (39.0-53.0) % MCV 81.5 D (80.0-100.0) fL MCH 26.6 (25.0-35.0) pg MCHC 32.7 (31.0-37.0) g/dL RDW 19.8 H (11.5-15.5) % Plt Count 139 L (150-450) k/uL Neutrophils % 54 % Lymphocytes % 36 % Monocytes % 4 % Eosinophils % 1 % Basophils % 1 % Neutrophils # 1.3 (1.3-7.7) k/uL Lymphocytes # 0.9 L (1.0-4.8) k/uL Monocytes # 0.1 (0-1.0) k/uL Eosinophils # 0.0 (0-0.7) k/uL Basophils # 0.0 (0-0.2) k/uL Hypochromasia Slight Anisocytosis Slight Microcytosis Slight PT (9.0-12.0) sec INR (<1.2) APTT (22.0-30.0) sec Sodium 136 L (137-145) mmol/L Potassium 4.4 (3.5-5.1) mmol/L Chloride 103 (98-107) mmol/L Carbon Dioxide 21 L (22-30) mmol/L Anion Gap 12 mmol/L BUN 17 (9-20) mg/dL Creatinine 0.88 (0.66-1.25) mg/dL Est GFR (CKD-EPI)AfAm >90 (>60 ml/min/1.73 sqM) Est GFR (CKD-EPI)NonAf >90 (>60 ml/min/1.73 sqM) Glucose 88 (74-99) mg/dL Plasma Lactic Acid Dipak (0.7-2.0) mmol/L Calcium 8.9 (8.4-10.2) mg/dL Phosphorus 3.2 (2.5-4.5) mg/dL Magnesium 1.6 (1.6-2.3) mg/dL Total Bilirubin 0.5 (0.2-1.3) mg/dL AST 27 (17-59) U/L ALT 23 (21-72) U/L Alkaline Phosphatase 61 (38-126) U/L Total Creatine Kinase 228 H (55-170) U/L CK-MB (CK-2) 6.3 H (0.0-2.4) ng/mL CK-MB (CK-2) Rel Index 2.8 Troponin I 0.050 H* (0.000-0.034) ng/mL Total Protein 6.6 (6.3-8.2) g/dL Albumin 3.5 (3.5-5.0) g/dL TSH 1.740 (0.465-4.680) mIU/L Urine Color Urine Appearance (Clear) Urine pH (5.0-8.0) Ur Specific Follett (1.001-1.035) Urine Protein (Negative) Urine Glucose (UA) (Negative) Urine Ketones (Negative) Urine Blood (Negative) Urine Nitrite (Negative) Urine Bilirubin (Negative) Urine Urobilinogen (<2.0) mg/dL Ur Leukocyte Esterase (Negative) Urine RBC (0-5) /hpf Urine WBC (0-5) /hpf Ur Squamous Epith Cells (0-4) /hpf Urine Mucus (None) /hpf 09/12/18 09/12/18 09/12/18 Range/Units 11:10 11:10 13:45 WBC (3.8-10.6) k/uL RBC (4.30-5.90) m/uL Hgb (13.0-17.5) gm/dL Hct (39.0-53.0) % MCV (80.0-100.0) fL MCH (25.0-35.0) pg MCHC (31.0-37.0) g/dL RDW (11.5-15.5) % Plt Count (150-450) k/uL Neutrophils % % Lymphocytes % % Monocytes % % Eosinophils % % Basophils % % Neutrophils # (1.3-7.7) k/uL Lymphocytes # (1.0-4.8) k/uL Monocytes # (0-1.0) k/uL Eosinophils # (0-0.7) k/uL Basophils # (0-0.2) k/uL Hypochromasia Anisocytosis Microcytosis PT 11.0 (9.0-12.0) sec INR 1.0 (<1.2) APTT 29.6 (22.0-30.0) sec Sodium (137-145) mmol/L Potassium (3.5-5.1) mmol/L Chloride (98-107) mmol/L Carbon Dioxide (22-30) mmol/L Anion Gap mmol/L BUN (9-20) mg/dL Creatinine (0.66-1.25) mg/dL Est GFR (CKD-EPI)AfAm (>60 ml/min/1.73 sqM) Est GFR (CKD-EPI)NonAf (>60 ml/min/1.73 sqM) Glucose (74-99) mg/dL Plasma Lactic Acid Dipak 0.8 (0.7-2.0) mmol/L Calcium (8.4-10.2) mg/dL Phosphorus (2.5-4.5) mg/dL Magnesium (1.6-2.3) mg/dL Total Bilirubin (0.2-1.3) mg/dL AST (17-59) U/L ALT (21-72) U/L Alkaline Phosphatase (38-126) U/L Total Creatine Kinase (55-170) U/L CK-MB (CK-2) (0.0-2.4) ng/mL CK-MB (CK-2) Rel Index Troponin I (0.000-0.034) ng/mL Total Protein (6.3-8.2) g/dL Albumin (3.5-5.0) g/dL TSH (0.465-4.680) mIU/L Urine Color Yellow Urine Appearance Clear (Clear) Urine pH 5.5 (5.0-8.0) Ur Specific Follett 1.015 (1.001-1.035) Urine Protein 1+ H (Negative) Urine Glucose (UA) Negative (Negative) Urine Ketones 1+ H (Negative) Urine Blood Trace H (Negative) Urine Nitrite Negative (Negative) Urine Bilirubin Negative (Negative) Urine Urobilinogen <2.0 (<2.0) mg/dL Ur Leukocyte Esterase Negative (Negative) Urine RBC 1 (0-5) /hpf Urine WBC <1 (0-5) /hpf Ur Squamous Epith Cells <1 (0-4) /hpf Urine Mucus Rare H (None) /hpf Disposition Clinical Impression: Weakness Disposition: ADMITTED IP TO THIS [facility] Condition: Fair Referrals: Rajnana Rendon DO [Primary Care Provider] - 1-2 days Decision Time: 14:36
[2018-09-12 11:31] LABS: Anisocytosis Slight; Basophils % (A) 1 %; Eosinophils % (A) 1 %; HCT 27.3 % (39.0-53.0); HGB 8.9 gm/dL (13.0-17.5); Hypochromasia Slight; Lymphocytes # (A) 0.9 k/uL (1.0-4.8); Lymphocytes % (A) 36 %; MCH 26.6 pg (25.0-35.0); MCHC 32.7 g/dL (31.0-37.0); Mean Platelet Volume 8.1; Microcytosis Slight; Monocytes # (A) 0.1 k/uL (0-1.0); Monocytes % (A) 4 %; Neutrophils # (A) 1.3 k/uL (1.3-7.7); Neutrophils % (A) 54 %; Platelet Count 139 k/uL (150-450); RBC 3.35 m/uL (4.30-5.90); RDW 19.8 % (11.5-15.5); WBC 2.4 k/uL (3.8-10.6)
[2018-09-12 11:35] LABS: MCV 81.5 fL (80.0-100.0); Partial Thromboplastin Time 29.6 sec (22.0-30.0)
[2018-09-12 11:36] LABS: ALT 23 U/L (21-72); AST 27 U/L (17-59); Albumin 3.5 g/dL (3.5-5.0); Alkaline Phosphatase 61 U/L (38-126); Anion Gap 12 mmol/L; Blood Urea Nitrogen 17 mg/dL (9-20); Calcium 8.9 mg/dL (8.4-10.2); Carbon Dioxide 21 mmol/L (22-30); Chloride 103 mmol/L (98-107); Glucose 88 mg/dL (74-99); Magnesium 1.6 mg/dL (1.6-2.3); Phosphorus 3.2 mg/dL (2.5-4.5); Potassium 4.4 mmol/L (3.5-5.1); Sodium 136 mmol/L (137-145); Total Bilirubin 0.5 mg/dL (0.2-1.3); Total Protein 6.6 g/dL (6.3-8.2)
[2018-09-12 12:04] LABS: Creatine Kinase MB 6.3 ng/mL (0.0-2.4)
--- NOTE | 2018-09-12 12:04 | CT ---
EXAMINATION TYPE: CT brain dhruv clement DATE OF EXAM: 09/12/2018 COMPARISON: None HISTORY: frequent falls and pain CT DLP: 1337.6 mGycm Automated exposure control for dose reduction was used. TECHNIQUE: CT scan of the head and cervical spine are performed without contrast. FINDINGS: There is no acute intracranial hemorrhage, mass effect, or midline shift identified. The ventricles and sulci are within normal limits in size. The globes are intact and the visualized sin uses are remarkable for inflammatory change in the bilateral maxillary sinuses, air-fluid level in th e sphenoid sinus, inflammatory change present in the ethmoid air cells, suspect antrostomy changes at the level of the medial maxillary sinuses. Periventricular white matter shows patchy low attenuation , cerebral vascular calcifications are present. Cervical spine is visualized in its entirety from C1 through upper thoracic levels and demonstrates n ear anatomic alignment without evidence of acute fracture or dislocation. Minimal retrolisthesis gra de 1 C4-5, C5-6, anterolisthesis grade 1 C6-7, C7-T1. There is multilevel spondylosis, foraminal encr oachment. Multilevel facet arthropathy change. Prevertebral soft tissue appears within normal limits. There is multilevel spondylosis. Loss of disc height present at the intervertebral levels. The C1-C2 articulation is unremarkable. Right subclavian central venous catheter shows the distal tip coursin g into the superior vena cava. IMPRESSION: 1. There is no acute fracture or dislocation evident in the cervical spine. 2. No acute intracranial hemorrhage, mass effect, or midline shift is seen. 3. Additional findings above. Age-related changes of atrophy and probable chronic small vessel ischem ia. Degenerative disc disease, facet arthropathy, multilevel foraminal encroachment.
--- NOTE | 2018-09-12 12:09 | XR ---
EXAMINATION TYPE: XR chest 2V DATE OF EXAM: 09/12/2018 COMPARISON: 03/29/2018 INDICATION: Weakness TECHNIQUE: Frontal and lateral views of the chest are obtained. FINDINGS: The heart size is normal. The pulmonary vasculature is normal. The lungs are clear. Right side port catheter has its tip in the region of the superior vena cava. IMPRESSION: 1. No acute pulmonary process.
[2018-09-12 12:12] LABS: Troponin I 0.05 ng/mL (0.000-0.034)
[2018-09-12] MEDS ORDERED: SODIUM CHLORIDE 0.9% 1,000 ML IV STA (12:53)
[2018-09-12 14:15] LABS: Appearance,Urine Clear (Clear); Bilirubin,Urine Negative (Negative); Blood,Urine Trace (Negative); Color,Urine Yellow; Glucose,Urine (UA) Negative (Negative); Ketones,Urine 1+ (Negative); Leukocyte Esterase,Urine Negative (Negative); Mucus,Urine Rare /hpf; Nitrite,Urine Negative (Negative); PH, Urine 5.5 (5.0-8.0); Protein,Urine 1+ (Negative); RBC,Urine 1 /hpf (0-5); Specific Gravity,Urine 1.015 (1.001-1.035); Squamous Epithelial Cell,Urine <1 /hpf (0-4); Urobilinogen,Urine <2.0 mg/dL (<2.0)
[2018-09-12] MEDS ORDERED: NALOXONE 0.4 MG/ML 1 ML VIAL IV PRN (14:36)
--- NOTE | 2018-09-12 15:23 | P.HPIM ---
History of Present Illness H&P Date: 09/12/18 Chief Complaint: Weakness This Iis a 63-year-old male patient of Dr. Rendon. Patient presented to the emergency room with complaints of increased weakness for 2 days. Patient states he fell at his apartment was unable to get up on his landlord found him and proceeded to call EMS. Patient does have a known past medical history of mylodysplastic syndrome in which he follows at [facility]. Status post bone marrow transplant with zdfri-lflsnl-vore disease. Additional medical history includes adrenal insufficiency, prostate cancer with prostatectomy, hyperlipidemia and hypertension. CT of head and spine completed showing no acute fracture or dislocation evident in the cervical spine. No acute intracranial hemorrhage, mass effect or midline shift is seen. Additional findings. Age-related changes of atrophy and probable chronic small vessel ischemia. Degenerative disc disease, A. fib arthroplasty, multilevel formainla encroachment. Chest x-ray completed showing no acute pulmonary process. CT completed showing normal sinus rhythm. ST and T-wave abnormality consider lateral ischemia. Troponin slightly elevated at 0.50. Influenza negative. UA negative. Urine and blood cultures ordered. Dr. England has been consulted for oncology services. At this time patient denies any chest pain or shortness breath. Patient denies any nausea vomiting or diarrhea. Patient denies any urinary burning or frequency Review of Systems Please refer to HPI otherwise unremarkable Past Medical History Past Medical History: Cancer, Hyperlipidemia, Hypertension, Prostate Disorder Additional Past Medical History / Comment(s): prostate cancer, hx venous insufficiency, RCMD, bone marrow transplant, "graft vs host disease", leumkemia History of Any Multi-Drug Resistant Organisms: C-DIFF Date of last positivie culture/infection: 2015 MDRO Source:: stool Past Surgical History: Heart Catheterization With Stent, Hernia Repair, Prostate Surgery Additional Past Surgical History / Comment(s): larry fundoplication, bone marrow transplant Past Anesthesia/Blood Transfusion Reactions: No Reported Reaction Date of Last Stent Placement:: 2003 Past Psychological History: Depression Smoking Status: Former smoker Past Alcohol Use History: None Reported Past Drug Use History: None Reported - Past Family History Mother Family Medical History: Cancer Additional Family Medical History / Comment(s): skin cancer Brother(s) Family Medical History: Renal Disease Additional Family Medical History / Comment(s): kidney transplant Medications and Allergies Home Medications Medication Instructions Recorded Confirmed Type Ergocalciferol (Vitamin D2) 50,000 unit PO TH 12/04/15 09/12/18 History [Drisdol] Lisinopril 20 mg PO BID 03/14/17 09/12/18 History Acyclovir 400 mg PO BID 07/02/17 09/12/18 History Montelukast [Singulair] 10 mg PO DAILY 12/29/17 09/12/18 History Spironolactone [Aldactone] 25 mg PO DAILY 02/06/18 09/12/18 History Carvedilol [Coreg] 2 tab PO BID 09/12/18 09/12/18 History Fluconazole [Diflucan] 100 mg PO DAILY 09/12/18 09/12/18 History Lactulose 10 gm PO BID 09/12/18 09/12/18 History Allergies Allergy/AdvReac Type Severity Reaction Status Date / Time Iodinated Contrast- Oral and Allergy Unknown Verified 09/12/18 10:48 IV Dye [Iodinated Contrast Media - IV Dye] tramadol AdvReac Nausea & Verified 09/12/18 10:48 Vomiting Physical Exam Vitals: Vital Signs Temp Pulse Resp BP Pulse Ox 09/12/18 14:49 75 18 124/71 97 09/12/18 12:12 75 20 111/64 96 09/12/18 10:45 98.9 F 86 20 155/96 97 Intake and Output 09/12/18 09/12/18 09/12/18 06:59 14:59 22:59 Other: Weight 73.936 kg Head normocephalic Neck supple Lungs clear to auscultation bilaterally no wheezing or crackles Heart regular rate and rhythm S1-S2, no rub or gallop Abdomen is soft nontender nondistended positive bowel sounds no hepatosplenomegaly Extremities no edema Neuro alert and orientated to 3 Results CBC & Chem 7: 09/12/18 11:10 09/12/18 11:10 Labs: Abnormal Lab Results - Last 24 Hours (Table) 09/12/18 09/12/18 09/12/18 Range/Units 11:10 11:10 11:10 WBC 2.4 L (3.8-10.6) k/uL RBC 3.35 L (4.30-5.90) m/uL Hgb 8.9 L (13.0-17.5) gm/dL Hct 27.3 L (39.0-53.0) % RDW 19.8 H (11.5-15.5) % Plt Count 139 L (150-450) k/uL Lymphocytes # 0.9 L (1.0-4.8) k/uL Sodium 136 L (137-145) mmol/L Carbon Dioxide 21 L (22-30) mmol/L Total Creatine Kinase 228 H (55-170) U/L CK-MB (CK-2) 6.3 H (0.0-2.4) ng/mL Troponin I 0.050 H* (0.000-0.034) ng/mL Urine Protein (Negative) Urine Ketones (Negative) Urine Blood (Negative) Urine Mucus (None) /hpf 09/12/18 Range/Units 13:45 WBC (3.8-10.6) k/uL RBC (4.30-5.90) m/uL Hgb (13.0-17.5) gm/dL Hct (39.0-53.0) % RDW (11.5-15.5) % Plt Count (150-450) k/uL Lymphocytes # (1.0-4.8) k/uL Sodium (137-145) mmol/L Carbon Dioxide (22-30) mmol/L Total Creatine Kinase (55-170) U/L CK-MB (CK-2) (0.0-2.4) ng/mL Troponin I (0.000-0.034) ng/mL Urine Protein 1+ H (Negative) Urine Ketones 1+ H (Negative) Urine Blood Trace H (Negative) Urine Mucus Rare H (None) /hpf Assessment and Plan Assessment: 1. Increased weakness with falls. Patient currently afebrile. UA negative. Urine culture and blood cultures have been ordered. Chest x-ray completed showing no acute pulmonary process. CT of head and spine completed showing no acute fracture or dislocation evident the cervical spine. No acute intracranial hemorrhage, mass effect or midline shift is seen. Additional findings above. Age-related changes of atrophy and probable chronic small vessel ischemia. Degenerative disc disease, facet arthropathy, multilevel foraminal encraochment. 2. Underlying history of myelodysplastic syndrome. Status post bone marrow transplant and wknev-uwicxg-dkft disease. Patient follows a [facility]. Dr. England has been consulted 3. Anemia of chronic disease. Current hemoglobin level 8.9. 4. History of essential hypertension home meds resumed 5. History of hyperlipidemia 6. History of prostate disorder with prostatectomy 7. History of C. diff in 2016 Time with Patient: Greater than 30 (Greater than 60% of the total time spent in counseling and coordination of care. I performed an examination of the patient and discussed their management with the Nurse Practitioner. I have reviewed the Nurse Practitioner's notes and agree with the documented findings and plan of care)
--- NOTE | 2018-09-12 17:58 | P.CONS ---
History of Present Illness - Reason for Consult Consult date: 09/12/18 MDS, pancytopenia, history of AML - History of Present Illness Mr Montalvo is a 63 yr old WM, who [place] [id number] [place] BD on 06/09/14. This was repeated on 06/16/14 [place] [id number], though clumping was noted. His CBC, in retrospect, had shown a low plt count on 76 in 01/10, and 103 in 09/10. Other CBC parameters were consistently WNL. He was thus referred for further evaluation. CBC in a citrated tube confirmed a low plt count of 47. Additional w/u was ordered. 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 He continued f/u with Dr Rendon, and was referred back here due to a gradual downward trend in his Hgb and plt. In 08/14 his plt were 26, with Hgb 10-11. Additional w/u was ordered, essentially negative, other than a Cr of 1.44. The pt then had a bone marrow on 10/12/15, revealing marked hyperplasia, dysplastic changes, and clonal cytogenetic abnormalities - t(3;21), consistent with MDS. His IPSS score was 5.32, placing him in the high risk category. He completed therapy with Dacogen in December of 2015 and went on for further treatment at the [facility]. 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 He continued to follow with [facility] after his transplant, tratment for adrenal insufficency and Graft versus Host Disease. In March of 2017 there was concern for recurrent Disease and at that time plan was to repeat Bone Marrow Biopsy and potentially plan a second transplant with different donor, according to the [facility] records. The patient was subsequently found to have recurrence, but was not felt to be a candidate for second transplant. She had multiple medical events with prolonged hospitalizations and ECF stays. It was therefore decided to treat him supportively. 03/30/18 - Patient presented to [facility] Emergency Department with complaints of increasing fatigue and weakness, generalized. He complained of bilateral pain in upper legs, thighs. He did suffer a fall on 03/28/18, in which he denies any trauma to his head. On admission he was febrile T-Max 103. He has been working with [facility] to wean off Steroids. At the time of that admission the patient was being treated with JEANIE for his hemoglobin. He subsequently decided to discontinue that and opt serial monitoring with supportive transfusions. He also decided to transfer his care back to [place] and reestablished in our office. The patient is being monitored on a periodic basis. His last blood transfusion was on 09/04/18. Prior to that he'll require transfusion on . At his last office visit, the patient stated that he was feeling reasonably well, and her denied any significant dizziness or falls. The patient decreased his steroids from 20+10 of hydrocortisone to 10+10, on 08/27/18. About 2-3 days prior to this admission, he noted marked increase in weakness and malaise, along with decreased appetite. He stated that oral intake had been quite poor over the past 2 days. He denied any fever, chills, nausea, vomiting, abdominal pain or diarrhea. Due to progressive weakness he started having recurrent falls and therefore came into the emergency room. He was therefore admitted for further management. He denied any obvious signs of infection, but stated that he had been having a postnasal drip chronically for sometime and had started to have some increased chest congestion and cough over the past few days Review of Systems Constitutional: Reports anorexia, Reports fatigue, Reports malaise, Reports weakness Eyes: denies blurred vision, denies pain Ears: deny: decreased hearing, ear discharge, earache, tinnitus Ears, nose, mouth and throat: Denies headache, Denies sore throat Cardiovascular: Reports dyspnea on exertion Respiratory: Reports dyspnea Gastrointestinal: Denies abdominal pain, Denies diarrhea, Denies nausea, Denies vomiting Genitourinary: Reports as per HPI Musculoskeletal: Reports gait dysfunction, Reports muscle weakness Integumentary: Denies pruritus, Denies rash Neurological: Reports as per HPI, Reports gait dysfunction, Reports weakness Psychiatric: Denies anxiety, Denies depression Endocrine: Reports fatigue, Reports weight change Hematologic/Lymphatic: Reports as per HPI Past Medical History Past Medical History: Cancer, Hyperlipidemia, Hypertension, Prostate Disorder Additional Past Medical History / Comment(s): prostate cancer, hx venous insufficiency, RCMD, bone marrow transplant, "graft vs host disease", myelodysplastic syndrome leumkemia chemo/tx at [facility], adrenal insufficiency, past sepsis History of Any Multi-Drug Resistant Organisms: C-DIFF Year Discovered:: 2016 MDRO Source:: stool Past Surgical History: Heart Catheterization With Stent, Hernia Repair, Prostate Surgery Additional Past Surgical History / Comment(s): larry fundoplication, bone marrow bx/transplant, deviated septum, port a cath, egd x2 Past Anesthesia/Blood Transfusion Reactions: No Reported Reaction Additional Past Anesthesia/Blood Transfusion Reaction / Comm: blood transfusion- pt stated no reaction Date of Last Stent Placement:: 2003 Smoking Status: Former smoker - Past Family History Father Family Medical History: Hypertension, Myocardial Infarction ([place]) Mother Family Medical History: Cancer, Hypertension Additional Family Medical History / Comment(s): skin cancer Brother(s) Family Medical History: Renal Disease Additional Family Medical History / Comment(s): kidney transplant Medications and Allergies Home Medications Medication Instructions Recorded Confirmed Type Ergocalciferol (Vitamin D2) 50,000 unit PO TH 12/04/15 09/12/18 History [Drisdol] Lisinopril 20 mg PO BID 03/14/17 09/12/18 History Acyclovir 400 mg PO BID 07/02/17 09/12/18 History Montelukast [Singulair] 10 mg PO DAILY 12/29/17 09/12/18 History Spironolactone [Aldactone] 25 mg PO DAILY 02/06/18 09/12/18 History Carvedilol [Coreg] 2 tab PO BID 09/12/18 09/12/18 History Fluconazole [Diflucan] 100 mg PO DAILY 09/12/18 09/12/18 History Lactulose 10 gm PO BID 09/12/18 09/12/18 History Allergies Allergy/AdvReac Type Severity Reaction Status Date / Time Iodinated Contrast- Oral and Allergy Unknown Verified 09/12/18 10:48 IV Dye [Iodinated Contrast Media - IV Dye] tramadol AdvReac Nausea & Verified 09/12/18 10:48 Vomiting Physical Exam Vitals: Vital Signs Temp Pulse Resp BP Pulse Ox 09/12/18 16:20 98 F 09/12/18 14:49 75 18 124/71 97 09/12/18 12:12 75 20 111/64 96 09/12/18 10:45 98.9 F 86 20 155/96 97 Intake and Output 09/12/18 09/12/18 09/12/18 06:59 14:59 22:59 Other: Weight 73.936 kg - Constitutional General appearance: no acute distress - EENT Eyes: EOMI, PERRLA ENT: hearing grossly normal, normal oropharynx - Neck Neck: no lymphadenopathy - Respiratory Respiratory: bilateral: CTA - Cardiovascular Rhythm: regular Heart sounds: normal: S1, S2 - Gastrointestinal General gastrointestinal: normal bowel sounds, soft - Neurologic Neurologic: CNII-XII intact - Musculoskeletal Musculoskeletal: generalized weakness, strength equal bilaterally - Psychiatric Psychiatric: A&O x's 3, appropriate affect Results CBC & Chem 7: 09/12/18 11:10 09/12/18 11:10 Labs: Abnormal Lab Results - Last 24 Hours (Table) 09/12/18 09/12/18 09/12/18 Range/Units 11:10 11:10 11:10 WBC 2.4 L (3.8-10.6) k/uL RBC 3.35 L (4.30-5.90) m/uL Hgb 8.9 L (13.0-17.5) gm/dL Hct 27.3 L (39.0-53.0) % RDW 19.8 H (11.5-15.5) % Plt Count 139 L (150-450) k/uL Lymphocytes # 0.9 L (1.0-4.8) k/uL Sodium 136 L (137-145) mmol/L Carbon Dioxide 21 L (22-30) mmol/L Total Creatine Kinase 228 H (55-170) U/L CK-MB (CK-2) 6.3 H (0.0-2.4) ng/mL Troponin I 0.050 H* (0.000-0.034) ng/mL Urine Protein (Negative) Urine Ketones (Negative) Urine Blood (Negative) Urine Mucus (None) /hpf 09/12/18 Range/Units 13:45 WBC (3.8-10.6) k/uL RBC (4.30-5.90) m/uL Hgb (13.0-17.5) gm/dL Hct (39.0-53.0) % RDW (11.5-15.5) % Plt Count (150-450) k/uL Lymphocytes # (1.0-4.8) k/uL Sodium (137-145) mmol/L Carbon Dioxide (22-30) mmol/L Total Creatine Kinase (55-170) U/L CK-MB (CK-2) (0.0-2.4) ng/mL Troponin I (0.000-0.034) ng/mL Urine Protein 1+ H (Negative) Urine Ketones 1+ H (Negative) Urine Blood Trace H (Negative) Urine Mucus Rare H (None) /hpf Chest x-ray: report reviewed CT Scan - head: report reviewed Assessment and Plan (1) Generalized weakness Narrative/Plan: 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 He does have some gait dysfunction due to the same. He was looking into starting physical therapy. However on the other hand, he also has adrenal insufficiency. - At this time the etiology of his increased weakness from baseline over the last 2-3 days is not clear. He did decrease steroid dose about 2 weeks ago, which could be a factor though possibly less likely due to the time interval. Another possibility could be an occult infection. Chest x-ray and urine look fairly clear. I will check blood cultures. - Labs also showed mild troponin elevation. It is not clear if this is related to his presentation directly. He did have the same, during his prior admission and was evaluated by cardiology with no evidence of true acute coronary syndrome found. - IV hydration. Follow blood counts. Hemoglobin this time is 8.9, at which level he generally does not have symptoms. Therefore there is no need for transfusion currently. Check for an rule out infection. - If infection or cardiac etiology can't be ruled out, and this is most likely related to steroids. In that case of treatment would be supportive, with continued, very cautious , weaning of steroids going forward Current Visit: Yes Status: Acute Code(s): R53.1 - WEAKNESS SNOMED Code(s) : 02203063 (2) MDS (myelodysplastic syndrome) Narrative/Plan: The patient has pancytopenia due to the same. As noted, he has failed multiple lines of therapy and is currently opted for supportive transfusions alone. He has actually been doing reasonably well, and we are using a hemoglobin of 7.5 or below as the cutoff for transfusion. Since late 06/17 he has only required 2 transfusions. - His hemoglobin currently is 8.9 and therefore symptoms are not felt to be related to to this, as he generally does not get symptomatic above 7.5 - Continue to monitor, and transfuse if needed - WBC and platelets are in a safe range Current Visit: No Status: Chronic Priority: High Code(s): D46.9 - MYELODYSPLASTIC SYNDROME, UNSPECIFIED SNOMED Code(s): 955365094 Plan: Defer to the admitting service and other consultants for management of his other medical problems
[2018-09-12] MEDS: CARVEDILOL 12.5 MG TAB PO SCH (18:29)
[2018-09-12] MEDS: SODIUM CHLORIDE 0.9% 1,000 ML IV SCH (18:30)
[2018-09-12] MEDS: HYDROCORTISONE 10 MG TAB PO SCH (21:34)
[2018-09-12] MEDS: LACTULOSE 20 GM/30 ML CUP PO SCH (21:34)
[2018-09-12] MEDS: LISINOPRIL 20 MG TAB PO SCH (21:34)
[2018-09-12 23:20] LABS: Creatine Kinase MB 4.8 ng/mL (0.0-2.4)
[2018-09-12] MEDS: ACYCLOVIR 200 MG CAP PO SCH (23:20)
[2018-09-13] MEDS: CARVEDILOL 12.5 MG TAB PO SCH ×2 (06:41→16:54)
[2018-09-13 06:44] LABS: Anisocytosis Slight; Basophils % (A) 0 %; Eosinophils % (A) 1 %; HCT 24.1 % (39.0-53.0); HGB 7.7 gm/dL (13.0-17.5); Hypochromasia Slight; Lymphocytes % (A) 42 %; MCH 26.4 pg (25.0-35.0); MCV 82.7 fL (80.0-100.0); Mean Platelet Volume 9.1; Microcytosis Slight; Monocytes # (A) 0.1 k/uL (0-1.0); Monocytes % (A) 4 %; Neutrophils # (A) 1.2 k/uL (1.3-7.7); Neutrophils % (A) 49 %; Platelet Count 130 k/uL (150-450); RBC 2.92 m/uL (4.30-5.90); WBC 2.4 k/uL (3.8-10.6)
[2018-09-13 06:50] LABS: ALT 14 U/L (21-72); AST 21 U/L (17-59); Albumin 3.1 g/dL (3.5-5.0); Alkaline Phosphatase 48 U/L (38-126); Anion Gap 10 mmol/L; Blood Urea Nitrogen 18 mg/dL (9-20); Calcium 8.6 mg/dL (8.4-10.2); Carbon Dioxide 22 mmol/L (22-30); Chloride 105 mmol/L (98-107); Glucose 91 mg/dL (74-99); Potassium 4.2 mmol/L (3.5-5.1); Sodium 137 mmol/L (137-145); Total Bilirubin 0.4 mg/dL (0.2-1.3)
[2018-09-13] MEDS: FLUCONAZOLE 100 MG TAB PO SCH (08:05)
[2018-09-13] MEDS: FAMOTIDINE 20 MG TAB PO SCH (08:05)
[2018-09-13] MEDS: LISINOPRIL 20 MG TAB PO SCH ×2 (08:05→21:26)
[2018-09-13] MEDS: MONTELUKAST 10 MG TAB PO SCH (08:05)
[2018-09-13] MEDS: ACYCLOVIR 200 MG CAP PO SCH ×2 (08:05→21:26)
[2018-09-13] MEDS: LACTULOSE 20 GM/30 ML CUP PO SCH ×2 (08:05→21:26)
[2018-09-13] MEDS: SPIRONOLACTONE 25 MG TAB PO SCH (08:05)
[2018-09-13] MEDS: ENOXAPARIN 40 MG/0.4 ML SYRINGE SQ SCH (08:05)
[2018-09-13] MEDS: HYDROCORTISONE 10 MG TAB PO SCH ×2 (08:05→21:26)
[2018-09-13] MEDS: SODIUM CHLORIDE 0.9% 1,000 ML IV SCH (12:04)
--- NOTE | 2018-09-13 12:04 | P.PN ---
Subjective Progress Note Date: 09/13/18 Elijah Montalvo is a 63-year-old male patient of Dr. Rendon. Patient presented to the emergency room with complaints of increased weakness for 2 days. Patient states he fell at his apartment was unable to get up on his landlord found him and proceeded to call EMS. Patient does have a known past medical history of mylodysplastic syndrome in which he follows at [facility]. Status post bone marrow transplant with isxkz-nntxuk-adnx disease. Additional medical history includes adrenal insufficiency, prostate cancer with prostatectomy, hyperlipidemia and hypertension. CT of head and spine completed showing no acute fracture or dislocation evident in the cervical spine. No acute intracranial hemorrhage, mass effect or midline shift is seen. Additional findings. Age-related changes of atrophy and probable chronic small vessel ischemia. Degenerative disc disease, A. fib arthroplasty, multilevel formainla encroachment. Chest x-ray completed showing no acute pulmonary process. CT completed showing normal sinus rhythm. ST and T-wave abnormality consider lateral ischemia. Troponin slightly elevated at 0.50. Influenza negative. UA negative. Urine and blood cultures ordered. Dr. England has been consulted for oncology services. At this time patient denies any chest pain or shortness breath. Patient denies any nausea vomiting or diarrhea. Patient denies any urinary burning or frequency. On 09/13/2018 patient is alert and oriented 3 in no apparent distress he is still complaining of generalized weakness he is complaining of pain in bilateral lower extremities which is chronic otherwise no complaints of chest he was able to stand up and walk a few steps with physical therapy there is no fever or chills no headache or dizziness no chest pain no shortness of breath no cough no nausea or vomiting no abdominal pain no diarrhea and no urinary symptoms. Patient has anemia with hemoglobin down to 7.7. Troponin level is elevated cardiology consult requested. Objective - Vital Signs Vital signs: Vital Signs Temp 99.3 F 09/13/18 11:13 Pulse 67 09/13/18 11:14 Resp 16 09/13/18 11:14 BP 132/80 09/13/18 11:13 Pulse Ox 95 09/13/18 11:13 Intake & Output 09/12/18 09/13/18 09/13/18 18:59 06:59 18:59 Intake Total 190 260 Output Total 600 Balance -410 260 Weight 73.936 kg 73 kg Intake: IV 30 20 Invasive Line 1 30 20 Intake, IV Titration 160 Amount Sodium Chloride 0.9% 1, 160 000 ml @ 20 mls/hr IV . Q24H [facility] Rx#:[id number] Oral 240 Output: Urine 600 Other: Voiding Method Urinal Urinal # Voids 3 - Exam Head normocephalic and atraumatic Neck supple no JVD no goiter Lungs clear to auscultation bilaterally no wheezing or crackles Heart regular rate and rhythm S1-S2, no rub or gallop Abdomen is soft nontender nondistended positive bowel sounds no hepatosplenomegaly Extremities no edema no cyanosis or clubbing Neuro alert and orientated to 3 - Labs CBC & Chem 7: 09/13/18 05:54 09/13/18 05:54 Labs: Abnormal Lab Results - Last 24 Hours (Table) 09/12/18 09/12/18 09/12/18 Range/Units 11:10 13:45 17:32 WBC (3.8-10.6) k/uL RBC (4.30-5.90) m/uL Hgb (13.0-17.5) gm/dL Hct (39.0-53.0) % RDW (11.5-15.5) % Plt Count (150-450) k/uL Neutrophils # (1.3-7.7) k/uL ALT (21-72) U/L Total Creatine Kinase 261 H (55-170) U/L CK-MB (CK-2) 6.3 H 6.0 H (0.0-2.4) ng/mL Troponin I 0.050 H* (0.000-0.034) ng/mL Total Protein (6.3-8.2) g/dL Albumin (3.5-5.0) g/dL Urine Protein 1+ H (Negative) Urine Ketones 1+ H (Negative) Urine Blood Trace H (Negative) Urine Mucus Rare H (None) /hpf 09/12/18 09/13/18 09/13/18 Range/Units 22:37 05:54 05:54 WBC 2.4 L (3.8-10.6) k/uL RBC 2.92 L (4.30-5.90) m/uL Hgb 7.7 L (13.0-17.5) gm/dL Hct 24.1 L (39.0-53.0) % RDW 20.0 H (11.5-15.5) % Plt Count 130 L (150-450) k/uL Neutrophils # 1.2 L (1.3-7.7) k/uL ALT 14 L (21-72) U/L Total Creatine Kinase 268 H (55-170) U/L CK-MB (CK-2) 4.8 H (0.0-2.4) ng/mL Troponin I (0.000-0.034) ng/mL Total Protein 6.0 L (6.3-8.2) g/dL Albumin 3.1 L (3.5-5.0) g/dL Urine Protein (Negative) Urine Ketones (Negative) Urine Blood (Negative) Urine Mucus (None) /hpf Assessment and Plan Plan: 1. Increased weakness with falls. Patient currently afebrile. UA negative. Urine culture and blood cultures have been ordered. Chest x-ray completed showing no acute pulmonary process. CT of head and spine completed showing no acute fracture or dislocation evident the cervical spine. No acute intracranial hemorrhage, mass effect or midline shift is seen. Additional findings above. Age-related changes of atrophy and probable chronic small vessel ischemia. Degenerative disc disease, facet arthropathy, multilevel foraminal encraochment. 2. Underlying history of myelodysplastic syndrome. Status post bone marrow transplant and lpvdv-wwgczv-aadz disease. Patient follows a [facility]. Dr. England has been consulted 3. Anemia of chronic disease. Current hemoglobin level 7.7 Dr. England following 4. History of essential hypertension home meds resumed 5. History of hyperlipidemia 6. History of prostate disorder with prostatectomy 7. History of C. diff in 2016
[2018-09-13] MEDS ORDERED: BENZOCAINE/MENTHOL LOZENG 1 EACH LOZENGE MUCOUS MEM PRN (18:23)
--- NOTE | 2018-09-13 22:44 | CONS ---
CONSULTATION Mr. Elijah Montalvo is a 63-year-old gentleman who has been admitted to the hospital with an episode of what seems to be discomfort in the chest. Apparently he has a significant history of myelodysplastic syndrome, generalized weakness and has had multiple falls in the last few days with weakness. He was brought in by EMS and he has also had previous bone marrow transplant with rqvuz-smnqfj-mcxk disease. Apparently yesterday he got up and tried to get around and he fell twice. He could not get up and he was discovered by the landlord and EMS was called. The patient has not lost consciousness and all of these falls were something that he was aware that he was falling. At the time of my evaluation, he is resting comfortably. He is quite hard of hearing and is unable to communicate with me very well. However, he does have history of previous CAD with a stenting. The details of which are not available and this was performed in [place]. He is asymptomatic, resting comfortably at the time of my evaluation. PAST MEDICAL HISTORY: 1. Myelodysplasia with bone marrow transplant and bmzsq-hsjjgj-jsxn disease. 2. Hypertension. 3. Hyperlipidemia. 4. Coronary artery disease with prior PCI details unavailable. MEDICATIONS: Include: 1. Lisinopril 20 mg daily. 2. Singulair. 3. Aldactone 25 mg daily. 4. Coreg. 5. Lactulose. ALLERGIES: HE IS ALLERGIC TO IODINE DYE AND TRAMADOL. LABORATORY DATA: Suggested that his troponin initially was 0.05 and then and this was one of the reasons I was consulted. He does not have any chest discomfort. He is actually resting comfortably without symptoms. PHYSICAL EXAMINATION: Blood pressure is 130/70, pulse rate is 64 per minute, regular. HEENT unremarkable. Fundus was not examined by me. Neck is supple. There is no JVD. I do not hear a carotid bruit. Heart exam reveals S1, S2 heard normally. There is a short systolic murmur. Lungs are clear. Abdomen is soft, nontender. Lower extremities reveal normal pulses. No edema. Central nervous system is normal. EKG revealed sinus mechanism, nonspecific T-wave changes in leads V4 to V6. On reviewing the old EKG, these are not new changes. These seem to be more likely nonspecific changes. The previous echocardiogram that was performed in December of this year revealed an ejection fraction of about 45%-50% with inferior wall hypokinesia. There was no significant pulmonary hypertension. IMPRESSION: 1. Elevated troponin, not suggestive of myocardial injury. 2. History of coronary artery disease with previous PCI, but this presentation does not suggest myocardial ischemia. 3. History of repeated falls with generalized weakness of unclear etiology. 4. History of adrenal insufficiency. 5. 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 All three cell lines have shown a decrease. His platelet count is 130. Hemoglobin is 7.7 and white count is 2.4. RECOMMENDATIONS: From a cardiac standpoint, I do not have any specific recommendations for this patient. Specifically, I would recommend no intervention. I will suggest that we repeat another troponin which I expect will be in the same range or better. No aggressive intervention is necessary from a cardiac standpoint at this time. Patient is already on Aldactone, lactulose, and carvedilol, which we will continue for the time being. Thank you very much for the consult. ROSA / TAN: [id number] /
[2018-09-14] MEDS: CARVEDILOL 12.5 MG TAB PO SCH ×2 (06:31→17:52)
[2018-09-14 07:14] LABS: Anisocytosis Slight; HGB 7.4 gm/dL (13.0-17.5); Hypochromasia Slight; MCH 26.6 pg (25.0-35.0); MCHC 32.2 g/dL (31.0-37.0); MCV 82.7 fL (80.0-100.0); Microcytosis Slight; Platelet Count 138 k/uL (150-450); RBC 2.78 m/uL (4.30-5.90); RDW 19.8 % (11.5-15.5); WBC 1.8 k/uL (3.8-10.6)
[2018-09-14 07:52] LABS: ALT 17 U/L (21-72); AST 18 U/L (17-59); Albumin 2.9 g/dL (3.5-5.0); Alkaline Phosphatase 52 U/L (38-126); Anion Gap 8 mmol/L; Blood Urea Nitrogen 14 mg/dL (9-20); Calcium 8.4 mg/dL (8.4-10.2); Carbon Dioxide 24 mmol/L (22-30); Chloride 106 mmol/L (98-107); Glucose 93 mg/dL (74-99); Potassium 4.1 mmol/L (3.5-5.1); Sodium 138 mmol/L (137-145); Total Bilirubin 0.4 mg/dL (0.2-1.3); Total Protein 5.8 g/dL (6.3-8.2)
[2018-09-14] MEDS: LACTULOSE 20 GM/30 ML CUP PO SCH ×2 (08:24→21:05)
[2018-09-14] MEDS: SPIRONOLACTONE 25 MG TAB PO SCH (08:25)
[2018-09-14] MEDS: FAMOTIDINE 20 MG TAB PO SCH (08:25)
[2018-09-14] MEDS: LISINOPRIL 20 MG TAB PO SCH ×2 (08:25→21:05)
[2018-09-14] MEDS: MONTELUKAST 10 MG TAB PO SCH (08:25)
[2018-09-14] MEDS: ACYCLOVIR 200 MG CAP PO SCH ×2 (08:25→21:06)
[2018-09-14] MEDS: ENOXAPARIN 40 MG/0.4 ML SYRINGE SQ SCH (08:26)
[2018-09-14] MEDS: HYDROCORTISONE 10 MG TAB PO SCH ×2 (08:26→21:05)
[2018-09-14] MEDS: FLUCONAZOLE 100 MG TAB PO SCH (08:26)
[2018-09-14] MEDS: SODIUM CHLORIDE 0.9% 1,000 ML IV SCH (08:27)
--- NOTE | 2018-09-14 10:33 | P.PN ---
Subjective Progress Note Date: 09/14/18 Patient remains weak overall. He was able to walk with physical therapy in the coronary yesterday, but states that he did feel unsteady. No obvious bleeding. No fever/chills/nausea/vomiting . He denied any chest pain. Objective - Vital Signs Vital signs: Vital Signs Temp 98.5 F 09/14/18 08:30 Pulse 67 09/14/18 08:31 Resp 18 09/14/18 08:31 BP 127/74 09/14/18 08:30 Pulse Ox 95 09/14/18 08:30 Intake & Output 09/13/18 09/14/18 09/14/18 18:59 06:59 18:59 Intake Total 842 1120 240 Output Total 950 300 Balance 842 170 -60 Weight 73 kg Intake: IV 20 Invasive Line 1 20 Intake, IV Titration 240 160 Amount Sodium Chloride 0.9% 1, 240 160 000 ml @ 20 mls/hr IV . Q24H [facility] Rx#:[id number] Oral 582 960 240 Output: Urine 950 300 Other: Voiding Method Urinal Urinal Urinal # Voids 1 1 - Constitutional General appearance: Present: no acute distress - EENT Eyes: Present: EOMI ENT: Present: hearing grossly normal, normal oropharynx - Respiratory Respiratory: bilateral: CTA - Cardiovascular Rhythm: regular Heart sounds: normal: S1, S2 - Gastrointestinal General gastrointestinal: Present: normal bowel sounds, soft - Integumentary Integumentary: Present: normal - Musculoskeletal Musculoskeletal: Present: generalized weakness, strength equal bilaterally - Psychiatric Psychiatric: Present: A&O x's 3, appropriate affect - Labs CBC & Chem 7: 09/14/18 06:15 09/14/18 06:15 Labs: Abnormal Lab Results - Last 24 Hours (Table) 09/14/18 09/14/18 Range/Units 06:15 06:15 WBC 1.8 L (3.8-10.6) k/uL RBC 2.78 L (4.30-5.90) m/uL Hgb 7.4 L (13.0-17.5) gm/dL Hct 23.0 L (39.0-53.0) % RDW 19.8 H (11.5-15.5) % Plt Count 138 L (150-450) k/uL ALT 17 L (21-72) U/L Total Protein 5.8 L (6.3-8.2) g/dL Albumin 2.9 L (3.5-5.0) g/dL Microbiology - Last 24 Hours (Table) 09/12/18 11:10 Blood Culture - Preliminary Blood No Growth after 24 hours Assessment and Plan (1) Generalized weakness Narrative/Plan: Social for, there is no evidence of any bacterial infection. He may have a viral URTI that could be contributing to his symptoms. Repeat troponin was negative, ruling out an acute cardiac event. 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 The patient has initiated physical therapy. Depending on PT evaluation, it will be decided if he can go home with PT, versus need subacute rehab Current Visit: Yes Status: Acute Code(s): R53.1 - WEAKNESS SNOMED Code(s) : 21190188 (2) MDS (myelodysplastic syndrome) Narrative/Plan: Her WBC and platelets are overall stable in the same range. Hemoglobin was 7.4 today. Due to the patient's symptom pattern, we have been using 7.5 as our cutoff for transfusion. 1 unit PRBC was therefore ordered Current Visit: No Status: Chronic Priority: High Code(s): D46.9 - MYELODYSPLASTIC SYNDROME, UNSPECIFIED SNOMED Code(s): 289183701
[2018-09-14] MEDS ORDERED: SODIUM CHLORIDE 0.9% 1,000 ML IV ONE (12:03)
--- NOTE | 2018-09-14 12:49 | P.PN ---
Subjective Progress Note Date: 09/14/18 Elijah Montalvo is a 63-year-old male patient of Dr. Rendon. Patient presented to the emergency room with complaints of increased weakness for 2 days. Patient states he fell at his apartment was unable to get up on his landlord found him and proceeded to call EMS. Patient does have a known past medical history of mylodysplastic syndrome in which he follows at [facility]. Status post bone marrow transplant with rrpvw-zbbwik-spqx disease. Additional medical history includes adrenal insufficiency, prostate cancer with prostatectomy, hyperlipidemia and hypertension. CT of head and spine completed showing no acute fracture or dislocation evident in the cervical spine. No acute intracranial hemorrhage, mass effect or midline shift is seen. Additional findings. Age-related changes of atrophy and probable chronic small vessel ischemia. Degenerative disc disease, A. fib arthroplasty, multilevel formainla encroachment. Chest x-ray completed showing no acute pulmonary process. CT completed showing normal sinus rhythm. ST and T-wave abnormality consider lateral ischemia. Troponin slightly elevated at 0.50. Influenza negative. UA negative. Urine and blood cultures ordered. Dr. England has been consulted for oncology services. At this time patient denies any chest pain or shortness breath. Patient denies any nausea vomiting or diarrhea. Patient denies any urinary burning or frequency. On 09/13/2018 patient is alert and oriented 3 in no apparent distress he is still complaining of generalized weakness he is complaining of pain in bilateral lower extremities which is chronic otherwise no complaints of chest he was able to stand up and walk a few steps with physical therapy there is no fever or chills no headache or dizziness no chest pain no shortness of breath no cough no nausea or vomiting no abdominal pain no diarrhea and no urinary symptoms. Patient has anemia with hemoglobin down to 7.7. Troponin level is elevated cardiology consult requested. On 09/14/2018 patient was seen and examined on the medical floor, he is alert and oriented 3 in no apparent distress he is complaining of left ear pain for the last 4 days otherwise no complaints at this time there is no fever or chills no headache or dizziness no chest pain no shortness of breath no cough no nausea or vomiting no abdominal pain no diarrhea and no urinary symptoms Objective - Vital Signs Vital signs: Vital Signs Temp 98.3 F 09/14/18 12:01 Pulse 75 09/14/18 12:01 Resp 18 09/14/18 12:01 BP 128/76 09/14/18 12:01 Pulse Ox 95 09/14/18 12:01 Intake & Output 09/13/18 09/14/18 09/14/18 18:59 06:59 18:59 Intake Total 842 1120 240 Output Total 950 300 Balance 842 170 -60 Weight 73 kg Intake: IV 20 Invasive Line 1 20 Intake, IV Titration 240 160 Amount Sodium Chloride 0.9% 1, 240 160 000 ml @ 20 mls/hr IV . Q[facility]H [facility] Rx#:[id number] Oral 582 960 240 Output: Urine 950 300 Other: Voiding Method Urinal Urinal Urinal # Voids 1 1 - Exam Head normocephalic and atraumatic, left tympanic membrane congestion and erythema Neck supple no JVD no goiter Lungs clear to auscultation bilaterally no wheezing or crackles Heart regular rate and rhythm S1-S2, no rub or gallop Abdomen is soft nontender nondistended positive bowel sounds no hepatosplenomegaly Extremities no edema no cyanosis or clubbing Neuro alert and orientated to 3 - Labs CBC & Chem 7: 09/14/18 06:15 09/14/18 06:15 Labs: Abnormal Lab Results - Last 24 Hours (Table) 09/14/18 09/14/18 Range/Units 06:15 06:15 WBC 1.8 L (3.8-10.6) k/uL RBC 2.78 L (4.30-5.90) m/uL Hgb 7.4 L (13.0-17.5) gm/dL Hct 23.0 L (39.0-53.0) % RDW 19.8 H (11.5-15.5) % Plt Count 138 L (150-450) k/uL ALT 17 L (21-72) U/L Total Protein 5.8 L (6.3-8.2) g/dL Albumin 2.9 L (3.5-5.0) g/dL Microbiology - Last 24 Hours (Table) 09/12/18 11:10 Blood Culture - Preliminary Blood No Growth after 24 hours Assessment and Plan Plan: 1. Increased weakness with falls. Patient currently afebrile. UA negative. Urine culture and blood cultures have been ordered. Chest x-ray completed showing no acute pulmonary process. CT of head and spine completed showing no acute fracture or dislocation evident the cervical spine. No acute intracranial hemorrhage, mass effect or midline shift is seen. Additional findings above. Age-related changes of atrophy and probable chronic small vessel ischemia. Degenerative disc disease, facet arthropathy, multilevel foraminal encraochment. 2. Underlying history of myelodysplastic syndrome. Status post bone marrow transplant and txkwr-pepzvn-rsoq disease. Patient follows a [facility]. Dr. England has been consulted 3. Anemia of chronic disease. Current hemoglobin level 7.7 Dr. England following 4. History of essential hypertension home meds resumed 5. History of hyperlipidemia 6. History of prostate disorder with prostatectomy 7. History of C. diff in 2016 8. Left otitis media will add Rocephin 1 g IV every 24 hours
[2018-09-14 13:00] LABS: Lymphocytes # (M) 0.74 k/uL (1.0-4.8); Monocytes # (M) 0.22 k/uL (0-1.0); Neutrophils # (M) 0.85 k/uL (1.3-7.7); Neutrophils % (M) 47 %; Nucleated Red Blood Cells 0 /100 WBC (0-0); Poikilocytosis (M) Present; Total Cells Counted 100
[2018-09-14] MEDS ORDERED: VANCOMYCIN IV PER PHARMACY 1 EACH MISC MISCELLANE PRN (18:52)
[2018-09-14] MEDS ORDERED: VANCOMYCIN 1,750 MG in SODIUM CHLORIDE 0.9% 500 ML 500 ML IVPB ONE (19:30)
[2018-09-14] MEDS: ACETAMINOPHEN TAB 325 MG TAB PO PRN (20:48)
[2018-09-15 06:42] LABS: Anisocytosis Slight; Basophils % (A) 0 %; Eosinophils % (A) 1 %; HCT 27.9 % (39.0-53.0); Hypochromasia Slight; Lymphocytes # (A) 0.7 k/uL (1.0-4.8); Lymphocytes % (A) 41 %; MCHC 32.5 g/dL (31.0-37.0); MCV 83.3 fL (80.0-100.0); Microcytosis Slight; Monocytes # (A) 0.1 k/uL (0-1.0); Monocytes % (A) 6 %; Neutrophils # (A) 0.8 k/uL (1.3-7.7); Neutrophils % (A) 48 %; Platelet Count 143 k/uL (150-450); RBC 3.35 m/uL (4.30-5.90); WBC 1.8 k/uL (3.8-10.6)
[2018-09-15 06:44] LABS: HGB 9.1 gm/dL (13.0-17.5)
[2018-09-15] MEDS: CARVEDILOL 12.5 MG TAB PO SCH ×2 (06:48→17:28)
[2018-09-15 07:01] LABS: ALT 13 U/L (21-72); AST 16 U/L (17-59); Albumin 3.1 g/dL (3.5-5.0); Alkaline Phosphatase 57 U/L (38-126); Anion Gap 8 mmol/L; Blood Urea Nitrogen 14 mg/dL (9-20); Calcium 8.7 mg/dL (8.4-10.2); Carbon Dioxide 25 mmol/L (22-30); Chloride 109 mmol/L (98-107); Glucose 107 mg/dL (74-99); Potassium 4.1 mmol/L (3.5-5.1); Sodium 142 mmol/L (137-145); Total Bilirubin 0.5 mg/dL (0.2-1.3); Total Protein 6.1 g/dL (6.3-8.2)
[2018-09-15] MEDS: VANCOMYCIN 1,500 MG in SODIUM CHLORIDE 0.9% 250 ML IVPB SCH ×2 (09:05→21:47)
[2018-09-15] MEDS: LACTULOSE 20 GM/30 ML CUP PO SCH ×2 (09:07→21:47)
[2018-09-15] MEDS: MONTELUKAST 10 MG TAB PO SCH (09:08)
[2018-09-15] MEDS: HYDROCORTISONE 10 MG TAB PO SCH ×2 (09:08→22:58)
[2018-09-15] MEDS: LISINOPRIL 20 MG TAB PO SCH ×2 (09:08→21:48)
[2018-09-15] MEDS: ENOXAPARIN 40 MG/0.4 ML SYRINGE SQ SCH (09:08)
[2018-09-15] MEDS: FLUCONAZOLE 100 MG TAB PO SCH (09:08)
[2018-09-15] MEDS: ACYCLOVIR 200 MG CAP PO SCH ×2 (09:08→22:58)
[2018-09-15] MEDS: SPIRONOLACTONE 25 MG TAB PO SCH (09:08)
[2018-09-15] MEDS: FAMOTIDINE 20 MG TAB PO SCH (09:08)
--- NOTE | 2018-09-15 10:47 | P.PN ---
Subjective Progress Note Date: 09/15/18 Elijah Montalvo is a 63-year-old male patient of Dr. Rendon. Patient presented to the emergency room with complaints of increased weakness for 2 days. Patient states he fell at his apartment was unable to get up on his landlord found him and proceeded to call EMS. Patient does have a known past medical history of mylodysplastic syndrome in which he follows at [facility]. Status post bone marrow transplant with sshnj-mwxfcl-khbk disease. Additional medical history includes adrenal insufficiency, prostate cancer with prostatectomy, hyperlipidemia and hypertension. CT of head and spine completed showing no acute fracture or dislocation evident in the cervical spine. No acute intracranial hemorrhage, mass effect or midline shift is seen. Additional findings. Age-related changes of atrophy and probable chronic small vessel ischemia. Degenerative disc disease, A. fib arthroplasty, multilevel formainla encroachment. Chest x-ray completed showing no acute pulmonary process. CT completed showing normal sinus rhythm. ST and T-wave abnormality consider lateral ischemia. Troponin slightly elevated at 0.50. Influenza negative. UA negative. Urine and blood cultures ordered. Dr. England has been consulted for oncology services. At this time patient denies any chest pain or shortness breath. Patient denies any nausea vomiting or diarrhea. Patient denies any urinary burning or frequency. On 09/13/2018 patient is alert and oriented 3 in no apparent distress he is still complaining of generalized weakness he is complaining of pain in bilateral lower extremities which is chronic otherwise no complaints of chest he was able to stand up and walk a few steps with physical therapy there is no fever or chills no headache or dizziness no chest pain no shortness of breath no cough no nausea or vomiting no abdominal pain no diarrhea and no urinary symptoms. Patient has anemia with hemoglobin down to 7.7. Troponin level is elevated cardiology consult requested. On 09/14/2018 patient was seen and examined on the medical floor, he is alert and oriented 3 in no apparent distress he is complaining of left ear pain for the last 4 days otherwise no complaints at this time there is no fever or chills no headache or dizziness no chest pain no shortness of breath no cough no nausea or vomiting no abdominal pain no diarrhea and no urinary symptoms On 09/15/2018 patient is alert and oriented 3. Patient states he feels improved in regards to weakness. Patient denies chest pain or shortness of breath. Patient denies nausea vomiting or diarrhea. Patient denies any urinary burning or frequency. Patient is having productive cough. Will order sputum and chest x-ray this time Objective - Vital Signs Vital signs: Vital Signs Temp 98.2 F 09/15/18 08:35 Pulse 59 L 09/15/18 08:35 Resp 16 09/15/18 08:35 BP 136/74 09/15/18 08:35 Pulse Ox 95 09/15/18 08:35 Intake & Output 09/14/18 09/15/18 09/15/18 18:59 06:59 18:59 Intake Total 1140 1120 240 Output Total 300 900 400 Balance 840 220 -160 Weight 70 kg Intake: Intake, IV Titration 340 500 Amount Sodium Chloride 0.9% 1, 240 000 ml @ 20 mls/hr IV . Q24H [facility] Rx#:[id number] Vancomycin 1,750 mg In 500 Sodium Chloride 0.9% 500 ml 500 ml @ 167 mls/hr IVPB ONCE ONE Rx#: [id number] cefTRIAXone 1,000 mg In 100 Sodium Chloride 0.9% 50 ml @ 100 mls/hr IVPB Q24HR [facility] Rx#:[id number] Oral 800 240 Blood Product 620 Rc Irr As1 Unit 310 [id number] Output: Urine 300 900 400 Other: Voiding Method Urinal Urinal Urinal # Voids 1 1 - Exam Head normocephalic and atraumatic, left tympanic membrane congestion and erythema Neck supple no JVD no goiter Lungs clear to auscultation bilaterally no wheezing or crackles Heart regular rate and rhythm S1-S2, no rub or gallop Abdomen is soft nontender nondistended positive bowel sounds no hepatosplenomegaly Extremities no edema no cyanosis or clubbing Neuro alert and orientated to 3 - Labs CBC & Chem 7: 09/15/18 06:17 09/15/18 06:17 Labs: Abnormal Lab Results - Last 24 Hours (Table) 09/14/18 09/14/18 09/15/18 Range/Units 06:15 12:40 06:17 WBC 1.8 L (3.8-10.6) k/uL RBC 3.35 L (4.30-5.90) m/uL Hgb 9.1 L D (13.0-17.5) gm/dL Hct 27.9 L (39.0-53.0) % RDW 19.0 H (11.5-15.5) % Plt Count 143 L (150-450) k/uL Neutrophils # 0.8 L (1.3-7.7) k/uL Neutrophils # (Manual) 0.85 L (1.3-7.7) k/uL Lymphocytes # 0.7 L (1.0-4.8) k/uL Lymphocytes # (Manual) 0.74 L (1.0-4.8) k/uL Chloride (98-107) mmol/L Glucose (74-99) mg/dL AST (17-59) U/L ALT (21-72) U/L Total Protein (6.3-8.2) g/dL Albumin (3.5-5.0) g/dL Crossmatch See Detail 09/15/18 Range/Units 06:17 WBC (3.8-10.6) k/uL RBC (4.30-5.90) m/uL Hgb (13.0-17.5) gm/dL Hct (39.0-53.0) % RDW (11.5-15.5) % Plt Count (150-450) k/uL Neutrophils # (1.3-7.7) k/uL Neutrophils # (Manual) (1.3-7.7) k/uL Lymphocytes # (1.0-4.8) k/uL Lymphocytes # (Manual) (1.0-4.8) k/uL Chloride 109 H (98-107) mmol/L Glucose 107 H (74-99) mg/dL AST 16 L (17-59) U/L ALT 13 L (21-72) U/L Total Protein 6.1 L (6.3-8.2) g/dL Albumin 3.1 L (3.5-5.0) g/dL Crossmatch Microbiology - Last 24 Hours (Table) 09/12/18 11:10 Blood Culture Gram Stain - Final Blood Blood Culture - Final Micrococcus species 09/12/18 11:10 Blood Culture - Final Blood Assessment and Plan Assessment: 1. Increased weakness with falls. Patient currently afebrile. UA negative. Urine culture and blood cultures have been ordered. Chest x-ray completed showing no acute pulmonary process. CT of head and spine completed showing no acute fracture or dislocation evident the cervical spine. No acute intracranial hemorrhage, mass effect or midline shift is seen. Additional findings above. Age-related changes of atrophy and probable chronic small vessel ischemia. Degenerative disc disease, facet arthropathy, multilevel foraminal encraochment. 2. Underlying history of myelodysplastic syndrome. Status post bone marrow transplant and jzkmh-wdkrbe-eazs disease. Patient follows a [facility]. Dr. England has been consulted. Current hemoglobin level 9.1 3. Anemia of chronic disease. Current hemoglobin level 8.9. Patient did receive 1 unit of PRBCs the weekend. Current 4. History of essential hypertension home meds resumed 5. History of hyperlipidemia 6. History of prostate disorder with prostatectomy 7. History of C. diff in 2016 8. Left otitis media. Rocephin 1 g every 24 hours has been ordered. Blood culture currently growing micrococcus species DVT prophylaxis Lovenox. GI prophylaxis Pepcid I performed an examination of the patient and discussed their management with the Nurse Practitioner. I have reviewed the Nurse Practitioner's notes and agree with the documented findings and plan of care
--- NOTE | 2018-09-15 17:24 | XR ---
EXAMINATION TYPE: XR chest 2V DATE OF EXAM: 09/15/2018 COMPARISON: 09/12/2018 HISTORY: Cough TECHNIQUE: Frontal and lateral views of the chest are obtained. FINDINGS: Heart and mediastinum are normal. Lungs are clear of consolidation. There is some linear d ensity at the right lung base. Costophrenic angles are clear. There is right central venous catheter with the tip in the superior vena cava. There are chest leads. IMPRESSION: There is no minimal subsegmental atelectasis in the right lower lobe compared to last exa m.
[2018-09-15] MEDS: SODIUM CHLORIDE 0.9% 1,000 ML IV SCH (17:28)
--- NOTE | 2018-09-15 23:58 | CONS ---
CONSULTATION DATE OF SERVICE: 09/15/2018 REASON FOR CONSULTATION: Bacteremia. HISTORY OF PRESENT ILLNESS: The patient is a 63-year-old male with a past medical history significant for myelodysplastic syndrome with a history of bone marrow transplant and zemiw-tyszri-drgq disease. The patient has been brought into the ER at [facility] after the patient did have a fall at home and was not able to get up. The patient's landlord found him on the floor and EMS was called and the patient brought to the hospital for further evaluation. The patient said over the last few days, he has been feeling weak and has had multiple falls. The patient did have one episode of low-grade fever of 100.2 on September 13. The patient being admitted to the hospital on 09/12/2018. The patient did have a mild leukopenia. His UA was negative. Initial chest x-ray report negative for any infiltrate. CT of the head, cervical spine was done for any fracture of these. Chest x-ray this morning shows minimal subsegmental atelectasis in the right lower lobe compared to previous exam. The patient did have blood cultures gram- positive species that prompted this Infectious Disease consultation. The patient currently denies any headache to me or any URI symptoms. No chest pain. No palpitations, no shortness of breath. Very minimal cough. Denies any nausea, no vomiting. No abdominal pain and no diarrhea. REVIEW OF SYSTEMS: Positive points as mentioned in HPI. The rest of the systems have been negative. PAST MEDICAL HISTORY: Significant for the myelodysplastic syndrome, hyperlipidemia, , hypertension, prostate cancer, venous insufficiency, graft versus host disease. Also history of C difficile colitis. PAST SURGICAL HISTORY: PTCA with stent, hernia repair and Michael fundoplication, bone marrow transplant. SOCIAL HISTORY: Remote history of smoking. No drinking or drug use. FAMILY HISTORY: Mother with history of skin cancer. Brother history of renal failure and kidney transplant. ALLERGIES: TO IODINATED CONTRAST AND . MEDICATIONS: The patient is currently on: 1. Tylenol. 2. Acyclovir. 3. Cepacol lozenges. 4. Coreg. 5. Rocephin 1 g daily. 6. Lovenox. 7. Vitamin D2. 8. Pepcid. 9. Fluconazole. 10.Hydrocortisone. 11. . 12.Zestril. 13.Vancomycin. 14.Narcan. EXAMINATION: Blood pressure is 159/72 with a pulse of 62, temperature 98.3. He is 94% on room air. General description is an elderly male lying in bed in no distress. No tachypnea or accessory muscles of respiration use. HEENT: Shows slight pallor. No scleral icterus. Oral mucosal membranes are dry. No pharyngeal erythema or thrush. NECK: Trachea central. No thyromegaly. Lungs unlabored breathing with decreased breath sounds at the bases. No wheeze. Heart S1, S2. Regular rate and rhythm. ABDOMEN: Soft, no tenderness. No guarding or rigidity. EXTREMITIES: No edema of the feet. SKIN examination: No rash or mass palpable. NEUROLOGICAL: Patient is awake, alert, oriented x3. Mood and affect normal. LABS: UA negative. Hemoglobin is 9.1, white count 1.8, platelet was 143, BUN of 14, creatinine 0.80. Electrolytes have been normal. Liver enzymes are normal. Blood culture with positive for micrococcus species. DIAGNOSTIC IMPRESSION AND PLAN: Patient with a positive blood culture with micrococcus species. The patient currently with no to go along with it could be more likely skin humza and possible contamination in this patient who does have underlying pain more likely from his myelodysplastic syndrome and no now with and low grade fever 100.2. PLAN: 1. Blood cultures will be repeated to document clearance of bacteremia that was more likely a contamination rather than a true pathogen. 2. Continue Rocephin, however recommend discontinue vancomycin to decrease risk of nephrotoxicity. 3. We will follow up on clinical condition and culture to further adjust medication if needed. Thank you for this consultation. We will follow this patient along with you. MMODL / IJN: [id number] /
[2018-09-16] MEDS: CARVEDILOL 12.5 MG TAB PO SCH ×2 (06:18→17:25)
[2018-09-16] MEDS ORDERED: VANCOMYCIN TROUGH DUE 1 EACH MISC MISCELLANE ONE (07:00)
[2018-09-16] MEDS: SPIRONOLACTONE 25 MG TAB PO SCH (08:14)
[2018-09-16] MEDS: ACYCLOVIR 200 MG CAP PO SCH ×2 (08:14→20:09)
[2018-09-16] MEDS: FAMOTIDINE 20 MG TAB PO SCH (08:14)
[2018-09-16] MEDS: FLUCONAZOLE 100 MG TAB PO SCH (08:14)
[2018-09-16] MEDS: MONTELUKAST 10 MG TAB PO SCH (08:14)
[2018-09-16] MEDS: LISINOPRIL 20 MG TAB PO SCH ×2 (08:14→20:09)
[2018-09-16] MEDS: ENOXAPARIN 40 MG/0.4 ML SYRINGE SQ SCH (08:15)
[2018-09-16] MEDS: LACTULOSE 20 GM/30 ML CUP PO SCH ×2 (08:15→20:11)
[2018-09-16] MEDS: HYDROCORTISONE 10 MG TAB PO SCH ×2 (08:15→20:09)
[2018-09-16 08:41] LABS: ALT 16 U/L (21-72); AST 16 U/L (17-59); Albumin 3.1 g/dL (3.5-5.0); Alkaline Phosphatase 61 U/L (38-126); Anion Gap 9 mmol/L; Blood Urea Nitrogen 13 mg/dL (9-20); Carbon Dioxide 24 mmol/L (22-30); Chloride 107 mmol/L (98-107); Glucose 103 mg/dL (74-99); Potassium 4.4 mmol/L (3.5-5.1); Sodium 140 mmol/L (137-145); Total Bilirubin 0.5 mg/dL (0.2-1.3); Total Protein 6.2 g/dL (6.3-8.2)
[2018-09-16 08:42] LABS: Anisocytosis Slight; HCT 30.8 % (39.0-53.0); HGB 9.7 gm/dL (13.0-17.5); Hypochromasia Slight; MCH 26.8 pg (25.0-35.0); MCHC 31.4 g/dL (31.0-37.0); MCV 85.5 fL (80.0-100.0); Mean Platelet Volume 8.4; Microcytosis Slight; Platelet Count 186 k/uL (150-450); RBC 3.61 m/uL (4.30-5.90); RDW 19.1 % (11.5-15.5); WBC 2.1 k/uL (3.8-10.6)
[2018-09-16 09:21] LABS: Lymphocytes # (M) 0.69 k/uL (1.0-4.8); Monocytes # (M) 0.15 k/uL (0-1.0); Neutrophils # (M) 1.26 k/uL (1.3-7.7); Neutrophils % (M) 60 %; Nucleated Red Blood Cells 0 /100 WBC (0-0); Total Cells Counted 100
[2018-09-16 09:22] LABS: Ovalocytes Present
--- NOTE | 2018-09-16 14:32 | P.DS ---
Providers Date of admission: 09/13/18 12:27 Expected date of discharge: 09/16/18 Attending physician: Loco Jain Consults: 09/12/18 15:02 Consult Physician Routine Consulting Provider: Bruce England Consult Reason/Comments: Myelodysplastic syndrome Do you want consulting provider notified?: Yes 09/12/18 15:49 Consult Physician Routine Consulting Provider: Otoniel Pinzon Consult Reason/Comments: troponin, EKG Do you want consulting provider notified?: Yes 09/15/18 11:12 Consult Physician Routine Consulting Provider: Elaine Aranda Consult Reason/Comments: positive blood cultures Do you want consulting provider notified?: Yes Primary care physician: Ranjana Rendon [facility] Course: Discharge diagnosis 1. Increased weakness with falls. Patient currently afebrile. UA negative. Urine culture and blood cultures have been ordered. Chest x-ray completed showing no acute pulmonary process. CT of head and spine completed showing no acute fracture or dislocation evident the cervical spine. No acute intracranial hemorrhage, mass effect or midline shift is seen. Additional findings above. Age-related changes of atrophy and probable chronic small vessel ischemia. Degenerative disc disease, facet arthropathy, multilevel foraminal encraochment. 2. Underlying history of myelodysplastic syndrome. Status post bone marrow transplant and hrfga-lhuugt-abqd disease. Patient follows a [facility]. Dr. England has been consulted. Current hemoglobin level 9.1 3. Anemia of chronic disease. Current hemoglobin level 8.9. Patient did receive 1 unit of PRBCs the weekend. Current hemoglobin 9.7 4. History of essential hypertension home meds resumed 5. History of hyperlipidemia 6. History of prostate disorder with prostatectomy 7. History of C. diff in 2016 8. Left otitis media. Rocephin 1 g every 24 hours has been ordered. Blood culture currently growing micrococcus species. Discussed case with infectious disease, blood cultures likely contamination. Patient has been cleared for discharge from infectious disease. Patient will be discharged on Ceftin 500 twice a day for 7 days. 9. Initial elevation in cardiac enzymes. Initial troponin 0.050. Per cardiology no aggressive intervention is necessary from cardiac standpoint. Repeat troponin normal Hospital course Mata Montalvo is a 63-year-old male patient of Dr. Rendon. Patient presented to the emergency room with complaints of increased weakness for 2 days. Patient states he fell at his apartment was unable to get up on his landlord found him and proceeded to call EMS. Patient does have a known past medical history of mylodysplastic syndrome in which he follows at [facility]. Status post bone marrow transplant with flfux-yoyclv-lgui disease. Additional medical history includes adrenal insufficiency, prostate cancer with prostatectomy, hyperlipidemia and hypertension. CT of head and spine completed showing no acute fracture or dislocation evident in the cervical spine. No acute intracranial hemorrhage, mass effect or midline shift is seen. Additional findings. Age-related changes of atrophy and probable chronic small vessel ischemia. Degenerative disc disease, A. fib arthroplasty, multilevel formainla encroachment. Chest x-ray completed showing no acute pulmonary process. CT completed showing normal sinus rhythm. ST and T-wave abnormality consider lateral ischemia. Troponin slightly elevated at 0.50. Influenza negative. UA negative. Urine and blood cultures ordered. Dr. England has been consulted for oncology services. At this time patient denies any chest pain or shortness breath. Patient denies any nausea vomiting or diarrhea. Patient denies any urinary burning or frequency. On 09/13/2018 patient is alert and oriented 3 in no apparent distress he is still complaining of generalized weakness he is complaining of pain in bilateral lower extremities which is chronic otherwise no complaints of chest he was able to stand up and walk a few steps with physical therapy there is no fever or chills no headache or dizziness no chest pain no shortness of breath no cough no nausea or vomiting no abdominal pain no diarrhea and no urinary symptoms. Patient has anemia with hemoglobin down to 7.7. Troponin level is elevated cardiology consult requested. On 09/14/2018 patient was seen and examined on the medical floor, he is alert and oriented 3 in no apparent distress he is complaining of left ear pain for the last 4 days otherwise no complaints at this time there is no fever or chills no headache or dizziness no chest pain no shortness of breath no cough no nausea or vomiting no abdominal pain no diarrhea and no urinary symptoms On 09/15/2018 patient is alert and oriented 3. Patient states he feels improved in regards to weakness. Patient denies chest pain or shortness of breath. Patient denies nausea vomiting or diarrhea. Patient denies any urinary burning or frequency. Patient is having productive cough. Will order sputum and chest x-ray this time on 09/16/2018 patient is alert and oriented 3. Patient is still having some weakness but feels ready to be discharged to rehab to try to increase his strength. Patient denies chest pain or shortness breath. Patient denies nausea vomiting or diarrhea. Patient denies any urinary burning or frequency. Patient has been cleared for discharge from infectious disease. Possible cultures likely contamination. Discussed case with Dr. Aranda. Patient will be DC'd on Ceftin 500 twice a day for 7 days. I performed an examination of the patient and discussed their management with the Nurse Practitioner. I have reviewed the Nurse Practitioner's notes and agree with the documented findings and plan of care Patient Condition at Discharge: Stable Plan - Discharge Summary Discharge Rx Participant: No New Discharge Prescriptions: New Cefuroxime Axetil [Ceftin] 500 mg PO BID 7 Days #14 tab Continue Ergocalciferol (Vitamin D2) [Drisdol] 50,000 unit PO TH Lisinopril 20 mg PO BID Acyclovir 400 mg PO BID Montelukast [Singulair] 10 mg PO DAILY Spironolactone [Aldactone] 25 mg PO DAILY Lactulose 10 gm PO BID Carvedilol [Coreg] 2 tab PO BID Fluconazole [Diflucan] 100 mg PO DAILY Hydrocortisone [Cortef] 10 mg PO BID Discharge Medication List Ergocalciferol (Vitamin D2) [Drisdol] 50,000 unit PO TH 12/04/15 [History] Lisinopril 20 mg PO BID 03/14/17 [History] Acyclovir 400 mg PO BID 07/02/17 [History] Montelukast [Singulair] 10 mg PO DAILY 12/29/17 [History] Spironolactone [Aldactone] 25 mg PO DAILY 02/06/18 [History] Carvedilol [Coreg] 2 tab PO BID 09/12/18 [History] Fluconazole [Diflucan] 100 mg PO DAILY 09/12/18 [History] Hydrocortisone [Cortef] 10 mg PO BID 09/12/18 [History] Lactulose 10 gm PO BID 09/12/18 [History] Cefuroxime Axetil [Ceftin] 500 mg PO BID 7 Days #14 tab 09/16/18 [Rx] Follow up Appointment(s)/Referral(s): Ranjana Rendon, [Primary Care Provider] - 1-2 days Bruce England MD [STAFF PHYSICIAN] - 1 Week Activity/Diet/Wound Care/Special Instructions: [place] Activity as tolerated diet regular patient to be followed by Dr. Jain Patient okay to leave during day while at ECF CBC and CMP in 2 days Discharge Disposition: TRANSFER TO SNF/ECF
[2018-09-16] MEDS ORDERED: ALTEPLASE 2 MG VIAL (CATHFLO) IV STA (16:00)
--- NOTE | 2018-09-16 17:24 | P.PN ---
Subjective Progress Note Date: 09/16/18 Principal diagnosis: Steroid Myopathy Still with Weakness, although improved and will plan for rehabilitation to further increased performance status Objective - Vital Signs Vital signs: Vital Signs Temp 98.5 F 09/16/18 08:10 Pulse 63 09/16/18 11:35 Resp 16 09/16/18 11:35 BP 163/78 09/16/18 11:35 Pulse Ox 93 L 09/16/18 11:35 Intake & Output 09/15/18 09/16/18 09/16/18 18:59 06:59 18:59 Intake Total 780 Output Total 700 450 Balance 80 -450 Weight 70 kg Intake: Intake, IV Titration 300 Amount Vancomycin 1,500 mg In 250 Sodium Chloride 0.9% 250 ml @ 125 mls/hr IVPB Q12H ALEXANDER Rx#:[id number] cefTRIAXone 1,000 mg In 50 Sodium Chloride 0.9% 50 ml @ 100 mls/hr IVPB Q24HR ALEXANDER Rx#:[id number] Oral 480 Output: Urine 700 450 Other: Voiding Method Urinal Urinal Urinal - Exam Constitutional General appearance: Present: no acute distress - EENT Eyes: Present: EOMI ENT: Present: hearing grossly normal, normal oropharynx - Respiratory Respiratory: bilateral: CTA - Cardiovascular Rhythm: regular Heart sounds: normal: S1, S2 - Gastrointestinal General gastrointestinal: Present: normal bowel sounds, soft - Integumentary Integumentary: Present: normal - Musculoskeletal Musculoskeletal: Present: generalized weakness, strength equal bilaterally - Psychiatric Psychiatric: Present: A&O x's 3, appropriate affect - Labs CBC & Chem 7: 09/16/18 07:31 09/16/18 07:31 Labs: Abnormal Lab Results - Last 24 Hours (Table) 09/16/18 09/16/18 Range/Units 07:31 07:31 WBC 2.1 L (3.8-10.6) k/uL RBC 3.61 L (4.30-5.90) m/uL Hgb 9.7 L (13.0-17.5) gm/dL Hct 30.8 L (39.0-53.0) % RDW 19.1 H (11.5-15.5) % Neutrophils # (Manual) 1.26 L (1.3-7.7) k/uL Lymphocytes # (Manual) 0.69 L (1.0-4.8) k/uL Glucose 103 H (74-99) mg/dL AST 16 L (17-59) U/L ALT 16 L (21-72) U/L Total Protein 6.2 L (6.3-8.2) g/dL Albumin 3.1 L (3.5-5.0) g/dL Microbiology - Last 24 Hours (Table) 09/12/18 11:10 Blood Culture Gram Stain - Final Blood Blood Culture - Final Micrococcus species Assessment and Plan Plan: (1) Generalized weakness Narrative/Plan: - Likely related to steroid myopathy - Planning rehab for further increase in strength and safety. - Likely discharge today per primary team Current Visit: Yes Status: Acute Code(s): R53.1 - WEAKNESS SNOMED Code(s) : 82800980 (2) MDS (myelodysplastic syndrome) Narrative/Plan: - Her WBC and platelets are overall stable in the same range. No transfusion required today Current Visit: No Status: Chronic Priority: High Code(s): D46.9 - MYELODYSPLASTIC SYNDROME, UNSPECIFIED SNOMED Code(s): 232893443 Physician Attest: I have completed the full history and physical of this patient and agree with above dictation by Ruthie Freitsa NP dictated as a scribe
[2018-09-16] MEDS: ACETAMINOPHEN TAB 325 MG TAB PO PRN (17:29)
--- NOTE | 2018-09-16 17:41 | PN ---
PROGRESS NOTE DATE OF SERVICE: 09/16/2018 REASON FOR FOLLOW UP: 1. Positive blood culture with micrococcus species. 2. Possible pneumonia. INTERVAL HISTORY: The patient is afebrile. He is feeling better, breathing comfortably. Very minimal ( ) drainage. Denies any pain in his ears or any drainage from it. No abdominal pain, no diarrhea. PHYSICAL EXAMINATION: Blood pressure is 16/76, pulse of 73, temperature 98.5, he is 93% on room air. GENERAL DESCRIPTION: Elderly male lying in bed in no distress RESPIRATORY SYSTEM: Unlabored breathing. Decreased breath sounds at the bases. No wheeze. HEART: S1, S2. Regular rate and rhythm. ABDOMEN: No tenderness. LABS: Hemoglobin 9.7, white count 2.9, BUN of 13, creatinine 0.81. Blood culture so far negative. DIAGNOSTIC IMPRESSION AND PLAN: 1. Positive blood culture micrococcus species, possible contamination. Clinically doubt true bacteremia. Vancomycin has been discontinued. 2. Patient has possible left lower lobe pneumonia. Short course of oral Ceftin 500 mg twice a day for about a week and close outpatient followup. MMODL / IJN: [id number] /
[2018-09-16] MEDS: SODIUM CHLORIDE 0.9% 1,000 ML IV SCH (18:10)
[2018-09-17 06:00] VITALS: BP 172/92; PULSE 58; RESP 16; TEMP 97.4
[2018-09-17] MEDS: SPIRONOLACTONE 25 MG TAB PO SCH (08:11)
[2018-09-17] MEDS: MONTELUKAST 10 MG TAB PO SCH (08:11)
[2018-09-17] MEDS: LISINOPRIL 20 MG TAB PO SCH (08:11)
[2018-09-17] MEDS: HYDROCORTISONE 10 MG TAB PO SCH (08:12)
[2018-09-17] MEDS: ACYCLOVIR 200 MG CAP PO SCH (08:12)
[2018-09-17] MEDS: FAMOTIDINE 20 MG TAB PO SCH (08:12)
[2018-09-17] MEDS: CARVEDILOL 12.5 MG TAB PO SCH (08:13)
[2018-09-17] MEDS: ENOXAPARIN 40 MG/0.4 ML SYRINGE SQ SCH (08:14)
[2018-09-17] MEDS: LACTULOSE 20 GM/30 ML CUP PO SCH (08:14)
[2018-09-17] MEDS: VANCOMYCIN 1,500 MG in SODIUM CHLORIDE 0.9% 250 ML IVPB SCH (08:15)
[2018-09-17] MEDS: FLUCONAZOLE 100 MG TAB PO SCH (09:13)
[2018-09-18] MEDS ORDERED: ERGOCALCIFEROL 50,000 UNIT CAP PO SCH (09:00)
== END 2018-09-17 10:50 | DRG 812 ==
LOC: EC 10:42 → 4MS4W 14:36 → 3SCARD 15:45 → OBSVTOIN 09-13 12:27 → 3NMEDONC 09-16 22:48
PROVIDERS: ADMIT Internal Medicine; ATTEND Internal Medicine
DX: D46.9 Myelodysplastic syndrome, unspecified (principal); D61.818 Other pancytopenia; D89.813 Graft-versus-host disease, unspecified; E27.40 Unspecified adrenocortical insufficiency; G72.0 Drug-induced myopathy; G93.40 Encephalopathy, unspecified; R78.81 Bacteremia; Z94.81 Bone marrow transplant status; E78.5 Hyperlipidemia, unspecified; F32.9 Major depressive disorder, single episode, unspecified; H66.92 Otitis media, unspecified, left ear; H91.90 Unspecified hearing loss, unspecified ear; I10 Essential (primary) hypertension; I25.10 Atherosclerotic heart disease of native coronary artery without angina pectoris; I48.91 Unspecified atrial fibrillation; I87.2 Venous insufficiency (chronic) (peripheral); M46.90 Unspecified inflammatory spondylopathy, site unspecified; R29.6 Repeated falls; T38.0X5A Adverse effect of glucocorticoids and synthetic analogues, initial encounter; W19.XXXA Unspecified fall, initial encounter; Y92.009 Unspecified place in unspecified non-institutional (private) residence as the place of occurrence of the external cause; Z79.899 Other long term (current) drug therapy; Z80.8 Family history of malignant neoplasm of other organs or systems; Z82.49 Family history of ischemic heart disease and other diseases of the circulatory system; Z85.46 Personal history of malignant neoplasm of prostate; Z85.6 Personal history of leukemia; Z86.19 Personal history of other infectious and parasitic diseases; Z87.891 Personal history of nicotine dependence; Z95.5 Presence of coronary angioplasty implant and graft; G89.29 Other chronic pain; Z90.79 Acquired absence of other genital organ(s); Z79.52 Long term (current) use of systemic steroids; Z84.1 Family history of disorders of kidney and ureter; R74.8 Abnormal levels of other serum enzymes; Z88.5 Allergy status to narcotic agent; Z91.041 Radiographic dye allergy status
CPT/HCPCS: 36415; 70450; 71046; 72125; 80053; 80202; 81001; 82550; 82553; 83605; 83735; 84100; 84443; 84484; 85025; 85610; 85730; 86850; 86900; 86901; 86920; 87040; 87070; 87150; 87205; 93005; 96360; 96361; 99285

== ENCOUNTER → 2018-12-03 | Outpatient (CLI) | payer MEDICARE, OTHER ==
--- NOTE | 2018-12-03 15:25 | US ---
EXAMINATION TYPE: US venous doppler duplex LE RT DATE OF EXAM: 12/03/2018 2:38 PM COMPARISON: Bilateral lower extremity venous ultrasound Feb 07 2018 CLINICAL HISTORY: R22.41 Rt Calf Swelling. Right calf pain since Saturday. No redness. No hx of blood clots. No blood thinners. SIDE PERFORMED: Right TECHNIQUE: The lower extremity deep venous system is examined utilizing real time linear array sonog loy with graded compression, doppler sonography and color-flow sonography. VESSELS IMAGED: External Iliac Vein (EIV) Common Femoral Vein Deep Femoral Vein Greater Saphenous Vein * Femoral Vein Popliteal Vein Small Saphenous Vein * Proximal Calf Veins (* superficial vessels) Right Leg: Positive for DVT from Proximal femoral vein extended into proximal calf pains- No vascula r flow visualized. Called office at end of exam and spoke to Su regarding preliminary results. Grayscale, color doppler, spectral doppler imaging performed of the deep veins of the right lower ext remity. IMPRESSION: There is new acute DVT from proximal superficial femoral vein extending below knee into the calf veins on current study. Critical results communicated to ordering physician office by layton wright shortly after exam was completed.
== END ==
LOC: RADUSWWP 14:17
PROVIDERS: ATTEND Family Medicine
DX: I82.411 Acute embolism and thrombosis of right femoral vein (principal)

== ENCOUNTER → 2019-03-13 | Outpatient (CLI) | payer MEDICARE, OTHER ==
[2019-03-13 09:33] VITALS: BP 110/74; PULSE 64; RESP 18; TEMP 98.2
[2019-03-13 10:27] LABS: Albumin 4.1 g/dL (3.5-5.0); Calcium 9.2 mg/dL (8.4-10.2); Total Bilirubin 0.5 mg/dL (0.2-1.3); Total Protein 6.7 g/dL (6.3-8.2)
[2019-03-13 20:59] LABS: Hemoglobin A1C 5.4 % (4.0-6.0)
== END ==
LOC: PROCWHC3 09:16
PROVIDERS: ATTEND Family Medicine
DX: E27.40 Unspecified adrenocortical insufficiency (principal); R73.01 Impaired fasting glucose; Z12.5 Encounter for screening for malignant neoplasm of prostate
CPT/HCPCS: 80053; 83036; 36591; G0103; J1642

== ENCOUNTER 2019-03-22 21:27 | Inpatient (IN) | payer MEDICARE, OTHER ==
[2019-03-22] MEDS ORDERED: BENZOCAINE/MENTHOL LOZENG 1 EACH LOZENGE MUCOUS MEM STA (21:50)
[2019-03-22] MEDS ORDERED: ACETAMINOPHEN TAB 500 MG TAB PO STA (21:50)
[2019-03-22] MEDS ORDERED: IBUPROFEN 600 MG TAB PO STA (21:50)
[2019-03-22] MEDS: SODIUM CHLORIDE 0.9% 500 ML 500 ML IV SCH ×2 (22:31→22:32)
[2019-03-22 22:33] LABS: Anisocytosis Moderate; Basophils % (A) 1 %; Eosinophils % (A) 1 %; HCT 27.7 % (39.0-53.0); HGB 9.3 gm/dL (13.0-17.5); Hypochromasia Slight; Lymphocytes # (A) 0.8 k/uL (1.0-4.8); Lymphocytes % (A) 21 %; MCH 27.1 pg (25.0-35.0); MCHC 33.5 g/dL (31.0-37.0); MCV 80.9 fL (80.0-100.0); Mean Platelet Volume 9.5; Microcytosis Slight; Monocytes # (A) 0.4 k/uL (0-1.0); Monocytes % (A) 11 %; Neutrophils # (A) 2.4 k/uL (1.3-7.7); Neutrophils % (A) 62 %; Platelet Count 150 k/uL (150-450); Poikilocytosis Slight; RBC 3.42 m/uL (4.30-5.90); RDW 21.4 % (11.5-15.5); WBC 3.9 k/uL (3.8-10.6)
[2019-03-22 22:36] LABS: Calcium 9.1 mg/dL (8.4-10.2); Potassium 4.8 mmol/L (3.5-5.1); Total Bilirubin 0.5 mg/dL (0.2-1.3); Total Protein 6.5 g/dL (6.3-8.2)
[2019-03-22] MEDS ORDERED: IPRATROPIUM-ALBUTEROL 3 ML NEB INHALATION STA (22:37)
[2019-03-22 22:38] LABS: INR 1.1 (<1.2); Partial Thromboplastin Time 31.7 sec (22.0-30.0); Prothrombin Time 11.4 sec (9.0-12.0)
--- NOTE | 2019-03-22 23:00 | ED ---
Fever HPI - General Source: EMS, RN notes reviewed, old records reviewed Mode of arrival: EMS Limitations: no limitations <Jeannette Ly - Last Filed: 03/23/19 00:15> <Su Flannery - Last Filed: 03/23/19 02:55> - General Chief Complaint: Fever Stated Complaint: Fever Time Seen by Provider: 03/22/19 21:35 - History of Present Illness Initial Comments: Patient 63-year-old male with a history of immunosuppression, currently on corticosteroids for adrenal insufficiency and has a history of gastric versus h ost disease. He presents today with a dry cough and fever for the past 2 weeks. Patient states this started with some postnasal drip. Patient denies any associated chest pain or significant pain. (Jeannette Ly) - Related Data Home Medications Medication Instructions Recorded Confirmed Ergocalciferol (Vitamin D2) 50,000 unit PO TH 12/04/15 03/13/19 [Drisdol] Lisinopril 40 mg PO DAILY 03/14/17 03/13/19 Acyclovir 400 mg PO BID 07/02/17 03/13/19 Spironolactone [Aldactone] 25 mg PO DAILY 02/06/18 03/13/19 Carvedilol [Coreg] 2 tab PO BID 09/12/18 03/13/19 Hydrocortisone [Cortef] 10 mg PO BID 09/12/18 03/13/19 Rivaroxaban [Xarelto] 15 mg PO DAILY 03/13/19 03/13/19 Allergies Allergy/AdvReac Type Severity Reaction Status Date / Time Iodinated Contrast- Oral and Allergy Unknown Verified 03/22/19 21:33 IV Dye [Iodinated Contrast Media - IV Dye] tramadol AdvReac Nausea & Verified 03/22/19 21:33 Vomiting Review of Systems ROS Other: All systems not noted in ROS Statement are negative. <Jeannette Ly - Last Filed: 03/23/19 00:15> ROS Other: All systems not noted in ROS Statement are negative. <Su Flannery - Last Filed: 03/23/19 02:55> ROS Statement: Those systems with pertinent positive or pertinent negative responses have been documented in the HPI. Past Medical History Past Medical History: Cancer, Hyperlipidemia, Hypertension, Prostate Disorder Additional Past Medical History / Comment(s): prostate cancer, hx venous insufficiency, RCMD, bone marrow transplant, "graft vs host disease", myelodysplastic syndrome leumkemia chemo[facility]tx at [facility], adrenal insufficiency,past sepsis History of Any Multi-Drug Resistant Organisms: C-DIFF Date of last positivie culture/infection: 2016 MDRO Source:: stool Past Surgical History: Heart Catheterization With Stent, Hernia Repair, Prostate Surgery Additional Past Surgical History / Comment(s): larry fundoplication, bone marrow bx/transplant, deviated septum, port a cath, egd x2 cataract Past Anesthesia/Blood Transfusion Reactions: No Reported Reaction Additional Past Anesthesia/Blood Transfusion Reaction / Comment(s): blood saleh sfusion-pt stated no reaction Date of Last Stent Placement:: 2003 Past Psychological History: Depression Smoking Status: Former smoker Past Alcohol Use History: Rare Past Drug Use History: None Reported - Past Family History Father Family Medical History: Hypertension, Myocardial Infarction ([place]) Mother Family Medical History: Cancer, Hypertension Additional Family Medical History / Comment(s): skin cancer Brother(s) Family Medical History: Renal Disease Additional Family Medical History / Comment(s): kidney transplant <Jeannette Ly - Last Filed: 03/23/19 00:15> General Exam Limitations: no limitations General appearance: alert, in no apparent distress Head exam: Present: atraumatic, normocephalic, normal inspection Eye exam: Present: normal appearance, PERRL, EOMI. Absent: scleral icterus, conjunctival injection, periorbital swelling ENT exam: Present: normal exam, mucous membranes moist Neck exam: Present: normal inspection. Absent: tenderness, meningismus, lymphadenopathy Respiratory exam: Absent: normal lung sounds bilaterally (Minimal wheeze. Dry cough.), respiratory distress, wheezes, rales, rhonchi, stridor Cardiovascular Exam: Present: regular rate GI/Abdominal exam: Present: soft, normal bowel sounds. Absent: distended, tenderness, guarding, rebound, rigid Extremities exam: Present: normal inspection, full ROM, normal capillary refill. Absent: tenderness, pedal edema, joint swelling, calf tenderness Back exam: Present: normal inspection Neurological exam: Present: alert, oriented X3, CN II-XII intact <Jeannette Ly - Last Filed: 03/23/19 00:15> - General Exam Comments Initial Comments: 63-year-old male. Alert and oriented 3. No distress. (Jeannette Ly) Course Vital Signs 03/22/19 03/22/19 03/22/19 21:33 22:48 22:56 Temperature 101.5 F H Pulse Rate 85 71 73 Respiratory 18 16 16 Rate Blood Pressure 122/73 O2 Sat by Pulse 94 L Oximetry 03/22/19 03/23/19 23:33 00:31 Temperature 99.3 F 98.7 F Pulse Rate 75 75 Respiratory 18 20 Rate Blood Pressure 121/70 130/77 O2 Sat by Pulse 98 97 Oximetry Medical Decision Making - Lab Data Result diagrams: 03/22/19 22:08 03/22/19 22:08 - Radiology Data Radiology results: report reviewed <Jeannette Ly - Last Filed: 03/23/19 00:15> - Lab Data Result diagrams: 03/22/19 22:08 03/22/19 22:08 <Su Flannery - Last Filed: 03/23/19 02:55> - Medical Decision Making Patient is a 63-year-old male with history of immunosuppression, history of bacteremia with micrococcus be she's. He presents today with a dry cough for the past few weeks and a fever 101.5. Is given Motrin and Tylenol. Minimal wheezing on exam was given DuoNeb with improvement. Patient states that he has no other complaints. This time patient's chest x-rays reviewed and normal. Blood work was reviewed. His white blood cell count is within normal limits today 3.2. Hemoglobin is stable. CMP was reviewed relatively unremarkable. Lactic acid was within normal limits. At this time with a history of immunosuppression and concern for the fever without any significant source besides a dry cough like to miss the Patient for broad-spectrum antibiotic. I did start the Patient on azithromycin and Rocephin. Patient case discussed with Dr. Flannery. (Jeannette Ly) Patient was seen and evaluated. Given the patient's significant history and presentation with a fever I do feel patient warrants a septic workup and admission for broad-spectrum antibiotics and further investigation. Patient care was discussed with Dr. Berg of the [facility] physician team who was covering for Dr. Jain, however Dr. Jain will be back in the hospital this morning therefore admission will go to Dr. Jain. Su Kirkpatrick) - Lab Data Lab Results 03/22/19 03/22/19 03/22/19 Range/Units 22:08 22:08 22:08 WBC 3.9 (3.8-10.6) k/uL RBC 3.42 L (4.30-5.90) m/uL Hgb 9.3 L (13.0-17.5) gm/dL Hct 27.7 L (39.0-53.0) % MCV 80.9 (80.0-100.0) fL MCH 27.1 (25.0-35.0) pg MCHC 33.5 (31.0-37.0) g/dL RDW 21.4 H (11.5-15.5) % Plt Count 150 (150-450) k/uL Neutrophils % 62 % Lymphocytes % 21 % Monocytes % 11 % Eosinophils % 1 % Basophils % 1 % Neutrophils # 2.4 (1.3-7.7) k/uL Lymphocytes # 0.8 L (1.0-4.8) k/uL Monocytes # 0.4 (0-1.0) k/uL Eosinophils # 0.0 (0-0.7) k/uL Basophils # 0.0 (0-0.2) k/uL Hypochromasia Slight Poikilocytosis Slight Anisocytosis Moderate Microcytosis Slight PT (9.0-12.0) sec INR (<1.2) APTT (22.0-30.0) sec Sodium 138 (137-145) mmol/L Potassium 4.8 (3.5-5.1) mmol/L Chloride 102 (98-107) mmol/L Carbon Dioxide 24 (22-30) mmol/L Anion Gap 12 mmol/L BUN 20 (9-20) mg/dL Creatinine 1.12 (0.66-1.25) mg/dL Est GFR (CKD-EPI)AfAm 80 (>60 ml/min/1.73 sqM) Est GFR (CKD-EPI)NonAf 69 (>60 ml/min/1.73 sqM) Glucose 107 H (74-99) mg/dL Plasma Lactic Acid Dipak 0.8 (0.7-2.0) mmol/L Calcium 9.1 (8.4-10.2) mg/dL Total Bilirubin 0.5 (0.2-1.3) mg/dL AST 19 (17-59) U/L ALT 20 L (21-72) U/L Alkaline Phosphatase 58 (38-126) U/L Total Protein 6.5 (6.3-8.2) g/dL Albumin 4.0 (3.5-5.0) g/dL Influenza Type A RNA (Not Detectd) Influenza Type B (PCR) (Not Detectd) 03/22/19 03/22/19 Range/Units 22:08 23:00 WBC (3.8-10.6) k/uL RBC (4.30-5.90) m/uL Hgb (13.0-17.5) gm/dL Hct (39.0-53.0) % MCV (80.0-100.0) fL MCH (25.0-35.0) pg MCHC (31.0-37.0) g/dL RDW (11.5-15.5) % Plt Count (150-450) k/uL Neutrophils % % Lymphocytes % % Monocytes % % Eosinophils % % Basophils % % Neutrophils # (1.3-7.7) k/uL Lymphocytes # (1.0-4.8) k/uL Monocytes # (0-1.0) k/uL Eosinophils # (0-0.7) k/uL Basophils # (0-0.2) k/uL Hypochromasia Poikilocytosis Anisocytosis Microcytosis PT 11.4 (9.0-12.0) sec INR 1.1 (<1.2) APTT 31.7 H (22.0-30.0) sec Sodium (137-145) mmol/L Potassium (3.5-5.1) mmol/L Chloride (98-107) mmol/L Carbon Dioxide (22-30) mmol/L Anion Gap mmol/L BUN (9-20) mg/dL Creatinine (0.66-1.25) mg/dL Est GFR (CKD-EPI)AfAm (>60 ml/min/1.73 sqM) Est GFR (CKD-EPI)NonAf (>60 ml/min/1.73 sqM) Glucose (74-99) mg/dL Plasma Lactic Acid Dipak (0.7-2.0) mmol/L Calcium (8.4-10.2) mg/dL Total Bilirubin (0.2-1.3) mg/dL AST (17-59) U/L ALT (21-72) U/L Alkaline Phosphatase (38-126) U/L Total Protein (6.3-8.2) g/dL Albumin (3.5-5.0) g/dL Influenza Type A RNA Not Detected (Not Detectd) Influenza Type B (PCR) Not Detected (Not Detectd) 03/22/19 22:59 EKG shows sinus rhythm with occasional PVCs. Minimal voltage criteria for LVH. Nonspecific ST and T-wave abnormality. Ventricular rate of 86 bpm. AR interval is 120 Obdulio speech or estrogen 78 ms. QTC 364/435 ms. (Jeannette Ly) - Radiology Data Chest x-ray was reviewed and negative for any acute cardiopulmonary process. (Jeannette Ly) Disposition Is patient prescribed a controlled substance at d/c from ED?: No Time of Disposition: 23:59 <Jeannette Ly - Last Filed: 03/23/19 00:15> <Su Flannery - Last Filed: 03/23/19 02:55> Clinical Impression: MDS (myelodysplastic syndrome), Cough, Fever, Immunosuppressed status Disposition: ADMITTED IP TO THIS HOSP Condition: Stable
--- NOTE | 2019-03-22 23:29 | XR ---
EXAM: XR Chest, 2 Views CLINICAL HISTORY: ITS.REASON XR Reason: Fever TECHNIQUE: Frontal and lateral views of the chest. COMPARISON: Chest x-ray 09/15/2018. Chest x-ray 09/12/2018. FINDINGS: Lungs: No focal pulmonary infiltrates or consolidations. Pleural space: No evidence of pleural effusion or pneumothorax. Heart: Heart size is within normal limits. Mediastinum: Mediastinal structures are unremarkable. Bones/joints: Mild degenerative changes involve thoracic spine. Tubes, lines and devices: Indwelling right sided central venous catheter extends to region of superior vena cava, unchanged. IMPRESSION: No evidence of acute cardiopulmonary disease.
[2019-03-22] MEDS ORDERED: cefTRIAXone IN SWFI 1,000 MG/10 ML SYRINGE IVP STA (23:55)
[2019-03-22] MEDS ORDERED: AZITHROMYCIN 500 MG in SODIUM CHLORIDE 0.9% 250 ML IVPB STA (23:55)
[2019-03-22] MEDS ORDERED: NALOXONE 0.4 MG/ML 1 ML VIAL IV PRN (23:59)
[2019-03-23] MEDS ORDERED: CARVEDILOL 12.5 MG TAB PO SCH ×2 (07:30→17:30)
[2019-03-23] MEDS: RIVAROXABAN 15 MG TAB PO SCH (07:47)
[2019-03-23] MEDS: LISINOPRIL 20 MG TAB PO SCH (07:47)
[2019-03-23] MEDS: SPIRONOLACTONE 25 MG TAB PO SCH (07:47)
[2019-03-23] MEDS: HYDROCORTISONE 10 MG TAB PO SCH ×2 (07:47→20:40)
[2019-03-23] MEDS: ACYCLOVIR 200 MG CAP PO SCH ×2 (07:48→20:39)
--- NOTE | 2019-03-23 11:00 | P.HPIM ---
History of Present Illness H&P Date: 03/23/19 This is a 63-year-old male patient of Dr. Rendon. Patient presented with complaints of fever. Patient reports about 2 weeks ago he had upper respiratory symptoms with sore throat cough and postnasal drip. Patient reports that he started noticing fevers approximately 1 week ago. Patient has chills with fever recurrence. Patient denies any nausea vomiting or diarrhea. Patient denies any headache. Patient is still complaining of occasional sore throat with postnasal drip. Patient denies any urinary burning or frequency. Patient does have a past medical history of adrenal insufficiency and when she is maintained on hydrocortisone and acyclovir, myelodysplastic syndrome in which he follows with [facility], status post bone marrow transplant with jlqhc-qvnwsg-feco disease, prostate cancer with prostatectomy, hyperlipidemia and hypertension. Patient also reports he was diagnosed with DVT in November 2018 which is maintained on Xarelto. Influenza negative. Chest x-ray completed showing no evidence for acute cardiopulmonary disease. Blood urine and sputum cultures ordered. Patient started on Rocephin and Zithromax. Patient for Acyclovir resumed. Infectious disease has been consulted. Elevated temp of 101.5. At this time patient denies chest pain or shortness of breath. Patient denies nausea vomiting or diarrhea. Patient denies any urinary burning or frequency. Review of Systems please refer to HPI otherwise unremarkable Past Medical History Past Medical History: Cancer, Hyperlipidemia, Hypertension, Prostate Disorder Additional Past Medical History / Comment(s): prostate cancer, hx venous insufficiency, RCMD, bone marrow transplant, "graft vs host disease", myelodysplastic syndrome leumkemia chemo/tx at [facility], adrenal insufficiency,past sepsis History of Any Multi-Drug Resistant Organisms: C-DIFF Date of last positivie culture/infection: 2015 MDRO Source:: stool Past Surgical History: Heart Catheterization With Stent, Hernia Repair, Prostate Surgery Additional Past Surgical History / Comment(s): larry fundoplication, bone marrow bx/transplant, deviated septum, port a cath, egd x2 cataract Past Anesthesia/Blood Transfusion Reactions: No Reported Reaction Additional Past Anesthesia/Blood Transfusion Reaction / Comment(s): blood transfusion-pt stated no reaction Date of Last Stent Placement:: 2003 Past Psychological History: Depression Additional Psychological History / Comment(s): . lives alone in apt,drives, [employer] on aging comes in once a week or so to house keeping services,has cane/walker. 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 No experience. Traveling to [place]. No animal exposures. No current sexual partners Smoking Status: Former smoker Past Alcohol Use History: Rare Additional Past Alcohol Use History / Comment(s): started smoking in his teen's and quit 1989 Past Drug Use History: None Reported - Past Family History Father Family Medical History: Hypertension, Myocardial Infarction ([place]) Mother Family Medical History: Cancer, Hypertension Additional Family Medical History / Comment(s): skin cancer Brother(s) Family Medical History: Renal Disease Additional Family Medical History / Comment(s): kidney transplant Medications and Allergies Home Medications Medication Instructions Recorded Confirmed Type Ergocalciferol (Vitamin D2) 50,000 unit PO TH 12/04/15 03/23/19 History [Drisdol] Lisinopril 20 mg PO BID 03/14/17 03/23/19 History Acyclovir 400 mg PO BID 07/02/17 03/23/19 History Spironolactone [Aldactone] 25 mg PO DAILY 02/06/18 03/23/19 History Carvedilol [Coreg] 12.5 mg PO BID 09/12/18 03/23/19 History Hydrocortisone [Cortef] 10 mg PO BID 09/12/18 03/23/19 History Allopurinol [Zyloprim] 300 mg PO DAILY 03/23/19 03/23/19 History Carvedilol [Coreg] 25 mg PO BID 03/23/19 03/23/19 History Rivaroxaban [Xarelto] 20 mg PO DAILY 03/23/19 03/23/19 History prednisoLONE ACETATE 1% OPHTH 1 drops LEFT EYE TID 03/23/19 03/23/19 History [Pred Forte 1%] prednisoLONE ACETATE 1% OPHTH 1 drops RIGHT EYE DAILY 03/23/19 03/23/19 History [Pred Forte 1%] Allergies Allergy/AdvReac Type Severity Reaction Status Date / Time Iodinated Contrast- Oral and Allergy Unknown Verified 03/23/19 07:48 IV Dye [Iodinated Contrast Media - IV Dye] tramadol AdvReac Nausea & Verified 03/23/19 07:48 Vomiting Physical Exam Vitals: Vital Signs Temp Pulse Pulse Resp BP BP Pulse Ox 03/23/19 07:10 67 18 03/23/19 04:00 98.1 F 67 18 134/72 95 03/23/19 00:31 98.7 F 75 20 130/77 97 03/22/19 23:33 99.3 F 75 18 121/70 98 03/22/19 22:56 73 16 03/22/19 22:48 71 16 03/22/19 21:33 101.5 F H 85 18 122/73 94 L Intake and Output 03/22/19 03/23/19 03/23/19 22:59 06:59 14:59 Intake Total 1170 Balance 1170 Intake: Intake, IV Titration 750 Amount Azithromycin 500 mg In 250 Sodium Chloride 0.9% 250 ml @ 250 mls/hr IVPB ONCE STA Rx#:[id number] Sodium Chloride 0.9% 500 500 ml 500 ml @ 1000 mls/hr IV Q35M ALEXANDER Rx#:[id number] Oral 420 Other: Voiding Method Toilet # Voids 1 Weight 76.204 kg Head normocephalic Neck supple Lungs clear to auscultation bilaterally no wheezing or crackles Heart regular rate and rhythm S1-S2, no rub or gallop Abdomen is soft nontender nondistended positive bowel sounds no hepatosplenomegaly Extremities no edema Neuro alert and orientated to 3 Results CBC & Chem 7: 03/22/19 22:08 03/22/19 22:08 Labs: Abnormal Lab Results - Last 24 Hours (Table) 03/22/19 03/22/19 03/22/19 Range/Units 22:08 22:08 22:08 RBC 3.42 L (4.30-5.90) m/uL Hgb 9.3 L (13.0-17.5) gm/dL Hct 27.7 L (39.0-53.0) % RDW 21.4 H (11.5-15.5) % Lymphocytes # 0.8 L (1.0-4.8) k/uL APTT 31.7 H (22.0-30.0) sec Glucose 107 H (74-99) mg/dL ALT 20 L (21-72) U/L Thrombosis Risk Factor Assmnt - Choose All That Apply Any of the Below Risk Factors Present?: No Each Risk Factor Represents 2 Points: Age 61-74 years, Malignancy Thrombosis Risk Factor Assessment Total Risk Factor Score: 4 Thrombosis Risk Factor Assessment Level: Moderate Risk Assessment and Plan Assessment: 1. Fever of unknown origin. Patient having elevated temperature 101.5. Patient has been on steroids for adrenal insufficiency. Infectious disease has been consulted. Blood and urine and sputum cultures ordered. Chest x-ray negative for cardiopulmonary process. Influenza negative. Patient maintained on Rocephin, Zithromax and acyclovir. 2. Underlying history of myelodysplastic syndrome. 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 [facility] Patient reports last visit was Saturday no current treatment at this time patient [facility]. 3. Anemia of chronic disease. Hemoglobin 9.3 4. History of right lower extremity DVT. Patient Doppler completed in November 2018 showing positive right lower extremity DVT. Patient maintained on Xarelto 5. History of essential hypertension. Home meds resumed 6. History of hyperlipidemia 7. History of prostate cancer with prostatectomy 8. History of C. diff in 2016 9. History of cataracts DVT prophylaxis Xarelto. GI prophylaxis Protonix Blood, urine and sputum cultures ordered. Dr. Aranda consulted for infectious disease Time with Patient: Greater than 30 (Greater than 60% of the total time spent in counseling and coordination of care. I performed an examination of the patient and discussed their management with the Nurse Practitioner. I have reviewed the Nurse Practitioner's notes and agree with the documented findings and plan of care)
[2019-03-23 15:30] LABS: Appearance,Urine Clear (Clear); Bilirubin,Urine Negative (Negative); Blood,Urine Negative (Negative); Color,Urine Light Yellow; Glucose,Urine (UA) Negative (Negative); Ketones,Urine Negative (Negative); Leukocyte Esterase,Urine Negative (Negative); Nitrite,Urine Negative (Negative); PH, Urine 5.5 (5.0-8.0); Protein,Urine Negative (Negative); Specific Gravity,Urine 1.008 (1.001-1.035); Urobilinogen,Urine <2.0 mg/dL (<2.0)
[2019-03-23] MEDS: BENZOCAINE/MENTHOL LOZENG 1 EACH LOZENGE MUCOUS MEM PRN ×2 (15:47→20:41)
[2019-03-23] MEDS: CARVEDILOL 12.5 MG TAB PO SCH (17:25)
[2019-03-23] MEDS: AZITHROMYCIN 500 MG in SODIUM CHLORIDE 0.9% 250 ML IVPB SCH ×2 (20:39→21:47)
[2019-03-23] MEDS ORDERED: VANCOMYCIN IV PER PHARMACY 1 EACH MISC MISCELLANE PRN (22:52)
--- NOTE | 2019-03-23 23:03 | P.CONS ---
History of Present Illness - Reason for Consult Consult date: 03/23/19 Fever Requesting physician: Loco Jain - Chief Complaint Fever off and on for 1 week - History of Present Illness Patient is 63-year-old male with a past medical history significant for myelodysplastic syndrome status post bone marrow transplant with graft-vers us-host disease in this patient also have a history of adrenal insufficiency on steroid replacement therapy, patient presenting to the ER with a chief complaints of fever off and on for the last 1 week patient also have URI symptoms mostly with sore throat postnasal drip and he also have a cough which is mild to moderate intensity but has been drying nature some shortness of breath but no chest pain or sputum production no nausea no vomiting and no choking on food no abdominal pain or any diarrhea with these symptoms the patient has been evaluated by the physician on presentation the patient did have a chest x-ray that was reported negative for any acute infiltrate, patient did have a fever of 101.5F patient white count was normal UA was negative influenza serology was negative the patient had been started on Rocephin and Zithromax infectious disease was consulted for further recommendation regarding antibiotic therapy Review of Systems CONSTITUTIONAL: Positive for weakness. Fever EYES: No complaint. ENT: As per history of present illness. RESPIRATORY: As per history of present illness. CARDIOVASCULAR: No complaint. GENITOURINARY: No complaint. GASTROINTESTINAL: No complaint. MUSCULOSKELETAL: No complaint. INTEGUMENTARY: No complaint. PSYCHOLOGICAL: No complaint. ENDOCRINE: No complaint. NEUROLOGIC: No complaint. Past Medical History Past Medical History: Cancer, Hyperlipidemia, Hypertension, Prostate Disorder Additional Past Medical History / Comment(s): prostate cancer, hx venous insufficiency, RCMD, bone marrow transplant, "graft vs host disease", myelodysplastic syndrome leumkemia [facility], adrenal insufficiency,past sepsis History of Any Multi-Drug Resistant Organisms: C-DIFF Year Discovered:: 2016 MDRO Source:: stool Past Surgical History: Heart Catheterization With Stent, Hernia Repair, Prostate Surgery Additional Past Surgical History / Comment(s): larry fundoplication, bone marrow bx/transplant, deviated septum, port a cath, egd x2 cataract Past Anesthesia/Blood Transfusion Reactions: No Reported Reaction Additional Past Anesthesia/Blood Transfusion Reaction / Comm: blood transfusion- pt stated no reaction Date of Last Stent Placement:: 2003 Past Psychological History: Depression Additional Psychological History / Comment(s): . lives alone in [employer], [employer] aging comes in once a week or so to house keeping services,has cane/walker. 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 No experience. Traveling to [place]. No animal exposures. No current sexual partners Smoking Status: Former smoker Past Alcohol Use History: Rare Additional Past Alcohol Use History / Comment(s): started smoking in his teen's and quit 1989 Past Drug Use History: None Reported - Past Family History Father Family Medical History: Hypertension, Myocardial Infarction ([place]) Mother Family Medical History: Cancer, Hypertension Additional Family Medical History / Comment(s): skin cancer Brother(s) Family Medical History: Renal Disease Additional Family Medical History / Comment(s): kidney transplant Medications and Allergies Home Medications Medication Instructions Recorded Confirmed Type Ergocalciferol (Vitamin D2) 50,000 unit PO TH 12/04/15 03/23/19 History [Drisdol] Lisinopril 20 mg PO BID 03/14/17 03/23/19 History Acyclovir 400 mg PO BID 07/02/17 03/23/19 History Spironolactone [Aldactone] 25 mg PO DAILY 02/06/18 03/23/19 History Carvedilol [Coreg] 12.5 mg PO BID 09/12/18 03/23/19 History Hydrocortisone [Cortef] 10 mg PO BID 09/12/18 03/23/19 History Allopurinol [Zyloprim] 300 mg PO DAILY 03/23/19 03/23/19 History Carvedilol [Coreg] 25 mg PO BID 03/23/19 03/23/19 History Rivaroxaban [Xarelto] 20 mg PO DAILY 03/23/19 03/23/19 History prednisoLONE ACETATE 1% OPHTH 1 drops LEFT EYE TID 03/23/19 03/23/19 History [Pred Forte 1%] prednisoLONE ACETATE 1% OPHTH 1 drops RIGHT EYE DAILY 03/23/19 03/23/19 History [Pred Forte 1%] Allergies Allergy/AdvReac Type Severity Reaction Status Date / Time Iodinated Contrast- Oral and Allergy Unknown Verified 03/23/19 07:48 IV Dye [Iodinated Contrast Media - IV Dye] tramadol AdvReac Nausea & Verified 03/23/19 07:48 Vomiting Physical Exam Vitals: Vital Signs Temp Pulse Pulse Resp BP BP Pulse Ox 03/23/19 07:10 67 18 03/23/19 04:00 98.1 F 67 18 134/72 95 03/23/19 00:31 98.7 F 75 20 130/77 97 03/22/19 23:33 99.3 F 75 18 121/70 98 03/22/19 22:56 73 16 03/22/19 22:48 71 16 03/22/19 21:33 101.5 F H 85 18 122/73 94 L Intake and Output 03/22/19 03/23/19 03/23/19 22:59 06:59 14:59 Intake Total 1170 Balance 1170 Intake: Intake, IV Titration 750 Amount Azithromycin 500 mg In 250 Sodium Chloride 0.9% 250 ml @ 250 mls/hr IVPB ONCE STA Rx#:[id number] Sodium Chloride 0.9% 500 500 ml 500 ml @ 1000 mls/hr IV Q35M ALEXANDER Rx#:[id number] Oral 420 Other: Voiding Method Toilet # Voids 1 Weight 76.204 kg GENERAL DESCRIPTION: Elderly male lying in bed, no distress. No tachypnea or accessory muscle of respiration use. HEENT: Shows Pallor , no scleral icterus. Oral mucous membrane is dry. No pharyngeal erythema or thrush NECK: Trachea central, no thyromegaly. LUNGS: Unlabored breathing. Decreased breath sound at the base. No wheeze or crackle. HEART: S1, S2, regular rate and rhythm. No loud murmur ABDOMEN: Soft, no tenderness , guarding or rigidity, no organomegaly EXTREMITIES: No edema of feet. SKIN: No rash, no masses palpable. NEUROLOGICAL: The patient is awake, alert, oriented x3, mood and affect normal Results CBC & Chem 7: 03/22/19 22:08 03/22/19 22:08 Labs: Abnormal Lab Results - Last 24 Hours (Table) 03/22/19 03/22/19 03/22/19 Range/Units 22:08 22:08 22:08 RBC 3.42 L (4.30-5.90) m/uL Hgb 9.3 L (13.0-17.5) gm/dL Hct 27.7 L (39.0-53.0) % RDW 21.4 H (11.5-15.5) % Lymphocytes # 0.8 L (1.0-4.8) k/uL APTT 31.7 H (22.0-30.0) sec Glucose 107 H (74-99) mg/dL ALT 20 L (21-72) U/L Assessment and Plan Assessment: 1-patient admitted to the hospital with fever and he did have URI symptoms or sore throat postnasal drip patient also have a mild cough but not bring up any sputum workup so far has been negative including negative influenza PCR and chest x-ray has been negative for any acute infiltrate patient currently with no other clinical focus of infection his UA has been negative abdominal was soft on clinical examination and no evidence of any cellulitis 2-patient with a positive blood culture with gram-positive cocci source likely pulmonary with a question of possible strep pneumo versus staph aureus (1) Gram-positive cocci bacteremia Current Visit: Yes Status: Acute Code(s): R78.81 - BACTEREMIA SNOMED Code(s): 995687652875 (2) Fever Current Visit: Yes Status: Acute Code(s): R50.9 - FEVER, UNSPECIFIED SNOMED Code(s): 785421609 (3) Immunosuppressed status Current Visit: Yes Status: Acute Code(s): D89.9 - DISORDER INVOLVING THE IMMUNE MECHANISM, UNSPECIFIED SNOMED Code(s): 30157563 Plan: 1-blood cultures will be repeated to document clearance of bacteremia 2-try to obtain sputum for Gram stain and culture 3-repeat chest x-ray PA and lateral tomorrow 4-we'll add vancomycin pharmacy to dose target trough of 15, continue with Rocephin and discontinue the Zithromax we will follow up on clinical condition and cultures to further adjust medication if needed Thank you for this consultation will follow this patient along with you Time with Patient: Greater than 30
[2019-03-24] MEDS: VANCOMYCIN 1,500 MG in SODIUM CHLORIDE 0.9% 250 ML IVPB SCH ×2 (00:39→12:18)
[2019-03-24] MEDS: BENZOCAINE/MENTHOL LOZENG 1 EACH LOZENGE MUCOUS MEM PRN ×2 (01:16→17:24)
[2019-03-24 06:28] LABS: Calcium 8.6 mg/dL (8.4-10.2); Potassium 4.2 mmol/L (3.5-5.1); Total Bilirubin 0.2 mg/dL (0.2-1.3); Total Protein 5.3 g/dL (6.3-8.2)
[2019-03-24 06:50] LABS: Anisocytosis Moderate; Basophils % (A) 0 %; Eosinophils % (A) 1 %; HCT 23.9 % (39.0-53.0); HGB 7.8 gm/dL (13.0-17.5); Hypochromasia Moderate; Lymphocytes # (A) 0.9 k/uL (1.0-4.8); Lymphocytes % (A) 36 %; MCH 26.8 pg (25.0-35.0); MCHC 32.6 g/dL (31.0-37.0); MCV 82.1 fL (80.0-100.0); Mean Platelet Volume 10.7; Microcytosis Slight; Monocytes # (A) 0.3 k/uL (0-1.0); Monocytes % (A) 11 %; Neutrophils # (A) 1.1 k/uL (1.3-7.7); Neutrophils % (A) 47 %; Platelet Count 102 k/uL (150-450); Poikilocytosis Slight; RBC 2.92 m/uL (4.30-5.90); RDW 21.2 % (11.5-15.5); WBC 2.4 k/uL (3.8-10.6)
[2019-03-24] MEDS: SPIRONOLACTONE 25 MG TAB PO SCH (07:46)
[2019-03-24] MEDS: CARVEDILOL 12.5 MG TAB PO SCH ×2 (07:46→17:24)
[2019-03-24] MEDS: LISINOPRIL 20 MG TAB PO SCH (07:46)
[2019-03-24] MEDS: ACYCLOVIR 200 MG CAP PO SCH ×2 (07:46→21:26)
[2019-03-24] MEDS: RIVAROXABAN 15 MG TAB PO SCH (07:46)
[2019-03-24] MEDS: PANTOPRAZOLE 40 MG TABLET PO SCH (07:46)
[2019-03-24] MEDS: HYDROCORTISONE 10 MG TAB PO SCH ×2 (07:47→21:27)
[2019-03-24] MEDS ORDERED: guaiFENesin-DM 600/30MG 1 EACH TAB.ER.12H PO PRN (09:48)
--- NOTE | 2019-03-24 09:55 | P.PN ---
Subjective Progress Note Date: 03/24/19 This is a 63-year-old male patient of Dr. Rendon. Patient presented with complaints of fever. Patient reports about 2 weeks ago he had upper respiratory symptoms with sore throat cough and postnasal drip. Patient reports that he started noticing fevers approximately 1 week ago. Patient has chills with fever recurrence. Patient denies any nausea vomiting or diarrhea. Patient denies any headache. Patient is still complaining of occasional sore throat with postnasal drip. Patient denies any urinary burning or frequency. Patient does have a past medical history of adrenal insufficiency and when she is maintained on hydrocortisone and acyclovir, myelodysplastic syndrome in which he follows with [facility], status post bone marrow transplant with qyqzb-ppphan-mvdr disease, prostate cancer with prostatectomy, hyperlipidemia and hypertension. Patient also reports he was diagnosed with DVT in November 2018 which is maintained on Xarelto. Influenza negative. Chest x-ray completed showing no evidence for acute cardiopulmonary disease. Blood urine and sputum cultures ordered. Patient started on Rocephin and Zithromax. Patient for Acyclovir resumed. Infectious disease has been consulted. Elevated temp of 101.5. At this time patient denies chest pain or shortness of breath. Patient denies nausea vomiting or diarrhea. Patient denies any urinary burning or frequency. On 03/24/2019 patient's alert and oriented 3. Patient has been afebrile throughout night. Blood culture growing coagulase-negative staph. Infectious disease is following. Patient antibiotic adjusted to vancomycin and Rocephin. Repeat blood culture ordered. At this time patient denies any chest pain or shortness of breath. Patient is complaining of cough. Patient denies any nausea vomiting or diarrhea. Patient denies any urinary burning or frequency. Objective - Vital Signs Vital signs: Vital Signs Temp 98.2 F 03/24/19 04:11 Pulse 54 L 03/24/19 04:11 Resp 16 03/24/19 08:00 BP 144/79 03/24/19 04:11 Pulse Ox 96 03/24/19 04:11 Intake & Output 03/23/19 03/24/19 03/24/19 18:59 06:59 18:59 Intake Total 750 Balance 750 Intake: Intake, IV Titration 100 Amount cefTRIAXone 1 gm In 100 Sodium Chloride 0.9% 50 ml @ 100 mls/hr IVPB HS ALEXANDER Rx#:[id number] Oral 650 Other: Voiding Method Toilet Toilet Toilet # Voids 2 2 1 - Exam Head normocephalic Neck supple Lungs clear to auscultation bilaterally no wheezing or crackles Heart regular rate and rhythm S1-S2, no rub or gallop Abdomen is soft nontender nondistended positive bowel sounds no hepatosplenomegaly Extremities no edema Neuro alert and orientated to 3 - Labs CBC & Chem 7: 03/24/19 06:00 03/24/19 06:00 Labs: Abnormal Lab Results - Last 24 Hours (Table) 03/24/19 03/24/19 Range/Units 06:00 06:00 WBC 2.4 L (3.8-10.6) k/uL RBC 2.92 L (4.30-5.90) m/uL Hgb 7.8 L D (13.0-17.5) gm/dL Hct 23.9 L (39.0-53.0) % RDW 21.2 H (11.5-15.5) % Plt Count 102 L (150-450) k/uL Neutrophils # 1.1 L (1.3-7.7) k/uL Lymphocytes # 0.9 L (1.0-4.8) k/uL Chloride 108 H (98-107) mmol/L BUN 21 H (9-20) mg/dL AST 16 L (17-59) U/L Total Protein 5.3 L (6.3-8.2) g/dL Albumin 3.0 L (3.5-5.0) g/dL Microbiology - Last 24 Hours (Table) 03/22/19 22:05 Blood Culture Gram Stain - Preliminary Blood Blood Culture - Preliminary Coagulase Negative Staph 03/22/19 22:08 Blood Culture - Preliminary Blood 03/23/19 14:03 Urine Culture - Preliminary Urine,Clean Catch Assessment and Plan Assessment: 1. Fever of unknown origin. Patient having elevated temperature 101.5. Patient has been on steroids for adrenal insufficiency. Infectious disease has been consulted. Blood and urine and sputum cultures ordered. Chest x-ray negative for cardiopulmonary process. Influenza negative. Blood culture posit joselyn for cougalse negative staph infectious disease is following. Patient antibiotics adjusted to vancomycin and Rocephin 2. Underlying history of myelodysplastic syndrome. 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 [facility] Patient reports last visit was Saturday no current treatment at this time patient to follow-up with [facility]. oncology service consulted 3. Anemia of chronic disease. Hemoglobin 7.8 4. History of right lower extremity DVT. Patient Doppler completed in November 2018 showing positive right lower extremity DVT. Patient maintained on Xarelto 5. History of essential hypertension. Home meds resumed 6. History of hyperlipidemia 7. History of prostate cancer with prostatectomy 8. History of C. diff in 2016 9. History of cataracts DVT prophylaxis Xarelto. GI prophylaxis Protonix Blood, urine and sputum cultures ordered. Dr. Aranda consulted for infectious disease
--- NOTE | 2019-03-24 10:10 | XR ---
EXAMINATION TYPE: XR chest 2V DATE OF EXAM: 03/24/2019 COMPARISON: 03/22/2019 HISTORY: Fever and cough TECHNIQUE: Frontal and lateral views of the chest are obtained. FINDINGS: There is no focal air space opacity, pleural effusion, or pneumothorax seen. There is stra nd-like linear right infrahilar atelectasis. Chronic slight right hemidiaphragm elevation is present. Right-sided Mediport positioning is similar to the prior. The cardiac silhouette size is within nor mal limits. The osseous structures are intact. IMPRESSION: Linear subsegmental right infrahilar atelectasis. No focal consolidation to suggest pneu monia.
[2019-03-24] MEDS ORDERED: ARTIFICIAL TEARS-HYPROMELLOSE DROPS 15 ML BTL BOTH EYES PRN (14:12)
[2019-03-24] MEDS ORDERED: guaiFENesin SYRUP 100MG/5ML 200 MG/10 ML CUP PO PRN (14:15)
--- NOTE | 2019-03-24 16:29 | P.CONS ---
History of Present Illness - Reason for Consult Consult date: 03/24/19 MDS Requesting physician: Rosa Molina - Chief Complaint fever - History of Present Illness Mr. Montalvo is a very pleasant 63-year-old male patient of Dr. Cerna who was initially diagnosed with MDS in 2013. 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 Patient was subsequently found to have recurrence in late 2017. He was not felt a candidate for a second transplant patient since that time has been treated with supportive care only since that time-i.e. transfusions. Patient is currently admitted with complaints of fevers, chills, sore throat 2 weeks, denies known exposure to illness, he tried to manage supportive care but symptoms progressed, he became weaker, fever cont to rise. He is admitted with + for coag neg staph, on empiric abx, feels better the on admit. Denies any oral irritation, nausea, vomiting, chest pain, abdominal pain, indigestion, dysuria, hematuria, diarrhea, constipation, swelling or pain Review of Systems 14 point review of systems is negative except as stated in history of present illness Past Medical History Past Medical History: Cancer, Hyperlipidemia, Hypertension, Prostate Disorder Additional Past Medical History / Comment(s): prostate cancer, hx venous insufficiency, RCMD, bone marrow transplant, "graft vs host disease", myelodysplastic syndrome leumkemia chemo/tx at [facility], adrenal insufficie ncy,past sepsis History of Any Multi-Drug Resistant Organisms: C-DIFF Year Discovered:: 2016 MDRO Source:: stool Past Surgical History: Heart Catheterization With Stent, Hernia Repair, Prostate Surgery Additional Past Surgical History / Comment(s): larry fundoplication, bone marrow bx/transplant, deviated septum, port a cath, egd x2 cataract Past Anesthesia/Blood Transfusion Reactions: No Reported Reaction Additional Past Anesthesia/Blood Transfusion Reaction / Comm: blood transfusion- pt stated no reaction Date of Last Stent Placement:: 2003 Past Psychological History: Depression Additional Psychological History / Comment(s): . lives alone in apt,[employer], [place] [employer] comes in once a week or so to house keeping services,has cane/walker. 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 No experience. Traveling to [place]. No animal exposures. No current sexual partners Smoking Status: Former smoker Past Alcohol Use History: Rare Additional Past Alcohol Use History / Comment(s): started smoking in his teen's and quit 1989 Past Drug Use History: None Reported - Past Family History Father Family Medical History: Hypertension, Myocardial Infarction (OR) Mother Family Medical History: Cancer, Hypertension Additional Family Medical History / Comment(s): skin cancer Brother(s) Family Medical History: Renal Disease Additional Family Medical History / Comment(s): kidney transplant Medications and Allergies Home Medications Medication Instructions Recorded Confirmed Type Ergocalciferol (Vitamin D2) 50,000 unit PO TH 12/04/15 03/23/19 History [Drisdol] Lisinopril 20 mg PO BID 03/14/17 03/23/19 History Acyclovir 400 mg PO BID 07/02/17 03/23/19 History Spironolactone [Aldactone] 25 mg PO DAILY 02/06/18 03/23/19 History Carvedilol [Coreg] 12.5 mg PO BID 09/12/18 03/23/19 History Hydrocortisone [Cortef] 10 mg PO BID 09/12/18 03/23/19 History Allopurinol [Zyloprim] 300 mg PO DAILY 03/23/19 03/23/19 History Carvedilol [Coreg] 25 mg PO BID 03/23/19 03/23/19 History Rivaroxaban [Xarelto] 20 mg PO DAILY 03/23/19 03/23/19 History prednisoLONE ACETATE 1% OPHTH 1 drops LEFT EYE TID 03/23/19 03/23/19 History [Pred Forte 1%] prednisoLONE ACETATE 1% OPHTH 1 drops RIGHT EYE DAILY 03/23/19 03/23/19 History [Pred Forte 1%] Allergies Allergy/AdvReac Type Severity Reaction Status Date / Time Iodinated Contrast- Oral and Allergy Unknown Verified 03/23/19 07:48 IV Dye [Iodinated Contrast Media - IV Dye] tramadol AdvReac Nausea & Verified 03/23/19 07:48 Vomiting Physical Exam Vitals: Vital Signs Temp Pulse Resp BP Pulse Ox 03/24/19 15:36 17 03/24/19 12:14 97.9 F 53 L 17 161/82 100 03/24/19 08:00 16 03/24/19 04:11 98.2 F 54 L 16 144/79 96 03/23/19 21:00 97.9 F 60 16 135/83 97 Intake and Output 03/24/19 03/24/19 03/24/19 06:59 14:59 22:59 Intake Total 600 Balance 600 Intake: Intake, IV Titration 250 Amount Vancomycin 1,500 mg In 250 Sodium Chloride 0.9% 250 ml @ 125 mls/hr IVPB Q12H [facility] Rx#:[id number] Oral 350 Other: Voiding Method Toilet Toilet Toilet # Voids 2 3 - Constitutional General appearance: average body habitus, cooperative, no acute distress - EENT Eyes: anicteric sclerae, EOMI, normal appearance ENT: hearing grossly normal, normal oropharynx - Neck Neck: no lymphadenopathy - Respiratory Respiratory: bilateral: CTA - Cardiovascular Rhythm: regular Heart sounds: normal: S1, S2 Abnormal Heart Sounds: systolic murmur leg Peripheral Edema: bilateral: None - Gastrointestinal General gastrointestinal: no absent bowel sounds, no decreased bowel sounds, no distended, no hepatomegaly, no hyperactive bowel sounds, normal bowel sounds, no organomegaly, no rigid, no scaphoid, soft, no splenomegaly, no tenderness, no umbilical hernia, no ventral hernia - Integumentary Integumentary: normal turgor, pale - Neurologic Neurologic: CNII-XII intact - Musculoskeletal Musculoskeletal: strength equal bilaterally - Psychiatric Psychiatric: A&O x's 3, appropriate affect, intact judgment & insight Results CBC & Chem 7: 03/24/19 06:00 03/24/19 06:00 Labs: Abnormal Lab Results - Last 24 Hours (Table) 03/24/19 03/24/19 Range/Units 06:00 06:00 WBC 2.4 L (3.8-10.6) k/uL RBC 2.92 L (4.30-5.90) m/uL Hgb 7.8 L D (13.0-17.5) gm/dL Hct 23.9 L (39.0-53.0) % RDW 21.2 H (11.5-15.5) % Plt Count 102 L (150-450) k/uL Neutrophils # 1.1 L (1.3-7.7) k/uL Lymphocytes # 0.9 L (1.0-4.8) k/uL Chloride 108 H (98-107) mmol/L BUN 21 H (9-20) mg/dL AST 16 L (17-59) U/L Total Protein 5.3 L (6.3-8.2) g/dL Albumin 3.0 L (3.5-5.0) g/dL Microbiology - Last 24 Hours (Table) 03/22/19 22:05 Blood Culture Gram Stain - Preliminary Blood Blood Culture - Preliminary Coagulase Negative Staph 03/22/19 22:08 Blood Culture - Preliminary Blood 03/23/19 14:03 Urine Culture - Preliminary Urine,Clean Catch Chest x-ray: report reviewed Assessment and Plan (1) Fever Narrative/Plan: Temperature 101.5 on admit, blood cultures positive for coagulase-negative staph, antibiotics ordered, Infectious Disease consulted. Current Visit: Yes Status: Acute Priority: High Code(s): R50.9 - FEVER, UNSPECIFIED SNOMED Code(s): 836430788 (2) MDS (myelodysplastic syndrome) Narrative/Plan: No current treatment for MDS. Patient is on supportive care only. Transfuse for hemoglobin less than 7.5, platelets less than 10,000, unless symptomatic, no gr owth factor at this time, ANC is adequate. With increased incident of acute illness patient does unfortunately have a further drop in his blood counts. CBC daily Current Visit: Yes Status: Chronic Priority: Medium Code(s): D46.9 - MYELODYSPLASTIC SYNDROME, UNSPECIFIED SNOMED Code(s): 420373918 (3) Hx of allogeneic bone marrow transplant Current Visit: No Status: Chronic Priority: Low Code(s): Z94.81 - BONE MARROW TRANSPLANT STATUS SNOMED Code(s): 196965421
--- NOTE | 2019-03-24 20:50 | PN ---
PROGRESS NOTE DATE OF SERVICE: 03/24/2019 REASON FOR FOLLOWUP: 1. Fever. 2. Bacteremia. INTERVAL HISTORY: The patient's overall fever pattern has improved. The patient is still complaining of shortness of breath. He did have some cough. No chest pain, though. No nausea, no vomiting, no abdominal pain and no diarrhea. PHYSICAL EXAMINATION: Blood pressure 151/82 with a pulse of 83, temperature 97.9. He is 100% on room air. General description is an elderly male lying in bed in no distress. RESPIRATORY SYSTEM: Unlabored breathing. Clear to auscultation anteriorly. HEART: S1, S2. Regular rate and rhythm. ABDOMEN: Soft. No tenderness. LABS: Hemoglobin 7.8, white count 2.4, BUN of 21, creatinine 1.09. Blood culture with coagulase-negative staph. DIAGNOSTIC IMPRESSION AND PLAN: 1. Patient admitted to hospital with a fever and respiratory symptoms, concern for possible bronchitis/pneumonia. Repeat chest x-ray with some atelectasis. The patient is currently on Rocephin. 2. Patient with a positive blood culture with coagulase-negative staphylococcus. Would have disregarded; however, the patient did have a Mediport. Blood culture repeat had been ordered before vancomycin was started. Will follow up results on them. Continue the vancomycin. Continue supportive care. MMODL / IJN: [id number] /
[2019-03-25] MEDS: VANCOMYCIN 1,500 MG in SODIUM CHLORIDE 0.9% 250 ML IVPB SCH ×2 (04:59→12:42)
[2019-03-25] MEDS: BENZOCAINE/MENTHOL LOZENG 1 EACH LOZENGE MUCOUS MEM PRN (06:26)
[2019-03-25 07:16] LABS: Albumin 3.2 g/dL (3.5-5.0); Calcium 8.7 mg/dL (8.4-10.2); Potassium 4.4 mmol/L (3.5-5.1); Total Bilirubin 0.3 mg/dL (0.2-1.3); Total Protein 5.6 g/dL (6.3-8.2)
[2019-03-25 07:47] LABS: Anisocytosis Moderate; Basophils % (A) 0 %; Eosinophils % (A) 1 %; HCT 25.4 % (39.0-53.0); Hypochromasia Moderate; Lymphocytes % (A) 39 %; MCH 26.5 pg (25.0-35.0); MCHC 31.7 g/dL (31.0-37.0); MCV 83.6 fL (80.0-100.0); Mean Platelet Volume 9.9; Microcytosis Slight; Monocytes # (A) 0.2 k/uL (0-1.0); Monocytes % (A) 7 %; Neutrophils # (A) 1.3 k/uL (1.3-7.7); Neutrophils % (A) 48 %; Platelet Count 143 k/uL (150-450); RBC 3.04 m/uL (4.30-5.90); RDW 21.2 % (11.5-15.5); WBC 2.6 k/uL (3.8-10.6)
[2019-03-25] MEDS: RIVAROXABAN 15 MG TAB PO SCH (08:52)
[2019-03-25] MEDS: CARVEDILOL 12.5 MG TAB PO SCH ×2 (08:54→16:59)
[2019-03-25] MEDS: ACYCLOVIR 200 MG CAP PO SCH (08:54)
[2019-03-25] MEDS: PANTOPRAZOLE 40 MG TABLET PO SCH (08:54)
[2019-03-25] MEDS: LISINOPRIL 20 MG TAB PO SCH (08:54)
[2019-03-25] MEDS: SPIRONOLACTONE 25 MG TAB PO SCH (08:54)
[2019-03-25] MEDS: HYDROCORTISONE 10 MG TAB PO SCH (08:55)
[2019-03-25] MEDS ORDERED: VANCOMYCIN TROUGH DUE 1 EACH MISC MISCELLANE ONE (11:00)
[2019-03-25 12:03] VITALS: BP 157/86; PULSE 59; RESP 17; TEMP 97.9
--- NOTE | 2019-03-25 15:18 | P.PN ---
Subjective Progress Note Date: 03/25/19 Principal diagnosis: MDS on supportive care only, admitted with fever, + BC In f/u today pt states he is feeling better, cough is persistent, dry, no chest pain, diarrhea. Objective - Vital Signs Vital signs: Vital Signs Temp 97.9 F 03/25/19 12:02 Pulse 59 L 03/25/19 12:02 Resp 17 03/25/19 12:02 BP 157/86 03/25/19 12:02 Pulse Ox 100 03/25/19 12:02 Intake & Output 03/24/19 03/25/19 03/25/19 18:59 06:59 18:59 Intake Total 600 1380 Balance 600 1380 Intake: Intake, IV Titration 250 300 Amount Vancomycin 1,500 mg In 250 250 Sodium Chloride 0.9% 250 ml @ 125 mls/hr IVPB Q12H [facility] Rx#:[id number] cefTRIAXone 1 gm In 50 Sodium Chloride 0.9% 50 ml @ 100 mls/hr IVPB HS [facility] Rx#:[id number] Oral 350 1080 Other: Voiding Method Toilet Toilet Toilet # Voids 3 3 1 - Constitutional General appearance: Present: average body habitus, cooperative, no acute distress - EENT Eyes: Present: anicteric sclerae, EOMI ENT: Present: hearing grossly normal, normal oropharynx - Respiratory Respiratory: bilateral: CTA - Cardiovascular Heart sounds: normal: S1, S2 - Peripheral edema leg Peripheral Edema: bilateral: None - Gastrointestinal General gastrointestinal: Present: normal bowel sounds, soft - Neurologic Neurologic: Present: CNII-XII intact - Musculoskeletal Musculoskeletal: Present: strength equal bilaterally - Psychiatric Psychiatric: Present: A&O x's 3, appropriate affect, intact judgment & insight - Labs CBC & Chem 7: 03/25/19 06:18 03/25/19 06:18 Labs: Abnormal Lab Results - Last 24 Hours (Table) 03/25/19 03/25/19 Range/Units 06:18 06:18 WBC 2.6 L (3.8-10.6) k/uL RBC 3.04 L (4.30-5.90) m/uL Hgb 8.0 L (13.0-17.5) gm/dL Hct 25.4 L (39.0-53.0) % RDW 21.2 H (11.5-15.5) % Plt Count 143 L (150-450) k/uL Chloride 109 H (98-107) mmol/L AST 13 L (17-59) U/L Total Protein 5.6 L (6.3-8.2) g/dL Albumin 3.2 L (3.5-5.0) g/dL Microbiology - Last 24 Hours (Table) 03/22/19 22:08 Blood Culture - Final Blood 03/22/19 22:05 Blood Culture Gram Stain - Final Blood Blood Culture - Final Staphylococcus epidermidis 03/24/19 00:19 Blood Culture - Preliminary Blood No Growth after 24 hours 03/23/19 14:03 Urine Culture - Final Urine,Clean Catch Assessment and Plan (1) Fever Narrative/Plan: Antibiotics ordered, Infectious Disease following. Current Visit: Yes Status: Resolved Priority: High Code(s): R50.9 - FEVER, UNSPECIFIED SNOMED Code(s): 774944605 (2) MDS (myelodysplastic syndrome) Narrative/Plan: Pt is on supportive care only with supportive transfusion PRN. CBC stable, slightly improved with out intervention-suspect slight drop due to acute illness . Pt feels well, he has f/u appts, he knows symptoms to report and he is seen PRN. Will cont to monitor his CBC No intervention today Current Visit: Yes Status: Chronic Priority: Medium Code(s): D46.9 - MYELODYSPLASTIC SYNDROME, UNSPECIFIED SNOMED Code(s): 692749295 (3) Hx of allogeneic bone marrow transplant Current Visit: No Status: Chronic Priority: Low Code(s): Z94.81 - BONE MARROW TRANSPLANT STATUS SNOMED Code(s): 479500360
--- NOTE | 2019-03-25 15:26 | P.DS ---
Providers Date of admission: 03/24/19 00:11 Expected date of discharge: 03/25/19 Attending physician: Loco Jain Consults: 03/23/19 09:09 Consult Physician Routine Consulting Provider: Elaine Aranda Consult Reason/Comments: fever of unknown orgin Do you want consulting provider notified?: Yes 03/23/19 13:31 Consult Physician Routine Consulting Provider: Bruce England Consult Reason/Comments: established patient Do you want consulting provider notified?: Yes Primary care physician: Ranjana Rendon [facility] Course: Discharge diagnosis 1. Fever of unknown origin. Patient having elevated temperature 101.5. Patient has been on steroids for adrenal insufficiency. Infectious disease has been consulted. Blood and urine and sputum cultures ordered. Chest x-ray negative for cardiopulmonary process. Influenza negative. Blood culture positive for Staphylococcus epidermidis. Repeat blood culture showing no growth after [address] Aranda per infectious disease. Patient may be discharged home on Ceftin for one week 500 twice a day. Patient has been afebrile for the past 48 hours 2. Underlying history of myelodysplastic syndrome. 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 [facility] does follow [facility] Patient reports last visit was Saturday no current treatment at this time patient to follow-up with [facility] oncology service consulted 3. Anemia of chronic disease. Hemoglobin8.0. Cardiology services are following. Anemia likely due to MDS an acute illness. Will order repeat CBC for 2 days 4. History of right lower extremity DVT. Patient Doppler completed in November 2018 showing positive right lower extremity DVT. Patient maintained on Xarelto 5. History of essential hypertension. Home meds resumed 6. History of hyperlipidemia 7. History of prostate cancer with prostatectomy 8. History of C. diff in 2016 9. History of cataracts Hospital course This is a 63-year-old male patient of Dr. Rendon. Patient presented with complaints of fever. Patient reports about 2 weeks ago he had upper respiratory symptoms with sore throat cough and postnasal drip. Patient reports that he started noticing fevers approximately 1 week ago. Patient has chills with fever recurrence. Patient denies any nausea vomiting or diarrhea. Patient denies any headache. Patient is still complaining of occasional sore throat with postnasal drip. Patient denies any urinary burning or frequency. Patient does have a past medical history of adrenal insufficiency and when she is maintained on hydrocortisone and acyclovir, myelodysplastic syndrome in which he follows with [facility], status post bone marrow transplant with [id number] disease, prostate cancer with prostatectomy, hyperlipidemia and hypertension. Patient also reports he was diagnosed with DVT in November 2018 which is maintained on Xarelto. Influenza negative. Chest x-ray completed showing no evidence for acute cardiopulmonary disease. Blood urine and sputum cultures ordered. Patient started on Rocephin and Zithromax. Patient for Acyclovir resumed. Infectious disease has been consulted. Elevated temp of 101.5. At this time patient denies chest pain or shortness of breath. Patient denies nausea vomiting or diarrhea. Patient denies any urinary burning or frequency. On 03/24/2019 patient's alert and oriented 3. Patient has been afebrile throughout night. Blood culture growing coagulase-negative staph. Infectious disease is following. Patient antibiotic adjusted to vancomycin and Rocephin. Repeat blood culture ordered. At this time patient denies any chest pain or shortness of breath. Patient is complaining of cough. Patient denies any nausea vomiting or diarrhea. Patient denies any urinary burning or frequency. On 03/25/2018 patient is alert and oriented 3. Patient reports he feels much improved was able to get adequate sleep. Patient has been afebrile for 48 hours. Initial blood culture growing Staphylococcus epidermidis. Repeat blood culture showing no growth after [address] Discussed case with Dr. Aranda per infectious these. Patient has been cleared for discharge per infectious these recommendations be discharged on Ceftin for one week. Patient follow-up outpatient. At this time patient denies chest pain or shortness of breath. Patient denies nausea vomiting or diarrhea. Patient denies any urinary frequency. I performed an examination of the patient and discussed their management with the Nurse Practitioner. I have reviewed the Nurse Practitioner's notes and agree with the documented findings and plan of care Patient Condition at Discharge: Stable Plan - Discharge Summary Discharge Rx Participant: No New Discharge Prescriptions: New Cefuroxime Axetil [Ceftin] 500 mg PO BID 7 Days #14 tab Continue Ergocalciferol (Vitamin D2) [Drisdol] 50,000 unit PO TH Lisinopril 20 mg PO BID Acyclovir 400 mg PO BID Spironolactone [Aldactone] 25 mg PO DAILY Carvedilol [Coreg] 12.5 mg PO BID Hydrocortisone [Cortef] 10 mg PO BID Allopurinol [Zyloprim] 300 mg PO DAILY prednisoLONE ACETATE 1% OPHTH [Pred Forte 1%] 1 drops RIGHT EYE DAILY prednisoLONE ACETATE 1% OPHTH [Pred Forte 1%] 1 drops LEFT EYE TID Rivaroxaban [Xarelto] 20 mg PO DAILY Discontinued Carvedilol [Coreg] 25 mg PO BID Discharge Medication List Ergocalciferol (Vitamin D2) [Drisdol] 50,000 unit PO TH 12/04/15 [History] Lisinopril 20 mg PO BID 03/14/17 [History] Acyclovir 400 mg PO BID 07/02/17 [History] Spironolactone [Aldactone] 25 mg PO DAILY 02/06/18 [History] Carvedilol [Coreg] 12.5 mg PO BID 09/12/18 [History] Hydrocortisone [Cortef] 10 mg PO BID 09/12/18 [History] Allopurinol [Zyloprim] 300 mg PO DAILY 03/23/19 [History] Rivaroxaban [Xarelto] 20 mg PO DAILY 03/23/19 [History] prednisoLONE ACETATE 1% OPHTH [Pred Forte 1%] 1 drops LEFT EYE TID 03/23/19 [History] prednisoLONE ACETATE 1% OPHTH [Pred Forte 1%] 1 drops RIGHT EYE DAILY 03/23/19 [History] Cefuroxime Axetil [Ceftin] 500 mg PO BID 7 Days #14 tab 03/25/19 [Rx] Follow up Appointment(s)/Referral(s): Ranjana Rendon DO [Primary Care Provider] - 1-2 days Elaine Aranda MD [STAFF PHYSICIAN] - 1 Week Activity/Diet/Wound Care/Special Instructions: Activity as tolerated Diet heart healthy Discharge Disposition: HOME SELF-CARE
--- NOTE | 2019-03-25 18:26 | PN ---
PROGRESS NOTE DATE OF SERVICE: 03/25/2019 REASON FOR FOLLOWUP: 1. Possible bronchitis. 2. Positive blood culture, likely skin contamination. INTERVAL HISTORY: The patient is currently afebrile. Patient has been breathing more comfortably. The patient continues to have a cough but is not bringing up any sputum. No chest pain. No nausea. No vomiting. No abdominal pain or any diarrhea. Anxious to go home. PHYSICAL EXAMINATION: Blood pressure 157/86, pulse of 59, temperature 97.9. He is 100% on room air. General description is an elderly male up in the bed in no distress. RESPIRATORY SYSTEM: Unlabored breathing. Clear to auscultation anteriorly. HEART: S1, S2. Regular rate and rhythm. ABDOMEN: Soft. No tenderness. EXTREMITIES: No edema of the feet. LABS: Hemoglobin 8, white count 2.6 with a BUN of 19, creatinine 1.10. Vancomycin trough slightly elevated. Patient's blood culture finalized with Staph epidermidis, only one bottle. Repeat blood culture from 03/24 has been negative so far. DIAGNOSTIC IMPRESSION AND PLAN: 1. Patient admitted to hospital with a fever, mostly respiratory symptoms, likely bronchopneumonia, which seems to have shown clinical improvement on Rocephin. To finish therapy with a short course of oral Ceftin. 2. Positive blood culture with Staphylococcus epidermidis, likely skin contamination, as the follow-up blood culture before the vancomycin still has been negative. Vancomycin will be discontinued. No need for further workup for the same. MMODL / IJN: [id number] /
--- NOTE | 2019-03-26 14:30 | CDI ---
Documentation Clarification Form Date: 03/25/19 From: Sheeba Morrison Phone: If you have a question regarding this query, please contact Marlen Murray at [phone] between 8am and 5pm. Admit Date: 03/24/2019 12:11:00 AM Patient Name: Elijah Montalvo Visit Number: [id number] Discharge Date: 03/25/2019 6:22:00 PM ATTENTION: The Clinical Documentation Specialists (CDI) and [facility] Coding Staff appreciate your assistance in clarifying documentation. Please respond to the clarification below the line at the bottom and electronically sign. The CDI & [facility] Coding staff will review the response and follow-up if needed. Please note: Queries are made part of the Legal Health Record. If you have any questions, please contact the author of this message via ITS. GELY Maki/Dr. Loco Jain The patients principal diagnosis has not been clearly identified and requires clarification. He/She presented with cough and fever. History/Risk factors: Patient has myelodysplastic syndrome and is immunosuppressed. Clinical Indicators: Cough, sore throat, postnasal drip and fever. Lab findings: WBC 3.9, Hgb/Hct 7.8/23.9, ALT 20 Radiology findings: Chest 03/22: No evidence of acute cardiopulmonary disease. Chest 03/24: Linear subsegmental right infrahilar atelectasis. No focal consolidation to suggest pneumonia. Vital Signs: T. 79638, P. 85, R. 18, BP 122/73 Treatment: IV Azithromycin, IV Rocephin, IV Vancomycin Consults: Per Dr. Aranda's 03/25 progress note, patient admitted to hospital with a fever, mostly respiratory symptoms, likely bronchopneumonia, which seems to have shown clinical improvement on Rocephin. Other tx: Patient sent home on PO Ceftin In your professional opinion, can you please clarify which diagnosis, after study, accounted for the patients presenting symptoms and was the reason chiefly responsible for the admission? Fever of unknown origin Bronchopneumonia Bronchitis (specify acute or chronic) Other specified reason (please specify) Unable to determine Fever of unknown origin MTDD
== END 2019-03-25 18:22 | disposition home or self-care (01) | DRG 864 ==
LOC: EC 21:27 → 3NMEDONC 03-23 00:01 → INTOOBSV 03-23 00:01 → OBSVTOIN 03-24 00:11
PROVIDERS: ADMIT Internal Medicine; ATTEND Internal Medicine
DX: R50.9 Fever, unspecified (principal); J18.0 Bronchopneumonia, unspecified organism; E27.40 Unspecified adrenocortical insufficiency; J98.11 Atelectasis; R78.81 Bacteremia; D89.813 Graft-versus-host disease, unspecified; Z94.81 Bone marrow transplant status; D46.9 Myelodysplastic syndrome, unspecified; D63.8 Anemia in other chronic diseases classified elsewhere; E78.5 Hyperlipidemia, unspecified; F32.9 Major depressive disorder, single episode, unspecified; I10 Essential (primary) hypertension; I87.2 Venous insufficiency (chronic) (peripheral); N42.9 Disorder of prostate, unspecified; R09.82 Postnasal drip; I25.10 Atherosclerotic heart disease of native coronary artery without angina pectoris; Z79.01 Long term (current) use of anticoagulants; Z79.899 Other long term (current) drug therapy; Z88.5 Allergy status to narcotic agent; Z91.041 Radiographic dye allergy status; Z87.891 Personal history of nicotine dependence; Z86.718 Personal history of other venous thrombosis and embolism; Z85.46 Personal history of malignant neoplasm of prostate; Z92.21 Personal history of antineoplastic chemotherapy; Z95.5 Presence of coronary angioplasty implant and graft; Z98.49 Cataract extraction status, unspecified eye; Z96.1 Presence of intraocular lens; Z90.79 Acquired absence of other genital organ(s); Z80.8 Family history of malignant neoplasm of other organs or systems; Z82.49 Family history of ischemic heart disease and other diseases of the circulatory system; Z84.1 Family history of disorders of kidney and ureter
CPT/HCPCS: 36415; 71046; 80053; 80202; 81003; 83605; 85025; 85610; 85730; 87040; 87077; 87086; 87186; 87502; 93005; 94640; 96361; 96365; 96375; 99285

== ENCOUNTER → 2020-07-14 | Outpatient (CLI) | payer MEDICARE, OTHER ==
[~2020-07-14] MED LIST: SODIUM CHLORIDE 0.9% 500 ML 500 ML in EMPTY BAG 1 BAG IV PRN
[2020-07-14 10:10] VITALS: BP 117/81; PULSE 62; RESP 16; TEMP 98.1
[2020-07-14 10:57] LABS: Albumin 4.7 g/dL (3.5-5.0); Calcium 9.7 mg/dL (8.4-10.2); Potassium 5.2 mmol/L (3.5-5.1); Total Bilirubin 0.7 mg/dL (0.2-1.3); Total Protein 7.3 g/dL (6.3-8.2); Uric Acid 11.8 mg/dL (3.5-8.5)
[2020-07-14 11:15] LABS: Anisocytosis Moderate; Basophils % (A) 1 %; Eosinophils % (A) 1 %; HCT 34.6 % (39.0-53.0); HGB 11.1 gm/dL (13.0-17.5); Hypochromasia Slight; Lymphocytes # (A) 1.3 k/uL (1.0-4.8); Lymphocytes % (A) 37 %; MCH 28.5 pg (25.0-35.0); MCHC 32.3 g/dL (31.0-37.0); MCV 88.4 fL (80.0-100.0); Mean Platelet Volume 10.8; Microcytosis Slight; Monocytes # (A) 0.3 k/uL (0-1.0); Monocytes % (A) 8 %; Neutrophils # (A) 1.8 k/uL (1.3-7.7); Neutrophils % (A) 51 %; Platelet Count 156 k/uL (150-450); RBC 3.91 m/uL (4.30-5.90); RDW 20.1 % (11.5-15.5); WBC 3.6 k/uL (3.8-10.6)
[2020-07-14 12:06] LABS: Large Platelets Present; Poikilocytosis (M) Present
[2020-07-14 21:43] LABS: PSA Annual Screen <0.1 ng/mL (0.0-4.0)
[2020-07-14 22:13] LABS: Hemoglobin A1C 4.9 % (4.0-6.0)
== END | disposition home or self-care (01) ==
LOC: PROCWHC3 09:59
PROVIDERS: ATTEND Family Medicine
DX: R73.03 Prediabetes (principal); I25.10 Atherosclerotic heart disease of native coronary artery without angina pectoris; D47.1 Chronic myeloproliferative disease; I10 Essential (primary) hypertension; Z95.5 Presence of coronary angioplasty implant and graft; C61 Malignant neoplasm of prostate; M10.9 Gout, unspecified; D89.813 Graft-versus-host disease, unspecified
CPT/HCPCS: 80061; 80053; 84443 ×2; 84550; 85025; 83036; 36591; G0103; J1642

== ENCOUNTER 2023-06-02 13:11 | Emergency (ER) | payer MEDICARE ==
[2023-06-02] MEDS ORDERED: SODIUM CHLORIDE 0.9% 500 ML 500 ML IV STA ×2 (13:41→15:11)
[2023-06-02 14:31] LABS: Anisocytosis Slight; HCT 38.7 % (39.0-53.0); MCH 27.2 pg (25.0-35.0); MCHC 33.7 g/dL (31.0-37.0); MCV 80.7 fL (80.0-100.0); Mean Platelet Volume 11.4; Microcytosis Slight; Platelet Count 128 k/uL (150-450); RBC 4.79 m/uL (4.30-5.90); RDW 19.8 % (11.5-15.5); WBC 4.4 k/uL (3.8-10.6)
[2023-06-02 14:32] LABS: ALT 28 U/L (4-49); AST 39 U/L (17-59); African American GFR (CKD) 63 (>60 ml/min/1.73 sqM); Albumin 4.3 g/dL (3.5-5.0); Alkaline Phosphatase 59 U/L (38-126); Anion Gap 12 mmol/L; Blood Urea Nitrogen 25 mg/dL (9-20); Calcium 9.2 mg/dL (8.4-10.2); Carbon Dioxide 21 mmol/L (22-30); Chloride 103 mmol/L (98-107); Glucose 137 mg/dL (74-99); Magnesium 2.1 mg/dL (1.6-2.3); Non-African American GFR(CKD) 55 (>60 ml/min/1.73 sqM); Partial Thromboplastin Time 23.2 sec (22.0-30.0); Prothrombin Time 10.6 sec (9.0-12.0); Sodium 136 mmol/L (137-145); Total Bilirubin 0.8 mg/dL (0.2-1.3); Total Protein 6.9 g/dL (6.3-8.2)
--- NOTE | 2023-06-02 14:37 | ED ---
General Adult HPI - General Chief complaint: Weakness Stated complaint: Weakness Time Seen by Provider: 06/02/23 13:18 Source: patient, RN notes reviewed, old records reviewed Mode of arrival: wheelchair Limitations: physical limitation - History of Present Illness Initial comments: Patient is a 67-year-old male with past medical history remarkable for CHF, hypertension, prostate disorder, venous insufficiency who presents emergency Department complaining of generalized weakness for the last 2 days. Unknown reason why. Patient recently received RSV and flu vaccination on Saturday. Symptoms began yesterday. States he feels generalized weakness and fatigue. No focal weakness or fatigue. No numbness. No shortness of breath, chest pain, abdominal pain, nausea, vomiting, cough. No fevers. No other acute complaints at this time. Unknown reason for his symptoms. Presents for further evaluation at this time. - Related Data Home Medications Medication Instructions Recorded Confirmed Ergocalciferol (Vitamin D2) 50,000 unit PO TH 12/04/15 07/14/20 [Drisdol] lisinopriL [Lisinopril] 20 mg PO BID 03/14/17 07/14/20 Acyclovir 400 mg PO BID 07/02/17 07/14/20 Hydrocortisone [Cortef] 10 mg PO DAILY 09/12/18 07/14/20 carvediloL [Coreg] 12.5 mg PO BID 09/12/18 07/14/20 allopurinoL [Zyloprim] 300 mg PO DAILY 03/23/19 07/14/20 Previous Rx's Medication Instructions Recorded cefUROXime axetiL [Ceftin] 500 mg PO BID 7 Days #14 tab 03/25/19 Allergies Allergy/AdvReac Type Severity Reaction Status Date / Time Iodinated Contrast Media Allergy Unknown Verified 06/02/23 13:16 [Iodinated Contrast Media - IV Dye] tramadol AdvReac Nausea & Verified 06/02/23 13:16 Vomiting Review of Systems ROS Statement: Those systems with pertinent positive or pertinent negative responses have been documented in the HPI. Review of Systems: CONST: Denies fever EYES: Denies blurry vision ENT: Denies nasal congestion C/V: Denies Chest pain RESP: Denies shortness of breath GI: Denies abdominal pain : Denies dysuria SKIN: Denies rash. MSK: Denies joint pain. NEURO: Endorses weakness ROS Other: All systems not noted in ROS Statement are negative. Past Medical History Past Medical History: Cancer, Hyperlipidemia, Hypertension, Prostate Disorder Additional Past Medical History / Comment(s): prostate cancer, hx venous insufficiency, RCMD, bone marrow transplant, "graft vs host disease", myelodysplastic syndrome leumkemia chemo[facility]tx [facility], adrenal insufficiency, past sepsis History of Any Multi-Drug Resistant Organisms: C-DIFF Date of last positivie culture/infection: 2015 MDRO Source:: stool Past Surgical History: Heart Catheterization With Stent, Hernia Repair, Prostate Surgery Additional Past Surgical History / Comment(s): larry fundoplication, bone marrow bx/transplant, deviated septum, port a cath, egd x2 cataract Past Anesthesia/Blood Transfusion Reactions: No Reported Reaction Additional Past Anesthesia/Blood Transfusion Reaction / Comment(s): blood transfusion-pt stated no reaction Date of Last Stent Placement:: 2003 Past Psychological History: Depression Smoking Status: Former smoker Past Alcohol Use History: Rare Past Drug Use History: None Reported - Past Family History Father Family Medical History: Hypertension, Myocardial Infarction (ID) Mother Family Medical History: Cancer, Hypertension Additional Family Medical History / Comment(s): skin cancer Brother(s) Family Medical History: Renal Disease Additional Family Medical History / Comment(s): kidney transplant General Exam - General Exam Comments Initial Comments: General: Appears in no acute distress. HEAD: Normal with no signs of head trauma. EYES: PERRLA, EOMI, conjunctiva normal, no discharge. Pupils 3 mm and equal bilaterally. ENT: Hearing grossly intact, normal oropharynx. RESPIRATORY: Clear breath sounds bilaterally. No wheezes, rales, or rhonchi. C/V: Regular rate and rhythm. S1 and S2 auscultated, no edema, peripheral pulses 2+ and intact throughout ABD: Abd is soft, nontender, nondistended EXT: Normal range of motion, no obvious deformity SKIN: No rashes or lesions observed on exposed skin. NEURO: Alert and oriented x 4. Cranial nerves II-XII intact. No focal sensory or strength deficits. GCS of 15. NIH is 0. Limitations: physical limitation Course Vital Signs 06/02/23 06/02/23 06/02/23 13:12 14:45 16:47 Temperature 98.6 F 98.5 F Pulse Rate 74 82 Respiratory 20 18 Rate Blood Pressure 98/66 129/88 Blood Pressure 110/71 [Right Arm Sitting] Blood Pressure 109/80 [Right Arm Standing] Blood Pressure 115/74 [Right Arm Supine] O2 Sat by Pulse 99 96 Oximetry Medical Decision Making - Medical Decision Making Was pt. sent in by a medical professional or institution (GAYLE Mercer, [employer], urgent care, hospital, or detention...) When possible be specific @ -No Did you speak to anyone other than the patient for history (EMS, parent, family, police, friend...)? What history was obtained from this source @ -No Did you review nursing and triage notes (agree or disagree)? Why? @ -I reviewed and agree with nursing and triage notes Were old charts reviewed (outside hosp., previous admission, EMS record, old EKG, old radiological studies, urgent care reports/EKG's, detention records)? Report findings @ -Old charts were reviewed. Differential Diagnosis (chest pain, altered mental status, abdominal pain women, abdominal pain men, vaginal bleeding, weakness, fever, dyspnea, syncope, headache, dizziness, GI bleed, back pain, seizure, CVA, palpatations, mental health, musculoskeletal)? @ -Differential Weakness: Hypoglycemia, shock, sepsis, hyponatremia, anemia, infection, ID, ETOH, adverse medicine reaction, overdose, stroke, this is not meant to be an all-inclusive list. EKG interpreted by me (3pts min.). @ -As above X-rays interpreted by me (1pt min.). @ -Chest x-ray reveals no obvious acute cardiopulmonary process. CT interpreted by me (1pt min.). @ -None done U/S interpreted by me (1pt. min.). @ -None done What testing was considered but not performed or refused? (CT, X-rays, U/S, labs)? Why? @ -None What meds were considered but not given or refused? Why? @ -None Did you discuss the management of the patient with other professionals (professionals i.e. GAYLE Mercer, [employer], lab, RT, psych nurse, manager social media, superintendent pressure, teacher, staff mine warfare officer, pillowcase folder)? Give summary @ -No Was smoking cessation discussed for >3mins.? @ -No Was critical care preformed (if so, how long)? @ -No Were there social determinants of health that impacted care today? How? (Homelessness, low income, unemployed, alcoholism, drug addiction, transportation, low edu. Level, literacy, decrease access to med. care, detention, rehab)? @ -No Was there de-escalation of care discussed even if they declined (Discuss DNR or withdrawal of care, Hospice)? DNR status @ -No What co-morbidities impacted this encounter? (DM, HTN, Smoking, COPD, CAD, Cancer, CVA, ARF, Chemo, Hep., AIDS, mental health diagnosis, sleep apnea, morbid obesity)? @ -None Was patient admitted / discharged? Hospital course, mention meds given and route, prescriptions, significant lab abnormalities, going to OR and other pertinent info. @ -Based on the patient's presentation and physical exam, presents with generalized weakness with no clear etiology. Has been present for 2 days. Only associated activity that could explain that is he had recent influenza and RSV vaccination. Vital signs within acceptable limits. Presents for further evaluation. We will obtain generalized weakness labs, infectious labs. He was in agreement this plan. He will receive a small fluid bolus as he does have a history of CHF. He also drink water for oral hydration. Patient was in agreement this plan. Patient's labs are remarkable for mildly elevated lactic acid likely secondary to dehydration. Patient has CK D with baseline BUN and creatinine numbers. Troponin undetectable. Urine within normal limits. Viral swab is negative negative. Chest x-ray unremarkable. EKG within acceptable limits. I discussed the results with the patient. States he feels improved and like to go home. He relates throughout the emergency department without issue. No longer feeling weak. Would like to leave. I believe this is reasonable. Possibly has mild dehydration. Strict return precautions discussed. Discussed proper hydration. I instructed the patient to follow up with their PCP in the next 1-3 days. I explained that the patient should return to the emergency department if they experience any worsening symptoms. Strict return precautions were discussed with the patient. The patient expressed understanding of these instructions. I answered all questions that the patient had. The patient was discharged home in good condition with their prescriptions and follow up information. Undiagnosed new problem with uncertain prognosis? @ -No Drug Therapy requiring intensive monitoring for toxicity (Heparin, Nitro, Insulin, Cardizem)? @ -No Were any procedures done? @ -No Diagnosis/symptom? @ -Dehydration Acute, or Chronic, or Acute on Chronic? @ -Acute Uncomplicated (without systemic symptoms) or Complicated (systemic symptoms)? @ -Complicated Side effects of treatment? @ -none Exacerbation, Progression, or Severe Exacerbation] @ -no Poses a threat to life or bodily function? @ -no - Lab Data Result diagrams: 06/02/23 14:14 06/02/23 14:14 Lab Results 06/02/23 06/02/23 06/02/23 Range/Units 14:14 14:14 14:14 WBC 4.4 (3.8-10.6) k/uL RBC 4.79 (4.30-5.90) m/uL Hgb 13.0 (13.0-17.5) gm/dL Hct 38.7 L (39.0-53.0) % MCV 80.7 (80.0-100.0) fL MCH 27.2 (25.0-35.0) pg MCHC 33.7 (31.0-37.0) g/dL RDW 19.8 H (11.5-15.5) % Plt Count 128 L (150-450) k/uL MPV 11.4 Neutrophils % (Manual) 50 % Lymphocytes % (Manual) 27 % Monocytes % (Manual) 22 % Eosinophils % (Manual) 1 % Neutrophils # (Manual) 2.20 (1.3-7.7) k/uL Lymphocytes # (Manual) 1.19 (1.0-4.8) k/uL Monocytes # (Manual) 0.97 (0-1.0) k/uL Eosinophils # (Manual) 0.04 (0-0.7) k/uL Nucleated RBCs 0 (0-0) /100 WBC Manual Slide Review Performed Anisocytosis Slight Microcytosis Slight PT 10.6 (9.0-12.0) sec INR 1.0 (<1.2) APTT 23.2 (22.0-30.0) sec Sodium 136 L (137-145) mmol/L Potassium 4.4 (3.5-5.1) mmol/L Chloride 103 (98-107) mmol/L Carbon Dioxide 21 L (22-30) mmol/L Anion Gap 12 mmol/L BUN 25 H (9-20) mg/dL Creatinine 1.33 H (0.66-1.25) mg/dL Est GFR (CKD-EPI)AfAm 63 (>60 ml/min/1.73 sqM) Est GFR (CKD-EPI)NonAf 55 (>60 ml/min/1.73 sqM) Glucose 137 H (74-99) mg/dL Lactic Ac Sepsis Rflx Plasma Lactic Acid [place] (0.7-2.0) mmol/L Calcium 9.2 (8.4-10.2) mg/dL Magnesium 2.1 (1.6-2.3) mg/dL Total Bilirubin 0.8 (0.2-1.3) mg/dL AST 39 (17-59) U/L ALT 28 (4-49) U/L Alkaline Phosphatase 59 (38-126) U/L Troponin I (0.000-0.034) ng/mL Total Protein 6.9 (6.3-8.2) g/dL Albumin 4.3 (3.5-5.0) g/dL Urine Color Urine Appearance (Clear) Urine pH (5.0-8.0) Ur Specific [place] (1.001-1.035) Urine Protein (Negative) Urine Glucose (UA) (Negative) Urine Ketones (Negative) Urine Blood (Negative) Urine Nitrite (Negative) Urine Bilirubin (Negative) Urine Urobilinogen (<2.0) mg/dL Ur Leukocyte Esterase (Negative) Influenza Type A (PCR) (Not Detectd) Influenza Type B (PCR) (Not Detectd) RSV (PCR) (Not Detectd) SARS-CoV-2 (PCR) (Not Detectd) 06/02/23 06/02/23 06/02/23 Range/Units 14:14 14:14 14:14 WBC (3.8-10.6) k/uL RBC (4.30-5.90) m/uL Hgb (13.0-17.5) gm/dL Hct (39.0-53.0) % MCV (80.0-100.0) fL MCH (25.0-35.0) pg MCHC (31.0-37.0) g/dL RDW (11.5-15.5) % Plt Count (150-450) k/uL MPV Neutrophils % (Manual) % Lymphocytes % (Manual) % Monocytes % (Manual) % Eosinophils % (Manual) % Neutrophils # (Manual) (1.3-7.7) k/uL Lymphocytes # (Manual) (1.0-4.8) k/uL Monocytes # (Manual) (0-1.0) k/uL Eosinophils # (Manual) (0-0.7) k/uL Nucleated RBCs (0-0) /100 WBC Manual Slide Review Anisocytosis Microcytosis PT (9.0-12.0) sec INR (<1.2) APTT (22.0-30.0) sec Sodium (137-145) mmol/L Potassium (3.5-5.1) mmol/L Chloride (98-107) mmol/L Carbon Dioxide (22-30) mmol/L Anion Gap mmol/L BUN (9-20) mg/dL Creatinine (0.66-1.25) mg/dL Est GFR (CKD-EPI)AfAm (>60 ml/min/1.73 sqM) Est GFR (CKD-EPI)NonAf (>60 ml/min/1.73 sqM) Glucose (74-99) mg/dL Lactic Ac Sepsis Rflx Plasma Lactic Acid [place] 2.7 H* (0.7-2.0) mmol/L Calcium (8.4-10.2) mg/dL Magnesium (1.6-2.3) mg/dL Total Bilirubin (0.2-1.3) mg/dL AST (17-59) U/L ALT (4-49) U/L Alkaline Phosphatase (38-126) U/L Troponin I <0.012 (0.000-0.034) ng/mL Total Protein (6.3-8.2) g/dL Albumin (3.5-5.0) g/dL Urine Color Urine Appearance (Clear) Urine pH (5.0-8.0) Ur Specific [place] (1.001-1.035) Urine Protein (Negative) Urine Glucose (UA) (Negative) Urine Ketones (Negative) Urine Blood (Negative) Urine Nitrite (Negative) Urine Bilirubin (Negative) Urine Urobilinogen (<2.0) mg/dL Ur Leukocyte Esterase (Negative) Influenza Type A (PCR) Not Detected (Not Detectd) Influenza Type B (PCR) Not Detected (Not Detectd) RSV (PCR) Not Detected (Not Detectd) SARS-CoV-2 (PCR) Not Detected (Not Detectd) 06/02/23 06/02/23 Range/Units 15:01 16:19 WBC (3.8-10.6) k/uL RBC (4.30-5.90) m/uL Hgb (13.0-17.5) gm/dL Hct (39.0-53.0) % MCV (80.0-100.0) fL MCH (25.0-35.0) pg MCHC (31.0-37.0) g/dL RDW (11.5-15.5) % Plt Count (150-450) k/uL MPV Neutrophils % (Manual) % Lymphocytes % (Manual) % Monocytes % (Manual) % Eosinophils % (Manual) % Neutrophils # (Manual) (1.3-7.7) k/uL Lymphocytes # (Manual) (1.0-4.8) k/uL Monocytes # (Manual) (0-1.0) k/uL Eosinophils # (Manual) (0-0.7) k/uL Nucleated RBCs (0-0) /100 WBC Manual Slide Review Anisocytosis Microcytosis PT (9.0-12.0) sec INR (<1.2) APTT (22.0-30.0) sec Sodium (137-145) mmol/L Potassium (3.5-5.1) mmol/L Chloride (98-107) mmol/L Carbon Dioxide (22-30) mmol/L Anion Gap mmol/L BUN (9-20) mg/dL Creatinine (0.66-1.25) mg/dL Est GFR (CKD-EPI)AfAm (>60 ml/min/1.73 sqM) Est GFR (CKD-EPI)NonAf (>60 ml/min/1.73 sqM) Glucose (74-99) mg/dL Lactic Ac Sepsis Rflx Y Plasma Lactic Acid [place] (0.7-2.0) mmol/L Calcium (8.4-10.2) mg/dL Magnesium (1.6-2.3) mg/dL Total Bilirubin (0.2-1.3) mg/dL AST (17-59) U/L ALT (4-49) U/L Alkaline Phosphatase (38-126) U/L Troponin I (0.000-0.034) ng/mL Total Protein (6.3-8.2) g/dL Albumin (3.5-5.0) g/dL Urine Color Yellow Urine Appearance Clear (Clear) Urine pH 5.5 (5.0-8.0) Ur Specific [place] 1.016 (1.001-1.035) Urine Protein Negative (Negative) Urine Glucose (UA) Negative (Negative) Urine Ketones Negative (Negative) Urine Blood Negative (Negative) Urine Nitrite Negative (Negative) Urine Bilirubin Negative (Negative) Urine Urobilinogen <2.0 (<2.0) mg/dL Ur Leukocyte Esterase Negative (Negative) Influenza Type A (PCR) (Not Detectd) Influenza Type B (PCR) (Not Detectd) RSV (PCR) (Not Detectd) SARS-CoV-2 (PCR) (Not Detectd) - EKG Data -: EKG Interpreted by Me EKG Comments: 12-lead Electrocardiogram Interpretation Note EKG was reviewed and interpreted by myself. 12-lead ECG performed at 1327 is interpreted by me as revealing normal sinus rhythm at a rate of 73 beats per minute. [place] is normal. MA Intervals 154 ms, QRS ration is 91 ms, QTc is 419 ms.. There were no ST or T wave abnormalities to suggest myocardial ischemia or injury. R wave progression across the precordium was satisfactory. By my interpretation this EKG is non-diagnostic for acute ischemia. Disposition Clinical Impression: Dehydration Disposition: HOME SELF-CARE Condition: Good Instructions (If sedation given, give patient instructions): Dehydration (ED) Is patient prescribed a controlled substance at d/c from ED?: No Referrals: Nonstaff,Physician [Primary Care Provider] - 1-2 days Time of Disposition: 16:30
--- NOTE | 2023-06-02 14:42 | XR ---
EXAMINATION TYPE: XR chest 2V DATE OF EXAM: 06/02/2023 2:32 PM COMPARISON: Chest radiographs from 03/24/2019 TECHNIQUE: XR chest 2V Frontal and lateral views of the chest. CLINICAL INDICATION:Male, 67 years old with history of Weakness; FINDINGS: Lungs/Pleura: There is no evidence of pleural effusion, focal consolidation, or pneumothorax. Simila r elevation the right hemidiaphragm. Pulmonary vascularity: Unremarkable. Heart/mediastinum: Cardiomediastinal silhouette is unremarkable. Musculoskeletal: Multiple level degenerative disc disease changes seen throughout the spine. IMPRESSION: No acute cardiopulmonary disease/process.
[2023-06-02 14:59] LABS: Potassium 4.4 mmol/L (3.5-5.1)
[2023-06-02 15:04] LABS: Eosinophils # (M) 0.04 k/uL (0-0.7); Lymphocytes # (M) 1.19 k/uL (1.0-4.8); Monocytes # (M) 0.97 k/uL (0-1.0); Neutrophils % (M) 50 %; Nucleated Red Blood Cells 0 /100 WBC (0-0); Total Cells Counted 100
[2023-06-02 16:26] LABS: Appearance,Urine Clear (Clear); Bilirubin,Urine Negative (Negative); Blood,Urine Negative (Negative); Color,Urine Yellow; Glucose,Urine (UA) Negative (Negative); Ketones,Urine Negative (Negative); Leukocyte Esterase,Urine Negative (Negative); Nitrite,Urine Negative (Negative); PH, Urine 5.5 (5.0-8.0); Protein,Urine Negative (Negative); Specific Gravity,Urine 1.016 (1.001-1.035); Urobilinogen,Urine <2.0 mg/dL (<2.0)
[2023-06-02 16:48] VITALS: BP 129/88; PULSE 82; RESP 18; TEMP 98.5
== END 2023-06-02 16:48 | disposition home or self-care (01) ==
LOC: EC 13:11
DX: E86.0 Dehydration (principal); I11.0 Hypertensive heart disease with heart failure; I50.9 Heart failure, unspecified; Z86.59 Personal history of other mental and behavioral disorders; Z87.891 Personal history of nicotine dependence; Z79.899 Other long term (current) drug therapy; Z91.041 Radiographic dye allergy status; Z88.5 Allergy status to narcotic agent; Z20.822 Contact with and (suspected) exposure to COVID-19
CPT/HCPCS: 36415; 71046; 80053; 81003; 83605; 83735; 84484; 85025; 85610; 85730; 87636; 93005; 96360; 96361; 99285

== ENCOUNTER 2024-08-18 18:36 | Inpatient (IN) | payer MEDICARE ==
--- NOTE | 2024-08-18 19:27 | ED ---
Weakness HPI - General Source: patient, RN notes reviewed Mode of arrival: wheelchair Limitations: physical limitation - History of Present Illness MD Complaint: generalized weakness Onset/Timin -: days(s) <Bonifacio Madrigal - Last Filed: 08/18/24 19:25> <Jasiel Verdugo - Last Filed: 08/18/24 23:04> - General Chief complaint: Weakness Stated complaint: WEAKNESS CONGESTED Time Seen by Provider: 08/18/24 18:48 - History of Present Illness Initial comments: Work note: This is a 69-year-old male presenting with generalized weakness x 2 days. Endorses difficulty with position change from sitting to standing. Patient endorses history of similar weakness, often associated with low blood pressure. Patient also endorses sore throat x 2 days that has been improving since yesterday and is now a 3 out of 10. Patient endorses congestion and runny nose x 1 day. Patient denies fever, chills, chest pain, dyspnea, dizziness, unilateral weakness/paresthesia. (Bonifacio Madrigal) Is a 69-year-old male who presents emergency department for worsening generalized weakness. Has been ongoing for approximately a week but gotten worse over the last few days. Only other complaint is a sore throat. Has a history of myelodysplastic syndrome, hypertension, hyperlipidemia. Endorses mild nasal congestion but no significant cough. Denies chest pain or abdominal pain. Denies nausea or vomiting or diarrhea. Does endorse less of an appetite. Denies any fevers or known sick contacts. Has no urinary complaints. Presents for further evaluation at this time. Overall weakness with any movement which is abnormal for him. Has a history remarkable for CHF as well and has been compliant with medications. Presents for further evaluation at this time. (Jasiel Verdugo) - Related Data Home Medications Medication Instructions Recorded Confirmed Ergocalciferol (Vitamin D2) 50,000 unit PO TH 12/04/15 07/14/20 [Drisdol] lisinopriL [Lisinopril] 20 mg PO BID 03/14/17 07/14/20 Acyclovir 400 mg PO BID 07/02/17 07/14/20 Hydrocortisone [Cortef] 10 mg PO DAILY 09/12/18 07/14/20 carvediloL [Coreg] 12.5 mg PO BID 09/12/18 07/14/20 allopurinoL [Zyloprim] 300 mg PO DAILY 03/23/19 07/14/20 Previous Rx's Medication Instructions Recorded cefuroxime axetiL [Ceftin] 500 mg PO BID 7 Days #14 tab 03/25/19 Allergies Allergy/AdvReac Type Severity Reaction Status Date / Time Iodinated Contrast Media Allergy Unknown Verified 08/18/24 18:44 [Iodinated Contrast Media - IV Dye] tramadol AdvReac Nausea & Verified 08/18/24 18:44 Vomiting Review of Systems ROS Other: All systems not noted in ROS Statement are negative. <Bonifacio Madrigal - Last Filed: 08/18/24 19:25> ROS Other: All systems not noted in ROS Statement are negative. <Jasiel Verdugo - Last Filed: 08/18/24 23:04> ROS Statement: Those systems with pertinent positive or pertinent negative responses have been documented in the HPI. Review of Systems: CONST: Denies fever EYES: Denies blurry vision ENT: Denies nasal congestion C/V: Denies Chest pain RESP: Denies shortness of breath GI: Denies abdominal pain : Denies dysuria SKIN: Denies rash. MSK: Denies joint pain. NEURO: Endorses weakness (Jasiel Verdugo) Past Medical History Past Medical History: Cancer, Hyperlipidemia, Hypertension, Prostate Disorder Additional Past Medical History / Comment(s): prostate cancer, hx venous insufficiency, RCMD, bone marrow transplant, "graft vs host disease", myelodysplastic syndrome leumkemia chemo[facility]tx [facility], adrenal insufficiency,past sepsis History of Any Multi-Drug Resistant Organisms: C-DIFF Date of last positivie culture/infection: 2015 MDRO Source:: stool Past Surgical History: Heart Catheterization With Stent, Hernia Repair, Prostate Surgery Additional Past Surgical History / Comment(s): larry fundoplication, bone marrow bx/transplant, deviated septum, port a cath, egd x2 cataract Past Anesthesia/Blood Transfusion Reactions: No Reported Reaction Additional Past Anesthesia/Blood Transfusion Reaction / Comment(s): blood transfusion-pt stated no reaction Date of Last Stent Placement:: 2003 Past Psychological History: Depression Smoking Status: Former smoker Past Alcohol Use History: Rare Past Drug Use History: None Reported - Past Family History Father Family Medical History: Hypertension, Myocardial Infarction ([place]) Mother Family Medical History: Cancer, Hypertension Additional Family Medical History / Comment(s): skin cancer Brother(s) Family Medical History: Renal Disease Additional Family Medical History / Comment(s): kidney transplant <Bonifacio Madrigal - Last Filed: 08/18/24 19:25> General Exam Limitations: physical limitation <Bonifacio Madrigal - Last Filed: 08/18/24 19:25> <Jasiel Verdugo - Last Filed: 08/18/24 23:04> - General Exam Comments Initial Comments: Visual Physical Exam Vital signs reviewed General: Well-appearing, nontoxic, no acute distress. Head: Normocephalic, atraumatic Eyes: PERRLA, EOMI ENT: Airway patent Chest: Nonlabored breathing Skin: No visual rash, normal skin tone Neuro: Alert and oriented 3. Flat affect Musculoskeletal: No gross abnormalities (Bonifacio Madrigal) General: Appears in no acute distress. HEAD: Normal with no signs of head trauma. EYES: PERRLA, EOMI, conjunctiva normal, no discharge. ENT: Hearing grossly intact, normal oropharynx. RESPIRATORY: Clear breath sounds bilaterally. No wheezes, rales, or rhonchi. C/V: Regular rate and rhythm. S1 and S2 auscultated, significant lower extremity edema. Peripheral pulses 2+ and intact throughout ABD: Abd is soft, nontender, nondistended EXT: Normal range of motion, no obvious deformity SKIN: No rashes or lesions observed on exposed skin. NEURO: Alert and oriented x 4. Patient has generalized weakness. No focal weakness or sensory deficits. (Jasiel Verdugo) Course Vital Signs 08/18/24 08/18/24 18:44 22:35 Temperature 98.4 F Pulse Rate 95 81 Respiratory 18 18 Rate Blood Pressure 111/77 130/83 O2 Sat by Pulse 95 91 L Oximetry Medical Decision Making <Bonifacio Madrigal - Last Filed: 08/18/24 19:25> - Lab Data Result diagrams: 08/18/24 20:31 08/18/24 20:31 - EKG Data -: EKG Interpreted by Me <Jasiel Verdugo - Last Filed: 08/18/24 23:04> - Medical Decision Making I completed the quick note portion of this chart signed SUSAN Ríos (Bonifacio Madrigal) Was pt. sent in by a medical professional or institution (GAYLE Mercer, PARTS SALESPERSON, urgent care, hospital, or half-way...) When possible be specific @ -No Did you speak to anyone other than the patient for history (EMS, parent, family, police, friend...)? What history was obtained from this source @ -No Did you review nursing and triage notes (agree or disagree)? Why? @ -I reviewed and agree with nursing and triage notes Were old charts reviewed (outside hosp., previous admission, EMS record, old EKG, old radiological studies, urgent care reports/EKG's, half-way records)? Report findings @ -Compared with EKG from May 2023 with no obvious acute findings. Differential Diagnosis (chest pain, altered mental status, abdominal pain women, abdominal pain men, vaginal bleeding, weakness, fever, dyspnea, syncope, headache, dizziness, GI bleed, back pain, seizure, CVA, palpatations, mental health, musculoskeletal)? @ -Differential Weakness: Hypoglycemia, shock, sepsis, hyponatremia, anemia, infection, [place], ETOH, adverse medicine reaction, overdose, stroke, this is not meant to be an all-inclusive list. EKG interpreted by me (3pts min.). @ -As above X-rays interpreted by me (1pt min.). @Chest x-ray shows possible pneumonia versus mild pulmonary vascular congestion. CT interpreted by me (1pt min.). @ -None done U/S interpreted by me (1pt. min.). @ -None done What testing was considered but not performed or refused? (CT, X-rays, U/S, labs)? Why? @ -None What meds were considered but not given or refused? Why? @ -None Did you discuss the management of the patient with other professionals (professionals i.e. GAYLE Mercer, PARTS SALESPERSON, lab, RT, psych nurse, medical social consultant, conveyor feeder, teacher, driver's license reviewing officer, outpatient case manager)? Give summary @ -Discussed the patient over with Dr. Sandoval the admitting provider for [facility]. We both agreed to obtain oncology consult and empirically treat with Rocephin and azithromycin at this time. Was smoking cessation discussed for >3mins.? @ -No Was critical care preformed (if so, how long)? @ -No Were there social determinants of health that impacted care today? How? (Homelessness, low income, unemployed, alcoholism, drug addiction, transportation, low edu. Level, literacy, decrease access to med. care, penitentiary, rehab)? @ -No Was there de-escalation of care discussed even if they declined (Discuss DNR or withdrawal of care, Hospice)? DNR status @ -No What co-morbidities impacted this encounter? (DM, HTN, Smoking, COPD, CAD, Cancer, CVA, ARF, Chemo, Hep., AIDS, mental health diagnosis, sleep apnea, morbid obesity)? @ -Myelo dysplastic syndrome, CHF Was patient admitted / discharged? Hospital course, mention meds given and route, prescriptions, significant lab abnormalities, going to OR and other pertinent info. @ -Patient presents for multiple days of weakness, worse over the last 2 days. Only other complaint is a sore throat as well as decreased oral intake. Vital signs are currently within acceptable limits. We will obtain generalized workup which was started in triage. Patient symptomatic treatment 500 cc fluid bolus. Vital signs are within acceptable limits. Afebrile. Laboratory studies remarkable for leukocytosis of 35.5. Patient has CKD. Troponin is indeterminate at 0.025. Viral swabs undetectable. Strep undetectable. Urinalysis is still pending. I discussed results with patient. Patient will be admitted. I will put him on maintenance fluids as well as Rocephin and azithromycin. Patient will not receive any additional fluid boluses due to his history of CHF. Patient does not meet criteria for sepsis at this time as only SIRS criteria with leukocytosis. We will consult oncology for evaluation of the leukocytosis. Patient was in agreement this plan. Admitting provider, [facility] call Dr. Sandoval was in agreement this plan. Undiagnosed new problem with uncertain prognosis? @ -No Drug Therapy requiring intensive monitoring for toxicity (Heparin, Nitro, Insulin, Cardizem)? @ -No Were any procedures done? @ -No Diagnosis/symptom? @ -Weakness, leukocytosis of unknown etiology, possible pneumonia Acute, or Chronic, or Acute on Chronic? @ -Acute Uncomplicated (without systemic symptoms) or Complicated (systemic symptoms)? @ -Complicated Side effects of treatment? @ -No Exacerbation, Progression, or Severe Exacerbation? @ -No Poses a threat to life or bodily function? How? (Chest pain, [place], [place], pneumonia, PE, COPD, DKA, ARF, appy, cholecystitis, CVA, Diverticulitis, Homicidal, Suicidal, threat to staff... and all critical care pts) @ -Potentially, yes (Jasiel Verdugo) - Lab Data Lab Results 08/18/24 08/18/24 08/18/24 Range/Units 20:31 20:31 20:31 WBC 35.5 H (3.8-10.6) k/uL RBC 4.75 (4.30-5.90) m/uL Hgb 13.4 (13.0-17.5) gm/dL Hct 39.7 (39.0-53.0) % MCV 83.6 (80.0-100.0) fL MCH 28.3 (25.0-35.0) pg MCHC 33.9 (31.0-37.0) g/dL RDW 19.0 H (11.5-15.5) % Plt Count 233 (150-450) k/uL MPV 10.8 Neutrophils % 87 % Lymphocytes % 5 % Monocytes % 4 % Eosinophils % 0 % Basophils % 0 % Neutrophils # 31.0 H (1.3-7.7) k/uL Lymphocytes # 1.9 (1.0-4.8) k/uL Monocytes # 1.4 H (0-1.0) k/uL Eosinophils # 0.0 (0-0.7) k/uL Basophils # 0.1 (0-0.2) k/uL Manual Slide Review Performed Anisocytosis Slight Microcytosis Slight PT 11.5 (10.0-12.5) sec INR 1.1 (<1.2) APTT 27.1 (22.0-30.0) sec Sodium 133 L (137-145) mmol/L Potassium 4.6 (3.5-5.1) mmol/L Chloride 97 L (98-107) mmol/L Carbon Dioxide 22 (22-30) mmol/L Anion Gap 14 mmol/L BUN 32 H (9-20) mg/dL Creatinine 1.48 H (0.66-1.25) mg/dL Est GFR (CKD-EPI)AfAm 54 (>60 ml/min/1.73 sqM) Est GFR (CKD-EPI)NonAf 47 (>60 ml/min/1.73 sqM) Glucose 97 (74-99) mg/dL Plasma Lactic Acid [place] (0.7-2.0) mmol/L Calcium 9.0 (8.4-10.2) mg/dL Phosphorus 3.0 (2.5-4.5) mg/dL Magnesium 2.1 (1.6-2.3) mg/dL Total Bilirubin 1.6 H (0.2-1.3) mg/dL AST 45 (17-59) U/L ALT 26 (4-49) U/L Alkaline Phosphatase 80 (38-126) U/L Troponin I (0.000-0.034) ng/mL Total Protein 7.1 (6.3-8.2) g/dL Albumin 4.5 (3.5-5.0) g/dL Influenza Type A (PCR) (Not Detectd) Influenza Type B (PCR) (Not Detectd) RSV (PCR) (Not Detectd) SARS-CoV-2 (PCR) (Not Detectd) Group A Strep (PCR) (Not Detectd) 08/18/24 08/18/24 08/18/24 Range/Units 20:31 20:31 20:31 WBC (3.8-10.6) k/uL RBC (4.30-5.90) m/uL Hgb (13.0-17.5) gm/dL Hct (39.0-53.0) % MCV (80.0-100.0) fL MCH (25.0-35.0) pg MCHC (31.0-37.0) g/dL RDW (11.5-15.5) % Plt Count (150-450) k/uL MPV Neutrophils % % Lymphocytes % % Monocytes % % Eosinophils % % Basophils % % Neutrophils # (1.3-7.7) k/uL Lymphocytes # (1.0-4.8) k/uL Monocytes # (0-1.0) k/uL Eosinophils # (0-0.7) k/uL Basophils # (0-0.2) k/uL Manual Slide Review Anisocytosis Microcytosis PT (10.0-12.5) sec INR (<1.2) APTT (22.0-30.0) sec Sodium (137-145) mmol/L Potassium (3.5-5.1) mmol/L Chloride (98-107) mmol/L Carbon Dioxide (22-30) mmol/L Anion Gap mmol/L BUN (9-20) mg/dL Creatinine (0.66-1.25) mg/dL Est GFR (CKD-EPI)AfAm (>60 ml/min/1.73 sqM) Est GFR (CKD-EPI)NonAf (>60 ml/min/1.73 sqM) Glucose (74-99) mg/dL Plasma Lactic Acid [place] 1.2 (0.7-2.0) mmol/L Calcium (8.4-10.2) mg/dL Phosphorus (2.5-4.5) mg/dL Magnesium (1.6-2.3) mg/dL Total Bilirubin (0.2-1.3) mg/dL AST (17-59) U/L ALT (4-49) U/L Alkaline Phosphatase (38-126) U/L Troponin I 0.025 (0.000-0.034) ng/mL Total Protein (6.3-8.2) g/dL Albumin (3.5-5.0) g/dL Influenza Type A (PCR) (Not Detectd) Influenza Type B (PCR) (Not Detectd) RSV (PCR) (Not Detectd) SARS-CoV-2 (PCR) (Not Detectd) Group A Strep (PCR) NOT DETECTED (Not Detectd) 08/18/24 Range/Units 20:31 WBC (3.8-10.6) k/uL RBC (4.30-5.90) m/uL Hgb (13.0-17.5) gm/dL Hct (39.0-53.0) % MCV (80.0-100.0) fL MCH (25.0-35.0) pg MCHC (31.0-37.0) g/dL RDW (11.5-15.5) % Plt Count (150-450) k/uL MPV Neutrophils % % Lymphocytes % % Monocytes % % Eosinophils % % Basophils % % Neutrophils # (1.3-7.7) k/uL Lymphocytes # (1.0-4.8) k/uL Monocytes # (0-1.0) k/uL Eosinophils # (0-0.7) k/uL Basophils # (0-0.2) k/uL Manual Slide Review Anisocytosis Microcytosis PT (10.0-12.5) sec INR (<1.2) APTT (22.0-30.0) sec Sodium (137-145) mmol/L Potassium (3.5-5.1) mmol/L Chloride (98-107) mmol/L Carbon Dioxide (22-30) mmol/L Anion Gap mmol/L BUN (9-20) mg/dL Creatinine (0.66-1.25) mg/dL Est GFR (CKD-EPI)AfAm (>60 ml/min/1.73 sqM) Est GFR (CKD-EPI)NonAf (>60 ml/min/1.73 sqM) Glucose (74-99) mg/dL Plasma Lactic Acid [place] (0.7-2.0) mmol/L Calcium (8.4-10.2) mg/dL Phosphorus (2.5-4.5) mg/dL Magnesium (1.6-2.3) mg/dL Total Bilirubin (0.2-1.3) mg/dL AST (17-59) U/L ALT (4-49) U/L Alkaline Phosphatase (38-126) U/L Troponin I (0.000-0.034) ng/mL Total Protein (6.3-8.2) g/dL Albumin (3.5-5.0) g/dL Influenza Type A (PCR) Not Detected (Not Detectd) Influenza Type B (PCR) Not Detected (Not Detectd) RSV (PCR) Not Detected (Not Detectd) SARS-CoV-2 (PCR) Not Detected (Not Detectd) Group A Strep (PCR) (Not Detectd) - EKG Data EKG Comments: 12-lead Electrocardiogram Interpretation Note EKG was reviewed and interpreted by myself. 12-lead ECG performed at 2028 is interpreted by me as revealing normal sinus rhythm at a rate of 92 beats per minute. [place] is normal. [place] interval is 149 ms, QRS duration is 89 ms, QTc is 417 ms. PVC seen. T wave inversion seen in III as well as aVF.. There were no ST or T wave abnormalities to suggest myocardial ischemia or injury. R wave progression across the precordium was satisfactory. By my interpretation this EKG is non-diagnostic for acute ischemia. (Jasiel Verdugo) Disposition <Bonifacio Madrigal - Last Filed: 08/18/24 19:25> Time of Disposition: 23:00 <Jasiel Verdugo - Last Filed: 08/18/24 23:04> Clinical Impression: Weakness, Leukocytosis, unspecified Narrative: possible pneumonia (Jasiel Verdugo) Disposition: ADMITTED IP TO THIS [facility] Condition: Stable Referrals: None,Stated [Primary Care Provider] - 1-2 days
--- NOTE | 2024-08-18 20:25 | XR ---
EXAMINATION TYPE: XR chest 2V DATE OF EXAM: 08/18/2024 8:04 PM COMPARISON: Chest radiographs from 06/02/2023 CLINICAL INDICATION: Male, 69 years old with history of Weakness; TECHNIQUE: XR chest 2V Frontal and lateral views of the chest. FINDINGS: Lungs/Pleura: There is no evidence of pleural effusion, focal consolidation, or pneumothorax. Pulmonary vascularity: Pulmonary vascular congestion. Heart/mediastinum: Cardiomediastinal silhouette is prominent in size. Musculoskeletal: No acute osseous pathology. IMPRESSION: Cardiomegaly and mild pulmonary vascular congestion. Correlate with BNP for congestive heart failure. [facility], , 08/18/2024 8:23 PM
[2024-08-18 20:45] LABS: Anisocytosis Slight; Basophils # (A) 0.1 k/uL (0-0.2); Basophils % (A) 0 %; Eosinophils % (A) 0 %; HCT 39.7 % (39.0-53.0); HGB 13.4 gm/dL (13.0-17.5); Lymphocytes # (A) 1.9 k/uL (1.0-4.8); Lymphocytes % (A) 5 %; MCH 28.3 pg (25.0-35.0); MCHC 33.9 g/dL (31.0-37.0); MCV 83.6 fL (80.0-100.0); Mean Platelet Volume 10.8; Microcytosis Slight; Monocytes # (A) 1.4 k/uL (0-1.0); Monocytes % (A) 4 %; Neutrophils % (A) 87 %; Platelet Count 233 k/uL (150-450); RBC 4.75 m/uL (4.30-5.90); WBC 35.5 k/uL (3.8-10.6)
[2024-08-18 20:53] LABS: INR 1.1 (<1.2); Partial Thromboplastin Time 27.1 sec (22.0-30.0); Prothrombin Time 11.5 sec (10.0-12.5)
[2024-08-18] MEDS: SODIUM CHLORIDE 0.9% 500 ML 500 ML IV STA (20:55)
[2024-08-18 22:19] LABS: ALT 26 U/L (4-49); AST 45 U/L (17-59); African American GFR (CKD) 54 (>60 ml/min/1.73 sqM); Albumin 4.5 g/dL (3.5-5.0); Alkaline Phosphatase 80 U/L (38-126); Anion Gap 14 mmol/L; Blood Urea Nitrogen 32 mg/dL (9-20); Carbon Dioxide 22 mmol/L (22-30); Chloride 97 mmol/L (98-107); Glucose 97 mg/dL (74-99); Magnesium 2.1 mg/dL (1.6-2.3); Non-African American GFR(CKD) 47 (>60 ml/min/1.73 sqM); Potassium 4.6 mmol/L (3.5-5.1); Sodium 133 mmol/L (137-145); Total Bilirubin 1.6 mg/dL (0.2-1.3); Total Protein 7.1 g/dL (6.3-8.2)
[2024-08-18] MEDS ORDERED: PNEUMONIA PROTOCOL UTILIZED 1 EACH MISC PO PRN (22:49)
[2024-08-18] MEDS ORDERED: ONDANSETRON 4 MG/2 ML VIAL IVP PRN (22:50)
[2024-08-18] MEDS ORDERED: NALOXONE 0.4 MG/ML 1 ML VIAL IV PRN (22:50)
[2024-08-18] MEDS: SODIUM CHLORIDE 0.9% 1,000 ML IV STA (23:15)
[2024-08-18 23:55] LABS: Appearance,Urine Clear (Clear); Bacteria,Urine Rare /hpf; Bilirubin,Urine Negative (Negative); Blood,Urine Negative (Negative); Color,Urine Yellow; Glucose,Urine (UA) Negative (Negative); Hyaline Casts,Urine 1 /lpf (0-2); Ketones,Urine 1+ (Negative); Leukocyte Esterase,Urine Moderate (Negative); Mucus,Urine Rare /hpf; Nitrite,Urine Negative (Negative); PH, Urine 5.5 (5.0-8.0); Protein,Urine Trace (Negative); RBC,Urine <1 /hpf (0-5); Specific Gravity,Urine 1.019 (1.001-1.035); Squamous Epithelial Cell,Urine 1 /hpf (0-4); Urobilinogen,Urine <2.0 mg/dL (<2.0); WBC,Urine 44 /hpf (0-5)
[2024-08-19] MEDS: AZITHROMYCIN 500 MG in SODIUM CHLORIDE 0.9% 250 ML IVPB STA (00:50)
--- NOTE | 2024-08-19 02:15 | P.HPIM ---
History of Present Illness H&P Date: 08/19/24 History of present illness; 69-year-old man with PMH of hypertension, hyperl ipidemia, myelodysplastic syndrome (diagnosed 2014) chemo/treatment at [facility] with bone marrow transplant 2016, prostate cancer (diagnosed ~2011 and had prostatectomy). Presents to the emergency department for further evaluation of generalized weakness x 2 days. He states that normally he moves around and completes ADLs on his own without assistance, over the last 2 days he has noticed increasing weakness and inability to perform these ADLs as well as before. Additionally, during this time. He endorses having a worsening cough productive of green sputum. He denies any shortness of breath, chest pain, or any urinary symptoms. He does endorse feeling chills, however he is unsure whether or not he "spiked a fever". At this time, patient notes feeling generalized weakness significantly different from his baseline, as well as a continuing cough and sensation of having chills. Labratory review: -WBCs 35.5, hemoglobin 13.4, hematocrit 39.7, platelet 233; sodium 133, potassium 4.6, BUN 32, creatinine 1.48, total bilirubin 1.6, AST 45, ALT 26 -Respiratory viral panel all negative -Urinalysis shows moderate leukocyte esterase and 44 urine WBCs Imaging: -Chest x-ray done in the ER showed cardiomegaly and mild pulmonary vascular congestion, to be correlated with BMP for possible CHF -EKG done in the ER showed heart rate of 92, sinus rhythm with occasional PVCs; QTc 417 Vitals: -Blood pressure 111/77, heart rate 95, respiratory rate 18, SpO2 95% on room air Patient admitted to internal medicine service REVIEW OF SYSTEMS: CONSTITUTIONAL: No fever, no malaise, no fatigue. Increased weakness (generalized) HEENT: No recent visual problems or hearing problems. 2 X day sore throat with cough productive of green sputum. CARDIOVASCULAR: No chest pain, orthopnea, PND, no palpitations, no syncope. PULMONARY: No shortness of breath, no cough, no hemoptysis. GASTROINTESTINAL: No diarrhea, no nausea, no vomiting, no abdominal pain. NEUROLOGICAL: No headaches, no weakness, no numbness. HEMATOLOGICAL: Denies any bleeding or petechiae. GENITOURINARY: Denies any burning micturition, frequency, or urgency. MUSCULOSKELETAL/RHEUMATOLOGICAL: Denies any joint pain, swelling, or any muscle pain. ENDOCRINE: Denies any polyuria or polydipsia. The rest of the 14-point review of systems is negative. PHYSICAL EXAMINATION: GENERAL: The patient is alert and oriented x3, not in any acute distress. Well developed, well nourished. Fatigued. HEENT: No conjunctival pallor. Normocephalic, atraumatic. No pharyngeal erythema. No thyromegaly. CARDIOVASCULAR: S1 and S2 present. No murmurs, rubs, or gallops. PULMONARY: Chest is clear to auscultation, no wheezing or crackles. ABDOMEN: Soft, nontender, nondistended, normoactive bowel sounds. No palpable organomegaly. MUSCULOSKELETAL: No joint swelling or deformity. EXTREMITIES: No cyanosis, clubbing. 1+ pedal edema noted in the lower extremities NEUROLOGICAL: Gross neurological examination did not reveal any focal deficits. SKIN: No rashes. Assessment and plan 77-year-old man with PMH of myelodysplastic syndrome, prostate cancer, hypertension, hyperlipidemia presents to the emergency department with generalized weakness x 2 days, which related to low blood pressure. Additionally, noting 2-day history of sore throat. Discussed with the ED and accepted to the internal medicine service for further evaluation. #Generalized weakness #Leukocytosis, possibly secondary to pneumonia v. UTI -Physical Therapy consulted -Blood culture pending -Legionella pending -Sputum culture pending -Patient given 2 g Rocephin IVPB in ED once, Zithromax 500 mg IV once -Continue with Zithromax 500 mg p.o. daily and Ceftriaxone 2 g qd -Follow-up chest x-ray pending to be done morning of 08/19 -Plasma lactic acid 1.2, followed by 1.3 #History of myelodysplastic syndrome s/p bone marrow transplant #History of [id number]-cbmm disease -Follows with bone marrow transplant team, most recent appointment Tuesday 08/14, or was noted leukocytosis with WBCs ~17 -WBCs at today visit 35.5 -Hematology/oncology team consulted #Chronic kidney disease stage 3a, at baseline #Hypertension -Maintained on Coreg 12.5 mg twice daily at home -Maintained on lisinopril 20 mg twice daily at home #History of gout -Maintained at home on daily allopurinol, continue #Lower extremity edema -Patient maintained on Lasix at home, which he states helps with the edema CODE STATUS: Full Code GI prohylaxis: Protonix 40 mg daily DVT prophylaxis: 5000 units heparin SQ every 8 hours Dictation was produced using [employer] dictation software. please excuse any grammatical, word or spelling errors. Past Medical History Past Medical History: Cancer, Hyperlipidemia, Hypertension, Prostate Disorder Additional Past Medical History / Comment(s): prostate cancer, hx venous i nsufficiency, RCMD, bone marrow transplant, "graft vs host disease", myelodysplastic syndrome leumkemia chemo[facility]tx at [facility], adrenal insufficiency,past sepsis History of Any Multi-Drug Resistant Organisms: C-DIFF Date of last positivie culture/infection: 2015 MDRO Source:: stool Past Surgical History: Heart Catheterization With Stent, Hernia Repair, Prostate Surgery Additional Past Surgical History / Comment(s): larry fundoplication, bone marrow bx/transplant, deviated septum, port a cath, egd x2 cataract Past Anesthesia/Blood Transfusion Reactions: No Reported Reaction Additional Past Anesthesia/Blood Transfusion Reaction / Comment(s): blood transfusion-pt stated no reaction Date of Last Stent Placement:: 2003 Past Psychological History: Depression Smoking Status: Former smoker Past Alcohol Use History: Rare Past Drug Use History: None Reported - Past Family History Father Family Medical History: Hypertension, Myocardial Infarction ([place]) Mother Family Medical History: Cancer, Hypertension Additional Family Medical History / Comment(s): skin cancer Brother(s) Family Medical History: Renal Disease Additional Family Medical History / Comment(s): kidney transplant Medications and Allergies Home Medications Medication Instructions Recorded Confirmed Type Ergocalciferol (Vitamin D2) 50,000 unit PO TH 12/04/15 07/14/20 History [Drisdol] lisinopriL [Lisinopril] 20 mg PO BID 03/14/17 07/14/20 History Acyclovir 400 mg PO BID 07/02/17 07/14/20 History Hydrocortisone [Cortef] 10 mg PO DAILY 09/12/18 07/14/20 History carvediloL [Coreg] 12.5 mg PO BID 09/12/18 07/14/20 History allopurinoL [Zyloprim] 300 mg PO DAILY 03/23/19 07/14/20 History cefuroxime axetiL [Ceftin] 500 mg PO BID 7 Days #14 tab 03/25/19 07/14/20 Rx Allergies Allergy/AdvReac Type Severity Reaction Status Date / Time Iodinated Contrast Media Allergy Unknown Verified 08/18/24 18:44 [Iodinated Contrast Media - IV Dye] tramadol AdvReac Nausea & Verified 08/18/24 18:44 Vomiting Physical Exam Vitals: Vital Signs Temp Pulse Resp BP Pulse Ox 08/18/24 22:35 81 18 130/83 91 L 08/18/24 18:44 98.4 F 95 18 111/77 95 Intake and Output 08/18/24 08/18/24 08/19/24 14:59 22:59 06:59 Other: Weight 89.811 kg Results CBC & Chem 7: 08/18/24 20:31 08/18/24 20:31 Labs: Abnormal Lab Results - Last 24 Hours (Table) 08/18/24 08/18/24 08/18/24 Range/Units 20:31 20:31 23:37 WBC 35.5 H (3.8-10.6) k/uL RDW 19.0 H (11.5-15.5) % Neutrophils # 31.0 H (1.3-7.7) k/uL Monocytes # 1.4 H (0-1.0) k/uL Sodium 133 L (137-145) mmol/L Chloride 97 L (98-107) mmol/L BUN 32 H (9-20) mg/dL Creatinine 1.48 H (0.66-1.25) mg/dL Total Bilirubin 1.6 H (0.2-1.3) mg/dL Urine Protein Trace H (Negative) Urine Ketones 1+ H (Negative) Ur Leukocyte Esterase Moderate H (Negative) Urine WBC 44 H (0-5) /hpf Urine Bacteria Rare H (None) /hpf Urine Mucus Rare H (None) /hpf
--- NOTE | 2024-08-19 07:47 | XR ---
EXAMINATION TYPE: XR chest 2V DATE OF EXAM: 08/19/2024 CLINICAL HISTORY: Pneumonia TECHNIQUE: Frontal and lateral views of the chest are obtained. COMPARISON: 08/18/2024 FINDINGS: There is no focal air space opacity, pleural effusion, or pneumothorax seen. Elevation rig ht hemidiaphragm. The cardiac silhouette size is within normal limits. The osseous structures are i ntact. IMPRESSION: No acute cardiopulmonary process. [facility], , 08/19/2024 7:45 AM
[2024-08-19 07:51] LABS: Anisocytosis Slight; Basophils # (A) 0.1 k/uL (0-0.2); Basophils % (A) 0 %; Eosinophils % (A) 0 %; HCT 36.8 % (39.0-53.0); HGB 11.9 gm/dL (13.0-17.5); Lymphocytes # (A) 1.7 k/uL (1.0-4.8); Lymphocytes % (A) 7 %; MCH 27.7 pg (25.0-35.0); MCHC 32.3 g/dL (31.0-37.0); Mean Platelet Volume 10.2; Microcytosis Slight; Monocytes # (A) 1.8 k/uL (0-1.0); Monocytes % (A) 7 %; Neutrophils # (A) 20.4 k/uL (1.3-7.7); Neutrophils % (A) 83 %; Platelet Count 202 k/uL (150-450); RBC 4.28 m/uL (4.30-5.90); RDW 18.9 % (11.5-15.5); WBC 24.7 k/uL (3.8-10.6)
[2024-08-19 08:22] LABS: ALT 22 U/L (4-49); AST 32 U/L (17-59); African American GFR (CKD) 65 (>60 ml/min/1.73 sqM); Albumin 3.6 g/dL (3.5-5.0); Alkaline Phosphatase 74 U/L (38-126); Anion Gap 8 mmol/L; Blood Urea Nitrogen 27 mg/dL (9-20); Calcium 8.4 mg/dL (8.4-10.2); Carbon Dioxide 24 mmol/L (22-30); Chloride 102 mmol/L (98-107); Glucose 86 mg/dL (74-99); Non-African American GFR(CKD) 56 (>60 ml/min/1.73 sqM); Potassium 4.1 mmol/L (3.5-5.1); Sodium 134 mmol/L (137-145); Total Bilirubin 0.8 mg/dL (0.2-1.3); Total Protein 5.9 g/dL (6.3-8.2)
[2024-08-19] MEDS: AZITHROMYCIN 500 MG TAB PO SCH (09:17)
[2024-08-19] MEDS: PANTOPRAZOLE 40 MG TABLET PO SCH (09:17)
[2024-08-19] MEDS: HEPARIN SODIUM,PORCINE 5,000 UNIT/ML 1 ML VIAL SQ SCH (09:18)
[2024-08-19] MEDS: carvediloL 6.25 MG TAB PO SCH (12:43)
--- NOTE | 2024-08-19 16:44 | P.CONS ---
History of Present Illness - Reason for Consult Consult date: 08/19/24 Hx MDS Requesting physician: Jasiel Verdugo - Chief Complaint cough, chills - History of Present Illness Mr Montalvo is a male pt of Dr. England, last seen in [facility] 03/02/20. He has a Hx of thrombocytopenia, referred in 2013. 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 Late 2014 Hgb started to trend down, work up was unremarkable other then a cr of 1.44. Bone marrow was done 10/12/15 revealing marked hyperplasia, dysplastic changes and clonal cytogenetic abnormalities-t(3;21), consistent with MDS. His IPSS score was 5.32, placing him in the high risk category. He was started on Dacogen and completed Tx in 01/13. 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 He did not f/u in the office since 01/13 and continued care at the [facility]. 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 There was concern for recurrence in 12/14 with repeat bone marrow highly suspicious for recurrence. However the findings were not felt to be definitive and he was continued on observation as his counts had improved. He was seen on consult at [facility] in 04/16 when admitted for weakness and falls. He had febrile neutropenia, with Hgb 6.7. He was treated with antibiotics and transfusion support. He was discharged, but readmitted to the [facility] soon after with similiar complaints. He was diagnosed with parainfluenza infection according to him, and was inpt for 2-3 weeks , after which he was transferred to [facility]. He had a bone marrow done at the [facility] in 04/16, which showed " early relapse " per the pt. He states that he was told that the results were still not definitive, and observation was continued. Hgb remained low so he was started on aranesp in ECF. Unable to get Aranesp outpt locally so pt he cont at [facility], till 06/13/18. He then decided to stop it as he stated he felt weak in his legs and very fatigued for 2-3 days after each dose. He therefore was seen on 07/10/18 at his own request to have blood draws and transfusions as needed locally. He had transfusions PRN until 09/16-had not needed PRBC since. He was diagnosed with a RLE DVT in 12/16, and placed on Xarelto. Last seen in [facility] 03/02/2020. He saw BMT team on Sat, was told he was doing well, no concerns Currently admitted for c/o generalized weakness, started Mon with a sore throat, loss of appetite, he thought he was feeling better so he when to get up to get something to eat and he could not get out of his chair. Called EMS to get him. He denies fever, throat is better then it was, he has a cough, no hemoptysis, chest pain, N,V, appetite is fair at this time, no abd pain, bloating diarrhea or constipation. WBCs 24.7, ANC 20.4, Hgb 11.9, platelet 202,000, creatinine 1.48. Viral panel neg. CXR today no reported acute process. Hx prostate cancer 2011, surgical treated. Review of Systems 10 point ROS is neg except as stated in HPI Past Medical History Past Medical History: Cancer, Hyperlipidemia, Hypertension, Prostate Disorder Additional Past Medical History / Comment(s): prostate cancer, hx venous insufficiency, RCMD, bone marrow transplant, "graft vs host disease", myelodysplastic syndrome leumkemia chemo/tx at [facility], adrenal insufficiency,past sepsis History of Any Multi-Drug Resistant Organisms: C-DIFF Year Discovered:: 2015 MDRO Source:: stool Past Surgical History: Heart Catheterization With Stent, Hernia Repair, Prostate Surgery Additional Past Surgical History / Comment(s): larry fundoplication, bone marrow bx/transplant, deviated septum, port a cath, egd x2 cataract Past Anesthesia/Blood Transfusion Reactions: No Reported Reaction Additional Past Anesthesia/Blood Transfusion Reaction / Comm: blood transfusion- pt stated no reaction Date of Last Stent Placement:: 2003 Past Psychological History: Depression Smoking Status: Former smoker Past Alcohol Use History: Rare Past Drug Use History: None Reported - Past Family History Father Family Medical History: Hypertension, Myocardial Infarction ([place]) Mother Family Medical History: Cancer, Hypertension Additional Family Medical History / Comment(s): skin cancer Brother(s) Family Medical History: Renal Disease Additional Family Medical History / Comment(s): kidney transplant Medications and Allergies Home Medications Medication Instructions Recorded Confirmed Type allopurinoL [Zyloprim] 300 mg PO DAILY 03/23/19 08/19/24 History Aspirin EC [Ecotrin Low Dose] 81 mg PO DAILY 08/19/24 08/19/24 History Atorvastatin [Lipitor] 20 mg PO DAILY 08/19/24 08/19/24 History Cyanocobalamin (Vitamin B-12) 1,000 mcg PO DAILY 08/19/24 08/19/24 History [Vitamin B-12] Furosemide [Lasix] 20 mg PO DAILY 08/19/24 08/19/24 History Ginseng 100 mg PO DAILY 08/19/24 08/19/24 History Lion's Sin 1 tab PO DAILY 08/19/24 08/19/24 History carvediloL phosphate [Coreg Cr] 20 mg PO DAILY 08/19/24 08/19/24 History lisinopriL 2.5 mg PO DAILY 08/19/24 08/19/24 History Allergies Allergy/AdvReac Type Severity Reaction Status Date / Time Iodinated Contrast Media Allergy Unknown Verified 08/19/24 08:45 [Iodinated Contrast Media - IV Dye] tramadol AdvReac Nausea & Verified 08/19/24 08:45 Vomiting Physical Exam Vitals: Vital Signs Temp Pulse Pulse Pulse Pulse Resp BP 08/19/24 06:00 71 15 127/79 08/19/24 00:45 75 75 73 08/19/24 00:15 76 16 116/74 08/18/24 22:35 81 18 130/83 08/18/24 18:44 98.4 F 95 18 111/77 BP BP BP Pulse Ox 08/19/24 06:00 94 L 08/19/24 00:45 131/95 137/87 128/101 08/19/24 00:15 93 L 08/18/24 22:35 91 L 08/18/24 18:44 95 Intake and Output 08/18/24 08/19/24 08/19/24 22:59 06:59 14:59 Other: Weight 89.811 kg - Constitutional General appearance: average body habitus, cooperative, no acute distress - EENT dry mucus membranes Eyes: anicteric sclerae, EOMI ENT: hearing grossly normal, pharyngeal erythema (very dry) - Neck Neck: no lymphadenopathy - Respiratory Respiratory: bilateral: diminished - Cardiovascular Rhythm: regular Heart sounds: normal: S1, S2 Abnormal Heart Sounds: no systolic murmur, no diastolic murmur, no rub, no S3 Gallop, no S4 Gallop, no click, no other leg Peripheral Edema: bilateral: Trace - Gastrointestinal General gastrointestinal: no absent bowel sounds, no decreased bowel sounds, no distended, no hepatomegaly, no hyperactive bowel sounds, normal bowel sounds, no organomegaly, no rigid, no scaphoid, soft, no splenomegaly, no tenderness, no umbilical hernia, no ventral hernia - Neurologic Neurologic: CNII-XII intact - Musculoskeletal Musculoskeletal: generalized weakness - Psychiatric Psychiatric: A&O x's 3, appropriate affect, intact judgment & insight Results CBC & Chem 7: 08/19/24 07:22 08/19/24 07:22 Labs: Abnormal Lab Results - Last 24 Hours (Table) 08/18/24 08/18/24 08/18/24 Range/Units 20:31 20:31 23:37 WBC 35.5 H (3.8-10.6) k/uL RBC (4.30-5.90) m/uL Hgb (13.0-17.5) gm/dL Hct (39.0-53.0) % RDW 19.0 H (11.5-15.5) % Neutrophils # 31.0 H (1.3-7.7) k/uL Monocytes # 1.4 H (0-1.0) k/uL Sodium 133 L (137-145) mmol/L Chloride 97 L (98-107) mmol/L BUN 32 H (9-20) mg/dL Creatinine 1.48 H (0.66-1.25) mg/dL Total Bilirubin 1.6 H (0.2-1.3) mg/dL Total Protein (6.3-8.2) g/dL Urine Protein Trace H (Negative) Urine Ketones 1+ H (Negative) Ur Leukocyte Esterase Moderate H (Negative) Urine WBC 44 H (0-5) /hpf Urine Bacteria Rare H (None) /hpf Urine Mucus Rare H (None) /hpf 08/19/24 08/19/24 Range/Units 07:22 07:22 WBC 24.7 H (3.8-10.6) k/uL RBC 4.28 L (4.30-5.90) m/uL Hgb 11.9 L (13.0-17.5) gm/dL Hct 36.8 L (39.0-53.0) % RDW 18.9 H (11.5-15.5) % Neutrophils # 20.4 H (1.3-7.7) k/uL Monocytes # 1.8 H (0-1.0) k/uL Sodium 134 L (137-145) mmol/L Chloride (98-107) mmol/L BUN 27 H (9-20) mg/dL Creatinine 1.28 H (0.66-1.25) mg/dL Total Bilirubin (0.2-1.3) mg/dL Total Protein 5.9 L (6.3-8.2) g/dL Urine Protein (Negative) Urine Ketones (Negative) Ur Leukocyte Esterase (Negative) Urine WBC (0-5) /hpf Urine Bacteria (None) /hpf Urine Mucus (None) /hpf Chest x-ray: report reviewed Assessment and Plan (1) Generalized weakness Current Visit: Yes Status: Acute Priority: High Code(s): R53.1 - WEAKNESS SNOMED Code(s): 85842677 (2) Leukocytosis, unspecified Current Visit: Yes Status: Acute Priority: Medium Code(s): D72.829 - ELEVA CARLITOS WHITE BLOOD CELL COUNT, UNSPECIFIED SNOMED Code(s): 151155860 (3) Hx of allogeneic bone marrow transplant Current Visit: No Status: Chronic Priority: Low Code(s): Z94.81 - BONE MARROW TRANSPLANT STATUS SNOMED Code(s): 889034486900202 Plan: Generalized weakness -Suspect related to infection based on presenting respiratory symptoms. CXR negative for any acute process, blood cultures, urine culture pending. -Patient has been placed on empiric antibiotics -Patient receiving IV fluids -Patient receiving supportive medications Leukocytosis -Mostly neutrophilia -Count is coming down since admit. Will continue to monitor closely while inpatient, suspect an exaggerated marrow response to infection. Mild anemia -With patient's history of stem cell transplant very mild anemia in the setting of acute infection is not unusual. Again, continue to monitor counts. History of allogenic stem cell transplant for myelodysplastic syndrome -Patient reports he was just seen by [facility] last Saturday. He sees them annually. No reported concerns. -Patient has not followed locally with Hematology since 2019. He can cont to follow with [facility] and if he needs any local care or f/u we are happy to see him. Salt and soda and kools for severe dry mouth
[2024-08-19] MEDS: SALT AND SODA MOUTHWASH 1,000 ML PO SCH (18:33)
[2024-08-19] MEDS: MAG HYDROX/AL HYDROX/SIMETH 30 ML, LIDOCAINE VISCOUS 2% 30 ML, diphenhydrAMINE ELIXIR 7... PO SCH (18:34)
[2024-08-20] MEDS: ACETAMINOPHEN TAB 325 MG TAB PO PRN (05:47)
[2024-08-20 08:58] LABS: Anisocytosis Slight; Basophils # (A) 0.1 k/uL (0-0.2); Basophils % (A) 1 %; Eosinophils % (A) 0 %; HCT 36.3 % (39.0-53.0); HGB 11.6 gm/dL (13.0-17.5); Lymphocytes # (A) 1.5 k/uL (1.0-4.8); Lymphocytes % (A) 8 %; MCH 27.3 pg (25.0-35.0); MCHC 32.1 g/dL (31.0-37.0); MCV 84.9 fL (80.0-100.0); Mean Platelet Volume 11.4; Microcytosis Slight; Monocytes # (A) 1.2 k/uL (0-1.0); Monocytes % (A) 7 %; Neutrophils # (A) 14.5 k/uL (1.3-7.7); Neutrophils % (A) 81 %; Platelet Count 204 k/uL (150-450); RBC 4.27 m/uL (4.30-5.90)
[2024-08-20 09:22] LABS: African American GFR (CKD) 71 (>60 ml/min/1.73 sqM); Anion Gap 10 mmol/L; Blood Urea Nitrogen 21 mg/dL (9-20); Calcium 8.7 mg/dL (8.4-10.2); Carbon Dioxide 22 mmol/L (22-30); Chloride 104 mmol/L (98-107); Glucose 92 mg/dL (74-99); Non-African American GFR(CKD) 62 (>60 ml/min/1.73 sqM); Potassium 3.8 mmol/L (3.5-5.1); Sodium 136 mmol/L (137-145)
[2024-08-20] MEDS: CYANOCOBALAMIN 500 MCG TAB PO SCH (09:29)
[2024-08-20] MEDS: allopurinoL 300 MG TAB PO SCH (09:29)
[2024-08-20] MEDS: FUROSEMIDE 20 MG TAB PO SCH (09:29)
[2024-08-20] MEDS: ASPIRIN 81 MG PO SCH (09:30)
[2024-08-20] MEDS: ATORVASTATIN 20 MG TAB PO SCH (09:30)
--- NOTE | 2024-08-20 14:41 | P.PN ---
Subjective Progress Note Date: 08/20/24 69-year-old man with PMH of hypertension, hyperlipidemia, myelodysplastic syndrome (diagnosed 2014) chemo/treatment at [facility] with bone marrow transplant 2016, prostate cancer (diagnosed ~2011 and had prostatectomy). Presents to the emergency department for further evaluation of generalized weakness x 2 days. He states that normally he moves around and completes ADLs on his own without assistance, over the last 2 days he has noticed increasing weakness and inability to perform these ADLs as well as before. Additionally, during this time. He endorses having a worsening cough productive of green sputum. He denies any shortness of breath, chest pain, or any urinary symptoms. He does endorse feeling chills, however he is unsure whether or not he "spiked a fever". At this time, patient notes feeling generalized weakness significantly different from his baseline, as well as a continuing cough and sensation of having chills. Labratory review: -WBCs 35.5, hemoglobin 13.4, hematocrit 39.7, platelet 233; sodium 133, potassium 4.6, BUN 32, creatinine 1.48, total bilirubin 1.6, AST 45, ALT 26 -Respiratory viral panel all negative -Urinalysis shows moderate leukocyte esterase and 44 urine WBCs Imaging: -Chest x-ray done in the ER showed cardiomegaly and mild pulmonary vascular congestion, to be correlated with BMP for possible CHF -EKG done in the ER showed heart rate of 92, sinus rhythm with occasional PVCs; QTc 417 08/20/2024 patient seen and examined at bedside. Patient reported that his cough has improved and his sputum production has decreased. He still experiences generalized weakness but his range of motion is intact. WBC 18 hemoglobin 11.6 hematocrit 36.3 platelet count 204,000 sodium 136 potassium 3.8 chloride 104 bicarb 22 BUN 21 creatinine 1.80 calcium 8.7 Review of systems: Pertinent positives and negatives as discussed in HPI, a complete review of systems was performed and all other systems are negative. Pertinent imaging and labs reviewed. Physical examination: Vital signs reviewed General: non toxic, no distress, fatigued Derm: no unusual rashes/lesions, warm Head: atraumatic, normocephalic, symmetric Eyes: EOMI, anicteric sclera, pupils equal round reactive to light ENT: Nose and ears atraumatic Neck: No cervical lymphadenopathy, trachea midline, supple Mouth: no lip lesion, mucus membranes moist Cardiovascular: S1S2 reg, no murmur Lungs: CTA bilateral, no rhonchi, no rales, no accessory muscle use Abdominal: soft, nontender to palpation, no guarding Ext: muscle strength 5 out of 5 in all 4 extremities grossly, no gross muscle atrophy, no contractures, positive dorsalis pedis pulse bilateral, 1+ pedal edema noted in the bilateral lower extremities Neuro: CN II-XI grossly intact, no gross focal neuro deficits Psych: Alert and oriented x3, appropriate affect and mood Assessment/Plan: 77-year-old man with PMH of myelodysplastic syndrome, prostate cancer, hypertension, hyperlipidemia presents to the emergency department with generalized weakness x 2 days, which related to low blood pressure. Additional ly, noting 2-day history of sore throat. Discussed with the ED and accepted to the internal medicine service for further evaluation. #Generalized weakness #Leukocytosis #Community-acquired pneumonia -Physical Therapy consulted -Blood culture pending -Legionella negative -Follow-up chest x-showed no acute process but had some opacities -CBC and BMP in the AM -procalcitonin pending -Sputum culture pending -Patient given 2 g Rocephin IVPB in ED once, Zithromax 500 mg IV once -Continue with Ceftriaxone 2 g qd day 2 -Plasma lactic acid 1.2, followed by 1.3 #History of myelodysplastic syndrome s/p bone marrow transplant #History of nxtdk-iifint-abbt disease -Follows with bone marrow transplant team, most recent appointment Tuesday 08/14, or was noted leukocytosis with WBCs ~17 -WBCs now at 18 -Hematology/oncology team following #Chronic kidney disease stage 3a, at baseline Monitor BMP #Hypertension -Maintained on Coreg 12.5 mg twice daily at home -Maintained on lisinopril 20 mg twice daily at home #History of gout -Maintained at home on daily allopurinol, continue #Lower extremity edema -Patient maintained on Lasix at home, which he states helps with the edema F: Oral intake E: None N: Heart healthy diet A: Ambulate without assistance CODE STATUS: Full Code GI prohylaxis: Protonix 40 mg daily DVT prophylaxis: 5000 units heparin SQ every 8 hours Dictation was produced using [employer] dictation software. please excuse any grammatical, word or spelling errors. Su Barkley MD PGY-1/[employer] I have seen and evaluated the patient today. Discussed with the resident and agree with the residents finding and plan as documented in the resident's note. Changes highlighted in blue font. Objective - Vital Signs Vital signs: Vital Signs Temp 98.4 F 08/18/24 18:44 Pulse 71 08/20/24 02:40 Resp 17 08/20/24 02:40 BP 116/67 08/20/24 02:40 Pulse Ox 96 08/19/24 22:19 FiO2 Intake & Output 08/19/24 08/20/24 08/20/24 18:59 06:59 18:59 Output Total 250 Balance -250 Output: Urine 250 Other: # Voids 1 - Labs CBC & Chem 7: 08/20/24 08:32 08/20/24 08:32 Labs: Abnormal Lab Results - Last 24 Hours (Table) 08/19/24 08/19/24 Range/Units 07:22 07:22 WBC 24.7 H (3.8-10.6) k/uL RBC 4.28 L (4.30-5.90) m/uL Hgb 11.9 L (13.0-17.5) gm/dL Hct 36.8 L (39.0-53.0) % RDW 18.9 H (11.5-15.5) % Neutrophils # 20.4 H (1.3-7.7) k/uL Monocytes # 1.8 H (0-1.0) k/uL Sodium 134 L (137-145) mmol/L BUN 27 H (9-20) mg/dL Creatinine 1.28 H (0.66-1.25) mg/dL Total Protein 5.9 L (6.3-8.2) g/dL Microbiology - Last 24 Hours (Table) 08/18/24 22:35 Blood Culture - Preliminary Blood
[2024-08-20 19:30] VITALS: RESP 16
[2024-08-21] MEDS: guaiFENesin SYRUP 100MG/5ML 200 MG/10 ML CUP PO PRN (02:33)
[2024-08-21 07:51] VITALS: BP 136/88; PULSE 66; TEMP 97.6
[2024-08-21 08:54] LABS: BUN/Creat Ratio 16.38 Ratio (12.00-20.00); Blood Urea Nitrogen 21.3 mg/dL (9.0-27.0); Calcium 8.3 mg/dL (8.7-10.3); Carbon Dioxide 21.1 mmol/L (21.6-31.8); Chloride 105 mmol/L (96-109); Glucose 92 mg/dL (70-110); Sodium 138 mmol/L (135-145)
[2024-08-21 11:50] LABS: Band Neutrophils % 4 %; Basophils # (M) 0 X 10*3/uL (0.00-0.10); Eosinophils # (M) 0 X 10*3/uL (0.04-0.35); HCT 32.2 % (39.6-50.0); HGB 10.5 g/dL (13.0-17.0); MCH 27.1 pg (27.0-32.0); MCHC 32.6 g/dL (32.0-37.0); Monocytes # (M) 0.48 X 10*3/uL (0.20-1.00); NRBC Per 100 WBC 0 X 10*3/uL (0.00-0.01); Neutrophils # (M) 10.97 X 10*3/uL (1.80-7.70); Neutrophils % (M) 87 %; Platelet Count 176 X 10*3/uL (140-440); RBC 3.88 X 10*6/uL (4.40-5.60); RDW 19.4 % (11.5-14.5); WBC 12.06 X 10*3/uL (4.50-10.00)
--- NOTE | 2024-08-21 16:38 | P.DS ---
Providers Date of admission: 08/18/24 22:52 Expected date of discharge: 08/21/24 Attending physician: Dorinda Sandoval MD Consults: 08/18/24 22:50 Consult Physician Routine Consulting Provider: Johny Cruz Consult Reason/Comments: history of MDS, leukocytosis Do you want consulting provider notified?: Yes Primary care physician: Stated None Hospital Course: Final Diagnosis: #. Debility, resolved #. Leukocytosis, improved #. Community-acquired pneumonia, improved #. History of myelodysplastic syndrome s/p bone marrow transplant #. History of [id number] disease #. Chronic kidney disease stage 3a, at baseline #. Hypertension #. Lower extremity edema, stable Hospital Course: 69-year-old man with PMH of hypertension, hyperlipidemia, myelodysplastic syndrome (diagnosed 2014) chemo/treatment at [facility] with bone marrow transplant 2015, prostate cancer (diagnosed ~2011 and had prostatectomy). Presents to the emergency department for further evaluation of generalized weakness x 2 days. He states that normally he moves around and completes ADLs on his own without assistance, 2 days prior to seeking care, he has noticed increasing weakness and inability to perform these ADLs as well as before. Additionally, he endorses having a worsening cough productive of green sputum. He denies any shortness of breath, chest pain, or any urinary symptoms. He does endorse feeling chills, however he is unsure whether or not he "spiked a fever". At that time time, patient notes feeling generalized weakness significantly different from his baseline, as well as a continuing cough and sensation of having chills. In the ED WBCs 35.5, hemoglobin 13.4, hematocrit 39.7, platelet 233; sodium 133, potassium 4.6, BUN 32, creatinine 1.48, total bilirubin 1.6, AST 45, ALT 26. Respiratory viral panel all negative. Urinalysis shows moderate leukocyte esterase and 44 urine WBCs. Chest x-ray done in the ER showed cardiomegaly and mild pulmonary vascular congestion, to be correlated with BMP for possible CHF. EKG done in the ER showed heart rate of 92, sinus rhythm with occasional PVCs; QTc 417 Patient was admitted for evaluation of generalized weakness and leukocytosis due to community-acquired pneumonia. Patient was treated with Rocephin IVPB and azithromycin empirically, blood cultures were ordered, physical therapy consulted, and hematology and oncology team was consulted for his history of MDS status post bone marrow transplant. Hematology team suspects exaggerated marrow response to infection and required no further evaluation. Patient symptoms im proved and leukocytosis improved throughout hospital stay. Patient did not have any new symptoms or complications throughout the duration of hospital stay. Patient was cleared for discharge today and was sent home on oral cefdinir for 2 more days and advised to follow-up with PCP on outpatient basis. Physical examination: Vital signs reviewed General: non toxic, no distress, appears at stated age Derm: no unusual rashes/lesions, warm Head: atraumatic, normocephalic, symmetric Eyes: EOMI, anicteric sclera, pupils equal round reactive to light ENT: Nose and ears atraumatic Neck: No cervical lymphadenopathy, trachea midline, supple Mouth: no lip lesion, mucus membranes moist Cardiovascular: S1S2 reg, no murmur Lungs: CTA bilateral, no rhonchi, no rales, no accessory muscle use Abdominal: soft, nondistended, nontender to palpation, no guarding Ext: muscle strength 5 out of 5 in all 4 extremities grossly, no gross muscle atrophy, no contractures, positive dorsalis pedis pulse bilateral, +1 bilateral lower extremity pitting edema Neuro: CN II-XI grossly intact, no gross focal neuro deficits Psych: Alert, oriented, appropriate affect and mood A total of 36 minutes of time were spent preparing this complex discharge summary. Patient was discharged on 08/21/2024 1022. I have seen and evaluated the patient today. Discussed with the resident and agree with the residents finding and plan as documented in the resident's note. Changes highlighted in blue font. Patient Condition at Discharge: Stable Plan - Discharge Summary Discharge Rx Participant: No New Discharge Prescriptions: New Cefdinir 300 mg PO Q12HR #4 cap Continue allopurinoL [Zyloprim] 300 mg PO DAILY Aspirin EC [Ecotrin Low Dose] 81 mg PO DAILY carvediloL phosphate [Coreg Cr] 20 mg PO DAILY Atorvastatin [Lipitor] 20 mg PO DAILY Cyanocobalamin (Vitamin B-12) [Vitamin B-12] 1,000 mcg PO DAILY lisinopriL 2.5 mg PO DAILY Ginseng 100 mg PO DAILY Furosemide [Lasix] 20 mg PO DAILY Lion's Sin 1 tab PO DAILY Discharge Medication List allopurinoL [Zyloprim] 300 mg PO DAILY 03/23/19 [History] Aspirin EC [Ecotrin Low Dose] 81 mg PO DAILY 08/19/24 [History] Atorvastatin [Lipitor] 20 mg PO DAILY 08/19/24 [History] Cyanocobalamin (Vitamin B-12) [Vitamin B-12] 1,000 mcg PO DAILY 08/19/24 [History] Furosemide [Lasix] 20 mg PO DAILY 08/19/24 [History] Ginseng 100 mg PO DAILY 08/19/24 [History] Lion's Sin 1 tab PO DAILY 08/19/24 [History] carvediloL phosphate [Coreg Cr] 20 mg PO DAILY 08/19/24 [History] lisinopriL 2.5 mg PO DAILY 08/19/24 [History] Cefdinir 300 mg PO Q12HR #4 cap 08/21/24 [Rx] Follow up Appointment(s)/Referral(s): [facility] [NON-STAFF] - 09/08/24 10:30 am (appointment to become established as a new patient) Patient Instructions/Handouts: Leukocytosis (DC), Weakness (DC) Activity/Diet/Wound Care/Special Instructions: [facility] Discharge Disposition: HOME SELF-CARE
== END 2024-08-21 12:00 | disposition home or self-care (01) | DRG 194 ==
LOC: EC 18:36 → 5NMEDONC 22:52
PROVIDERS: ADMIT Internal Medicine; ATTEND Internal Medicine
DX: J18.9 Pneumonia, unspecified organism (principal); D89.813 Graft-versus-host disease, unspecified; I13.0 Hypertensive heart and chronic kidney disease with heart failure and stage 1 through stage 4 chronic kidney disease, or unspecified chronic kidney disease; T86.09 Other complications of bone marrow transplant; I50.9 Heart failure, unspecified; D46.9 Myelodysplastic syndrome, unspecified; E78.5 Hyperlipidemia, unspecified; N18.31 Chronic kidney disease, stage 3a; I49.3 Ventricular premature depolarization; M10.9 Gout, unspecified; Y83.0 Surgical operation with transplant of whole organ as the cause of abnormal reaction of the patient, or of later complication, without mention of misadventure at the time of the procedure; Z79.82 Long term (current) use of aspirin; Z79.899 Other long term (current) drug therapy; Z85.46 Personal history of malignant neoplasm of prostate; Z90.79 Acquired absence of other genital organ(s); Z86.718 Personal history of other venous thrombosis and embolism; Z87.891 Personal history of nicotine dependence; Z88.5 Allergy status to narcotic agent; Z91.041 Radiographic dye allergy status; Z82.49 Family history of ischemic heart disease and other diseases of the circulatory system
CPT/HCPCS: 36415; 71046; 80048; 80053; 81001; 83605; 83735; 84100; 84145; 84484; 85025; 85610; 85730; 87040; 87449; 87636; 87651; 93005; 96361; 96365; 96366; 96367; 96372; 99285